=== PATIENT | female | born 1950 | race Caucasian/White ===

== ENCOUNTER 2017-06-03 05:12 | Emergency (ER) | payer OTHER, BC ==
[~2017-06-03] VITALS: Ht 149.9 cm; Wt 70.8 kg
[~2017-06-03 05:12] MED LIST: ASPI81TA28 PO; DICL1GEL28 TOP; DICY10CA55 PO; DVN80 PO; PROB1TAB16 PO; PROM25TA9 PO; ROSU20TA PO; TRIA37.5 PO; ZOLP5TAB PO
[2017-06-03 05:15] VITALS: TEMP 36.3; Ht 149.9 cm; Wt 70.8 kg
[2017-06-03] MEDS ORDERED: MoRPHine SULFATE 4 MG/ML 1 ML CARP\\VIAL IM STA (05:33)
[2017-06-03] MEDS ORDERED: ONDANSETRON 4MG OD TAB PO STA (05:33)
[2017-06-03] MEDS ORDERED: CYCLOBENZAPRINE HCL 5 MG TAB PO STA (05:33)
--- NOTE | 2017-06-03 05:41 | EMERGENCY ROOM VISIT NOTE ---
History Report prepared by Kaylee: Kassandra Napier Under the Supervision of: Dr. Ella Sanches M.D. First contact with patient: 05:20 Chief Complaint: NECK PAIN Stated Complaint: PINCH NERVE/MUSCLE TIGHTNESS IN NECK DOWN ARM History of Present Illness The patient is a 67 year old female who presents to the Emergency Room with complaints of neck pain beginning yesterday. The patient describes the pain as a sharp pain and rates it at a 9/10. She states that the pain radiates to her right arm and believes that it may be a pinched nerve. She denies having chest pain or shortness of breath with the pain. She also denies recent injury. The patient states that 2 months ago she went to see her doctor because she was having trouble with her kidneys and was told her muscles were tight. The patient reports that she takes Ambien to sleep, and medication for her cholesterol and blood pressure. She denies a history of diabetes and states that she is not on blood thinners. Source of History: patient Onset: yesterday Position: neck Symptom Intensity: rated at a 9/10 Quality: sharp Associated Symptoms: No chest pain, No SOB Note: pain also radiates to right arm Review of Systems See HPI for pertinent positives & negatives. A total of 10 systems reviewed and were otherwise negative. Past Medical & Surgical Medical Problems: (1) HLD (hyperlipidemia) (2) HTN (hypertension) (3) Kidney disease Family History Hypertension Social History Smoking Status: Former Smoker Drug Use: none Marital Status: in relationship Housing Status: lives with significant other Occupation Status: employed Current/Historical Medications Scheduled Aspirin (Aspirin Ec), 81 MG PO DAILY Diclofenac Sod (Voltaren 1% Top Gel), 1 APPLN TOP UD Prednisone (Prednisone), 40 MG PO DAILY Probiotic Product (Probiotic), 1 TAB PO DAILY Rosuvastatin Calcium (Crestor), 20 MG PO DAILY Triamterene/Hctz (Dyazide 37.5MG/25MG), 1 TAB PO DAILY Valsartan (Diovan), 80 MG PO DAILY Scheduled PRN Cyclobenzaprine Hcl (Flexeril), 5 MG PO TID PRN for Muscle Spasms Dicyclomine Hcl (Bentyl), 10 MG PO QID PRN for abd pain Promethazine Hcl (Phenergan), 25 MG PO Q6H PRN for Nausea Tramadol (Ultram), 1 TABS PO Q6 PRN for Pain Zolpidem Tartrate (Ambien), 5 MG PO HS PRN for Sleep Allergies Coded Allergies: Acetaminophen (Unverified Allergy, Mild, 05/10/15) Propoxyphene (Unverified Allergy, Mild, 05/10/15) Sulfa Drugs (Unverified Allergy, Mild, 05/10/15) Uncoded Allergies: CODEINE (Adverse Reaction, Unknown, 10/24/02) IODINE (Adverse Reaction, Unknown, 10/24/02) Physical Exam Vital Signs Date Time Temp Pulse Resp B/P (MAP) Pulse Ox O2 Delivery O2 Flow Rate FiO2 06/03/17 06:14 75 18 138/70 97 06/03/17 05:15 36.3 79 20 154/95 95 Room Air Physical Exam Vital signs reviewed. General: Well-appearing female, in no significant distress. HEENT: No scleral icterus, PERRLA, neck supple. Atraumatic. Cardiovascular: Regular rate and rhythm, no extra sounds. Pulmonary: Clear to auscultation bilaterally, normal work of breathing. Abdomen: Soft, nontender, nondistended, positive bowel sounds. Musculoskeletal: Atraumatic, no peripheral edema. Tenderness to palpation over the right trapezius muscle with tenderness over the proximal forearm. Pain is reproducible on exam with muscular tension. Full range of motion of right upper extremity without difficulty. No weakness. Neurologic: Patient awake alert and oriented x 3 Skin: Warm, dry, no rash Medical Decision & Procedures ER Provider Diagnostic Interpretation: Radiology results as stated below per my review and radiologist interpretation: Cervical Spine X-Ray: Degenerative changes of C spine diffusely particularly at C4, C5, C6. No acute fracture or malalignment appreciated. Medications Administered Medications (Trade) Dose Ordered Sig/Agustin Route Start Time Stop Time Status Last Admin Dose Admin Morphine Sulfate (MoRPHine SULFATE INJ) 4 mg NOW STAT IM 06/03/17 05:33 06/03/17 05:37 DC 06/03/17 05:43 4 MG Ondansetron HCl (Zofran Odt) 4 mg NOW STAT PO 06/03/17 05:33 06/03/17 05:37 DC 06/03/17 05:42 4 MG Cyclobenzaprine HCl (Flexeril Tab) 5 mg NOW STAT PO 06/03/17 05:33 06/03/17 05:37 DC 06/03/17 05:42 5 MG Prednisone (PredniSONE TAB) 40 mg NOW STAT PO 06/03/17 05:33 06/03/17 05:37 DC 06/03/17 05:42 40 MG ED Course 0531: Past medical records reviewed. The patient was evaluated in room B11B. A complete history and physical examination was performed. 0533: Ordered Prednisone 40 mg PO, Flexeril Tab 5 mg PO, Zofran Odt 4 mg PO, Morphine Sulfate 4 mg IM. 0605: Upon reevaluation, the patient appeared to have improvement of her symptoms. I discussed findings with her. She verbalized agreement of the treatment plan. She was discharged home. Medical Decision The patient is a 67 year old female who presents to the ED with complaints of neck pain. Differentials include cervical radiculopathy, disc herniation, arthritic change, trauma, and bony fracture. This pt was evaluated and appeared to be in some discomfort. PE is c/w cervical radiculopathy and muscular tension. She denies CP or SOB. Pt was carrying laundry baskets today and likely aggravated her neck. Cervical spine XR reveals significant degenerative changes to my interpretation, no acute fx or malalignment. She was given IM morphine, po prednisone, po zofran and po flexeril. Pt was feeling improved. Her s/o arrived and drove her home. She was given a Rx for flexeril, prednisone and tramadol for pain. Pt was given a work note per her request. She will f/u with PCP this week and return to the ED for worsening of symptoms or any medical concerns. Medication Reconcilliation Current Medication List: was personally reviewed by me Blood Pressure Screening Patient's blood pressure: Elevated blood pressure Blood pressure disposition: Elevated BP felt to be situational Impression Primary Impression: DDD (degenerative disc disease), cervical Additional Impression: Cervical radiculopathy Scribe Attestation The scribe's documentation has been prepared under my direction and personally reviewed by me in its entirety. I confirm that the note above accurately reflects all work, treatment, procedures, and medical decision making performed by me. Departure Information Dispostion Home / Self-Care Prescriptions Tramadol (Ultram) 50 Mg Tab 1 TABS PO Q6 Y for Pain, #20 TAB Prov: Ella Sanches M.D. 06/03/17 Cyclobenzaprine Hcl (FLEXERIL) 5 Mg Tab 5 MG PO TID Y for Muscle Spasms, #20 TAB Prov: Ella Sanches M.D. 06/03/17 Prednisone (Prednisone) 20 Mg Tab 40 MG PO DAILY, #8 TAB Prov: Ella Sanches M.D. 06/03/17 Referrals No Doctor, Assigned (PCP) Forms HOME CARE DOCUMENTATION FORM, IMPORTANT VISIT INFORMATION, WORK / SCHOOL INSTRUCTIONS Patient Instructions My [facility] Additional Instructions Diagnosis: Degenerative disc disease, cervical radiculopathy Prednisone 40 mg daily for 4 more days, start tomorrow Flexeril 5 mg 3 times daily as needed for muscular spasm. Ultram 50 mg every 6 hours as needed for pain. Do not drive after taking the above medications. Warm compresses and gentle stretching. Return to the ER for worsening of symptoms or any medical concerns. Problem Qualifiers
[2017-06-03] MEDS ORDERED: CYCL5TAB PO (06:07)
[2017-06-03] MEDS ORDERED: PRED20TA PO (06:07)
[2017-06-03] MEDS ORDERED: TRAM-10 PO (06:07)
[2017-06-03 06:14] VITALS: BP 138/70; PULSE 75; O2SAT 97
--- NOTE | 2017-06-03 06:32 | DIAGNOSTIC IMAGING REPORT ---
C-SPINE ROUTINE 4 OR 5 VIEWS CLINICAL HISTORY: right radiculopathy COMPARISON STUDY: Neck radiographs September 20, 2012. FINDINGS: There is slight reversal of the normal cervical lordosis and minimal retrolisthesis of C4 on C5 and C5 on C6. There is moderate disc space narrowing at C4-C5 and C5-C6. There is mild disc space narrowing at C5-C6. [id number] multilevel bony neural foraminal narrowing is noted. There is no fracture or suspicious lesion. IMPRESSION: 1. No cervical spine fracture. 2. Moderate disc space narrowing and osteophytosis at C4-C5 and C5-C6. [id number] multilevel bony neural foraminal narrowing. Electronically signed by: Trung Luis M.D. 06/03/2017 6:31 AM Dictated Date/Time: 06/03/2017 6:30 AM
== END 2017-06-03 06:02 | disposition home or self-care (01) ==
LOC: C.EDB 05:14
DX: M50.11 Cervical disc disorder with radiculopathy, high cervical region (principal); M50.121 Cervical disc disorder at C4-C5 level with radiculopathy; M50.122 Cervical disc disorder at C5-C6 level with radiculopathy; E11.9 Type 2 diabetes mellitus without complications; E78.5 Hyperlipidemia, unspecified; I10 Essential (primary) hypertension; N28.9 Disorder of kidney and ureter, unspecified; Z82.49 Family history of ischemic heart disease and other diseases of the circulatory system; Z87.891 Personal history of nicotine dependence; Z79.82 Long term (current) use of aspirin; Z79.899 Other long term (current) drug therapy; Z88.2 Allergy status to sulfonamides; Z88.5 Allergy status to narcotic agent; Z88.6 Allergy status to analgesic agent; Z88.8 Allergy status to other drugs, medicaments and biological substances

== ENCOUNTER 2019-08-10 15:22 | Inpatient (IN) ==
[2019-08-10] MEDS ORDERED: ONDANSETRON INJ 2 MG/ML 2 ML VIAL IV STA (15:42)
[2019-08-10] MEDS ORDERED: SODIUM CHLORIDE 0.9% 1000ML 2,000 ML IV ONE (15:42)
[2019-08-10] MEDS ORDERED: ACETAMINOPHEN 1,000 MG/100 ML VIAL IV STA (15:43)
--- NOTE | 2019-08-10 15:47 | Emergency Department Note ---
Impression & Plan Colitis, Enteritis, Acute hypokalemia, Acute dehydration ED Provider Note Provider: Steven Hunt MD DATE OF SERVICE: 08/10/2019 CHIEF COMPLAINT: Abdominal pain HISTORY OF PRESENT ILLNESS: Patient is a 69-year-old female with a history of hyperlipidemia, CKD, and hypertension presenting today with complaints of diarrhea with some fever and abdominal discomfort started with diarrhea 4 days ago and then some nausea and vomiting today. Referred from [facility] work today concern for diverticulitis. Patient relays a history of lymphocytic colitis about 5 years ago. Rating 3 out of 10 abdominal pain. Has not tried any medicines at home for pain today. Afebrile upon arrival. No trauma reported. Denies other sick contacts. Denies suspect food intake. States this is worse than prior pain that seems different. Denies any blood in the vomit or the stool. Multiple episodes of watery diarrhea for the last 4 days. States she feels quite thirsty. REVIEW OF SYSTEMS: A total of 10 review of systems was obtained and negative except as stated above in the HPI. PAST MEDICAL HISTORY: As noted above MEDICATIONS: Reviewed and includes aspirin, Crestor, triamterene hydrochlorothi azide SOCIAL HISTORY: Non-smoker, lives at home with friend PHYSICAL EXAM: GENERAL: alert and oriented in no acute distress on stretcher Head: normocephalic and atraumatic EYES: No injection, discharge or icterus. ENT: Mucous membranes pink and moist. LUNGS: Airway patent. No retractions. Breath sounds clear with good air entry bilaterally. HEART: Regular rate and rhythm. No chest wall tenderness ABDOMEN: Soft with some slight mid abdominal tenderness. No particular masses appreciated. No significant lower abdominal tenderness. SKIN: Acyanotic, warm, dry, without rashes EXTREMITIES: Without swelling, tenderness or deformity NEUROLOGICAL: No focal deficits. No aphasia. No facial droop or slurred speech. Ambulatory. EKG: Sinus tachycardia 119 bpm. No PVC. No acute ST segment elevation or depression. Nonspecific inferior lateral T wave flattening. Normal QTC and axis. CONTINUOUS CARDIAC MONITORING: was ordered and showed a heart rate of 118 bpm in sinus tachycardia Patient's hypertension was referred to the hospitalist PDMP was checked without noted issue. HOSPITAL COURSE: 1534 Patient was first seen and H&P performed. 1720 Patient reassessed and updated. Patient was just receiving her IV fluid hydration and Zofran. Updated on findings agree for observation plan. 1741 discussed with the [facility] hospitalist, Naomi ANTONY who will further evaluate. Patient's laboratory studies and imaging reviewed. Differential includes Appendicitis, infections, diverticulitis, UTI, obstruction, mesenteric ischemia, aortic pathology, inflammatory bowel disease, renal colic, PUD, pancreatitis, biliary pathology, hernia, volvulus, constipation, as well as other pathologies. IMPRESSION/MEDICAL DECISION MAKING: Patient reports 4 days of watery diarrhea with some mid abdominal discomfort now with nausea and vomiting today. Mildly tachycardic and likely mildly de hydrated. Given IV fluid hydration. Fevers reported at home but afebrile upon arrival here. No use of OTC pain meds/antipyretics prior to arrival here today. Abdomen mild to moderately tender. CT scan of the abdomen pelvis will be obtained. Patient states iodine has discolored her skin before but denies other significant reaction. EKG obtained as well as troponin of the lower suspicion is acute ACS. Stool culture ordered. Doubt the C. difficile colitis and no recent antibiotics. Labs to exclude hepatitis and pancreatitis were sent. Doubt this is pulmonary in nature. No sick contacts at home and no recent travel or suspect food intake. Laboratory studies do show leukocytosis of 19.6. No anemia noted. Patient does have hypo-kalemia of 2.7 with a worsened renal function with creatinine 1.61. Troponin is negative. No evidence of pancreatitis or hepatitis. Given the renal change CT scan without IV contrast ordered. CT scan shows colon filled diarrheal type illness of the cecum and ascending colon with mild stranding suggestive of mild colitis and enteritis. Reactive lymph nodes are noted. No evidence of pneumonia, pneumoperitoneum, pneumatosis. Given the patient's complaints, her leukocytosis, hypokalemia, her dehydrated state believe further observation here in the hospital is warranted. Given additional IV fluids and potassium repletion. [facility] Given the recent diarrheal state and these findings, dose of Cipro and Flagyl was ordered. DIAGNOSIS: Colitis, hypokalemia, dehydration, enteritis DISPOSITION: Observation, hospitalist evaluating Patient was agreeable with this plan. Past Med/Surg History Medical History Chronic back pain CKD (chronic kidney disease), stage III HLD (hyperlipidemia) HTN (hypertension) Lymphocytic colitis Migraines SALAS (nonalcoholic steatohepatitis) RADHA on CPAP Osteoarthritis Surgical History S/P left knee arthroscopy Family History Father Heart disease Social History Preferred Language: Luxembourgish Communication Ability: Effective Beliefs That Will Affect Care: None Current Living Situation: Other Current Living Situation Comment: lives with friend Other Information That Helps Us Care for You: Yes (incontinent of stool, would like brief) Feels Safe at Home: Yes Safety Concerns: Feels Safe At This Time Smoking Status: Former smoker Do You Dip or Chew Tobacco: No ; Smoking End Date: 2008 ; Hx Alcohol Use: No Hx Substance Use: No Allergies Allergies Allergy/AdvReac Type Severity Reaction Status Date / Time propoxyphene Allergy Mild Unknown Verified 08/10/19 16:44 Sulfa (Sulfonamide Allergy Mild Unknown Verified 08/10/19 16:44 Antibiotics) iodine Allergy Unknown Unknown Verified 08/10/19 16:44 codeine AdvReac Unknown Unknown Verified 08/10/19 16:44 Home Meds Home Medications Medication Instructions Recorded Confirmed omeprazole 40 mg PO DAILY 03/06/18 08/10/19 potassium chloride 20 meq PO BID 03/06/18 08/10/19 rosuvastatin 20 mg PO DAILY 03/06/18 08/10/19 triamterene-hydrochlorothiazid 2 tab PO DAILY 03/06/18 08/10/19 zolpidem 5 mg PO HS PRN 03/06/18 08/10/19 cyclobenzaprine 5 mg PO TID PRN 02/09/19 08/10/19 gabapentin 300 mg PO BID PRN 02/09/19 08/10/19 dicyclomine 10 mg PO QID PRN 08/10/19 08/10/19 meclizine 25 mg PO TID PRN 08/10/19 08/10/19 Results & Data (ED) Vital Signs Vital Signs - 24 hr 08/10/19 15:28 08/10/19 17:22 Temperature 37.1 C Temperature Source Oral Pulse Rate 125 H Pulse Rate [Apical] 111 H Respiratory Rate 20 18 Respiratory Effort / Characteristics Non-Labored Spontaneous Non-Labored Spontaneous Respiratory Depth Normal Normal Respiratory Pattern Regular Blood Pressure 139/79 Blood Pressure [Left Arm] 147/82 H Blood Pressure Mean 99 Blood Pressure Mean [Left Arm] 103 Blood Pressure Position Sitting Blood Pressure Position [Left Arm] Lying Pulse Oximetry 92 93 Oxygen Delivery Method Room Air Room Air Sepsis Recent Fever Within 48 Hours No Sepsis New/Unexplained Change in Mental Status No Sepsis Action Taken by Nursing No Action Required Laboratory Data Result diagrams: 08/10/19 16:13 08/10/19 16:13 Lab Results 08/10/19 08/10/19 08/10/19 Range/Units 16:13 16:13 16:13 WBC 19.61 H (4.8-10.8) K/uL RBC 5.39 (4.2-5.4) M/uL Hgb 16.4 H (12.0-16.0) g/dL Hct 46.7 (37-47) % MCV 86.6 (80-100) fL MCH 30.4 (25-34) pg MCHC 35.1 (32-36) g/dL RDW Std Deviation 45.1 (36.4-46.3) fL RDW Coeff of Rivas 14.3 (11.5-14.5) % Plt Count 269 (130-400) K/uL MPV 10.3 (7.4-10.4) fL Immature Gran % (Auto) 0.4 % Neut % (Auto) 85.9 % Lymph % (Auto) 6.8 % [place] % (Auto) 6.8 % Eos % (Auto) 0.0 % Baso % (Auto) 0.1 % Immature Gran # (Auto) 0.08 H (0.00-0.02) K/uL Neut # (Auto) 16.85 H (1.4-6.5) K/uL Lymph # (Auto) 1.33 (1.2-3.4) K/uL [place] # (Auto) 1.34 H (0.11-0.59) K/uL Eos # (Auto) 0.00 (0-0.5) K/uL Baso # (Auto) 0.01 (0-0.2) K/uL Sodium 137 (136-145) mmol/L Potassium 2.7 L (3.5-5.1) mmol/L Chloride 101 (98-107) mmol/L Carbon Dioxide 23 (21-32) mmol/L Anion Gap 14.0 H (3-11) BUN 22 H (7-18) mg/dl Creatinine 1.61 H (0.6-1.2) mg/dl Est Cr Clr Drug Dosing 30.3 ml/min Est GFR ( Amer) 37.7 Est GFR (Non-Af Amer) 32.5 BUN/Creatinine Ratio 13.5 (10-20) Glucose 129 H (70-99) mg/dl Calcium 9.0 (8.5-10.1) mg/dl Magnesium 2.0 (1.8-2.4) mg/dl Total Bilirubin 0.6 (0.2-1) mg/dl AST 24 (15-37) U/L ALT 30 (12-78) U/L Alkaline Phosphatase 92 (45-117) U/L Troponin I < 0.015 (0-0.045) ng/ml C-Reactive Protein 15.30 H (0-0.29) mg/dl Total Protein 8.5 H (6.4-8.2) gm/dl Albumin 3.8 (3.4-5.0) gm/dl Globulin 4.7 H (2.5-4.0) gm/dl Albumin/Globulin Ratio 0.8 L (0.9-2) Lipase 71 L (73-393) U/L Stl C. diff Tox B Gene (Neg) 08/10/19 Range/Units 17:30 WBC (4.8-10.8) K/uL RBC (4.2-5.4) M/uL Hgb (12.0-16.0) g/dL Hct (37-47) % MCV (80-100) fL MCH (25-34) pg MCHC (32-36) g/dL RDW Std Deviation (36.4-46.3) fL RDW Coeff of Rivas (11.5-14.5) % Plt Count (130-400) K/uL MPV (7.4-10.4) fL Immature Gran % (Auto) % Neut % (Auto) % Lymph % (Auto) % [place] % (Auto) % Eos % (Auto) % Baso % (Auto) % Immature Gran # (Auto) (0.00-0.02) K/uL Neut # (Auto) (1.4-6.5) K/uL Lymph # (Auto) (1.2-3.4) K/uL [place] # (Auto) (0.11-0.59) K/uL Eos # (Auto) (0-0.5) K/uL Baso # (Auto) (0-0.2) K/uL Sodium (136-145) mmol/L Potassium (3.5-5.1) mmol/L Chloride (98-107) mmol/L Carbon Dioxide (21-32) mmol/L Anion Gap (3-11) BUN (7-18) mg/dl Creatinine (0.6-1.2) mg/dl Est Cr Clr Drug Dosing ml/min Est GFR ( Amer) Est GFR (Non-Af Amer) BUN/Creatinine Ratio (10-20) Glucose (70-99) mg/dl Calcium (8.5-10.1) mg/dl Magnesium (1.8-2.4) mg/dl Total Bilirubin (0.2-1) mg/dl AST (15-37) U/L ALT (12-78) U/L Alkaline Phosphatase (45-117) U/L Troponin I (0-0.045) ng/ml C-Reactive Protein (0-0.29) mg/dl Total Protein (6.4-8.2) gm/dl Albumin (3.4-5.0) gm/dl Globulin (2.5-4.0) gm/dl Albumin/Globulin Ratio (0.9-2) Lipase (73-393) U/L Stl C. diff Tox B Gene Negative Cdiff Gene (Neg) Administered Medications Dicyclomine HCl (Bentyl) 10 mg PO QID PRN PRN Reason: Abdominal Pain Stop: 09/09/19 19:35 Last Admin: 08/10/19 20:21 Dose: 10 mg Documented by: [id number] Admin: 08/10/19 20:20 Dose: 10 mg Documented by: [id number] Heparin Sodium (Porcine) (Heparin Sodium (Porcine)) 5,000 units SQ Q8 ALEXY Stop: 09/09/19 21:59 Last Admin: 08/10/19 22:43 Dose: 5,000 units Documented by: [id number] Cosigned by: [id number] Sodium Chloride (Nss 1000ml) 1,000 mls @ 125 mls/hr IV .Q8H ALEXY Stop: 09/09/19 19:35 Last Admin: 08/10/19 20:22 Dose: 125 mls/hr Documented by: [id number] Zolpidem Tartrate (Ambien) 5 mg PO HS PRN PRN Reason: Sleep Stop: 09/09/19 21:14 Last Admin: 08/10/19 22:26 Dose: 5 mg Documented by: [id number] Discontinued Medications Ciprofloxacin (Cipro) 500 mg PO NOW STA Stop: 08/10/19 17:28 Last Admin: 08/10/19 17:58 Dose: 500 mg Documented by: [id number] Sodium Chloride (Nss 1000ml) 2,000 mls @ 999 mls/hr IV .Q2H1M ONE Stop: 08/10/19 17:42 Last Infusion: 08/10/19 19:47 Dose: 0 mls/hr Documented by: [id number] Admin: 08/10/19 17:22 Dose: 999 mls/hr Documented by: [id number] Acetaminophen (Ofirmev) 1,000 mg in 100 mls @ 400 mls/hr IV NOW STA Stop: 08/10/19 15:57 Last Infusion: 08/10/19 17:43 Dose: 0 mls/hr Documented by: [id number] Admin: 08/10/19 17:22 Dose: 400 mls/hr Documented by: [id number] Potassium Chloride (K Jignesh / Wtr) 10 meq in 100 mls @ 100 mls/hr IV ONE ONE Stop: 08/10/19 18:25 Last Infusion: 08/10/19 19:46 Dose: 0 mls/hr Documented by: [id number] Admin: 08/10/19 17:59 Dose: 100 mls/hr Documented by: [id number] Metronidazole (Flagyl) 500 mg PO NOW STA Stop: 08/10/19 17:28 Last Admin: 08/10/19 17:58 Dose: 500 mg Documented by: [id number] Ondansetron HCl (Zofran) 4 mg IV NOW STA Stop: 08/10/19 15:43 Last Admin: 08/10/19 17:22 Dose: 4 mg Documented by: [id number] Potassium Chloride (Klor-Con M20) 40 meq PO ONE ONE Stop: 08/10/19 19:01 Last Admin: 08/10/19 20:21 Dose: 40 meq Documented by: [id number] Potassium Chloride (Klor-Con M20) 40 meq PO ONE ONE Stop: 08/10/19 21:01 Last Admin: 08/10/19 22:43 Dose: 40 meq Documented by: [id number] Discharge Plan Visit Data *Final* Discharge Date/Time: 08/10/19 19:05 Chief Complaint: Abdominal Pain Stated Complaint: ABD PAIN, DIARRHEA FOR 3 DAYS ED Provider: Steven Hunt Discharge Problem: Colitis, Enteritis, Acute hypokalemia, Acute dehydration Patient Disposition: Admitted As Inpatient Condition: Good Discharge Instructions Interventions: ED Discharge Assessment Last Done: 08/10/19 19:05
[2019-08-10 16:20] LABS: Basophils # (auto) 0.01 K/uL (0-0.2); Basophils % (auto) 0.1 %; Hematocrit (blood only) 46.7 % (37-47); Hemoglobin 16.4 g/dL (12.0-16.0); Immature Granulocytes # (auto) 0.08 K/uL (0.00-0.02); Immature Granulocytes % (auto) 0.4 %; Lymphocytes # (auto) 1.33 K/uL (1.2-3.4); Lymphocytes % (auto) 6.8 %; Mean Corpuscular Hemoglobin 30.4 pg (25-34); Mean Corpuscular Hgb Conc 35.1 g/dL (32-36); Mean Corpuscular Volume 86.6 fL (80-100); Mean Platelet Volume 10.3 fL (7.4-10.4); Monocytes # (auto) 1.34 K/uL (0.11-0.59); Monocytes % (auto) 6.8 %; Neutrophils # (auto) 16.85 K/uL (1.4-6.5); Neutrophils % (auto) 85.9 %; Platelet Count 269 K/uL (130-400); RDW Coefficient of Variation 14.3 % (11.5-14.5); RDW Standard Deviation 45.1 fL (36.4-46.3); Red Blood Count 5.39 M/uL (4.2-5.4); White Blood Count 19.61 K/uL (4.8-10.8)
[2019-08-10 16:37] LABS: Alanine Aminotransferase 30 U/L (12-78); Albumin Level 3.8 gm/dl (3.4-5.0); Aspartate Aminotransferase 24 U/L (15-37); BUN Creatinine Ratio 13.5 (10-20); Blood Urea Nitrogen 22 mg/dl (7-18); Carbon Dioxide 23 mmol/L (21-32); Chloride 101 mmol/L (98-107); Creatinine Clr Calc Pharmacy 30.3 ml/min; Est GFR (African American) 37.7; Est GFR (Non-African American) 32.5; Glucose 129 mg/dl (70-99); Lipase 71 U/L (73-393); Potassium 2.7 mmol/L (3.5-5.1); Sodium 137 mmol/L (136-145)
[2019-08-10 16:42] LABS: Albumin Globulin Ratio 0.8 (0.9-2); Alkaline Phosphatase 92 U/L (45-117); Bilirubin,Total 0.6 mg/dl (0.2-1); Globulin 4.7 gm/dl (2.5-4.0); Total Protein 8.5 gm/dl (6.4-8.2); Troponin I < 0.015 ng/ml (0-0.045)
--- NOTE | 2019-08-10 17:13 | CT Scan Report ---
ABDOMEN AND PELVIS CT WITHOUT CONTRAST CT DOSE: 522.20 mGy.cm HISTORY: Acute epigastric abdominal pain with diarrhea abd pain, epigastric , n/diarrhea TECHNIQUE: Multiaxial CT images of the abdomen and pelvis were performed without contrast. A dose lo wering technique was utilized adhering to the principles of ALARA. COMPARISON STUDY: Lumbar spine radiographs 07/21/2015 FINDINGS: Minimal subsegmental bibasilar atelectasis. No pneumatosis or pneumoperitoneum. Coronary artery calci fications. Limited evaluation of the solid abdominal organs without the use of IV contrast. Thin the limitations of the study the spleen and adrenal glands are unremarkable. Mild generalized pancreatic atrophy. Unremarkable gallbladder. Hepatomegaly with hepatic steatosis. The kidneys appear unremarkab le. There is a 1.6 cm hypodense lesion of the anterior interpolar right kidney suggestive of a probab le cyst. No renal or ureteral calculi or obstructive uropathy. Unremarkable urinary bladder, uterus a nd adnexa. Extensive calcified plaque of the abdominal aorta without aneurysm. Scattered nonenlarged however mildly prominent mesenteric lymph nodes measure up to 9 mm. Mild nonspecific stranding of the lower and central mesentery. No bowel obstruction. Air and fluid-filled colon. Mild colonic diverticulosis without acute diverticu litis. There is wall thickening involving the cecum and ascending colon. Nonspecific mild layering hy perdense debris is noted within the cecum. Fluid-filled loops of nondilated distal ileum. Soft tissue s are unremarkable. Degenerative changes of the spine, pelvis and hips. Remote bilateral L5 pars defe cts with grade 1 anterolisthesis. IMPRESSION: 1. No bowel obstruction, pneumoperitoneum or pneumatosis. 2. Air and fluid-filled colon compatible with diarrheal illness. Additionally, there is wall thickeni ng of the cecum and ascending colon with mild pericolonic stranding suggestive of a nonspecific colit is. Nondilated air and fluid-filled loops of small bowel within the pelvis suggest associated enterit is. 3. Prominent lymph nodes of the mid and lower mesentery with mild mesenteric infiltration may be on a reactive basis. 4. Hepatomegaly with hepatic steatosis. 5. Additional findings as above. ACT 112: Negative or not required by law. The above report was generated using voice recognition software. It may contain grammatical, syntax o r spelling errors. Electronically signed by: Lorenzo Zabala M.D. 08/10/2019 5:12 PM
[2019-08-10] MEDS ORDERED: POTASSIUM CHLORIDE / WTR 10 MEQ/100 ML PLCT IV ONE (17:26)
[2019-08-10] MEDS ORDERED: metroNIDAZOLE 500 MG TAB PO STA (17:27)
[2019-08-10] MEDS ORDERED: CIPROFLOXACIN 500 MG TAB PO STA (17:27)
[2019-08-10] MEDS ORDERED: POTASSIUM CHLORIDE 20 MEQ TABCR PO ONE ×2 (19:00→21:00)
--- NOTE | 2019-08-10 19:16 | History & Physical Report ---
Date of Service August 10, 2019 Assessment & Plan (1) Sepsis: (2) Colitis: -Admit to [facility] with telemetry -Patient presenting from home with reports of diarrhea and epigastric abdominal pain x 3 days -hx of lymphocytic colitis in 2014; follow-up colonoscopy in 2017, biopsies negative -In the ED, tachycardic, WBC 19.6K; BP stable, afebrile, lactate pending -CT ABD/pelvis showing nonspecific colitis -S/p p.o. Cipro and Flagyl in the ED, will continue with IV Cipro and Flagyl -Continue supportive care with IVF, pain management, clear liquid diet -Blood cultures, stool studies -GI consult given history of lymphocytic colitis (3) Acute kidney injury superimposed on CKD: (4) CKD (chronic kidney disease), stage III: -Creatinine 1.6, baseline creatinine runs in the low ones -Likely prerenal in nature secondary to diarrhea in combination with continue triamterene/HCTZ use -IVF, hold HCTZ -Follow renal function (5) Acute hypokalemia: -K+ 2.7, MG +2.0 -Likely due to GI loss with diarrhea -Replace, follow electrolytes (6) HTN (hypertension): -BP controlled, holding triamterene/HCTZ as above (7) HLD (hyperlipidemia): -Continue statin (8) RADHA on CPAP: -CPAP as per home settings (9) DVT prophylaxis: -SQ heparin History of Present Illness Chief Complaint: Abdominal pain, diarrhea Primary Care Provider: Unruly Jennings MD 69-year-old female with PMH HLD, HTN, CKD stage III, RADHA, and other problems listed below who presents the ED for evaluation of abdominal pain and diarrhea. Patient reports her symptoms began 3 days ago. She reports multiple episodes of diarrhea per day. She denies any bright red bleeding per rectum or dark tarry stools. She reports persistent epigastric pain. No radiation of the pain. She has had associated nausea and one episode of vomiting today. Describes emesis is bilious in nature. No hematemesis or coffee-ground emesis. Reports running low-grade fevers of 99-100. No sick contacts or suspected food poisoning. Denies chest pain shortness of breath. No lightheadedness, dizziness, diaphoresis, syncopal events. She denies any urinary symptoms. In the ED, CT ABD/pelvis is showing nonspecific colitis. Labs show WBC 19 K, K+ 2.7, creatinine 1.6 (baseline runs in the low ones). Patient was given p.o. Cipro and Flagyl, IV Tylenol, IV Zofran, IV potassium replacement, IVF. Allergies Allergy/AdvReac Type Severity Reaction Status Date / Time propoxyphene Allergy Mild Unknown Verified 08/10/19 16:44 Sulfa (Sulfonamide Allergy Mild Unknown Verified 08/10/19 16:44 Antibiotics) iodine Allergy Unknown Unknown Verified 08/10/19 16:44 codeine AdvReac Unknown Unknown Verified 08/10/19 16:44 Home Medications Home Medications Medication Instructions Recorded Confirmed Type omeprazole 40 mg PO DAILY 03/06/18 08/10/19 History potassium chloride 20 meq PO BID 03/06/18 08/10/19 History rosuvastatin 20 mg PO DAILY 03/06/18 08/10/19 History triamterene-hydrochlorothiazid 2 tab PO DAILY 03/06/18 08/10/19 History zolpidem 5 mg PO HS PRN 03/06/18 08/10/19 History cyclobenzaprine 5 mg PO TID PRN 02/09/19 08/10/19 History gabapentin 300 mg PO BID PRN 02/09/19 08/10/19 History dicyclomine 10 mg PO QID PRN 08/10/19 08/10/19 History meclizine 25 mg PO TID PRN 08/10/19 08/10/19 History Past Med/Surg History Medical History Chronic back pain CKD (chronic kidney disease), stage III HLD (hyperlipidemia) HTN (hypertension) Lymphocytic colitis Migraines SALAS (nonalcoholic steatohepatitis) RADHA on CPAP Osteoarthritis Surgical History S/P left knee arthroscopy Family History Father Heart disease Social History Preferred Language: Tristanian Communication Ability: Effective Beliefs That Will Affect Care: None Current Living Situation: Other Current Living Situation Comment: lives with friend Other Information That Helps Us Care for You: Yes (incontinent of stool, would like brief) Feels Safe at Home: Yes Safety Concerns: Feels Safe At This Time Smoking Status: Former smoker Do You Dip or Chew Tobacco: No ; Smoking End Date: 2008 ; Hx Alcohol Use: No Hx Substance Use: No Review of Systems Review of Systems: ROS per HPI, all other systems reviewed and negative Physical Exam Constitutional: WD/WN, vitals as above Eyes: PERRL, conjunctivae normal, anicteric sclerae ENMT: external ear and nose normal, oropharynx normal Respiratory: normal respiratory effort, lungs clear to auscultation Cardiovascular: Rate/Rhythm: regular rhythm and + tachycardic (Mildly tachycardic, 90s to low 100s) Vessels: normal peripheral pulses Extremities: no edema Gastrointestinal (Abdomen): Inspection/Auscultation: normal bowel sounds Percussion/Palpation: + abdomen tender (Epigastric) and abdomen soft; no hepatosplenomegaly Musculoskeletal: no cyanosis or clubbing, extremities motor strength 5/5 Skin: no rashes, warm and dry Neurologic: PERRL, EOMI, accommodation nl, no face palsy, no dysarthria Psychiatric: A+Ox3, euthymic affect Results & Data Results & Data ([facility]) Vital Signs (Past 12 Hours) Vital Signs Temp Pulse Pulse Resp BP BP Pulse Ox 08/10/19 17:22 111 H 18 147/82 H 93 08/10/19 15:28 37.1 C 125 H 20 139/79 92 Laboratory Results Short CBC 08/10/19 Range/Units 16:13 WBC 19.61 H (4.8-10.8) K/uL Hgb 16.4 H (12.0-16.0) g/dL Hct 46.7 (37-47) % Plt Count 269 (130-400) K/uL BMP 08/10/19 16:13 Sodium 137 Potassium 2.7 L Chloride 101 Carbon Dioxide 23 BUN 22 H Creatinine 1.61 H Glucose 129 H Calcium 9.0 Cardiac Enzymes 08/10/19 Range/Units 16:13 Troponin I < 0.015 (0-0.045) ng/ml Liver Function 08/10/19 Range/Units 16:13 Total Bilirubin 0.6 (0.2-1) mg/dl AST 24 (15-37) U/L ALT 30 (12-78) U/L Alkaline Phosphatase 92 (45-117) U/L Albumin 3.8 (3.4-5.0) gm/dl Diagnostic Findings CT ABD/PELVIS IMPRESSION: 1. No bowel obstruction, pneumoperitoneum or pneumatosis. 2. Air and fluid-filled colon compatible with diarrheal illness. Additionally, there is wall thickening of the cecum and ascending colon with mild pericolonic stranding suggestive of a nonspecific colitis. Nondilated air and fluid-filled loops of small bowel within the pelvis suggest associated enteritis. 3. Prominent lymph nodes of the mid and lower mesentery with mild mesenteric infiltration may be on a reactive basis. 4. Hepatomegaly with hepatic steatosis. 5. Additional findings as above. Code Status & VTE Plan VTE Prophylaxis Plan VTE Prophylaxis will be ordered: Yes Supervising Physician Co-Signing Physician Notes Pt was seen and examined. Agreed with Damaris WALDRON exam, assessment and plan. 9-year-old female with PMH HLD, HTN, CKD stage III, RADHA, and other problems listed below who presents the ED for evaluation of abdominal pain and diarrhea. Pt said that she has been having abdominal pain associated with diarrhea. She said that whenever she eats or drink that she had to torres to the bathroom due to the diarrhea. CT abd/pelvis showed aiir and fluid-filled colon compatible with diarrheal illness. Additionally, there is wall thickening of the cecum and ascending colon with mild pericolonic stranding suggestive of a nonspecific colitis. Nondilated air and fluid-filled loops of small bowel within the pelvis suggest associated enteritis. Potassium on admission 2.7. Received Cipro and Flagyl PO on admission, will continue abx with IV cipro and flagyl. Potassium replaced. Conitnue IVF fluid. GI consult. Follow up blood cx and stool cx. Will monitor electrolytes. Will advance diet as tolerated. MD Nevin
[2019-08-10] MEDS ORDERED: SODIUM CHLORIDE 0.9% 1000ML 1,000 ML IV SCH (19:36)
[2019-08-10] MEDS: DICYCLOMINE HCL 10 MG CAP PO PRN ×2 (20:20→20:21)
[2019-08-10] MEDS: ZOLPIDEM TARTRATE 5 MG TAB PO PRN (22:26)
[2019-08-10] MEDS: HEPARIN SOD 5,000 UNIT/0.5 ML VIAL SQ SCH (22:43)
[2019-08-10] MEDS ORDERED: POTASSIUM CHLORIDE 20 MEQ TABCR PO STA (23:40)
[2019-08-10] MEDS ORDERED: POTASSIUM CHLORIDE 40 MEQ in SODIUM CHLORIDE 0.9% 1000ML 1,000 ML IV ONE (23:41)
[2019-08-11] MEDS ORDERED: TRAMADOL HCL 50 MG TABLET PO PRN (00:33)
[2019-08-11] MEDS: LOPERAMIDE HCL 2 MG CAP PO PRN ×3 (01:21→13:43)
[2019-08-11] MEDS: metroNIDAZOLE 500 MG/100 ML BAG IV SCH ×3 (02:38→18:03)
[2019-08-11 06:07] LABS: Hematocrit (blood only) 41.1 % (37-47); Hemoglobin 13.9 g/dL (12.0-16.0); Mean Corpuscular Hemoglobin 29.8 pg (25-34); Mean Corpuscular Hgb Conc 33.8 g/dL (32-36); Mean Platelet Volume 10.5 fL (7.4-10.4); Platelet Count 207 K/uL (130-400); RDW Coefficient of Variation 14.7 % (11.5-14.5); RDW Standard Deviation 47.3 fL (36.4-46.3); Red Blood Count 4.67 M/uL (4.2-5.4)
[2019-08-11] MEDS: CIPROFLOXACIN / D5W 400 MG/200 ML BAG IV SCH ×2 (06:10→18:03)
[2019-08-11] MEDS: HEPARIN SOD 5,000 UNIT/0.5 ML VIAL SQ SCH ×3 (06:10→22:15)
[2019-08-11 06:32] LABS: BUN Creatinine Ratio 13.1 (10-20); Calcium 8.1 mg/dl (8.5-10.1); Creatinine Clr Calc Pharmacy 33.3 ml/min; Est GFR (African American) 43.1; Est GFR (Non-African American) 37.2; Potassium 2.7 mmol/L (3.5-5.1)
[2019-08-11] MEDS: PANTOprazole 40 MG TAB PO SCH (08:04)
[2019-08-11] MEDS: ROSUVASTATIN CALCIUM 20 MG TAB PO SCH (08:04)
--- NOTE | 2019-08-11 08:30 | Hospitalist Progress Note ---
Date of Service August 11, 2019 Assessment & Plan (1) Sepsis: (2) Colitis: -Patient presenting from home with reports of diarrhea and epigastric abdominal pain x 3 days -hx of lymphocytic colitis in 2014; follow-up colonoscopy in 2017, biopsies negative -In the ED, tachycardic, WBC 19.6K; BP stable, afebrile, lactate pending -CT ABD/pelvis showing nonspecific colitis -S/p p.o. Cipro and Flagyl in the ED, will continue with IV Cipro and Flagyl -Continue supportive care with IVF, pain management, clear liquid diet -Blood cultures, stool studies - C. diff negative -GI consult given history of lymphocytic colitis -recommend to continue current Abx regimen and outpt colonoscopy -currently WBC down to 11K, lactate wnl, abdominal pain much improved/resolved (3) Acute kidney injury superimposed on CKD: (4) CKD (chronic kidney disease), stage III: -Creatinine 1.6, baseline creatinine runs in the low ones -Likely prerenal in nature secondary to diarrhea in combination with continue triamterene/HCTZ use -IVF, hold HCTZ -Follow renal function (5) Acute hypokalemia: -K+ 2.7, MG +2.0 -Likely due to GI loss with diarrhea -Replace, follow electrolytes - despite replacement K 2.7 again this AM (08/10), replace with PO and IV K, follow up BMP this PM (6) HTN (hypertension): -BP controlled, holding triamterene/HCTZ as above (7) HLD (hyperlipidemia): -Continue statin (8) RADHA on CPAP: -CPAP as per home settings (9) DVT prophylaxis: -SQ heparin Admission and Anticipated Discharge Date Admission Date: August 10, 2019 Subjective Pt is sitting up in bed in NAD. Continues to have frequent loose stools. Denies any chest pain, shortness of breath. Says that her abdominal pain much improved, almost resolved. On cipro and flagyl. Seen by GI, recommend to continue current regimen, and colonoscopy as outpt. Review of Systems Review of Systems: All systems reviewed & are unremarkable except as noted in HPI & below Constitutional: + fever; no chills Respiratory: no cough and no dyspnea Cardiovascular: no chest pain and no palpitations Gastrointestinal: + abdominal pain (only mild, mostly resolved) and + diarrhea/loose stools; no nausea and no vomiting Genitourinary: no dysuria Physical Exam Physical Exam: Constitutional: elderly female lying in bed, WD/WN, vitals as above, in NAD Eyes: PERRL, conjunctivae normal, anicteric sclerae ENMT: external ear and nose normal, oropharynx normal Respiratory: normal respiratory effort, lungs clear to auscultation b/l, no wheezing, rhonchi, crackles Cardiovascular: Rate/Rhythm: regular rhythm and + tachycardic (mildly tachycardic, 90s to low 100s) Vessels: normal peripheral pulses Extremities: no edema Gastrointestinal (Abdomen): Inspection/Auscultation: normal bowel sounds Percussion/Palpation: abdomen soft, nontender to palpation, mild distention Musculoskeletal: no cyanosis or clubbing, extremities motor strength 5/5, moves extremities spontaneously Skin: no rashes, warm and dry Neurologic: PERRL, EOMI, accommodation nl, no face palsy, no dysarthria Psychiatric: A+Ox3, euthymic affect Results & Data Results & Data ([facility]) Vital Signs (Past 12 Hours) Vital Signs Temp Pulse Pulse Resp BP Pulse Ox 08/11/19 07:00 36.9 C 103 H 18 98/59 L 92 08/11/19 04:00 36.5 C 101 H 20 131/76 92 08/11/19 02:55 98 H 18 94 08/11/19 01:15 95 H 08/10/19 23:00 36.3 C L 96 H 20 130/78 97 Laboratory Results 08/11/19 08/11/19 08/10/19 Range/Units 05:44 05:44 23:01 WBC 11.60 H (4.8-10.8) K/uL RBC 4.67 (4.2-5.4) M/uL Hgb 13.9 (12.0-16.0) g/dL Hct 41.1 (37-47) % MCV 88.0 (80-100) fL MCH 29.8 (25-34) pg MCHC 33.8 (32-36) g/dL RDW Std Deviation 47.3 H (36.4-46.3) fL RDW Coeff of Rivas 14.7 H (11.5-14.5) % Plt Count 207 (130-400) K/uL MPV 10.5 H (7.4-10.4) fL Immature Gran % (Auto) % Neut % (Auto) % Lymph % (Auto) % Stone % (Auto) % Eos % (Auto) % Baso % (Auto) % Immature Gran # (Auto) (0.00-0.02) K/uL Neut # (Auto) (1.4-6.5) K/uL Lymph # (Auto) (1.2-3.4) K/uL Stone # (Auto) (0.11-0.59) K/uL Eos # (Auto) (0-0.5) K/uL Baso # (Auto) (0-0.2) K/uL Sodium 139 (136-145) mmol/L Potassium 2.7 L 3.1 L (3.5-5.1) mmol/L Chloride 104 (98-107) mmol/L Carbon Dioxide 27 (21-32) mmol/L Anion Gap 8.0 (3-11) BUN 19 H (7-18) mg/dl Creatinine 1.44 H (0.6-1.2) mg/dl Est Cr Clr Drug Dosing 33.3 ml/min Est GFR ( Amer) 43.1 Est GFR (Non-Af Amer) 37.2 BUN/Creatinine Ratio 13.1 (10-20) Glucose 117 H (70-99) mg/dl Lactate (0.4-2.0) mmol/L Calcium 8.1 L (8.5-10.1) mg/dl Magnesium (1.8-2.4) mg/dl Total Bilirubin (0.2-1) mg/dl AST (15-37) U/L ALT (12-78) U/L Alkaline Phosphatase (45-117) U/L Troponin I (0-0.045) ng/ml C-Reactive Protein (0-0.29) mg/dl Total Protein (6.4-8.2) gm/dl Albumin (3.4-5.0) gm/dl Globulin (2.5-4.0) gm/dl Albumin/Globulin Ratio (0.9-2) Lipase (73-393) U/L Stl C. diff Tox B Gene (Neg) 08/10/19 08/10/19 08/10/19 Range/Units 19:57 17:30 16:13 WBC (4.8-10.8) K/uL RBC (4.2-5.4) M/uL Hgb (12.0-16.0) g/dL Hct (37-47) % MCV (80-100) fL MCH (25-34) pg MCHC (32-36) g/dL RDW Std Deviation (36.4-46.3) fL RDW Coeff of Rivas (11.5-14.5) % Plt Count (130-400) K/uL MPV (7.4-10.4) fL Immature Gran % (Auto) % Neut % (Auto) % Lymph % (Auto) % Stone % (Auto) % Eos % (Auto) % Baso % (Auto) % Immature Gran # (Auto) (0.00-0.02) K/uL Neut # (Auto) (1.4-6.5) K/uL Lymph # (Auto) (1.2-3.4) K/uL Stone # (Auto) (0.11-0.59) K/uL Eos # (Auto) (0-0.5) K/uL Baso # (Auto) (0-0.2) K/uL Sodium (136-145) mmol/L Potassium (3.5-5.1) mmol/L Chloride (98-107) mmol/L Carbon Dioxide (21-32) mmol/L Anion Gap (3-11) BUN (7-18) mg/dl Creatinine (0.6-1.2) mg/dl Est Cr Clr Drug Dosing ml/min Est GFR ( Amer) Est GFR (Non-Af Amer) BUN/Creatinine Ratio (10-20) Glucose (70-99) mg/dl Lactate 1.6 (0.4-2.0) mmol/L Calcium (8.5-10.1) mg/dl Magnesium (1.8-2.4) mg/dl Total Bilirubin (0.2-1) mg/dl AST (15-37) U/L ALT (12-78) U/L Alkaline Phosphatase (45-117) U/L Troponin I (0-0.045) ng/ml C-Reactive Protein 15.30 H (0-0.29) mg/dl Total Protein (6.4-8.2) gm/dl Albumin (3.4-5.0) gm/dl Globulin (2.5-4.0) gm/dl Albumin/Globulin Ratio (0.9-2) Lipase (73-393) U/L Stl C. diff Tox B Gene Negative Cdiff Gene (Neg) 08/10/19 08/10/19 Range/Units 16:13 16:13 WBC 19.61 H (4.8-10.8) K/uL RBC 5.39 (4.2-5.4) M/uL Hgb 16.4 H (12.0-16.0) g/dL Hct 46.7 (37-47) % MCV 86.6 (80-100) fL MCH 30.4 (25-34) pg MCHC 35.1 (32-36) g/dL RDW Std Deviation 45.1 (36.4-46.3) fL RDW Coeff of Rivas 14.3 (11.5-14.5) % Plt Count 269 (130-400) K/uL MPV 10.3 (7.4-10.4) fL Immature Gran % (Auto) 0.4 % Neut % (Auto) 85.9 % Lymph % (Auto) 6.8 % Stone % (Auto) 6.8 % Eos % (Auto) 0.0 % Baso % (Auto) 0.1 % Immature Gran # (Auto) 0.08 H (0.00-0.02) K/uL Neut # (Auto) 16.85 H (1.4-6.5) K/uL Lymph # (Auto) 1.33 (1.2-3.4) K/uL Stone # (Auto) 1.34 H (0.11-0.59) K/uL Eos # (Auto) 0.00 (0-0.5) K/uL Baso # (Auto) 0.01 (0-0.2) K/uL Sodium 137 (136-145) mmol/L Potassium 2.7 L (3.5-5.1) mmol/L Chloride 101 (98-107) mmol/L Carbon Dioxide 23 (21-32) mmol/L Anion Gap 14.0 H (3-11) BUN 22 H (7-18) mg/dl Creatinine 1.61 H (0.6-1.2) mg/dl Est Cr Clr Drug Dosing 30.3 ml/min Est GFR ( Amer) 37.7 Est GFR (Non-Af Amer) 32.5 BUN/Creatinine Ratio 13.5 (10-20) Glucose 129 H (70-99) mg/dl Lactate (0.4-2.0) mmol/L Calcium 9.0 (8.5-10.1) mg/dl Magnesium 2.0 (1.8-2.4) mg/dl Total Bilirubin 0.6 (0.2-1) mg/dl AST 24 (15-37) U/L ALT 30 (12-78) U/L Alkaline Phosphatase 92 (45-117) U/L Troponin I < 0.015 (0-0.045) ng/ml C-Reactive Protein (0-0.29) mg/dl Total Protein 8.5 H (6.4-8.2) gm/dl Albumin 3.8 (3.4-5.0) gm/dl Globulin 4.7 H (2.5-4.0) gm/dl Albumin/Globulin Ratio 0.8 L (0.9-2) Lipase 71 L (73-393) U/L Stl C. diff Tox B Gene (Neg) Medications Administered Current Inpatient Medications Acetaminophen (Tylenol) 650 mg PO Q4H PRN PRN Reason: pain/fever Stop: 09/09/19 19:35 Dicyclomine HCl (Bentyl) 10 mg PO QID PRN PRN Reason: Abdominal Pain Stop: 09/09/19 19:35 Last Admin: 08/10/19 20:21 Dose: 10 mg Documented by: Heparin Sodium (Porcine) (Heparin Sodium (Porcine)) 5,000 units SQ Q8 ALEXY Stop: 09/09/19 21:59 Last Admin: 08/11/19 06:10 Dose: 5,000 units Documented by: Ciprofloxacin (Cipro) 400 mg in 200 mls @ 100 mls/hr IV Q12H ALEXY; Protocol Stop: 08/21/19 05:59 Last Admin: 08/11/19 06:10 Dose: 100 mls/hr Documented by: Metronidazole (Flagyl) 500 mg in 100 mls @ 100 mls/hr IV Q8H ALEXY; Protocol Stop: 08/21/19 01:59 Last Infusion: 08/11/19 03:51 Dose: Infused Documented by: Potassium Chloride 40 meq/ (Sodium Chloride) 1,020 mls @ 60 mls/hr IV .Q17H ONE Stop: 08/11/19 16:40 Last Admin: 08/11/19 01:20 Dose: 60 mls/hr Documented by: Potassium Chloride (K Jignesh / Wtr) 10 meq in 100 mls @ 100 mls/hr IV Q1H STA Stop: 08/11/19 09:24 Loperamide HCl (Imodium) 2 mg PO Q3H PRN PRN Reason: Diarrhea Stop: 09/10/19 00:30 Last Admin: 08/11/19 01:21 Dose: 2 mg Documented by: Pantoprazole Sodium (Protonix) 40 mg PO DAILY ALEXY; Protocol Stop: 09/10/19 08:59 Last Admin: 08/11/19 08:04 Dose: 40 mg Documented by: Potassium Chloride (Klor-Con M20) 40 meq PO NOW STA Stop: 08/11/19 08:28 Rosuvastatin Calcium (Crestor) 20 mg PO DAILY ALEXY Stop: 09/10/19 08:59 Last Admin: 08/11/19 08:04 Dose: 20 mg Documented by: Tramadol HCl (Ultram) 25 - 50 mg PO Q4H PRN PRN Reason: Pain Stop: 09/10/19 00:32 Last Admin: 08/11/19 01:21 Dose: 50 mg Documented by: Zolpidem Tartrate (Ambien) 5 mg PO HS PRN PRN Reason: Sleep Stop: 09/09/19 21:14 Last Admin: 08/10/19 22:26 Dose: 5 mg Documented by:
[2019-08-11] MEDS ORDERED: POTASSIUM CHLORIDE 20 MEQ TABCR PO STA (08:31)
[2019-08-11] MEDS: POTASSIUM CHLORIDE / WTR 10 MEQ/100 ML PLCT IV SCH ×4 (09:07→12:20)
--- NOTE | 2019-08-11 09:08 | Gastrointestinal Consultation ---
Date of Consultation August 11, 2019 Assessment & Plan (1) Diarrhea: Patient admitted with an acute diarrheal illness resulting in renal insufficiency and volume depletion the patient did appear to improve significantly with empiric use of broad-spectrum antibiotics in addition to dehydration which supports an infectious etiology. I would recommend that stool cultures and C. difficile studies be performed in this patient. We would recommend a follow-up evaluation with a colonoscopy in about 8 to 12 weeks when she is recovered from this acute illness. Recommendations Advance diet as tolerated 7-day course of ciprofloxacin Await stool studies which include a culture and C. difficile PCR Outpatient colonoscopy in 8 to 12 weeks Call with any questions or concerns as the patient is improving we will sign off History of Present Illness Reason for Consultation: Diarrhea Attending Physician: Catarino Garcia MD History of Present Illness 69 year-old female with PMH HLD, HTN, CKD stage III, RADHA, who presents the ED on 09/10/19 for evaluation of abdominal pain and diarrhea. Patient reports her symptoms began 4-5 days ago. She reports having bowel movements almost every hours associated with cramping, gas, and urgency. She denies any bright red bleeding per rectum or dark tarry stools. She also reports persistent mid- epigastric pain which has improved since admition. She has had associated nausea and one episode of bilious emesis on Tuesday. She also reports running low-grade fevers of 99-100. No sick contacts or suspected food poisoning. Denies chest pain shortness of breath. No lightheadedness, dizziness, diaphoresis, syncopal events. She denies any urinary symptoms. Overall the patient notes that she seems to be improved today compared to admission. Her past GI history is notable for lymphocytic colitis diagnosed over 5 years ago. She did have a follow-up colonoscopy about 2 years ago which showed no evidence of lymphocytic colitis on pathology results. Allergies Allergy/AdvReac Type Severity Reaction Status Date / Time iodine Allergy Mild skin Verified 08/10/19 23:14 discoloration propoxyphene Allergy Mild Unknown Verified 08/10/19 16:44 Sulfa (Sulfonamide Allergy Mild Unknown Verified 08/10/19 16:44 Antibiotics) codeine AdvReac Unknown Unknown Verified 08/10/19 16:44 Home Medications Home Medications Medication Instructions Recorded Confirmed Type omeprazole 40 mg PO DAILY 03/06/18 08/10/19 History potassium chloride 20 meq PO BID 03/06/18 08/10/19 History rosuvastatin 20 mg PO DAILY 03/06/18 08/10/19 History triamterene-hydrochlorothiazid 2 tab PO DAILY 03/06/18 08/10/19 History zolpidem 5 mg PO HS PRN 03/06/18 08/10/19 History cyclobenzaprine 5 mg PO TID PRN 02/09/19 08/10/19 History gabapentin 300 mg PO BID PRN 02/09/19 08/10/19 History dicyclomine 10 mg PO QID PRN 08/10/19 08/10/19 History meclizine 25 mg PO TID PRN 08/10/19 08/10/19 History Patient History Medical History Chronic back pain CKD (chronic kidney disease), stage III HLD (hyperlipidemia) HTN (hypertension) Lymphocytic colitis Migraines SALAS (nonalcoholic steatohepatitis) RADHA on CPAP Osteoarthritis Surgical History S/P left knee arthroscopy Family History Father Heart disease Social History Preferred Language: Pashto Communication Ability: Effective Shipping Coordinator Required: No Beliefs That Will Affect Care: None Current Living Situation: Significant Other Current Living Situation Comment: lives with friend Other Information That Helps Us Care for You: No Feels Safe at Home: Yes Safety Concerns: Feels Safe At This Time Smoking Status: Never smoker Do You Dip or Chew Tobacco: No ; Smoking End Date: 2008 ; Hx Alcohol Use: No Hx Substance Use: No Review of Systems Constitutional: + fever; no chills, no sweats and no malaise Eyes: no diplopia Ear, Nose, Mouth, Throat: no ear trauma Respiratory: no cough, no change in sputum and no dyspnea Cardiovascular: no chest pain with activity Gastrointestinal: + bloating, + nausea and + cramping; no hematemesis Genitourinary: no urinary frequency Neurologic: no falls Psychiatric: no hopelessness Endocrine: no polydipsia Hematologic / Lymphatic: no coagulopathy Physical Exam Constitutional: well nourished; no acute distress and not ill appearing Eyes: PERRL, conjunctivae normal, anicteric sclerae Neck: trachea midline, no thyromegaly Respiratory: normal respiratory effort, lungs clear to auscultation Cardiovascular: RRR, no murmur, no edema Gastrointestinal (Abdomen): Inspection/Auscultation: abdomen normal to inspection; abdomen not distended Percussion/Palpation: abdomen soft; abdomen nontender Skin: no rashes, warm and dry Neurologic: no focal motor deficits Results & Data ([facility]) Vital Signs (Past 12 Hours) Vital Signs Temp Pulse Pulse Resp BP Pulse Ox 08/11/19 07:00 36.9 C 103 H 18 98/59 L 92 08/11/19 04:00 36.5 C 101 H 20 131/76 92 08/11/19 02:55 98 H 18 94 08/11/19 01:15 95 H 08/10/19 23:00 36.3 C L 96 H 20 130/78 97 Laboratory Results Laboratory Results - last 24 hr 08/10/19 08/10/19 08/10/19 16:13 16:13 16:13 WBC 19.61 H RBC 5.39 Hgb 16.4 H Hct 46.7 MCV 86.6 MCH 30.4 MCHC 35.1 RDW Std Deviation 45.1 RDW Coeff of Rivas 14.3 Plt Count 269 MPV 10.3 Immature Gran % (Auto) 0.4 Neut % (Auto) 85.9 Lymph % (Auto) 6.8 [place] % (Auto) 6.8 Eos % (Auto) 0.0 Baso % (Auto) 0.1 Immature Gran # (Auto) 0.08 H Neut # (Auto) 16.85 H Lymph # (Auto) 1.33 [place] # (Auto) 1.34 H Eos # (Auto) 0.00 Baso # (Auto) 0.01 Sodium 137 Potassium 2.7 L Chloride 101 Carbon Dioxide 23 Anion Gap 14.0 H BUN 22 H Creatinine 1.61 H Est Cr Clr Drug Dosing 30.3 Est GFR ( Amer) 37.7 Est GFR (Non-Af Amer) 32.5 BUN/Creatinine Ratio 13.5 Glucose 129 H Lactate Calcium 9.0 Phosphorus Magnesium 2.0 Total Bilirubin 0.6 AST 24 ALT 30 Alkaline Phosphatase 92 Troponin I < 0.015 C-Reactive Protein 15.30 H Total Protein 8.5 H Albumin 3.8 Globulin 4.7 H Albumin/Globulin Ratio 0.8 L Lipase 71 L Stl C. diff Tox B Gene 08/10/19 08/10/19 08/10/19 17:30 19:57 23:01 WBC RBC Hgb Hct MCV MCH MCHC RDW Std Deviation RDW Coeff of Rivas Plt Count MPV Immature Gran % (Auto) Neut % (Auto) Lymph % (Auto) [place] % (Auto) Eos % (Auto) Baso % (Auto) Immature Gran # (Auto) Neut # (Auto) Lymph # (Auto) [place] # (Auto) Eos # (Auto) Baso # (Auto) Sodium Potassium 3.1 L Chloride Carbon Dioxide Anion Gap BUN Creatinine Est Cr Clr Drug Dosing Est GFR ( Amer) Est GFR (Non-Af Amer) BUN/Creatinine Ratio Glucose Lactate 1.6 Calcium Phosphorus Magnesium Total Bilirubin AST ALT Alkaline Phosphatase Troponin I C-Reactive Protein Total Protein Albumin Globulin Albumin/Globulin Ratio Lipase Stl C. diff Tox B Gene Negative Cdiff Gene 08/11/19 08/11/19 08/11/19 05:44 05:44 05:44 WBC 11.60 H RBC 4.67 Hgb 13.9 Hct 41.1 MCV 88.0 MCH 29.8 MCHC 33.8 RDW Std Deviation 47.3 H RDW Coeff of Rivas 14.7 H Plt Count 207 MPV 10.5 H Immature Gran % (Auto) Neut % (Auto) Lymph % (Auto) [place] % (Auto) Eos % (Auto) Baso % (Auto) Immature Gran # (Auto) Neut # (Auto) Lymph # (Auto) [place] # (Auto) Eos # (Auto) Baso # (Auto) Sodium 139 Potassium 2.7 L Chloride 104 Carbon Dioxide 27 Anion Gap 8.0 BUN 19 H Creatinine 1.44 H Est Cr Clr Drug Dosing 33.3 Est GFR ( Amer) 43.1 Est GFR (Non-Af Amer) 37.2 BUN/Creatinine Ratio 13.1 Glucose 117 H Lactate Calcium 8.1 L Phosphorus 2.6 Magnesium 2.1 Total Bilirubin AST ALT Alkaline Phosphatase Troponin I C-Reactive Protein Total Protein Albumin Globulin Albumin/Globulin Ratio Lipase Stl C. diff Tox B Gene Diagnostic Findings ABDOMEN AND PELVIS CT WITHOUT CONTRAST CT DOSE: 522.20 mGy.cm HISTORY: Acute epigastric abdominal pain with diarrhea abd pain, epigastric , n/diarrhea TECHNIQUE: Multiaxial CT images of the abdomen and pelvis were performed without contrast. A dose lowering technique was utilized adhering to the principles of ALARA. COMPARISON STUDY: Lumbar spine radiographs 07/21/2015 FINDINGS: Minimal subsegmental bibasilar atelectasis. No pneumatosis or pneumoperitoneum. Coronary artery calcifications. Limited evaluation of the solid abdominal organs without the use of IV contrast. Thin the limitations of the study the spleen and adrenal glands are unremarkable. Mild generalized pancreatic atrophy. Unremarkable gallbladder. Hepatomegaly with hepatic steatosis. The kidneys appear unremarkable. There is a 1.6 cm hypodense lesion of the anterior interpolar right kidney suggestive of a probable cyst. No renal or ureteral calculi or obstructive uropathy. Unremarkable urinary bladder, uterus and adnexa. Extensive calcified plaque of the abdominal aorta without aneurysm. Scattered nonenlarged however mildly prominent mesenteric lymph nodes measure up to 9 mm. Mild nonspecific stranding of the lower and central mesentery. No bowel obstruction. Air and fluid-filled colon. Mild colonic diverticulosis without acute diverticulitis. There is wall thickening involving the cecum and ascending colon. Nonspecific mild layering hyperdense debris is noted within the cecum. Fluid-filled loops of nondilated distal ileum. Soft tissues are unremarkable. Degenerative changes of the spine, pelvis and hips. Remote bilateral L5 pars defects with grade 1 anterolisthesis. IMPRESSION: 1. No bowel obstruction, pneumoperitoneum or pneumatosis. 2. Air and fluid-filled colon compatible with diarrheal illness. Additionally, there is wall thickening of the cecum and ascending colon with mild pericolonic stranding suggestive of a nonspecific colitis. Nondilated air and fluid-filled loops of small bowel within the pelvis suggest associated enteritis. 3. Prominent lymph nodes of the mid and lower mesentery with mild mesenteric infiltration may be on a reactive basis. 4. Hepatomegaly with hepatic steatosis. 5. Additional findings as above.
[2019-08-11 09:29] LABS: Magnesium 2.1 mg/dl (1.8-2.4); Phosphorus 2.6 mg/dl (2.5-4.9)
[2019-08-11] MEDS ORDERED: POTASSIUM CHLORIDE 20 MEQ TABCR PO ONE (10:00)
[2019-08-11] MEDS: ACETAMINOPHEN 325 MG TAB PO PRN (11:49)
--- NOTE | 2019-08-11 12:00 | Electrocardiogram Report ---
Test Reason : Blood Pressure : / mmHG Vent. Rate : 119 BPM Atrial Rate : 119 BPM P-R Int : 122 ms QRS Dur : 082 ms QT Int : 286 ms P-R-T Axes : 040 042 -08 degrees QTc Int : 402 ms Sinus tachycardia Nonspecific ST and T wave abnormality Abnormal ECG When compared with ECG of 08-FEB-2019 22:31, Vent. rate has increased BY 40 BPM Nonspecific T wave abnormality, worse in Inferior leads Nonspecific T wave abnormality now evident in Anterolateral leads Confirmed by Pilo Ervin ([id number]) on 08/11/2019 12:00:15 PM Referred By: REFERRED SELF Confirmed By:Pilo Ervin
--- NOTE | 2019-08-11 12:08 | XRay Report ---
XR chest 1V portable HISTORY: fever, cough COMPARISON: Chest 02/08/2019. FINDINGS: No pneumothorax. No pleural effusions. The heart is normal in size. The left lung is clear. Faint patchy airspace opacity within the lateral right lung base. IMPRESSION: There is a faint patchy airspace opacity within the right lateral lung base suspicious for pneumonia. This could represent a viral process. ACT 112: Negative or not required by law. Electronically signed by: Jim Palencia M.D. 08/11/2019 12:06 PM
[2019-08-11 16:42] LABS: BUN Creatinine Ratio 12.9 (10-20); Calcium 7.6 mg/dl (8.5-10.1); Creatinine Clr Calc Pharmacy 38.4 ml/min; Est GFR (African American) 51.2; Est GFR (Non-African American) 44.2; Potassium 3.6 mmol/L (3.5-5.1)
[2019-08-11] MEDS: DICYCLOMINE HCL 10 MG CAP PO PRN (16:48)
[2019-08-11] MEDS: ZOLPIDEM TARTRATE 5 MG TAB PO PRN (22:16)
[2019-08-12] MEDS: metroNIDAZOLE 500 MG/100 ML BAG IV SCH ×3 (01:00→17:31)
[2019-08-12] MEDS: HEPARIN SOD 5,000 UNIT/0.5 ML VIAL SQ SCH ×3 (05:19→21:25)
[2019-08-12] MEDS: CIPROFLOXACIN / D5W 400 MG/200 ML BAG IV SCH ×2 (05:20→17:32)
[2019-08-12] MEDS: LOPERAMIDE HCL 2 MG CAP PO PRN (05:39)
[2019-08-12] MEDS: DICYCLOMINE HCL 10 MG CAP PO PRN ×2 (05:52→12:17)
[2019-08-12 06:32] LABS: Appearance Urine Cloudy (Clear); Bacteria Urine Automated Negative (Negative); Bilirubin Urine Negative (Negative); Blood Urine Trace (Negative); Color Urine Dark Yellow; Epithelial Cell Urine Auto 20-30 /lpf (0-5); Glucose Urine UA Negative (Negative); Ketones Urine Negative (Negative); Leukocyte Esterase Urine 1+ (Negative); Nitrite Urine Negative (Negative); Protein Urine Negative (Negative); Specific Gravity Urine 1.023 (1.000-1.030); Urobilinogen Urine Negative (Negative)
[2019-08-12 07:13] LABS: Hematocrit (blood only) 35.9 % (37-47); Hemoglobin 11.8 g/dL (12.0-16.0); Mean Corpuscular Hemoglobin 29.2 pg (25-34); Mean Corpuscular Hgb Conc 32.9 g/dL (32-36); Mean Corpuscular Volume 88.9 fL (80-100); Mean Platelet Volume 10.6 fL (7.4-10.4); Platelet Count 199 K/uL (130-400); RDW Coefficient of Variation 14.8 % (11.5-14.5); Red Blood Count 4.04 M/uL (4.2-5.4); White Blood Count 9.72 K/uL (4.8-10.8)
[2019-08-12 07:38] LABS: BUN Creatinine Ratio 10.6 (10-20); Calcium 7.9 mg/dl (8.5-10.1); Creatinine Clr Calc Pharmacy 40.9 ml/min; Est GFR (African American) 54.9; Est GFR (Non-African American) 47.4; Potassium 3.2 mmol/L (3.5-5.1)
[2019-08-12 07:52] LABS: Phosphorus 1.4 mg/dl (2.5-4.9)
[2019-08-12] MEDS ORDERED: POTASSIUM PHOS 3 MMOL/1 ML INFUSION IV STA (07:56)
--- NOTE | 2019-08-12 08:00 | Hospitalist Progress Note ---
Date of Service August 12, 2019 Assessment & Plan (1) Sepsis: (2) Colitis: Campylobacter jejuni colitis -Patient presenting from home with reports of diarrhea and epigastric abdominal pain x 3 days -hx of lymphocytic colitis in 2014; follow-up colonoscopy in 2017, biopsies negative -In the ED, tachycardic, WBC 19.6K; BP stable, afebrile, lactate pending -CT ABD/pelvis showing nonspecific colitis -S/p p.o. Cipro and Flagyl in the ED, will continue with IV Cipro and Flagyl -Continue supportive care with IVF, pain management, clear liquid diet -Blood cultures - negative -stool studies - positive for Campylobacter jejuni - C. diff negative - -GI consult given history of lymphocytic colitis -recommend to continue current Abx regimen and outpt colonoscopy -currently WBC down to 9.7 K, lactate wnl, abdominal pain much improved/resolved (3) Acute kidney injury superimposed on CKD: (4) CKD (chronic kidney disease), stage III: -Creatinine 1.6, baseline creatinine runs in the low ones -Likely prerenal in nature secondary to diarrhea in combination with continue triamterene/HCTZ use -IVF, hold HCTZ -Follow renal function - current Cr 1.18, resolved (5) Acute hypokalemia: -Potassium 2.7, Mag 2.0 on admission -Likely due to GI loss with diarrhea -Replace, follow electrolytes -Continues to be hypokalemic Hypophosphatemia -Phos 1.4 this a.m. -Secondary to poor p.o. intake, diarrhea and IV fluids -Replace and monitor (6) HTN (hypertension): -BP controlled, holding triamterene/HCTZ as above (7) HLD (hyperlipidemia): -Continue statin (8) RADHA on CPAP: -CPAP as per home settings (9) DVT prophylaxis: -SQ heparin Admission and Anticipated Discharge Date Admission Date: August 10, 2019 Subjective BRIDGET resolved Hemoglobin down, likely due to IV fluids Stool cltx -positive for Campylobacter jejuni. No acute is overnight. Patient is lying in bed, comfortable, says she is feeling much better, amount of bowel movements decreased. Hypophosphatemic, hypokalemic. Review of Systems Review of Systems: All systems reviewed & are unremarkable except as noted in HPI & below Constitutional: no fever and no chills Respiratory: no cough and no dyspnea Cardiovascular: no chest pain, no dyspnea on exertion and no palpitations Gastrointestinal: + diarrhea/loose stools (improved); no abdominal pain, no nausea and no vomiting Physical Exam Physical Exam: Constitutional: elderly female lying in bed, WD/WN, vitals as above, in NAD Eyes: PERRL, conjunctivae normal, anicteric sclerae ENMT: external ear and nose normal, oropharynx normal Respiratory: normal respiratory effort, lungs clear to auscultation b/l, no wheezing, rhonchi, crackles Cardiovascular: Rate/Rhythm: regular rhythm, Vessels: normal peripheral pulses Extremities: no edema Gastrointestinal (Abdomen): Inspection/Auscultation: normal bowel sounds Percussion/Palpation: abdomen soft, nontender to palpation, mild distention Musculoskeletal: no cyanosis or clubbing, extremities motor strength 5/5, moves extremities spontaneously Skin: no rashes, warm and dry Neurologic: PERRL, EOMI, accommodation nl, no face palsy, no dysarthria Psychiatric: A+Ox3, euthymic affect Results & Data Results & Data ([facility]) Vital Signs (Past 12 Hours) Vital Signs Temp Pulse Pulse Resp BP Pulse Ox 08/12/19 07:00 37.4 C 93 H 18 114/60 92 08/12/19 03:33 96 H 20 93 08/12/19 03:00 36.9 C 98 H 20 118/73 92 08/12/19 01:08 100 H 08/11/19 23:00 37.3 C 98 H 20 116/72 91 08/11/19 22:46 99 H 16 95 Laboratory Results 08/12/19 08/12/19 08/12/19 Range/Units 06:47 06:47 06:14 WBC 9.72 (4.8-10.8) K/uL RBC 4.04 L (4.2-5.4) M/uL Hgb 11.8 L (12.0-16.0) g/dL Hct 35.9 L (37-47) % MCV 88.9 (80-100) fL MCH 29.2 (25-34) pg MCHC 32.9 (32-36) g/dL RDW Std Deviation 48.0 H (36.4-46.3) fL RDW Coeff of Rivas 14.8 H (11.5-14.5) % Plt Count 199 (130-400) K/uL MPV 10.6 H (7.4-10.4) fL Sodium 140 (136-145) mmol/L Potassium 3.2 L (3.5-5.1) mmol/L Chloride 106 (98-107) mmol/L Carbon Dioxide 25 (21-32) mmol/L Anion Gap 9.0 (3-11) BUN 13 (7-18) mg/dl Creatinine 1.18 (0.6-1.2) mg/dl Est Cr Clr Drug Dosing 40.9 ml/min Est GFR ( Amer) 54.9 Est GFR (Non-Af Amer) 47.4 BUN/Creatinine Ratio 10.6 (10-20) Glucose 105 H (70-99) mg/dl Calcium 7.9 L (8.5-10.1) mg/dl Phosphorus 1.4 L* D (2.5-4.9) mg/dl Magnesium 2.0 (1.8-2.4) mg/dl Urine Color Dark Yellow Urine Appearance Cloudy A (Clear) Urine pH 5.0 (4.5-7.5) Ur Specific [place] 1.023 (1.000-1.030) Urine Protein Negative (Negative) Urine Glucose (UA) Negative (Negative) Urine Ketones Negative (Negative) Urine Blood Trace H (Negative) Urine Nitrite Negative (Negative) Urine Bilirubin Negative (Negative) Urine Urobilinogen Negative (Negative) Ur Leukocyte Esterase 1+ H (Negative) Urine WBC (Auto) 1-5 (0-5) /hpf Urine RBC (Auto) 5-10 H (0-4) /hpf U Hyaline Cast (Auto) 1-5 (0-5) /lpf U Epithel Cells (Auto) 20-30 H (0-5) /lpf Urine Bacteria (Auto) Negative (Negative) COVID-19 PCR (Negative) 08/11/19 08/11/19 08/11/19 Range/Units 16:14 12:00 05:44 WBC (4.8-10.8) K/uL RBC (4.2-5.4) M/uL Hgb (12.0-16.0) g/dL Hct (37-47) % MCV (80-100) fL MCH (25-34) pg MCHC (32-36) g/dL RDW Std Deviation (36.4-46.3) fL RDW Coeff of Rivas (11.5-14.5) % Plt Count (130-400) K/uL MPV (7.4-10.4) fL Sodium 142 (136-145) mmol/L Potassium 3.6 D (3.5-5.1) mmol/L Chloride 109 H (98-107) mmol/L Carbon Dioxide 24 (21-32) mmol/L Anion Gap 9.0 (3-11) BUN 16 (7-18) mg/dl Creatinine 1.25 H (0.6-1.2) mg/dl Est Cr Clr Drug Dosing 38.4 ml/min Est GFR ( Amer) 51.2 Est GFR (Non-Af Amer) 44.2 BUN/Creatinine Ratio 12.9 (10-20) Glucose 89 (70-99) mg/dl Calcium 7.6 L (8.5-10.1) mg/dl Phosphorus 2.6 (2.5-4.9) mg/dl Magnesium 2.1 (1.8-2.4) mg/dl Urine Color Urine Appearance (Clear) Urine pH (4.5-7.5) Ur Specific [place] (1.000-1.030) Urine Protein (Negative) Urine Glucose (UA) (Negative) Urine Ketones (Negative) Urine Blood (Negative) Urine Nitrite (Negative) Urine Bilirubin (Negative) Urine Urobilinogen (Negative) Ur Leukocyte Esterase (Negative) Urine WBC (Auto) (0-5) /hpf Urine RBC (Auto) (0-4) /hpf U Hyaline Cast (Auto) (0-5) /lpf U Epithel Cells (Auto) (0-5) /lpf Urine Bacteria (Auto) (Negative) COVID-19 PCR NEGATIVE (Negative) Medications Administered Current Inpatient Medications Acetaminophen (Tylenol) 650 mg PO Q4H PRN PRN Reason: pain/fever Stop: 09/09/19 19:35 Last Admin: 08/11/19 11:49 Dose: 650 mg Documented by: Dicyclomine HCl (Bentyl) 10 mg PO QID PRN PRN Reason: Abdominal Pain Stop: 09/09/19 19:35 Last Admin: 08/12/19 05:52 Dose: 10 mg Documented by: Heparin Sodium (Porcine) (Heparin Sodium (Porcine)) 5,000 units SQ Q8 ALEXY Stop: 09/09/19 21:59 Last Admin: 08/12/19 05:19 Dose: 5,000 units Documented by: Ciprofloxacin (Cipro) 400 mg in 200 mls @ 100 mls/hr IV Q12H ALEXY; Protocol Stop: 08/21/19 05:59 Last Admin: 08/12/19 05:20 Dose: 100 mls/hr Documented by: Metronidazole (Flagyl) 500 mg in 100 mls @ 100 mls/hr IV Q8H ALEXY; Protocol Stop: 08/21/19 01:59 Last Infusion: 08/12/19 02:04 Dose: Infused Documented by: Loperamide HCl (Imodium) 2 mg PO Q3H PRN PRN Reason: Diarrhea Stop: 09/10/19 00:30 Last Admin: 08/12/19 05:39 Dose: 2 mg Documented by: Pantoprazole Sodium (Protonix) 40 mg PO DAILY [facility]; Protocol Stop: 09/10/19 08:59 Last Admin: 08/11/19 08:04 Dose: 40 mg Documented by: Potassium Chloride (Klor-Con M20) 40 meq PO NOW STA Stop: 08/12/19 07:58 Potassium Phosphate (Potassium Phosphate Replace) 30 mmol IV NOW STA Stop: 08/12/19 07:57 Rosuvastatin Calcium (Crestor) 20 mg PO DAILY [facility] Stop: 09/10/19 08:59 Last Admin: 08/11/19 08:04 Dose: 20 mg Documented by: Tramadol HCl (Ultram) 25 - 50 mg PO Q4H PRN PRN Reason: Pain Stop: 09/10/19 00:32 Last Admin: 08/11/19 01:21 Dose: 50 mg Documented by: Zolpidem Tartrate (Ambien) 5 mg PO HS PRN PRN Reason: Sleep Stop: 09/09/19 21:14 Last Admin: 08/11/19 22:16 Dose: 5 mg Documented by:
[2019-08-12] MEDS ORDERED: POTASSIUM CHLORIDE 20 MEQ TABCR PO STA ×3 (08:05→18:26)
[2019-08-12] MEDS: ROSUVASTATIN CALCIUM 20 MG TAB PO SCH (08:17)
[2019-08-12] MEDS: PANTOprazole 40 MG TAB PO SCH (08:19)
[2019-08-12] MEDS ORDERED: POTASSIUM PHOSPHATE 30 MMOL in SODIUM CHLORIDE 0.9% 500 ML IV ONE (08:30)
[2019-08-12] MEDS ORDERED: POTASSIUM CHLORIDE 20 MEQ TABCR PO ONE (11:30)
[2019-08-12 15:31] LABS: BUN Creatinine Ratio 9.2 (10-20); Calcium 7.7 mg/dl (8.5-10.1); Creatinine Clr Calc Pharmacy 39.3 ml/min; Est GFR (African American) 52.2; Phosphorus 3.5 mg/dl (2.5-4.9); Potassium 3.8 mmol/L (3.5-5.1)
[2019-08-12] MEDS: ZOLPIDEM TARTRATE 5 MG TAB PO PRN (21:25)
[2019-08-13] MEDS: DICYCLOMINE HCL 10 MG CAP PO PRN ×4 (00:33→21:34)
[2019-08-13] MEDS: metroNIDAZOLE 500 MG/100 ML BAG IV SCH ×3 (02:16→18:11)
[2019-08-13] MEDS: CIPROFLOXACIN / D5W 400 MG/200 ML BAG IV SCH ×2 (05:45→18:11)
[2019-08-13] MEDS: HEPARIN SOD 5,000 UNIT/0.5 ML VIAL SQ SCH ×3 (05:46→21:34)
[2019-08-13 07:01] LABS: Hematocrit (blood only) 35.2 % (37-47); Hemoglobin 11.5 g/dL (12.0-16.0); Mean Corpuscular Hemoglobin 28.9 pg (25-34); Mean Corpuscular Hgb Conc 32.7 g/dL (32-36); Mean Corpuscular Volume 88.4 fL (80-100); Mean Platelet Volume 10.5 fL (7.4-10.4); Platelet Count 201 K/uL (130-400); RDW Coefficient of Variation 14.4 % (11.5-14.5); RDW Standard Deviation 46.9 fL (36.4-46.3); Red Blood Count 3.98 M/uL (4.2-5.4); White Blood Count 8.85 K/uL (4.8-10.8)
[2019-08-13 07:34] LABS: BUN Creatinine Ratio 9.3 (10-20); Calcium 7.9 mg/dl (8.5-10.1); Creatinine Clr Calc Pharmacy 43.5 ml/min; Est GFR (African American) 59.1; Potassium 3.4 mmol/L (3.5-5.1)
--- NOTE | 2019-08-13 07:46 | Hospitalist Progress Note ---
Date of Service August 13, 2019 Assessment & Plan (1) Sepsis: (2) Colitis: Campylobacter jejuni colitis -Patient presenting from home with reports of diarrhea and epigastric abdominal pain x 3 days -hx of lymphocytic colitis in 2014; follow-up colonoscopy in 2017, biopsies negative -In the ED, tachycardic, WBC 19.6K; BP stable, afebrile, lactate pending -CT ABD/pelvis showing nonspecific colitis -S/p p.o. Cipro and Flagyl in the ED, will continue with IV Cipro and Flagyl -Continue supportive care with IVF, pain management, clear liquid diet -Blood cultures - negative -stool studies - positive for Campylobacter jejuni - C. diff negative - -GI consulted on admission given history of lymphocytic colitis -recommend to continue current Abx regimen and outpt colonoscopy -currently WBC down to 8.9K, lactate wnl, abdominal pain resolved (3) Acute kidney injury superimposed on CKD: (4) CKD (chronic kidney disease), stage III: -Creatinine 1.6, baseline creatinine runs in the low ones -Likely prerenal in nature secondary to diarrhea in combination with continue triamterene/HCTZ use -IVF, hold HCTZ -Follow renal function - current Cr 1.1, resolved (5) Acute hypokalemia: -Potassium 2.7, Mag 2.0 on admission -Likely due to GI loss with diarrhea -Replace, follow electrolytes -Continues to be hypokalemic Hypophosphatemia -Phos 1.4 this a.m. -Secondary to poor p.o. intake, diarrhea and IV fluids -Replace and monitor (6) HTN (hypertension): -BP controlled, holding triamterene/HCTZ as above (7) HLD (hyperlipidemia): -Continue statin (8) RADHA on CPAP: -CPAP as per home settings (9) DVT prophylaxis: -SQ heparin Admission and Anticipated Discharge Date Admission Date: August 10, 2019 Subjective No acute events overnight. Patient is lying in bed, says that she feels much better, significantly decreased amount of stools. Says that she did not have any this morning. Persistently hypokalemic. Review of Systems Review of Systems: All systems reviewed & are unremarkable except as noted in HPI & below Constitutional: no fever and no chills Respiratory: no cough and no dyspnea Cardiovascular: no chest pain and no palpitations Gastrointestinal: no abdominal pain, no nausea and no vomiting Genitourinary: no dysuria Physical Exam Physical Exam: Constitutional: elderly female lying in bed, WD/WN, vitals as above, in NAD Eyes: PERRL, EOMI, conjunctivae normal, anicteric sclerae ENMT: external ear and nose normal, oropharynx normal Respiratory: normal respiratory effort, lungs clear to auscultation b/l, no wheezing, rhonchi, crackles Cardiovascular: Rate/Rhythm: regular rhythm, Vessels: normal peripheral pulses Extremities: no edema Gastrointestinal (Abdomen): Inspection/Auscultation: normal bowel sounds Percussion/Palpation: abdomen soft, nontender to palpation, mild distention Musculoskeletal: no cyanosis or clubbing, extremities motor strength 5/5, moves extremities spontaneously Skin: no rashes, warm and dry Neurologic: PERRL, EOMI, accommodation nl, no face palsy, no dysarthria Psychiatric: A+Ox3, euthymic affect Results & Data Results & Data ([facility]) Vital Signs (Past 12 Hours) Vital Signs Temp Pulse Pulse Resp BP BP Pulse Ox 08/13/19 07:21 82 08/13/19 07:10 36.6 C 77 18 108/69 90 08/13/19 04:04 84 18 95 08/13/19 03:05 36.9 C 93 H 20 120/78 95 08/13/19 03:01 92 H 08/12/19 23:47 36.6 C 96 H 20 126/73 93 08/12/19 23:35 20 93 08/12/19 19:50 37 C 93 H 20 130/79 93 Laboratory Results 08/13/19 08/13/19 08/12/19 Range/Units 06:37 06:37 14:50 WBC 8.85 (4.8-10.8) K/uL RBC 3.98 L (4.2-5.4) M/uL Hgb 11.5 L (12.0-16.0) g/dL Hct 35.2 L (37-47) % MCV 88.4 (80-100) fL MCH 28.9 (25-34) pg MCHC 32.7 (32-36) g/dL RDW Std Deviation 46.9 H (36.4-46.3) fL RDW Coeff of Rivas 14.4 (11.5-14.5) % Plt Count 201 (130-400) K/uL MPV 10.5 H (7.4-10.4) fL Sodium 141 142 (136-145) mmol/L Potassium 3.4 L 3.8 D (3.5-5.1) mmol/L Chloride 109 H 110 H (98-107) mmol/L Carbon Dioxide 26 26 (21-32) mmol/L Anion Gap 6.0 6.0 (3-11) BUN 10 11 (7-18) mg/dl Creatinine 1.11 1.23 H (0.6-1.2) mg/dl Est Cr Clr Drug Dosing 43.5 39.3 ml/min Est GFR ( Amer) 59.1 52.2 Est GFR (Non-Af Amer) 51.0 45.0 BUN/Creatinine Ratio 9.3 L 9.2 L (10-20) Glucose 111 H 119 H (70-99) mg/dl Calcium 7.9 L 7.7 L (8.5-10.1) mg/dl Phosphorus 3.5 D (2.5-4.9) mg/dl 08/12/19 Range/Units 06:47 WBC (4.8-10.8) K/uL RBC (4.2-5.4) M/uL Hgb (12.0-16.0) g/dL Hct (37-47) % MCV (80-100) fL MCH (25-34) pg MCHC (32-36) g/dL RDW Std Deviation (36.4-46.3) fL RDW Coeff of Rivas (11.5-14.5) % Plt Count (130-400) K/uL MPV (7.4-10.4) fL Sodium (136-145) mmol/L Potassium (3.5-5.1) mmol/L Chloride (98-107) mmol/L Carbon Dioxide (21-32) mmol/L Anion Gap (3-11) BUN (7-18) mg/dl Creatinine (0.6-1.2) mg/dl Est Cr Clr Drug Dosing ml/min Est GFR ( Amer) Est GFR (Non-Af Amer) BUN/Creatinine Ratio (10-20) Glucose (70-99) mg/dl Calcium (8.5-10.1) mg/dl Phosphorus 1.4 L* D (2.5-4.9) mg/dl Medications Administered Current Inpatient Medications Acetaminophen (Tylenol) 650 mg PO Q4H PRN PRN Reason: pain/fever Stop: 09/09/19 19:35 Last Admin: 08/11/19 11:49 Dose: 650 mg Documented by: Dicyclomine HCl (Bentyl) 10 mg PO QID PRN PRN Reason: Abdominal Pain Stop: 09/09/19 19:35 Last Admin: 08/13/19 00:33 Dose: 10 mg Documented by: Heparin Sodium (Porcine) (Heparin Sodium (Porcine)) 5,000 units SQ Q8 ALEXY Stop: 09/09/19 21:59 Last Admin: 08/13/19 05:46 Dose: 5,000 units Documented by: Ciprofloxacin (Cipro) 400 mg in 200 mls @ 100 mls/hr IV Q12H ALEXY; Protocol Stop: 08/21/19 05:59 Last Admin: 08/13/19 05:45 Dose: 100 mls/hr Documented by: Metronidazole (Flagyl) 500 mg in 100 mls @ 100 mls/hr IV Q8H ALEXY; Protocol Stop: 08/21/19 01:59 Last Infusion: 08/13/19 03:22 Dose: Infused Documented by: Loperamide HCl (Imodium) 2 mg PO Q3H PRN PRN Reason: Diarrhea Stop: 09/10/19 00:30 Last Admin: 08/12/19 05:39 Dose: 2 mg Documented by: Pantoprazole Sodium (Protonix) 40 mg PO DAILY ALEXY; Protocol Stop: 09/10/19 08:59 Last Admin: 08/12/19 08:19 Dose: 40 mg Documented by: Rosuvastatin Calcium (Crestor) 20 mg PO DAILY ALEXY Stop: 09/10/19 08:59 Last Admin: 08/12/19 08:17 Dose: 20 mg Documented by: Tramadol HCl (Ultram) 25 - 50 mg PO Q4H PRN PRN Reason: Pain Stop: 09/10/19 00:32 Last Admin: 08/11/19 01:21 Dose: 50 mg Documented by: Zolpidem Tartrate (Ambien) 5 mg PO HS PRN PRN Reason: Sleep Stop: 09/09/19 21:14 Last Admin: 08/12/19 21:25 Dose: 5 mg Documented by:
[2019-08-13] MEDS: ROSUVASTATIN CALCIUM 20 MG TAB PO SCH (08:30)
[2019-08-13] MEDS: PANTOprazole 40 MG TAB PO SCH (08:30)
[2019-08-13 08:55] LABS: Magnesium 2.1 mg/dl (1.8-2.4); Phosphorus 2.7 mg/dl (2.5-4.9)
[2019-08-13] MEDS ORDERED: POTASSIUM PHOS 3 MMOL/1 ML INFUSION IV STA (10:09)
[2019-08-13] MEDS ORDERED: POTASSIUM PHOSPHATE 6 MMOL in 0.9 % SODIUM CHLORIDE 100 ML IV ONE (11:00)
[2019-08-13] MEDS ORDERED: POTASSIUM CHLORIDE 20 MEQ TABCR PO ONE (14:00)
[2019-08-13] MEDS: LOPERAMIDE HCL 2 MG CAP PO PRN ×2 (17:37→21:34)
[2019-08-13] MEDS: ZOLPIDEM TARTRATE 5 MG TAB PO PRN (21:34)
[2019-08-14] MEDS: ACETAMINOPHEN 325 MG TAB PO PRN (00:46)
[2019-08-14] MEDS: metroNIDAZOLE 500 MG/100 ML BAG IV SCH ×2 (01:39→09:56)
[2019-08-14] MEDS: HEPARIN SOD 5,000 UNIT/0.5 ML VIAL SQ SCH (06:04)
[2019-08-14] MEDS: CIPROFLOXACIN / D5W 400 MG/200 ML BAG IV SCH (06:06)
[2019-08-14 06:43] LABS: BUN Creatinine Ratio 12.4 (10-20); Calcium 8.3 mg/dl (8.5-10.1); Est GFR (African American) 61.8; Est GFR (Non-African American) 53.3; Phosphorus 3.7 mg/dl (2.5-4.9); Potassium 3.4 mmol/L (3.5-5.1)
[2019-08-14] MEDS ORDERED: POTASSIUM CHLORIDE 20 MEQ TABCR PO ONE ×2 (08:30→11:00)
[2019-08-14] MEDS: PANTOprazole 40 MG TAB PO SCH (08:49)
[2019-08-14] MEDS: DICYCLOMINE HCL 10 MG CAP PO PRN (08:49)
[2019-08-14] MEDS: ROSUVASTATIN CALCIUM 20 MG TAB PO SCH (08:49)
--- NOTE | 2019-08-14 09:47 | Gastroenterology Progress Note ---
Date of Service August 14, 2019 Assessment & Plan (1) Diarrhea: Pt is a 69 y/o female admitted with diarrheal symptoms, stool Cdiff negative, stool Cx + for campylobacter jejuni. Pt symptomatically much improved w antibx. - No contraindication for DC from GI standpoint. Would recommend finishing Cipro course upon DC - recommend Ciprofloxacin 750mg BID x 3 days. - F/U outpt colonoscopy 8-12 weeks time; GI schedulers will call to schedule Admission and Anticipated Discharge Date Admission Date: August 10, 2019 Supervising Physician Co-Signing Physician Notes I saw and evaluated the patient. She had stool cultures which revealed Campylobacter. She continues to improve with use of antibiotics. Would recommend completion of a course of antibiotics and follow-up with our office as needed. Subjective Pt repots stools are soft now, denies tarry stools. Denies fever, chills, abd pain, n/v, tolerating solid foods. Review of Systems Review of Systems: All systems reviewed & are unremarkable except as noted in HPI & below Physical Exam Constitutional: WD/WN, vitals as above well groomed, cooperative and comfortable Eyes: PERRL, conjunctivae normal, anicteric sclerae ENMT: external ear and nose normal, oropharynx normal Respiratory: normal respiratory effort, lungs clear to auscultation Cardiovascular: RRR, no murmur, no edema Gastrointestinal (Abdomen): normal bowel sounds, soft, nontender, no hepatosplenomegaly Skin: no rashes, warm and dry no jaundice Psychiatric: A+Ox3, euthymic affect Lymphatic: no lymphedema Results & Data ([facility]) Vital Signs (Past 12 Hours) Vital Signs Temp Pulse Pulse Resp BP Pulse Ox 08/14/19 07:41 36.5 C 85 20 158/74 H 97 08/14/19 07:29 74 08/14/19 02:28 36.6 C 91 H 18 152/71 H 94 08/14/19 00:43 161/81 H 08/13/19 23:34 77 08/13/19 23:08 86 16 93 08/13/19 23:00 36.7 C 87 20 152/82 H 94
--- NOTE | 2019-08-14 10:39 | Hospitalist Progress Note ---
Date of Service August 14, 2019 Assessment & Plan (1) Sepsis: (2) Colitis: Campylobacter jejuni colitis -Patient presenting from home with reports of diarrhea and epigastric abdominal pain x 3 days -hx of lymphocytic colitis in 2014; follow-up colonoscopy in 2017, biopsies negative -In the ED, tachycardic with heart rates 118, WBC 19.6K; BP mostly stable, afebrile -CT ABD/pelvis showing nonspecific colitis -S/p p.o. Cipro and Flagyl in the ED, will continue with IV Cipro and Flagyl -Continue supportive care with IVF, pain management, clear liquid diet -Blood cultures - negative -stool studies - positive for Campylobacter jejuni - C. diff negative -GI consulted on admission given history of lymphocytic colitis -recommend to continue current Abx regimen and outpt colonoscopy -currently WBC down to 8.9K, lactate wnl, abdominal pain resolved (3) Acute kidney injury superimposed on CKD: (4) CKD (chronic kidney disease), stage III: -Creatinine 1.6, baseline creatinine runs in the low ones -Likely prerenal in nature secondary to diarrhea in combination with continue triamterene/HCTZ use -IVF, hold HCTZ -Follow renal function - current Cr 1.1, resolved (5) Acute hypokalemia: -Potassium 2.7, Mag 2.0 on admission -Likely due to GI loss with diarrhea -Replace, follow electrolytes -Continues to be hypokalemic Hypophosphatemia -Phos 1.4 this a.m. -Secondary to poor p.o. intake, diarrhea and IV fluids -Replace and monitor (6) HTN (hypertension): -BP controlled, holding triamterene/HCTZ as above (7) HLD (hyperlipidemia): -Continue statin (8) RADHA on CPAP: -CPAP as per home settings (9) DVT prophylaxis: -SQ heparin Admission and Anticipated Discharge Date Admission Date: August 10, 2019 Subjective No acute is overnight. Patient's diarrhea is significantly slowing down. Had several small BMs in the afternoon, no BM this morning. She feels well and is inquiring about going home. Denies any fevers, chills, chest pain, shortness of breath, abdominal pain has resolved. Seen by GI this morning, recommend to have colonoscopy in 8 to 12 weeks as outpatient. Review of Systems Review of Systems: All systems reviewed & are unremarkable except as noted in HPI & below Constitutional: no fever and no chills Respiratory: no cough and no dyspnea Cardiovascular: no chest pain and no palpitations Gastrointestinal: + diarrhea/loose stools (Much improved); no abdominal pain, no nausea and no vomiting Genitourinary: no dysuria Physical Exam Physical Exam: Constitutional: elderly female lying in bed, WD/WN, vitals as above, in NAD Eyes: PERRL, EOMI, conjunctivae normal, anicteric sclerae ENMT: external ear and nose normal, oropharynx normal Respiratory: normal respiratory effort, lungs clear to auscultation b/l, no wheezing, rhonchi, crackles Cardiovascular: Rate/Rhythm: regular rhythm, Vessels: normal peripheral pulses Extremities: no edema Gastrointestinal (Abdomen): Inspection/Auscultation: normal bowel sounds Percussion/Palpation: abdomen soft, nontender to palpation, mild distention Musculoskeletal: no cyanosis or clubbing, extremities motor strength 5/5, moves extremities spontaneously Skin: no rashes, warm and dry Neurologic: PERRL, EOMI, accommodation nl, no face palsy, no dysarthria Psychiatric: A+Ox3, euthymic affect Results & Data Results & Data ([facility]) Vital Signs (Past 12 Hours) Vital Signs Temp Pulse Pulse Resp BP Pulse Ox 08/14/19 07:41 36.5 C 85 20 158/74 H 97 08/14/19 07:29 74 08/14/19 02:28 36.6 C 91 H 18 152/71 H 94 08/14/19 00:43 161/81 H 08/13/19 23:34 77 08/13/19 23:08 86 16 93 08/13/19 23:00 36.7 C 87 20 152/82 H 94 Laboratory Results 08/14/19 Range/Units 05:50 Sodium 142 (136-145) mmol/L Potassium 3.4 L (3.5-5.1) mmol/L Chloride 110 H (98-107) mmol/L Carbon Dioxide 26 (21-32) mmol/L Anion Gap 6.0 (3-11) BUN 13 (7-18) mg/dl Creatinine 1.07 (0.6-1.2) mg/dl Est Cr Clr Drug Dosing 44.0 ml/min Est GFR ( Amer) 61.8 Est GFR (Non-Af Amer) 53.3 BUN/Creatinine Ratio 12.4 (10-20) Glucose 89 (70-99) mg/dl Calcium 8.3 L (8.5-10.1) mg/dl Phosphorus 3.7 D (2.5-4.9) mg/dl Medications Administered Current Inpatient Medications Acetaminophen (Tylenol) 650 mg PO Q4H PRN PRN Reason: pain/fever Stop: 09/09/19 19:35 Last Admin: 08/14/19 00:46 Dose: 650 mg Documented by: Dicyclomine HCl (Bentyl) 10 mg PO QID PRN PRN Reason: Abdominal Pain Stop: 09/09/19 19:35 Last Admin: 08/14/19 08:49 Dose: 10 mg Documented by: Heparin Sodium (Porcine) (Heparin Sodium (Porcine)) 5,000 units SQ Q8 ALEXY Stop: 09/09/19 21:59 Last Admin: 08/14/19 06:04 Dose: 5,000 units Documented by: Ciprofloxacin (Cipro) 400 mg in 200 mls @ 100 mls/hr IV Q12H ALEXY; Protocol Stop: 08/21/19 05:59 Last Infusion: 08/14/19 08:30 Dose: Infused Documented by: Metronidazole (Flagyl) 500 mg in 100 mls @ 100 mls/hr IV Q8H ALEXY; Protocol Stop: 08/21/19 01:59 Last Admin: 08/14/19 09:56 Dose: Not Given Documented by: Loperamide HCl (Imodium) 2 mg PO Q3H PRN PRN Reason: Diarrhea Stop: 09/10/19 00:30 Last Admin: 08/13/19 21:34 Dose: 2 mg Documented by: Pantoprazole Sodium (Protonix) 40 mg PO DAILY [facility]; Protocol Stop: 09/10/19 08:59 Last Admin: 08/14/19 08:49 Dose: 40 mg Documented by: Potassium Chloride (Klor-Con M20) 40 meq PO TODAY@1100 ONE Stop: 08/14/19 11:01 Rosuvastatin Calcium (Crestor) 20 mg PO DAILY [facility] Stop: 09/10/19 08:59 Last Admin: 08/14/19 08:49 Dose: 20 mg Documented by: Tramadol HCl (Ultram) 25 - 50 mg PO Q4H PRN PRN Reason: Pain Stop: 09/10/19 00:32 Last Admin: 08/11/19 01:21 Dose: 50 mg Documented by: Zolpidem Tartrate (Ambien) 5 mg PO HS PRN PRN Reason: Sleep Stop: 09/09/19 21:14 Last Admin: 08/13/19 21:34 Dose: 5 mg Documented by:
--- NOTE | 2019-08-14 11:01 | Discharge Summary ---
Date of Service August 14, 2019 Admission HPI Per Admitting Provider 69-year-old female with PMH HLD, HTN, CKD stage III, RADHA, and other problems listed below who presents the ED for evaluation of abdominal pain and diarrhea. Patient reports her symptoms began 3 days ago. She reports multiple episodes of diarrhea per day. She denies any bright red bleeding per rectum or dark tarry stools. She reports persistent epigastric pain. No radiation of the pain. She has had associated nausea and one episode of vomiting today. Describes emesis is bilious in nature. No hematemesis or coffee-ground emesis. Reports running low-grade fevers of 99-100. No sick contacts or suspected food poisoning. Denies chest pain shortness of breath. No lightheadedness, dizziness, diaphoresis, syncopal events. She denies any urinary symptoms. In the ED, CT ABD/pelvis is showing nonspecific colitis. Labs show WBC 19 K, K+ 2.7, creatinine 1.6 (baseline runs in the low ones). Patient was given p.o. Cipro and Flagyl, IV Tylenol, IV Zofran, IV potassium replacement, IVF. Admission Exam Per Admitting Provider Constitutional: WD/WN, vitals as above Eyes: PERRL, conjunctivae normal, anicteric sclerae ENMT: external ear and nose normal, oropharynx normal Respiratory: normal respiratory effort, lungs clear to auscultation Cardiovascular: Rate/Rhythm: regular rhythm and + tachycardic HR 118 in ED, Vessels: normal peripheral pulses Extremities: no edema Gastrointestinal (Abdomen): Inspection/Auscultation: normal bowel sounds Percussion/Palpation: + abdomen tender (Epigastric) and abdomen soft; no he patosplenomegaly Musculoskeletal: no cyanosis or clubbing, extremities motor strength 5/5 Skin: no rashes, warm and dry Neurologic: PERRL, EOMI, accommodation nl, no face palsy, no dysarthria Psychiatric: A+Ox3, euthymic affect Principal Diagnosis Sepsis Diarrhea secondary to Campylobacter jejuni enteritis/colitis BRIDGET Hypokalemia Discharge Exam Constitutional: elderly female lying in bed, WD/WN, vitals as above, in NAD Eyes: PERRL, EOMI, conjunctivae normal, anicteric sclerae ENMT: external ear and nose normal, oropharynx normal Respiratory: normal respiratory effort, lungs clear to auscultation b/l, no wheezing, rhonchi, crackles Cardiovascular: Rate/Rhythm: regular rhythm, Vessels: normal peripheral pulses Extremities: no edema Gastrointestinal (Abdomen): Inspection/Auscultation: normal bowel sounds Percussion/Palpation: abdomen soft, nontender to palpation, mild distention Musculoskeletal: no cyanosis or clubbing, extremities motor strength 5/5, moves extremities spontaneously Skin: no rashes, warm and dry Neurologic: PERRL, EOMI, accommodation nl, no face palsy, no dysarthria Psychiatric: A+Ox3, euthymic affect Discharge Data Allergies Allergy/AdvReac Type Severity Reaction Status Date / Time iodine Allergy Mild skin Verified 08/10/19 23:14 discoloration propoxyphene Allergy Mild Unknown Verified 08/10/19 16:44 Sulfa (Sulfonamide Allergy Mild Unknown Verified 08/10/19 16:44 Antibiotics) codeine AdvReac Unknown Unknown Verified 08/10/19 16:44 Consultations 08/10/19 17:42 ED Decision to Admit Stat 08/10/19 19:36 Consult Gastroenterology Routine Ordered Studies 08/10/19 16:54 CT abd pelvis wo con Stat IMPRESSION: 1. No bowel obstruction, pneumoperitoneum or pneumatosis. 2. Air and fluid-filled colon compatible with diarrheal illness. Additionally, there is wall thickening of the cecum and ascending colon with mild pericolonic stranding suggestive of a nonspecific colitis. Nondilated air and fluid-filled loops of small bowel within the pelvis suggest associated enteritis. 3. Prominent lymph nodes of the mid and lower mesentery with mild mesenteric infiltration may be on a reactive basis. 4. Hepatomegaly with hepatic steatosis. Hospital Course (1) Sepsis: (2) Colitis: Campylobacter jejuni enteritis/colitis -Patient presenting from home with reports of diarrhea and epigastric abdominal pain x 3 days -hx of lymphocytic colitis in 2015; follow-up colonoscopy in 2017, biopsies negative -In the ED, tachycardic with heart rates 118, WBC 19.6K; BP mostly stable, afebrile -CT ABD/pelvis showing nonspecific colitis -S/p p.o. Cipro and Flagyl in the ED, continued with IV Cipro and Flagyl during admission -Continue supportive care with IVF, pain management, clear liquid diet -Blood cultures - negative -stool studies - positive for Campylobacter jejuni - C. diff negative -GI consulted on admission given history of lymphocytic colitis -recommend to continue current Abx regimen and outpt colonoscopy -currently WBC down to 8.9K, lactate wnl, abdominal pain resolved Per GI - recommend colonoscopy in 8 to 12 weeks. Pt will be contacted from their office (3) Acute kidney injury superimposed on CKD: (4) CKD (chronic kidney disease), stage III: -Creatinine 1.6, baseline creatinine runs in the low ones -Likely prerenal in nature secondary to diarrhea in combination with continue triamterene/HCTZ use -IVF, hold HCTZ -Follow renal function - current Cr 1.1, resolved (5) Acute hypokalemia: -Potassium 2.7, Mag 2.0 on admission -Likely due to GI loss with diarrhea -Replace, follow electrolytes -Continues to be hypokalemic Hypophosphatemia -Phos 1.4 this a.m. -Secondary to poor p.o. intake, diarrhea and IV fluids -Replace and monitor (6) HTN (hypertension): -BP controlled, holding triamterene/HCTZ as above (7) HLD (hyperlipidemia): -Continue statin (8) RADHA on CPAP: -CPAP as per home settings (9) DVT prophylaxis: -SQ heparin Total Time Total Time Spent Total Time Spent (In Minutes): 40 Total Time Includes: Examination of the Patient, Discharge Planning, Medication Reconciliation and Communication With Other Providers Discharge Plan Discharge Items Patient Disposition: Home - Self-Care Reason For Visit: COLITIS,HYPOKALEMIA Discharge Diagnosis: Sepsis Diarrhea secondary to Campylobacter jejuni enteritis/colitis BRIDGET Hypokalemia Condition on Discharge: Good Activity: Per Instructions section Non-emergency contact: Primary Care Provider and Hearing Aid Dispenser Call non-emergency contact if: you have any medication questions and your symptoms worsen Follow-up/Referrals: Unruly Jennings MD [Primary Care Provider] - Diet: Regular Addtl Attending Provider Instructions: Recommend to follow-up with your primary care doctor within 1 week. Do not take your triamterene/HCTZ until you are seen by your primary care doctor. Your potassium level should be checked at your next appointment. Take ciprofloxacin 750 mg twice a day for 3 days. You will need colonoscopy in 8-12 weeks. You will be contacted by gastroenterology office about this and scheduled for the procedure. Addtl Economic Historian Provider Instructions: Prevention Interruption of transmission from poultry is a major factor in preventing human Campylobacter infection. Chicken should be cooked thoroughly. Utensils, cutting boards, and other items used in preparation of raw poultry should be washed thoroughly. Avoidance of unpasteurized dairy products is also an important preventive measure. Previous infection with Campylobacter is not necessarily protective of future symptomatic infections. Thus, patients who have previously experienced symptomatic infections should also be advised to take such precautions. Adults with Campylobacter enteritis do not require special isolation; standard precautions are sufficient. Pending Studies at Discharge: No Stand-Alone Forms: My [facility], Smoking Cessation Medications and DC Order Prescriptions: New ciprofloxacin HCl 750 mg tablet 750 mg PO BID Qty: 7 RF: 0 Continued omeprazole 40 mg capsule,delayed release(DR/EC) 40 mg PO DAILY RF: 0 potassium chloride 20 mEq tablet,ER particles/crystals 20 meq PO BID RF: 0 zolpidem 5 mg Tablet 5 mg PO HS PRN (Reason: Sleep) RF: 0 rosuvastatin 20 mg tablet 20 mg PO DAILY RF: 0 gabapentin 300 mg capsule 300 mg PO BID PRN (Reason: Pain) RF: 0 cyclobenzaprine 5 mg tablet 5 mg PO TID PRN (Reason: Muscle Spasm) RF: 0 meclizine 25 mg tablet 25 mg PO TID PRN (Reason: Dizziness) RF: 0 dicyclomine 10 mg Capsule 10 mg PO QID PRN (Reason: Abdominal Pain) RF: 0 Discontinued triamterene-hydrochlorothiazid 37.5-25 mg tablet 2 tab PO DAILY RF: 0 Discharge Orders: Discharge Order (Routine); Ordered 08/14/19 Ordered By: Catarino Garcia Admission Data Admit Date/Time: 08/10/19 17:58 Attending Provider: Catarino Garcia Admit Provider: Amanda Rooney Primary Care Provider: Unruly Jennings Other Providers: Amanda Rooney ; Kojo Ghosh Other Interventions: Discharge Summary Assessment (RN) Last Done: 08/14/19 11:18
== END 2019-08-14 12:12 | disposition home or self-care (01) | DRG 872 ==
LOC: ED 15:22 → SUATTDRO 17:58 → 2N 17:58

== ENCOUNTER 2021-12-30 09:29 | Inpatient (IN) ==
--- NOTE | 2021-12-30 09:51 | Emergency Department Note ---
Impression & Plan Hypoxia, Acute hypokalemia, Bronchitis ED Provider Note NAME: HOLLIE GALVEZ AGE: 71 SEX: F : 1950 ARRIVES VIA: Walk-In INFORMANT: Patient, ED PROVIDER(S): Mario Kirby MD Chief Complaint: Congestion, cough, outpatient referral HPI: Patient presents due to concern for shortness of breath and was seen at [facility] this morning due to concern for lower oxygen saturations. The patient states that she has had some associated nasal congestion with cough that is nonproductive. The patient is a former smoker quitting in 2008. No known history of heart or lung disease. Patient thought that maybe she had some abnormal breath sounds including some wheezing. Patient denies any chest pains. The patient does have some shortness of breath which she states is not too bad but had made an appointment for today as she was not feeling much improved. The patient has been tried a nasal spray in addition to Sudafed for decongestion and has had the cough but it is not been productive but she feels as though she might be able to cough something up. The patient has a known history of RADHA but does not use her CPAP since July when she had a neck procedure. Patient denies any known history of DVT or PE and no leg swelling or calf pain. No recent surgeries or procedures. No recent hospitalizations ROS: See HPI for pertinent positives and negatives. A total of 10 systems were reviewed and otherwise negative. Past medical history: See below Surgical history: See below Social history: See below Physical Exam: GENERAL: NAD, wearing a mask, non-toxic. Wearing glasses. Wearing a Nichole collar. EYE EXAM: Normal conjunctiva. PERRL, no anisocoria and EOM's grossly intact w/o pain. NECK: Supple, no nuchal rigidity, no adenopathy, non-tender. No signs of meningismus. FROM of the neck with good chin to chest and neck extension. No stridor. LUNGS: Sonorous breath sounds bilateral bases. Normal chest wall mechanics. HEART: Tachycardic and regular, no MRG. ABDOMEN: Abdomen soft, non-tender, normo-active bowel sounds, no masses, no rebound or guarding. BACK: No CVA TTP. SKIN: No rashes and no bruising. UPPER EXTREMITIES: Upper extremities are grossly normal. LOWER EXTREMITIES: Grossly normal, no edema. Negative Homans' sign bilaterally. NEURO EXAM: A&O x3, cranial nerves II-XII grossly intact, normal speech, moves all 4 extremities. Differential diagnoses: Reactive airway disease, pneumonia, pneumothorax, COPD, CHF, infections, cardiac ischemia, pulmonary embolism, musculoskeletal, gastrointestinal, as well as other pathologies. Course: Patient was seen and evaluated the bedside. Full history physical exam was performed. EKG interpreted by me Sinus tachycardia, rate of 106, normal intervals, normal axis, no ST elevations. Imaging Studies: See Below Cardiac monitoring: An order was placed for continuous cardiac monitoring. The monitor shows a rate of 105 with tachycardic and regular rhythm. MDM: Patient presents due to concern for shortness of breath in the setting of likely infectious etiology. The patient did have blood work completed was given IV fluids and a DuoNeb treatment. The patient is not hypoxic at the bedside. Patient is a normal white count H&H and platelet count. The patient's kidney function is unremarkable. Hypokalemia noted at 2.6. Procalcitonin was added COVID-negative. Chest x-ray clear. Patient was noted to be hypoxemic and was placed on 2 L nasal cannula. I did speak the on-call hospitalist Dyana Guzman PA-C and the patient was admitted to the medicine service by Dr. Garcia. Critical Care: I have personally spent 37 minutes of critical care time in direct management of this patient. This includes bedside care, interpretation of diagnostic studies, and testing, discussion with consultants, patient, and family members, and other require inpatient management activities. This 37 minutes is in excess of all separately billable procedures. Past Med/Surg History Medical History (Updated 12/30/21 @ 17:01 by Mario Kirby MD) Chronic back pain CKD (chronic kidney disease), stage III HLD (hyperlipidemia) HTN (hypertension) Lymphocytic colitis Migraines SALAS (nonalcoholic steatohepatitis) RADHA on CPAP Osteoarthritis Surgical History S/P left knee arthroscopy Family History Father Heart disease Social History Smoking Status: Former smoker Tobacco Type: Cigarettes Hx Alcohol Use: Yes Hx Substance Use: No Preferred Language: Arabic Communication Ability: Effective Lining Stamper Required: No Beliefs That Will Affect Care: None Current Living Situation: Family Current Living Situation Comment: lives with friend Feels Safe at Home: Yes Safety Concerns: Feels Safe At This Time Assistive Devices: CPAP Allergies Allergies Allergy/AdvReac Type Severity Reaction Status Date / Time kiwi Allergy Intermediate hives-kiwi Verified 12/30/21 12:06 extract peanut Allergy Intermediate per pt "if Verified 12/30/21 12:06 eat too many, throat feels funny". iodine Allergy Mild skin Verified 12/30/21 12:06 discoloration propoxyphene Allergy Unknown Unknown Verified 12/30/21 12:06 atorvastatin AdvReac Intermediate myalgia Verified 12/30/21 12:06 codeine AdvReac Intermediate nausea--if Verified 12/30/21 12:06 giving an antiemitic will be okay per pt. ibuprofen AdvReac Intermediate lymphocytic Verified 12/30/21 12:06 colitis morphine AdvReac Intermediate Vomiting Verified 12/30/21 12:06 simvastatin AdvReac Intermediate myalgia Verified 12/30/21 12:06 Sulfa (Sulfonamide AdvReac Intermediate hyper Verified 12/30/21 12:06 Antibiotics) sulfamethoxazole AdvReac Intermediate hyper Verified 12/30/21 12:06 [From Bactrim] trimethoprim [From Bactrim] AdvReac Intermediate hyper Verified 12/30/21 12:06 Home Meds Home Medications Medication Instructions Recorded Confirmed potassium chloride 20 mEq 40 meq PO BID 03/06/18 12/30/21 tablet,extended release(part/cryst) rosuvastatin 20 mg tablet 20 mg PO HS 03/06/18 12/30/21 zolpidem 5 mg tablet 5 mg PO HS PRN Sleep 03/06/18 12/30/21 cyclobenzaprine 5 mg tablet 5 mg PO TID PRN Muscle Spasm 02/09/19 12/30/21 gabapentin 300 mg capsule 300 mg PO BID PRN Pain 02/09/19 12/30/21 dicyclomine 10 mg capsule 10 mg PO QID PRN Abdominal Pain 08/10/19 12/30/21 meclizine 25 mg tablet 25 mg PO TID PRN Dizziness 08/10/19 12/30/21 acetaminophen 500 mg tablet 1,000 mg PO Q8H PRN Pain 12/30/21 12/30/21 (Tylenol Extra Strength) amlodipine 10 mg tablet 10 mg PO DAILY 12/30/21 12/30/21 fluticasone propionate 50 2 spray intranasal DAILY PRN 12/30/21 12/30/21 mcg/actuation nasal ALLERGIES spray,suspension sod chloride-sod 1 ea intranasal DIRECTED PRN 12/30/21 12/30/21 bicarb-hyaluronate sod-aloe 0.9 % NASAL DRYNESS/CONGESTION nasal gel (Nasogel) Results & Data (ED) Vital Signs Vital Signs - 24 hr 12/30/21 09:32 12/30/21 11:00 12/30/21 11:30 Temperature 36.9 C Temperature Source Temporal Artery Scan Pulse Rate 118 H 108 H 103 H Pulse Rate from SpO2 Sensor 109 H 104 H Pulse Rhythm Regular Pulse Strength Normal Respiratory Rate 20 18 18 Respiratory Effort / Characteristics Non-Labored Spontaneous Respiratory Depth Normal Respiratory Pattern Regular Blood Pressure 137/92 Blood Pressure Mean 107 Blood Pressure Position Sitting Pulse Oximetry 92 90 90 Oxygen Delivery Method Room Air Sepsis Recent Fever Within 48 Hours No Sepsis New/Unexplained Change in Mental Status No Sepsis Action Taken by Nursing No Action Required 12/30/21 12:00 12/30/21 12:30 12/30/21 13:00 Temperature Temperature Source Pulse Rate 103 H 102 H 104 H Pulse Rate from SpO2 Sensor 95 H 102 H 104 H Pulse Rhythm Pulse Strength Respiratory Rate 18 17 15 Respiratory Effort / Characteristics Respiratory Depth Respiratory Pattern Blood Pressure Blood Pressure Mean Blood Pressure Position Pulse Oximetry 89 L 93 93 Oxygen Delivery Method Sepsis Recent Fever Within 48 Hours Sepsis New/Unexplained Change in Mental Status Sepsis Action Taken by Nursing 12/30/21 13:10 12/30/21 13:20 Temperature Temperature Source Pulse Rate 106 H 103 H Pulse Rate from SpO2 Sensor 101 H 104 H Pulse Rhythm Pulse Strength Respiratory Rate 16 28 H Respiratory Effort / Characteristics Respiratory Depth Respiratory Pattern Blood Pressure Blood Pressure Mean Blood Pressure Position Pulse Oximetry 94 95 Oxygen Delivery Method Sepsis Recent Fever Within 48 Hours Sepsis New/Unexplained Change in Mental Status Sepsis Action Taken by Halfway Medications Current Medication List: was personally reviewed by me Laboratory Data Attestation: I reviewed the patient's lab results. Result diagrams: 12/30/21 10:20 12/30/21 10:20 Lab Results 12/30/21 12/30/21 12/30/21 Range/Units 10:08 10:20 10:20 WBC 10.08 (4.8-10.8) K/ul RBC 5.05 (3.93-5.22) M/uL Hgb 14.5 (12.0-16.0) g/dl Hct 40.9 (34.1-44.9) % MCV 81.0 (80.0-100.0) fL MCH 28.7 (25.0-34.0) pg MCHC 35.5 (32.0-36.0) g/dL RDW Std Deviation 46.3 (36.4-46.3) fL RDW Coeff of Rivas 15.9 H (11.5-14.5) % Plt Count 279 (130-400) K/uL MPV 10.4 (9.4-12.3) fL Immature Gran % (Auto) 0.3 % Neut % (Auto) 64.0 % Lymph % (Auto) 21.3 % [place] % (Auto) 10.7 % Eos % (Auto) 3.3 % Baso % (Auto) 0.4 % Neut # (Auto) 6.45 (1.4-6.5) K/uL Lymph # (Auto) 2.15 (1.2-3.4) K/uL [place] # (Auto) 1.08 H (0.24-0.82) K/uL Eos # (Auto) 0.33 (0-0.50) K/uL Baso # (Auto) 0.04 (0-0.2) K/uL Immature Gran # (Auto) 0.03 H (0.00-0.02) K/uL PT (9.0-12.0) Seconds INR (0.9-1.1) APTT (21.0-31.0) Seconds PTT Ratio Sodium 141 (136-145) mmol/L Potassium 2.6 L (3.5-5.1) mmol/L Chloride 100 (98-107) mmol/L Carbon Dioxide 28 (21-32) mmol/L Anion Gap 13 H (3-11) BUN 15 (6-23) mg/dl Creatinine 1.00 (0.6-1.2) mg/dl Est Cr Clr Drug Dosing 45.8 ml/min Est GFR ( Amer) 66.1 ml/min Est GFR (Non-Af Amer) 57.0 ml/min BUN/Creatinine Ratio 15.0 (10-20) Glucose 103 H (70-99(Fasting)) mg/dl Calcium 9.8 (8.5-10.1) mg/dl Magnesium 1.9 (1.7-2.4) mg/dl Total Bilirubin 0.7 (0.2-1.0) mg/dl AST 28 (13-39) U/L ALT 31 (7-52) U/L Alkaline Phosphatase 85 (34-104) U/L Total Protein 7.4 (6.0-8.3) gm/dl Albumin 4.2 (3.4-5.0) gm/dl Globulin 3.2 (2.5-4.0) gm/dl Albumin/Globulin Ratio 1.3 (0.9-2) Procalcitonin (0-0.5) ng/ml SARS-CoV-2, RNA, NAAT NEGATIVE (NEGATIVE) 12/30/21 12/30/21 Range/Units 10:20 10:20 WBC (4.8-10.8) K/ul RBC (3.93-5.22) M/uL Hgb (12.0-16.0) g/dl Hct (34.1-44.9) % MCV (80.0-100.0) fL MCH (25.0-34.0) pg MCHC (32.0-36.0) g/dL RDW Std Deviation (36.4-46.3) fL RDW Coeff of Rivas (11.5-14.5) % Plt Count (130-400) K/uL MPV (9.4-12.3) fL Immature Gran % (Auto) % Neut % (Auto) % Lymph % (Auto) % [place] % (Auto) % Eos % (Auto) % Baso % (Auto) % Neut # (Auto) (1.4-6.5) K/uL Lymph # (Auto) (1.2-3.4) K/uL [place] # (Auto) (0.24-0.82) K/uL Eos # (Auto) (0-0.50) K/uL Baso # (Auto) (0-0.2) K/uL Immature Gran # (Auto) (0.00-0.02) K/uL PT 10.7 (9.0-12.0) Seconds INR 1.0 (0.9-1.1) APTT 28.4 (21.0-31.0) Seconds PTT Ratio 1.0 Sodium (136-145) mmol/L Potassium (3.5-5.1) mmol/L Chloride (98-107) mmol/L Carbon Dioxide (21-32) mmol/L Anion Gap (3-11) BUN (6-23) mg/dl Creatinine (0.6-1.2) mg/dl Est Cr Clr Drug Dosing ml/min Est GFR ( Amer) ml/min Est GFR (Non-Af Amer) ml/min BUN/Creatinine Ratio (10-20) Glucose (70-99(Fasting)) mg/dl Calcium (8.5-10.1) mg/dl Magnesium (1.7-2.4) mg/dl Total Bilirubin (0.2-1.0) mg/dl AST (13-39) U/L ALT (7-52) U/L Alkaline Phosphatase (34-104) U/L Total Protein (6.0-8.3) gm/dl Albumin (3.4-5.0) gm/dl Globulin (2.5-4.0) gm/dl Albumin/Globulin Ratio (0.9-2) Procalcitonin 0.16 (0-0.5) ng/ml SARS-CoV-2, RNA, NAAT (NEGATIVE) Administered Medications Doxycycline Hyclate (Doxycycline Hyclate 100 Mg Cap) 100 mg PO BID ALEXY Stop: 01/01/22 15:29 Last Admin: 12/30/21 16:17 Dose: 100 mg Documented By: MTM Prednisone (Prednisone 20 Mg Tab) 40 mg PO QAM ALEXY Stop: 01/29/22 15:29 Last Admin: 12/30/21 16:17 Dose: 40 mg Documented By: MTM Discontinued Medications Albuterol (Albut/Ipratrop 3mg/0.5mg Neb 3 Ml Vial) 3 ml NEB NOW STA; Protocol Stop: 12/30/21 10:05 Last Admin: 12/30/21 10:30 Dose: 3 ml Documented By: BJORN Sodium Chloride (Nss) 500 mls @ 999 mls/hr IV .Q31M STA Stop: 12/30/21 10:34 Last Infusion: 12/30/21 12:25 Dose: 0 mls/hr Documented By: Admin: 12/30/21 10:23 Dose: 999 mls/hr Documented By: BJORN Potassium Chloride (K Jignesh / Wtr) 10 meq in 100 mls @ 100 mls/hr IV Q1H ALEXY; Protocol Stop: 12/30/21 14:59 Last Admin: 12/30/21 15:42 Dose: 100 mls/hr Documented By: Infusion: 12/30/21 15:18 Dose: 0 mls/hr Documented By: Admin: 12/30/21 13:44 Dose: 100 mls/hr Documented By: JADON Magnesium Sulfate/Dextrose (Magnesium Sulfate / D5w) 1 gm in 100 mls @ 50 mls/hr IV ONE ONE Stop: 12/30/21 14:56 Last Infusion: 12/30/21 15:18 Dose: 0 mls/hr Documented By: Admin: 12/30/21 13:43 Dose: 50 mls/hr Documented By: JADON Potassium Chloride (Potassium Chloride Crtab 20 Meq Tabcr) 40 meq PO NOW STA Stop: 12/30/21 12:55 Last Admin: 12/30/21 13:43 Dose: 40 meq Documented By: JADON Imaging Data Radiologist's Impression: Chest X-Ray 12/30/21 10:04 XR chest 2V PA/lateral HISTORY: Cough. Dyspnea COMPARISON: Chest 08/11/2019. FINDINGS: The lungs are clear. The heart is normal in size. There are calcifications within the aortic knob, unchanged. Partially visualized cervical spinal fusion hardware. No pleural effusions. No pneumothorax. IMPRESSION: No acute process. ACT 112: Negative or not required by law. Electronically signed by: Jim Palencia M.D. 12/30/2021 12:18 PM Discharge Plan Visit Data Chief Complaint: Referred by Doctor Stated Complaint: REFFERRED BY DOCTOR, LOW OXYGEN LEVEL ED Provider: Mario Kirby Discharge Problem: Hypoxia, Acute hypokalemia, Bronchitis Patient Disposition: Admitted As Inpatient Discharge Instructions Interventions: ED Discharge Assessment Last Done: 12/30/21 14:27
[2021-12-30] MEDS ORDERED: SODIUM CHLORIDE 0.9% 500 ML IV STA (10:04)
[2021-12-30] MEDS ORDERED: ALBUT/IPRATROP 3MG/0.5MG NEB 3 ML VIAL NEB STA (10:04)
[2021-12-30 10:36] LABS: Basophils # (auto) 0.04 K/uL (0-0.2); Basophils % (auto) 0.4 %; Eosinophils # (auto) 0.33 K/uL (0-0.50); Eosinophils % (auto) 3.3 %; Hematocrit (blood only) 40.9 % (34.1-44.9); Hemoglobin 14.5 g/dl (12.0-16.0); Immature Granulocytes # (auto) 0.03 K/uL (0.00-0.02); Immature Granulocytes % (auto) 0.3 %; Lymphocytes # (auto) 2.15 K/uL (1.2-3.4); Lymphocytes % (auto) 21.3 %; Mean Corpuscular Hemoglobin 28.7 pg (25.0-34.0); Mean Corpuscular Hgb Conc 35.5 g/dL (32.0-36.0); Mean Platelet Volume 10.4 fL (9.4-12.3); Monocytes # (auto) 1.08 K/uL (0.24-0.82); Monocytes % (auto) 10.7 %; Neutrophils # (auto) 6.45 K/uL (1.4-6.5); Platelet Count 279 K/uL (130-400); RDW Coefficient of Variation 15.9 % (11.5-14.5); RDW Standard Deviation 46.3 fL (36.4-46.3); Red Blood Count 5.05 M/uL (3.93-5.22); White Blood Count 10.08 K/ul (4.8-10.8)
[2021-12-30 10:47] LABS: Partial Thromboplastin Time 28.4 Seconds (21.0-31.0); Prothrombin Time 10.7 Seconds (9.0-12.0)
[2021-12-30 11:02] LABS: Albumin Globulin Ratio 1.3 (0.9-2); Albumin Level 4.2 gm/dl (3.4-5.0); Bilirubin,Total 0.7 mg/dl (0.2-1.0); Calcium 9.8 mg/dl (8.5-10.1); Creatinine Clr Calc Pharmacy 45.8 ml/min; Est GFR (African American) 66.1 ml/min; Globulin 3.2 gm/dl (2.5-4.0); Magnesium 1.9 mg/dl (1.7-2.4); Potassium 2.6 mmol/L (3.5-5.1); Total Protein 7.4 gm/dl (6.0-8.3)
--- NOTE | 2021-12-30 12:20 | XRay Report ---
XR chest 2V PA/lateral HISTORY: Cough. Dyspnea COMPARISON: Chest 08/11/2019. FINDINGS: The lungs are clear. The heart is normal in size. There are calcifications within the aorti c knob, unchanged. Partially visualized cervical spinal fusion hardware. No pleural effusions. No pne umothorax. IMPRESSION: No acute process. ACT 112: Negative or not required by law. Electronically signed by: Jim Palencia M.D. 12/30/2021 12:18 PM
[2021-12-30] MEDS ORDERED: POTASSIUM CHLORIDE CRTAB 20 MEQ TABCR PO STA (12:54)
[2021-12-30] MEDS ORDERED: MAGNESIUM SULFATE / D5W 1 GM/100 ML BAG IV ONE (12:57)
--- NOTE | 2021-12-30 13:00 | History & Physical Report ---
Date of Service December 30, 2021 Assessment & Plan (1) Hypoxia: Plan: - Admit to med surg with tele - Sputum culture, mucinex, duonebs QID and Q2H prn, walt claudio - Wean O2 as tolerated, hypoxic with O2 sat =87% as outpatient this morning, here is 92% on 2 L, check 2 step prior to dc, consider outpatient pulm follow up for formal PFTs - Checking Biofire, negative COVID, pt vaccinated x 3 - WBC at time of admission = 10.08 - Procalcitonin 0.16, negative - CXR reviewed as above and negative - Continue antibiotic therapy with doxycycline prophylactically, will dc if improvement in symptoms tomorrow, no signs of sepsis. (2) Hypokalemia: Plan: - K 2.6 on admission, at home takes Potassium 40 meq BID, did not take morning medications today - Replace IV and PO now, recheck BMP at 2000 tonight (3) RADHA on CPAP: Plan: - Hx of such, has not worn CPAP since neck surgery and healing - Follow up with PCP upon discharge (4) HTN (hypertension): Plan: - May continue amlodipine (5) HLD (hyperlipidemia): Plan: - Cont rosuvastatin DVT ppx: teds, scds, ambulatory CODE: Full Dispo: From home, likely to remain in the hospital for 1-2 days, CM to assist with any O2 needs upon discharge History of Present Illness Chief Complaint: Respiratory symptoms Primary Care Provider: Unruly Jennings MD This is a 71 yo F withPMHx HLD, HTN, CKD stage III, RADHA not on cpap since last Spring, with hx of smoking a 1 ppd for 42 years and quit in 2007 without any reported knowledge of COPD, and other problems listed below who presents the ED for evaluation of shortness of breath and intermittent hypoxia. She presented to her outpatient PCP today due to symptoms since Tuesday which include, runny nose, discharge, sore throat, nonproductive cough, body aches, headache. She took a home covid swab and notes this was negative. Here again today her COVID swab is negative. While in the office she was found to be hypoxic with O2 sats at 87% on room air. Will check a biofire panel, replace potassium with hypokalemia of 2.6. Allergies Allergy/AdvReac Type Severity Reaction Status Date / Time kiwi Allergy Intermediate hives-kiwi Verified 12/30/21 12:06 extract peanut Allergy Intermediate per pt "if Verified 12/30/21 12:06 eat too many, throat feels funny". iodine Allergy Mild skin Verified 12/30/21 12:06 discoloration propoxyphene Allergy Unknown Unknown Verified 12/30/21 12:06 atorvastatin AdvReac Intermediate myalgia Verified 12/30/21 12:06 codeine AdvReac Intermediate nausea--if Verified 12/30/21 12:06 giving an antiemitic will be okay per pt. ibuprofen AdvReac Intermediate lymphocytic Verified 12/30/21 12:06 colitis morphine AdvReac Intermediate Vomiting Verified 12/30/21 12:06 simvastatin AdvReac Intermediate myalgia Verified 12/30/21 12:06 Sulfa (Sulfonamide AdvReac Intermediate hyper Verified 12/30/21 12:06 Antibiotics) sulfamethoxazole AdvReac Intermediate hyper Verified 12/30/21 12:06 [From Bactrim] trimethoprim [From Bactrim] AdvReac Intermediate hyper Verified 12/30/21 12:06 Home Medications Medication Instructions Recorded Confirmed Type potassium chloride 20 mEq 40 meq PO BID 03/06/18 12/30/21 History tablet,extended release(part/cryst) rosuvastatin 20 mg tablet 20 mg PO HS 03/06/18 12/30/21 History zolpidem 5 mg tablet 5 mg PO HS PRN Sleep 03/06/18 12/30/21 History cyclobenzaprine 5 mg tablet 5 mg PO TID PRN Muscle Spasm 02/09/19 12/30/21 History gabapentin 300 mg capsule 300 mg PO BID PRN Pain 02/09/19 12/30/21 History dicyclomine 10 mg capsule 10 mg PO QID PRN Abdominal Pain 08/10/19 12/30/21 History meclizine 25 mg tablet 25 mg PO TID PRN Dizziness 08/10/19 12/30/21 History acetaminophen 500 mg tablet 1,000 mg PO Q8H PRN Pain 12/30/21 12/30/21 History (Tylenol Extra Strength) amlodipine 10 mg tablet 10 mg PO DAILY 12/30/21 12/30/21 History fluticasone propionate 50 2 spray intranasal DAILY PRN 12/30/21 12/30/21 History mcg/actuation nasal ALLERGIES spray,suspension sod chloride-sod 1 ea intranasal DIRECTED PRN 12/30/21 12/30/21 History bicarb-hyaluronate sod-aloe 0.9 % NASAL DRYNESS/CONGESTION nasal gel (Nasogel) Past Med/Surg History Medical History (Updated 12/30/21 @ 12:58 by Abby Guzman PA-C) Chronic back pain CKD (chronic kidney disease), stage III HLD (hyperlipidemia) HTN (hypertension) Lymphocytic colitis Migraines SALAS (nonalcoholic steatohepatitis) RADHA on CPAP Osteoarthritis Surgical History S/P left knee arthroscopy Family History Father Heart disease Social History Smoking Status: Current every day smoker Tobacco Type: Cigarettes Hx Alcohol Use: No Hx Substance Use: No Preferred Language: Citizen Of [place] Communication Ability: Effective Civil Draftsman Required: No Beliefs That Will Affect Care: None Current Living Situation: Significant Other Current Living Situation Comment: lives with friend Feels Safe at Home: Yes Assistive Devices: CPAP Review of Systems Review of Systems: Constitutional: No fever, sweats or chills, + headache at times Eyes: No diplopia, no worsening or blurred vision ENT: normal hearing, no trouble swallowing, + runny nose, + sore throat Respiratory: + Dry cough, no sputum, no dyspnea at rest, + dyspnea on exertion Cardiovascular: No chest pain, tightness or palpitations Abdomen: No pain, nausea, vomiting, diarrhea or constipation Musculoskeletal: No joint pain, calf pain, swelling Neurologic: No weakness, numbness/tingling, or balance problems Psychiatric: No anxiety or depression Skin: + dry skin over shins which is itchy/red, otherwise no rash or itch Physical Exam Physical Exam: General: awake, alert, no apparent distress Head: Normocephalic, atraumatic ENT: PERRL, EOMI, no pharyngeal exudate, mucous membranes moist Chest: On 2 L via NC, + coarse breath sounds at the bases, no wheeze or rales, + coarse nonproductive cough Cardiac: Sinus tachycardia, no murmur, no JVD, normal peripheral pulses, good capillary refill Abdominal: NABS x 4 quadrants, soft, nondistended, nontender to palpation, no rebound or guarding Extremities: Normal inspection, no peripheral edema or erythema, calfs nontender to palpation Skin: + Dry skin over shins, slightly erythematous, non cellulitic in appearance Psych: Normal mood and affect Neuro: AAO x 3, strength intact bilaterally and rated 5/5, no motor deficits, speech is clear, no peripheral sensory deficits Results & Data Results & Data ([facility]) Vital Signs (Past 12 Hours) Vital Signs Temp Pulse Resp BP Pulse Ox O2 Del Method 12/30/21 09:32 36.9 C 118 H 20 137/92 92 Room Air Laboratory Results 12/30/21 12/30/21 12/30/21 10:20 10:20 10:20 WBC RBC Hgb Hct MCV MCH MCHC RDW Std Deviation RDW Coeff of Rivas Plt Count MPV Immature Gran % (Auto) Neut % (Auto) Lymph % (Auto) [place] % (Auto) Eos % (Auto) Baso % (Auto) Neut # (Auto) Lymph # (Auto) [place] # (Auto) Eos # (Auto) Baso # (Auto) Immature Gran # (Auto) PT 10.7 INR 1.0 APTT 28.4 PTT Ratio 1.0 Sodium 141 Potassium 2.6 L Chloride 100 Carbon Dioxide 28 Anion Gap 13 H BUN 15 Creatinine 1.00 Est Cr Clr Drug Dosing 45.8 Est GFR ( Amer) 66.1 Est GFR (Non-Af Amer) 57.0 BUN/Creatinine Ratio 15.0 Glucose 103 H Calcium 9.8 Magnesium 1.9 Total Bilirubin 0.7 AST 28 ALT 31 Alkaline Phosphatase 85 Total Protein 7.4 Albumin 4.2 Globulin 3.2 Albumin/Globulin Ratio 1.3 Procalcitonin 0.16 SARS-CoV-2, RNA, NAAT 12/30/21 12/30/21 10:20 10:08 WBC 10.08 RBC 5.05 Hgb 14.5 Hct 40.9 MCV 81.0 MCH 28.7 MCHC 35.5 RDW Std Deviation 46.3 RDW Coeff of Rivas 15.9 H Plt Count 279 MPV 10.4 Immature Gran % (Auto) 0.3 Neut % (Auto) 64.0 Lymph % (Auto) 21.3 [place] % (Auto) 10.7 Eos % (Auto) 3.3 Baso % (Auto) 0.4 Neut # (Auto) 6.45 Lymph # (Auto) 2.15 [place] # (Auto) 1.08 H Eos # (Auto) 0.33 Baso # (Auto) 0.04 Immature Gran # (Auto) 0.03 H PT INR APTT PTT Ratio Sodium Potassium Chloride Carbon Dioxide Anion Gap BUN Creatinine Est Cr Clr Drug Dosing Est GFR ( Amer) Est GFR (Non-Af Amer) BUN/Creatinine Ratio Glucose Calcium Magnesium Total Bilirubin AST ALT Alkaline Phosphatase Total Protein Albumin Globulin Albumin/Globulin Ratio Procalcitonin SARS-CoV-2, RNA, NAAT NEGATIVE Diagnostic Findings Chest X-Ray 12/30/21 10:04 XR chest 2V PA/lateral HISTORY: Cough. Dyspnea COMPARISON: Chest 08/11/2019. FINDINGS: The lungs are clear. The heart is normal in size. There are calcifications within the aortic knob, unchanged. Partially visualized cervical spinal fusion hardware. No pleural effusions. No pneumothorax. IMPRESSION: No acute process. ACT 112: Negative or not required by law. Electronically signed by: Jim Palencia M.D. 12/30/2021 12:18 PM ECG Additional Comments: Sinus Tachycardia No ST wave changes or signs of ischemia No QTc prolongation Code Status & VTE Plan Code Status Full code - discussed with the patient at bedside Supervising Physician Co-Signing Physician Notes Pt seen and examined by me, care coordinated w/ Brenda Guzman PA-C, pls refer to her note above for further detail. Pt is a 71 yo F w/ HLD, HTN, CKD stage III, RADHA not on cpap since last Spring, with hx of smoking a 1 ppd for 42 years and quit in 2007 who presents w/ upper respiratory symptoms and hypoxia noted at PCP office. Reports having symptoms since Tuesday, which include coarse cough, body ache, rhinorrhea, feeling of nasal congestion. COVID test in the ED negative. She is currently sitting up in bed, in no acute distress, answers appropriately.She continues to cough.Heart sounds regular.Lung sounds somewhat coarse at bases.No wheezing noted.Abdomen soft, nontender nondistended.No lower extremity edema, moves extremities. Denies any fevers or chills. Chest x-ray unremarkable. Procalcitonin negative. Patient likely has upper respiratory virus, will check bio fire. Possibly may have COPD exacerbation given her significant smoking history. We will start doxycycline, and prednisone. mucinex. duonebs. Cont. to closely monitor. MD Jose
[2021-12-30] MEDS: POTASSIUM CHLORIDE / WTR 10 MEQ/100 ML PLCT IV SCH ×2 (13:44→15:42)
--- NOTE | 2021-12-30 14:37 | Electrocardiogram Report ---
Test Reason : Blood Pressure : / mmHG Vent. Rate : 106 BPM Atrial Rate : 106 BPM P-R Int : 142 ms QRS Dur : 080 ms QT Int : 302 ms P-R-T Axes : 042 036 009 degrees QTc Int : 401 ms Sinus tachycardia Low voltage QRS Nonspecific T wave abnormality Abnormal ECG When compared with ECG of 10-AUG-2019 17:22, No significant change was found Confirmed by Luke Taylor ([id number]) on 12/30/2021 2:37:43 PM Referred By: Confirmed By:Luke Taylor
[2021-12-30] MEDS ORDERED: ONDANSETRON INJ 2 MG/ML 2 ML VIAL IV PRN (15:18)
[2021-12-30] MEDS ORDERED: ACETAMINOPHEN 325 MG TAB PO PRN (15:18)
[2021-12-30] MEDS ORDERED: ZOLPIDEM TARTRATE 5 MG TAB PO PRN (15:18)
[2021-12-30] MEDS ORDERED: INFLUENZA VACCINE HIGH DOSE PF 65+ 0.7 ML SYR IM ONE (16:13)
[2021-12-30] MEDS: DOXYCYCLINE HYCLATE 100 MG CAP PO SCH ×2 (16:17→20:45)
[2021-12-30] MEDS: predniSONE 20 MG TAB PO SCH (16:17)
[2021-12-30] MEDS: FLUTICASONE PROPIONATE NA SPR 16 GM BTL PRN (16:17)
[2021-12-30] MEDS: GABAPENTIN 300 MG CAP PO PRN (17:21)
[2021-12-30] MEDS: ALBUT/IPRATROP 3MG/0.5MG NEB 3 ML VIAL NEB SCH ×3 (17:25→22:34)
[2021-12-30] MEDS ORDERED: BENZONATATE 100 MG CAPSULE PO PRN (17:29)
[2021-12-30 20:42] LABS: BUN Creatinine Ratio 15.7 (10-20); Calcium 9.8 mg/dl (8.5-10.1); Est GFR (African American) 60.2 ml/min; Potassium 3.1 mmol/L (3.5-5.1)
[2021-12-30] MEDS: ROSUVASTATIN CALCIUM 20 MG TAB PO SCH (20:45)
[2021-12-30] MEDS: POTASSIUM CHLORIDE CRTAB 20 MEQ TABCR PO SCH (20:45)
[2021-12-31] MEDS: ALBUT/IPRATROP 3MG/0.5MG NEB 3 ML VIAL NEB SCH ×6 (02:53→22:17)
[2021-12-31 06:25] LABS: Hematocrit (blood only) 38.1 % (34.1-44.9); Hemoglobin 13.1 g/dl (12.0-16.0); Mean Corpuscular Hemoglobin 28.7 pg (25.0-34.0); Mean Corpuscular Hgb Conc 34.4 g/dL (32.0-36.0); Mean Corpuscular Volume 83.6 fL (80.0-100.0); Mean Platelet Volume 10.3 fL (9.4-12.3); Platelet Count 286 K/uL (130-400); RDW Coefficient of Variation 15.8 % (11.5-14.5); RDW Standard Deviation 47.7 fL (36.4-46.3); Red Blood Count 4.56 M/uL (3.93-5.22); White Blood Count 9.19 K/ul (4.8-10.8)
[2021-12-31 07:05] LABS: Creatinine Clr Calc Pharmacy 55.3 ml/min; Est GFR (Non-African American) 72.5 ml/min; Potassium 3.6 mmol/L (3.5-5.1)
[2021-12-31] MEDS: amLODIPine BESYLATE 5 MG TAB PO SCH (08:44)
[2021-12-31] MEDS: GABAPENTIN 300 MG CAP PO PRN ×2 (08:44→23:23)
[2021-12-31] MEDS: predniSONE 20 MG TAB PO SCH (08:45)
[2021-12-31] MEDS: DOXYCYCLINE HYCLATE 100 MG CAP PO SCH ×2 (08:45→21:48)
[2021-12-31] MEDS: POTASSIUM CHLORIDE CRTAB 20 MEQ TABCR PO SCH ×2 (08:45→21:49)
[2021-12-31 10:14] LABS: D Dimer 320 ug/L FEU (0-500)
--- NOTE | 2021-12-31 12:46 | Hospitalist Progress Note ---
Date of Service December 31, 2021 Assessment & Plan (1) Hypoxia: Plan: Acute Bronchitis Hypoxia Former Smoker. H/O seasonal allergies Vaccinated for COVID X3 --CXR:The lungs are clear. The heart is normal in size. There are calcifications within the aortic knob, unchanged. Partially visualized cervical spinal fusion hardware. No pleural effusions. No pneumothorax. --D Dimer:320; Procalcitonin 0.16 --CVOID Screen Negative --Biofire pending -- Continue doxycycline, prednisone, nebs, Flonase, Mucinex, antitussives as needed --Supplemental oxygen as needed --Pulmonary hygiene with flutter, incentive spirometer -- Consider PFTs as outpatient --May need 2 step prior to discharge (2) Hypokalemia: Plan: Chronic hypokalemia On Potassium 40 meq BID at home Normal magnesium Continue potassium supplement Monitor (3) RADHA on CPAP: Plan: H/O RADHA Currently not using CPAP (4) HTN (hypertension): Plan: - continue amlodipine (5) HLD (hyperlipidemia): Plan: - Continue statin DVT Px: Lovenox SQ CODE STATUS: Full Code Admission and Anticipated Discharge Date Admission Date: December 30, 2021 Subjective Patient is seen and examined at bedside Less cough today when compared to yesterday States having rhinitis, sinus congestion Also reports minimal dyspnea on exertion Denies any chest pain, nausea, vomiting, diarrhea, abdominal pain Sore throat resolved No other complaints Review of Systems Review of Systems: All systems reviewed & are unremarkable except as noted in Subjective Physical Exam Physical Exam: Physical Exam: Vitals signs as noted above General Appearance:Moderately built and nourished, no apparent distress Head: normocephalic, Atraumatic Eyes: normal inspection, EOMI Neck: supple, Trachea midline Respiratory/Chest: Normal breath sounds, CTA, No accessory muscle use Cardiovascular: S1, S2, No murmur Abdomen/GI:Soft, Non tender, Bowel sounds present Extremities/Musculoskeletal:normal inspection, no edema Neurologic/Psych:AAOX3, grossly no focal neurological deficits Skin: normal color, warm Results & Data Results & Data ([facility]) Vital Signs (Past 12 Hours) Vital Signs Temp Pulse Pulse Resp BP BP Pulse Ox 12/31/21 11:26 36.4 C L 106 H 20 146/80 H 96 12/31/21 11:25 108 H 18 92 12/31/21 08:06 36.5 C 106 H 20 121/71 99 12/31/21 07:22 94 H 12/31/21 07:12 103 H 18 97 12/31/21 03:23 36.5 C 99 H 20 95/66 L 90 12/31/21 02:56 98 H 14 96 12/31/21 01:38 103 H O2 Del Method O2 Flow Rate 12/31/21 11:26 Nasal Cannula 2 12/31/21 11:25 Room Air 12/31/21 08:06 Nasal Cannula 3 12/31/21 07:22 12/31/21 07:12 Nasal Cannula 3 12/31/21 03:23 3 12/31/21 02:56 Nasal Cannula 3 12/31/21 01:38 Laboratory Results Short CBC 12/31/21 Range/Units 05:40 WBC 9.19 (4.8-10.8) K/ul Hgb 13.1 (12.0-16.0) g/dl Hct 38.1 (34.1-44.9) % Plt Count 286 (130-400) K/uL BMP 12/30/21 12/31/21 19:59 05:40 Sodium 139 140 Potassium 3.1 L 3.6 Chloride 101 105 Carbon Dioxide 27 26 BUN 17 18 Creatinine 1.08 0.82 Glucose 156 H 114 H Calcium 9.8 9.0
[2021-12-31] MEDS: ROSUVASTATIN CALCIUM 20 MG TAB PO SCH (21:49)
[2022-01-01] MEDS: ALBUT/IPRATROP 3MG/0.5MG NEB 3 ML VIAL NEB SCH ×4 (03:27→14:11)
[2022-01-01 06:19] LABS: Hematocrit (blood only) 34.4 % (34.1-44.9); Hemoglobin 11.8 g/dl (12.0-16.0); Mean Corpuscular Hemoglobin 29.1 pg (25.0-34.0); Mean Corpuscular Hgb Conc 34.3 g/dL (32.0-36.0); Mean Corpuscular Volume 84.7 fL (80.0-100.0); Mean Platelet Volume 10.2 fL (9.4-12.3); Platelet Count 283 K/uL (130-400); RDW Coefficient of Variation 16.3 % (11.5-14.5); RDW Standard Deviation 50.8 fL (36.4-46.3); Red Blood Count 4.06 M/uL (3.93-5.22); White Blood Count 12.96 K/ul (4.8-10.8)
[2022-01-01] MEDS: FLUTICASONE PROPIONATE NA SPR 16 GM BTL PRN (06:38)
[2022-01-01 06:52] LABS: BUN Creatinine Ratio 24.4 (10-20); Calcium 8.6 mg/dl (8.5-10.1); Creatinine Clr Calc Pharmacy 53.3 ml/min; Est GFR (African American) 79.3 ml/min; Est GFR (Non-African American) 68.4 ml/min; Magnesium 1.8 mg/dl (1.7-2.4); Potassium 3.4 mmol/L (3.5-5.1)
[2022-01-01] MEDS ORDERED: ENOXAPARIN INJ 40 MG/0.4 ML SYR SQ SCH (09:00)
[2022-01-01] MEDS: DOXYCYCLINE HYCLATE 100 MG CAP PO SCH (09:16)
[2022-01-01] MEDS: amLODIPine BESYLATE 5 MG TAB PO SCH (09:16)
[2022-01-01] MEDS: POTASSIUM CHLORIDE CRTAB 20 MEQ TABCR PO SCH (09:16)
[2022-01-01] MEDS: predniSONE 20 MG TAB PO SCH (09:17)
--- NOTE | 2022-01-01 09:57 | Hospitalist Progress Note ---
Date of Service January 01, 2022 Assessment & Plan (1) Hypoxia: (2) Hypokalemia: (3) RADHA on CPAP: (4) HTN (hypertension): (5) HLD (hyperlipidemia): Admission and Anticipated Discharge Date Admission Date: December 30, 2021 Results & Data Results & Data ([facility]) Vital Signs (Past 12 Hours) Vital Signs Temp Pulse Pulse Resp BP BP Pulse Ox 01/01/22 07:34 36.5 C 104 H 20 145/81 H 93 01/01/22 07:19 98 H 01/01/22 07:19 96 H 19 94 01/01/22 03:31 36 C L 102 H 20 148/81 H 94 01/01/22 03:30 98 H 18 94 12/31/21 22:11 112 H 12/31/21 22:44 36.6 C 115 H 20 146/77 H 92 12/31/21 22:18 112 H 18 95 12/31/21 22:11 O2 Del Method 01/01/22 07:34 Room Air 01/01/22 07:19 01/01/22 07:19 Room Air 01/01/22 03:31 Room Air 01/01/22 03:30 Room Air 12/31/21 22:11 12/31/21 22:44 Room Air 12/31/21 22:18 Room Air 12/31/21 22:11 Room Air Laboratory Results Short CBC 01/01/22 Range/Units 06:05 WBC 12.96 H (4.8-10.8) K/ul Hgb 11.8 L (12.0-16.0) g/dl Hct 34.4 (34.1-44.9) % Plt Count 283 (130-400) K/uL BMP 01/01/22 06:05 Sodium 141 Potassium 3.4 L Chloride 107 Carbon Dioxide 28 BUN 21 Creatinine 0.86 Glucose 98 Calcium 8.6 Medications Administered Current Inpatient Medications Acetaminophen (Acetaminophen 325 Mg Tab) 650 mg PO Q4H PRN PRN Reason: Moderate Pain Stop: 01/29/22 15:17 Albuterol (Albut/Ipratrop 3mg/0.5mg Neb 3 Ml Vial) 3 ml NEB Q4R ALEXY; Protocol Stop: 01/29/22 15:29 Last Admin: 01/01/22 07:19 Dose: 3 ml Amlodipine Besylate (Amlodipine Besylate 5 Mg Tab) 10 mg PO DAILY ALEXY Stop: 01/30/22 08:59 Last Admin: 01/01/22 09:16 Dose: 10 mg Benzonatate (Benzonatate 100 Mg Capsule) 100 mg PO TID PRN PRN Reason: cough Stop: 01/29/22 20:59 Last Admin: 12/30/21 18:17 Dose: 100 mg Doxycycline Hyclate (Doxycycline Hyclate 100 Mg Cap) 100 mg PO BID ALEXY Stop: 01/01/22 15:29 Last Admin: 01/01/22 09:16 Dose: 100 mg Enoxaparin Sodium (Enoxaparin Inj 40 Mg/0.4 Ml Syr) 40 mg SQ QAM ALEXY Stop: 01/31/22 08:59 Last Admin: 01/01/22 09:16 Dose: 40 mg Fluticasone Propionate (Fluticasone Propionate Na Spr 16 Gm Btl) 2 sprays NA DAILY PRN PRN Reason: ALLERGIES Stop: 01/29/22 15:17 Last Admin: 01/01/22 06:38 Dose: 2 sprays Gabapentin (Gabapentin 300 Mg Cap) 300 mg PO BID PRN PRN Reason: Pain Stop: 01/29/22 15:17 Last Admin: 12/31/21 23:23 Dose: 300 mg Ondansetron HCl (Ondansetron Inj 2 Mg/Ml 2 Ml Vial) 4 mg IV Q4H PRN PRN Reason: Nausea And Vomiting Stop: 01/29/22 15:17 Potassium Chloride (Potassium Chloride Crtab 20 Meq Tabcr) 40 meq PO BID ALEXY Stop: 01/29/22 20:59 Last Admin: 01/01/22 09:16 Dose: 40 meq Prednisone (Prednisone 20 Mg Tab) 40 mg PO QAM ALEXY Stop: 01/29/22 15:29 Last Admin: 01/01/22 09:17 Dose: 40 mg Rosuvastatin Calcium (Rosuvastatin Calcium 20 Mg Tab) 20 mg PO HS ALEXY Stop: 01/29/22 20:59 Last Admin: 12/31/21 21:49 Dose: 20 mg Zolpidem Tartrate (Zolpidem Tartrate 5 Mg Tab) 5 mg PO HS PRN PRN Reason: Sleep Stop: 01/29/22 15:17 Last Admin: 12/31/21 21:55 Dose: 5 mg
[2022-01-01] MEDS: GABAPENTIN 300 MG CAP PO PRN (16:35)
--- NOTE | 2022-01-01 17:04 | Discharge Summary ---
Discharge Summary Date of Service January 01, 2022 Notes For Next Care Provider Allergy referral outpatient PFTs when symptoms have resolved Medication Changes From Visit Benzonatate 100mg PO TID PRN cough Cetirizine 10mg PO daily Doxycycline 100mg PO BID Floticasone propionate 50mcg 2 sprays daily Prednisone 40mg PO daily x 3 days Admission HPI Per Admitting Provider This is a 71 yo F withPMHx HLD, HTN, CKD stage III, RADHA not on cpap since last Spring, with hx of smoking a 1 ppd for 42 years and quit in 2007 without any reported knowledge of COPD, and other problems listed below who presents the ED for evaluation of shortness of breath and intermittent hypoxia. She presented to her outpatient PCP today due to symptoms since Tuesday which include, runny nose, discharge, sore throat, nonproductive cough, body aches, headache. She took a home covid swab and notes this was negative. Here again today her COVID swab is negative. While in the office she was found to be hypoxic with O2 sats at 87% on room air. Will check a biofire panel, replace potassium with hypokalemia of 2.6. Admission Exam Per Admitting Provider Physical Exam: General: awake, alert, no apparent distress Head: Normocephalic, atraumatic ENT: PERRL, EOMI, no pharyngeal exudate, mucous membranes moist Chest: On 2 L via NC, + coarse breath sounds at the bases, no wheeze or rales, + coarse nonproductive cough Cardiac: Sinus tachycardia, no murmur, no JVD, normal peripheral pulses, good capillary refill Abdominal: NABS x 4 quadrants, soft, nondistended, nontender to palpation, no rebound or guarding Extremities: Normal inspection, no peripheral edema or erythema, calfs nontender to palpation Skin: + Dry skin over shins, slightly erythematous, non cellulitic in appearance Psych: Normal mood and affect Neuro: AAO x 3, strength intact bilaterally and rated 5/5, no motor deficits, speech is clear, no peripheral sensory deficits Principal Dx & Hospital Course #1 = Principal Diagnosis (1) Hypoxia: (2) Hypokalemia: (3) RADHA on CPAP: (4) HTN (hypertension): (5) HLD (hyperlipidemia): Plan 71 yo F presented with dyspnea and hypoxia. Symptoms of rhinorrhea, sore throat, cough and body aches were also present. Her covid swab x 2 was negative. Her clinical picture was consistent with acute bronchitis. CXR was clear. Her low potassium was replaced with supplementation. Mag was normal. She is also noncompliant with CPAP despite a h/o RADHA. She doesnt carry a formal diagnosis of COPD, however, has a h/o smoking. Outpatient pulmonary function tests were recommended once she had recovered. She was treated with a short course of doxycycline, prednisone, and other supportive medications such as Flonase, Mucinex, and nebulizer therapies. During her stay, flutter valve and incentive spirometer were encouraged. At the time of discharge, she reported seasonal allergies and was started on Zyrtec daily, also. She was oxygenating well on room air and was sent home in stable condition. Updated Medication List Medication Instructions Recorded Confirmed Type potassium chloride 20 mEq 40 meq PO BID 03/06/18 12/30/21 History tablet,extended release(part/cryst) rosuvastatin 20 mg tablet 20 mg PO HS 03/06/18 12/30/21 History zolpidem 5 mg tablet 5 mg PO HS PRN Sleep 03/06/18 12/30/21 History cyclobenzaprine 5 mg tablet 5 mg PO TID PRN Muscle Spasm 02/09/19 12/30/21 History gabapentin 300 mg capsule 300 mg PO BID PRN Pain 02/09/19 12/30/21 History dicyclomine 10 mg capsule 10 mg PO QID PRN Abdominal Pain 08/10/19 12/30/21 History meclizine 25 mg tablet 25 mg PO TID PRN Dizziness 08/10/19 12/30/21 History acetaminophen 500 mg tablet 1,000 mg PO Q8H PRN Pain 12/30/21 12/30/21 History (Tylenol Extra Strength) amlodipine 10 mg tablet 10 mg PO DAILY 12/30/21 12/30/21 History sod chloride-sod 1 ea intranasal DIRECTED PRN 12/30/21 12/30/21 History bicarb-hyaluronate sod-aloe 0.9 % NASAL DRYNESS/CONGESTION nasal gel (Nasogel) benzonatate 100 mg capsule 100 mg PO TID PRN cough #20 caps 01/01/22 Rx cetirizine 10 mg tablet (Zyrtec) 10 mg PO DAILY #30 tabs 01/01/22 Rx doxycycline monohydrate 100 mg 100 mg PO BID #6 caps 01/01/22 Rx capsule fluticasone propionate 50 2 spray intranasal DAILY #16 grams 01/01/22 12/30/21 Rx mcg/actuation nasal spray,suspension prednisone 20 mg tablet 40 mg PO QAM #6 tabs 01/01/22 Rx Hospital Stay Data Consultations 12/30/21 12:52 ED Decision to Admit Stat Pending Results Patient Have Any Pending Studies at Discharge: No Discharge Instructions Given to Patient (Per Discharging Provider) Please take all medications as instructed on discharge list below. Please continue to take the short course of prednisone (steroid), doxycycline (antibiotic), antihistamines (zyrtec), and nasal steroids (flonase). Please take the Zyrtex and Flonase consistently until you feel your symptoms have resolved for at least a few days (there is some stability where you don't have symptoms any longer). Please discuss with Dr. Jennings about getting a referral to an route inspector and also for sending you for pulmonary function tests once your symptoms are completely resolved. It was a pleasure taking care of you! Please call if you have any questions or problems. You can reach a [facility] hospitalist on duty at [facility] 24 hours a day by calling [phone]. Take care of yourself. Yolande Horn DO [facility] Total Time Total Time Spent Total Time Spent (In Minutes): 60
--- NOTE | 2022-01-08 16:00 | Coding Query ---
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 Please assist us with the question(s) below: Coding Question(s): Pt , short stay admitted with hypoxia. H/P = possible COPD exacerbation. No prior history of diagnosed COPD. History of tobacco. Please document, if known or suspected, the etiology of the hypoxia. Thanks for your help! Jad Catalan [employer] [facility] Physician's Response(s): Hypoxia likely the result of acute bronchitis (likely viral) in setting of possible COPD, with noted noncompliance of CPAP despite h/o RADHA. Principal Diagnosis: "that condition established after study, to be chiefly responsible for occasioning the admission of the patient to the hospital for care." Co-Existing Principal Diagnosis: "when two or more diagnoses equally meet the criteria for principal diagnosis as determined by the circumstances of admission, diagnostic work up, and/or therapy provided, and the Alphabetic Index, Tabular List, or another coding guideline does not provide sequencing direction, any one of the diagnoses may be sequenced first." "When the physician has documented what appears to be a current diagnosis in the body of the record, but has not included the diagnosis in the final diagnostic statement, the physician should be asked whether the diagnosis should be added." (Source Coding [facility] 2 QTR90. p3-4) HIRA
== END 2022-01-01 17:39 | disposition home or self-care (01) | DRG 202 ==
LOC: ED 09:29 → SUATTDRO 13:21 → 2W 13:21
DX: E87.6 Hypokalemia; G43.909 Migraine, unspecified, not intractable, without status migrainosus; Z88.5 Allergy status to narcotic agent; G47.33 Obstructive sleep apnea (adult) (pediatric); R09.02 Hypoxemia; Z87.891 Personal history of nicotine dependence; E78.5 Hyperlipidemia, unspecified; N18.30 Chronic kidney disease, stage 3 unspecified; J20.9 Acute bronchitis, unspecified; I12.9 Hypertensive chronic kidney disease with stage 1 through stage 4 chronic kidney disease, or unspecified chronic kidney disease; Z88.2 Allergy status to sulfonamides; Z91.199 Patient's noncompliance with other medical treatment and regimen due to unspecified reason; J44.0 Chronic obstructive pulmonary disease with (acute) lower respiratory infection

== ENCOUNTER 2023-11-01 11:53 | Inpatient (IN) ==
--- NOTE | 2023-11-01 12:17 | Emergency Department Note ---
Impression & Plan Hypertensive urgency, Headache ED Provider Note NAME: HOLLIE GALVEZ AGE: 73 SEX: F : 1950 ARRIVES VIA: Walk-In INFORMANT: Patient, ED PROVIDER(S): Mario Kirby MD CHIEF COMPLAINT: Hypertension MEDICAL DECISION MAKING: Patient presents due to concern for high blood pressure. IV was established and blood work was obtained. I had spoken with Dr. Guerra prior to arrival given the patient's elevated pressure. The patient was ordered IV dose of labetalol. Patient currently not on anything as an outpatient. Blood work shows white count of 10.86 with hemoglobin slightly elevated 16.8. Platelet count is unremarkable. Kidney function is unremarkable. TSH and free T4 is normal. Urinalysis negative for blood or infection. Patient's chest x- ray without obvious pneumonia. After receiving the labetalol the patient did have improvement in her blood pressures down to the 140s. The patient was also treated symptomatically for her headache and did have improvement after she received Zofran IV fluids and IV magnesium. After further discussion with the patient the patient will prefer to go home. Patient has a nonfocal neurologic exam and is not meningitic and or encephalopathic. I did speak with Dr. Pal who recommended Norvasc 5 mg and hydrochlorothiazide 12.5 to be given daily and the patient may begin taking this this evening. Prior to discharge the patient did have recurrence of her elevated blood pressure back up to 220s. Given this persistent elevation in blood pressure and the fact the patient is not on anything at home do not think it unreasonable for inpatient treatment. Patient was ordered additional IV labetalol. I did discuss the case new with Dr. Pal and the patient was admitted to the medicine service. Critical Care: I have personally spent 35 minutes of critical care time in direct management of this patient. This includes bedside care, interpretation of diagnostic studies, and testing, discussion with consultants, patient, and family members, and other require inpatient management activities. This 35 minutes is in excess of all separately billable procedures. Discussion w/ other healthcare providers: Dr. Pal inpatient medicine service Dr. Guerra cardiology service Prior /Outside records reviewed: None Differential diagnosis: Benign hypertension, hypertensive emergency, hypertensive emergency/urgency, salt intake, pheochromocytoma, electrolyte abnormality, renal disease as well as other etiologies were entertained. Diagnostics, as interpreted by me: ECG: Sinus rhythm with PACs, rate 94, normal VT and QRS sinus, rate of 87, normal QRS, normal axis, PVCs noted. Cardiac monitoring: An order was placed for continuous cardiac monitoring. The monitor shows a rate of 92 with sinus rhythm. Patient was placed on pulse oximetry Medical decision rules: None Imaging studies: I informally interpreted the patient's chest x-ray without evidence of pneumonia or pneumothorax with formal report to follow. HPI: Patient presents as a referral from cardiology clinic due to concern for elevated blood provide pressure. I did speak with Dr. Guerra prior to arrival he stated the patient was seen in clinic due to concern for PVCs and had a resting echo that was unremarkable. No valvulopathy and EF was normal. He reports that the patient did have 3 separate measured elevated blood pressures greater than 200. They did try 0.1 mg dose of clonidine but without significant improvement. The patient was referred here for further evaluation and treatment as the patient has had some associated headache. Patient's headache is front and on the top. No numbness ting or focal weakness. No falls or trauma the patient does not take any blood thinner medications. Patient currently not on any antihypertensive therapy. Portably the patient had recent blood pressures within the last month or so that were in the 130s systolic. Patient denies any increase in salt or processed foods in the diet. Patient denies any increase in stress or anxiety. Patient denies any chest pains or shortness of breath. PAST MEDICAL HISTORY: See Below PAST SURGICAL HISTORY: See Below SOCIAL HISTORY: See Below HOME MEDICATIONS: See Below ALLERGIES: See Below VITALS: See Below PHYSICAL EXAMINATION: GENERAL: NAD, non-toxic. Wearing glasses. EYE EXAM: Normal conjunctiva. PERRL, no anisocoria and EOM's grossly intact w/o pain. OROPHARYNX: Moist mucus membranes, grossly normal dentition. NECK: Trachea midline, no stridor. LUNGS: Clear to auscultation. Normal chest wall mechanics. HEART: NSR, no MRG. ABDOMEN: Abdomen soft, non-tender, no masses, no rebound or guarding. BACK: No CVA TTP. SKIN: No rashes and no bruising. UPPER EXTREMITIES: Upper extremities are grossly normal. LOWER EXTREMITIES: Grossly normal, no edema. NEURO EXAM: A&O x3, cranial nerves II-XII grossly intact, normal speech, moves all 4 extremities. Past Med/Surg History Problem List (Updated 11/02/23 @ 16:12 by Mario Kirby MD) Headache (Acute) Hypertensive urgency (Acute) Prolonged QT interval Hypertensive urgency Bronchitis (Acute) Hypoxia (Acute) Hypokalemia Hypoxia Diarrhea Sepsis DVT prophylaxis Acute kidney injury superimposed on CKD CKD (chronic kidney disease), stage III Lymphocytic colitis RADHA on CPAP Colitis (Acute) Enteritis (Acute) Acute hypokalemia (Acute) Acute dehydration (Acute) HTN (hypertension) HLD (hyperlipidemia) Medical History (Updated 11/02/23 @ 16:12 by Mario Kirby MD) Chronic back pain Migraines Osteoarthritis SALAS (nonalcoholic steatohepatitis) Surgical History S/P left knee arthroscopy Family History Father Heart disease Social History Smoking Status: Former smoker Tobacco Type: Cigarettes Do You Dip or Chew Tobacco: No; Hx Alcohol Use: No Hx Substance Use: No Preferred Language: Arabic Communication Ability: Effective 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 iodine Allergy Mild skin Verified 11/01/23 15:57 discoloration propoxyphene Allergy Unknown Unknown Verified 11/01/23 15:57 atorvastatin AdvReac Intermediate myalgia Verified 11/01/23 15:57 codeine AdvReac Intermediate nausea--if Verified 11/01/23 15:57 giving an antiemitic will be okay per pt. ibuprofen AdvReac Intermediate lymphocytic Verified 11/01/23 15:57 colitis morphine AdvReac Intermediate Vomiting Verified 11/01/23 15:57 simvastatin AdvReac Intermediate myalgia Verified 11/01/23 15:57 Sulfa (Sulfonamide AdvReac Intermediate hyper Verified 11/01/23 15:57 Antibiotics) sulfamethoxazole AdvReac Intermediate hyper Verified 12/30/21 12:06 [From Bactrim] trimethoprim [From Bactrim] AdvReac Intermediate hyper Verified 11/01/23 15:57 Home Meds Home Medications Medication Instructions Recorded Confirmed rosuvastatin 20 mg tablet 20 mg PO HS 03/06/18 11/01/23 zolpidem 5 mg tablet 5 mg PO HS Sleep 03/06/18 11/01/23 dicyclomine 10 mg capsule 10 mg PO QID PRN Abdominal Pain 08/10/19 11/01/23 meclizine 25 mg tablet 25 mg PO TID PRN Dizziness 08/10/19 11/01/23 acetaminophen 500 mg tablet 1,000 mg PO Q8H PRN Pain 12/30/21 11/01/23 (Tylenol Extra Strength) albuterol sulfate 90 mcg/actuation 2 puff inhalation Q4 PRN 11/01/23 11/01/23 aerosol inhaler COUGH,SOB,WHEEZING azelastine 137 mcg (0.1 %) nasal 2 spray intranasal AMHS 11/01/23 11/01/23 spray clonidine HCl 0.1 mg tablet 0.1 mg PO DAILY PRN SBP>180 MM HG 11/01/23 11/01/23 metoprolol tartrate 25 mg tablet 25 mg PO BID 11/01/23 11/01/23 montelukast 10 mg tablet 10 mg PO QAM 11/01/23 11/01/23 omeprazole 40 mg capsule,delayed 40 mg PO DAILYBB 11/01/23 11/01/23 release sodium chloride-aloe vera nasal 1 applic topical . NEEDED PRN 11/01/23 11/01/23 gel (Saline Nasal (aloe vera) gel) NASAL CONGESTION AND DRYNESS tizanidine 4 mg capsule 4 mg PO TID 11/01/23 11/01/23 Previous Rx's Medication Instructions Recorded fluticasone propionate 50 2 spray intranasal DAILY #16 grams 01/01/22 mcg/actuation nasal spray,suspension amlodipine 5 mg tablet 5 mg PO DAILY #30 tabs 11/01/23 hydrochlorothiazide 12.5 mg tablet 12.5 mg PO DAILY #30 tabs 11/01/23 Results & Data (ED) Vital Signs Vital Signs - 24 hr 11/01/23 11:57 11/01/23 12:16 Temperature 36.5 C Temperature Source Temporal Artery Scan Pulse Rate 45 L 77 Respiratory Rate 18 Respiratory Effort / Characteristics Non-Labored Spontaneous Respiratory Depth Normal Respiratory Pattern Regular Blood Pressure 210/70 H Blood Pressure Mean 116 Blood Pressure Position Sitting Pulse Oximetry 93 Oxygen Delivery Method Room Air Sepsis Recent Fever Within 48 Hours No Sepsis New/Unexplained Change in Mental Status No Sepsis Action Taken by Nursing No Action Required Home Medications Current Medication List: was personally reviewed by me Laboratory Data Attestation: I reviewed the patient's lab results. 11/02/23 04:24 11/02/23 04:24 Lab Results 11/01/23 11/01/23 Range/Units 12:20 15:13 WBC 10.86 H (4.8-10.8) K/ul RBC 5.75 H (4.20-5.40) M/uL Hgb 16.8 H (12.0-16.0) g/dl Hct 49.2 H (37.0-47.0) % MCV 85.6 (80.0-100.0) fL MCH 29.2 (25.0-34.0) pg MCHC 34.1 (32.0-36.0) g/dL RDW Std Deviation 41.3 (36.4-46.3) fL RDW Coeff of Rivas 13.2 (11.5-14.5) % Plt Count 229 (130-400) K/uL MPV 11.0 (9.4-12.4) fL Immature Gran % (Auto) 0.4 % Neut % (Auto) 69.3 % Lymph % (Auto) 22.8 % [place] % (Auto) 5.7 % Eos % (Auto) 1.3 % Baso % (Auto) 0.5 % Neut # (Auto) 7.53 H (1.40-6.50) K/uL Lymph # (Auto) 2.48 (1.20-3.40) K/uL [place] # (Auto) 0.62 H (0.11-0.59) K/uL Eos # (Auto) 0.14 (0.00-0.50) K/uL Baso # (Auto) 0.05 (0.00-0.20) K/uL Immature Gran # (Auto) 0.04 (0.01-0.20) K/uL Sodium 141 (136-145) mmol/L Potassium 3.8 (3.5-5.1) mmol/L Chloride 106 (98-107) mmol/L Carbon Dioxide 26 (21-32) mmol/L Anion Gap 9 (3-11) BUN 13 (6-23) mg/dl Creatinine 1.06 (0.6-1.2) mg/dl Est Cr Clr Drug Dosing Not Reportable Est GFR ( Amer) 60.8 ml/min Est GFR (Non-Af Amer) 52.4 ml/min BUN/Creatinine Ratio 12.3 (10-20) Glucose 100 H (70-99(Fasting)) mg/dl Calcium 10.3 (8.6-10.3) mg/dl Total Bilirubin 1.1 H (0.2-1.0) mg/dl AST 32 (13-39) U/L ALT 26 (7-52) U/L Alkaline Phosphatase 79 (34-104) U/L Total Protein 8.0 (6.0-8.3) gm/dl Albumin 4.9 (3.4-5.0) gm/dl Globulin 3.1 (2.5-4.0) gm/dl Albumin/Globulin Ratio 1.6 (0.9-2) TSH 4.672 H (0.300-4.500) uIu/ml Free T4 0.86 (0.61-1.60) ng/dl Urine Color Yellow Urine Appearance Clear (Clear) Urine pH 5.5 (4.5-7.5) Ur Specific [place] 1.009 (1.000-1.030) Urine Protein Trace H (Negative) Urine Glucose (UA) Negative (Negative) Urine Ketones Negative (Negative) Urine Blood Negative (Negative) Urine Nitrite Negative (Negative) Urine Bilirubin Negative (Negative) Urine Urobilinogen Negative (Negative) Ur Leukocyte Esterase Trace H (Negative) Urine WBC (Auto) 0-5 (0-5) /hpf Urine RBC (Auto) 0-2 (0-2) /hpf U Hyaline Cast (Auto) 0-2 (0-2) /lpf U Epithel Cells (Auto) 0-2 (0-2) /hpf Urine Bacteria (Auto) None Seen (None Seen) Administered Medications Acetaminophen (Acetaminophen 500 Mg Tab) 1,000 mg PO Q8H PRN PRN Reason: Pain Stop: 12/01/23 17:57 Last Admin: 11/02/23 15:15 Dose: 1,000 mg Documented By: Admin: 11/02/23 06:18 Dose: 1,000 mg Documented By: [id number] Admin: 11/01/23 18:33 Dose: 1,000 mg Documented By: OPHELIA Amlodipine Besylate (Amlodipine Besylate 5 Mg Tab) 10 mg PO QAM [facility] Stop: 12/02/23 08:59 Last Admin: 11/02/23 07:44 Dose: 10 mg Documented By: MARILIA Nicardipine HCl 25 mg/ Sodium (Chloride) 250 mls @ 0 mls/hr IV .Q0M [facility]; Protocol Stop: 12/01/23 17:57 Last Admin: 11/02/23 01:18 Dose: Not Given Documented By: [id number] Titration: 11/02/23 00:45 Dose: 0 mg/hr, 0 mls/hr Documented By: [id number] Titration: 11/01/23 21:17 Dose: 1.25 mg/hr, 12.5 mls/hr Documented By: [id number] Titration: 11/01/23 18:43 Dose: 2.5 mg/hr, 25 mls/hr Documented By: OPHELIA Co-signed By: [id number] Admin: 11/01/23 18:18 Dose: 5 mg/hr, 50 mls/hr Documented By: OPHELIA Co-signed By: DAVID Pantoprazole Sodium (Pantoprazole 40 Mg Tab) 40 mg PO DAILYBB [facility] Stop: 12/02/23 06:29 Last Admin: 11/02/23 05:44 Dose: 40 mg Documented By: [id number] Rosuvastatin Calcium (Rosuvastatin Calcium 20 Mg Tab) 20 mg PO HS [facility] Stop: 12/01/23 20:59 Last Admin: 11/01/23 21:06 Dose: 20 mg Documented By: [id number] Valsartan (Valsartan 80 Mg Tab) 80 mg PO DAILY [facility] Stop: 12/02/23 10:59 Last Admin: 11/02/23 12:13 Dose: 80 mg Documented By: MARILIA Zolpidem Tartrate (Zolpidem Tartrate 5 Mg Tab) 5 mg PO HS PRN PRN Reason: Sleep Stop: 12/01/23 21:57 Last Admin: 11/01/23 22:40 Dose: 5 mg Documented By: [id number] Discontinued Medications Amlodipine Besylate (Amlodipine Besylate 5 Mg Tab) 10 mg PO NOW ONE Stop: 11/01/23 17:59 Last Admin: 11/01/23 18:29 Dose: 10 mg Documented By: OPHELIA Carvedilol (Carvedilol 6.25 Mg Tab) 6.25 mg PO BIDM [facility] Stop: 12/02/23 07:59 Last Admin: 11/02/23 07:44 Dose: 6.25 mg Documented By: MARILIA Carvedilol (Carvedilol 3.125 Mg Tab) 3.125 mg PO NOW ONE Stop: 11/02/23 11:15 Last Admin: 11/02/23 12:13 Dose: 3.125 mg Documented By: MARILIA Hydrochlorothiazide (Hydrochlorothiazide 25 Mg Tab) 12.5 mg PO NOW STA Stop: 11/01/23 15:32 Last Admin: 11/01/23 17:10 Dose: 12.5 mg Documented By: MALAIKA Hydrochlorothiazide (Hydrochlorothiazide 25 Mg Tab) 12.5 mg PO QAM [facility] Stop: 12/02/23 08:59 Last Admin: 11/02/23 07:44 Dose: 12.5 mg Documented By: MARILIA Sodium Chloride (Nss) 500 mls @ 999 mls/hr IV .Q31M [facility] Stop: 11/01/23 13:30 Last Infusion: 11/01/23 13:56 Dose: Infused Documented By: Admin: 11/01/23 12:56 Dose: 999 mls/hr Documented By: MALAIKA Magnesium Sulfate/Dextrose (Magnesium Sulfate / D5w) 1 gm in 100 mls @ 300 mls/hr IV NOW ONE Stop: 11/01/23 13:07 Last Infusion: 11/01/23 13:55 Dose: Infused Documented By: Admin: 11/01/23 12:56 Dose: 300 mls/hr Documented By: MALAIKA Labetalol HCl (Labetalol Hcl Iv 5 Mg/Ml 20ml) 10 mg IV NOW STA Stop: 11/01/23 12:49 Last Admin: 11/01/23 12:55 Dose: 10 mg Documented By: MALAIKA Labetalol HCl (Labetalol Hcl Iv 5 Mg/Ml 20ml) 10 mg IV NOW STA Stop: 11/01/23 14:54 Last Admin: 11/01/23 15:15 Dose: 10 mg Documented By: MALAIKA Miscellaneous (Icu Protocol For Hyperglycemia) 1 each N/A ACHS ALEXY Stop: 11/03/23 17:57 Last Admin: 11/02/23 12:40 Dose: Not Given Documented By: Admin: 11/02/23 07:13 Dose: Not Given Documented By: Admin: 11/01/23 21:17 Dose: 1 each Documented By: [id number] Admin: 11/01/23 18:44 Dose: Not Given Documented By: OPHELIA Ondansetron HCl (Ondansetron Inj 2 Mg/Ml 2 Ml Vial) 4 mg IV NOW STA Stop: 11/01/23 12:49 Last Admin: 11/01/23 12:55 Dose: 4 mg Documented By: MALAIKA Potassium Chloride (Potassium Chloride Crtab 20 Meq Tabcr) 40 meq PO NOW STA Stop: 11/02/23 06:07 Last Admin: 11/02/23 06:19 Dose: 40 meq Documented By: [id number] Imaging Data Radiologist's Impression: Chest X-Ray 11/01/23 11:55 XR chest 1V portable HISTORY: 73 years-old Female Hypertension COMPARISON: 12/30/2021 TECHNIQUE: AP view of the chest FINDINGS: Cardiomediastinal and hilar silhouettes are within normal limits. Lungs appear clear. No pneumothorax or pleural effusion. Cervicothoracic spinal fusion hardware. Bones appear grossly intact. IMPRESSION: No acute process. ACT 112: Negative or not required by law. The above report was generated using voice recognition software. It may contain grammatical, syntax or spelling errors. Electronically signed by: Floyd Zabala M.D. 11/01/2023 12:50 PM Discharge Plan Visit Data Chief Complaint: Hypertension Stated Complaint: HYPERTENSIVE, REF BY DOC ED Provider: Mario Kirby Discharge Problem: Hypertensive urgency, Headache Patient Disposition: Admitted As Inpatient Discharge Instructions Interventions: ED Discharge Assessment Last Done: 11/01/23 17:49 Discharge Problem: Headache Qualifiers: Headache type: unspecified Headache chronicity pattern: acute headache I ntractability: not intractable Qualified Code(s): R51.9 - Headache, unspecified
[2023-11-01 12:39] LABS: Basophils # (auto) 0.05 K/uL (0.00-0.20); Basophils % (auto) 0.5 %; Eosinophils # (auto) 0.14 K/uL (0.00-0.50); Eosinophils % (auto) 1.3 %; Hematocrit (blood only) 49.2 % (37.0-47.0); Hemoglobin 16.8 g/dl (12.0-16.0); Immature Granulocytes # (auto) 0.04 K/uL (0.01-0.20); Immature Granulocytes % (auto) 0.4 %; Lymphocytes # (auto) 2.48 K/uL (1.20-3.40); Lymphocytes % (auto) 22.8 %; Mean Corpuscular Hemoglobin 29.2 pg (25.0-34.0); Mean Corpuscular Hgb Conc 34.1 g/dL (32.0-36.0); Mean Corpuscular Volume 85.6 fL (80.0-100.0); Monocytes # (auto) 0.62 K/uL (0.11-0.59); Monocytes % (auto) 5.7 %; Neutrophils # (auto) 7.53 K/uL (1.40-6.50); Neutrophils % (auto) 69.3 %; Platelet Count 229 K/uL (130-400); RDW Coefficient of Variation 13.2 % (11.5-14.5); RDW Standard Deviation 41.3 fL (36.4-46.3); Red Blood Count 5.75 M/uL (4.20-5.40); White Blood Count 10.86 K/ul (4.8-10.8)
--- NOTE | 2023-11-01 12:51 | XRay Report ---
XR chest 1V portable HISTORY: 73 years-old Female Hypertension COMPARISON: 12/30/2021 TECHNIQUE: AP view of the chest FINDINGS: Cardiomediastinal and hilar silhouettes are within normal limits. Lungs appear clear. No pneumothorax or pleural effusion. Cervicothoracic spinal fusion hardware. Bones appear grossly intact. IMPRESSION: No acute process. ACT 112: Negative or not required by law. The above report was generated using voice recognition software. It may contain grammatical, syntax o r spelling errors. Electronically signed by: Floyd Zabala M.D. 11/01/2023 12:50 PM
[2023-11-01] MEDS: ONDANSETRON INJ 2 MG/ML 2 ML VIAL IV STA (12:55)
[2023-11-01] MEDS: LABETALOL HCL IV 5 MG/ML 20ML IV STA ×2 (12:55→15:15)
[2023-11-01] MEDS: SODIUM CHLORIDE 0.9% 500 ML IV SCH (12:56)
[2023-11-01] MEDS: MAGNESIUM SULFATE / D5W 1 GM/100 ML BAG IV ONE (12:56)
[2023-11-01 13:12] LABS: Alanine Aminotransferase 26 U/L (7-52); Albumin Globulin Ratio 1.6 (0.9-2); Albumin Level 4.9 gm/dl (3.4-5.0); Alkaline Phosphatase 79 U/L (34-104); Anion Gap 9 (3-11); Aspartate Aminotransferase 32 U/L (13-39); BUN Creatinine Ratio 12.3 (10-20); Bilirubin,Total 1.1 mg/dl (0.2-1.0); Blood Urea Nitrogen 13 mg/dl (6-23); Calcium 10.3 mg/dl (8.6-10.3); Carbon Dioxide 26 mmol/L (21-32); Chloride 106 mmol/L (98-107); Est GFR (African American) 60.8 ml/min; Est GFR (Non-African American) 52.4 ml/min; Globulin 3.1 gm/dl (2.5-4.0); Glucose 100 mg/dl (70-99(Fasting)); Potassium 3.8 mmol/L (3.5-5.1); Sodium 141 mmol/L (136-145)
--- NOTE | 2023-11-01 15:27 | Electrocardiogram Report ---
Test Reason : Blood Pressure : */* mmHG Vent. Rate : 81 BPM Atrial Rate : 81 BPM P-R Int : 104 ms QRS Dur : 76 ms QT Int : 394 ms P-R-T Axes : 40 46 -23 degrees QTcB Int : 457 ms Sinus rhythm with short AL with Premature supraventricular complexes and with frequent Premature vent ricular complexes Anterior infarct , age undetermined T wave abnormality, consider inferior ischemia Abnormal ECG When compared with ECG of 30-Dec-2021 09:53, Significant changes have occurred Confirmed by Luke Taylor ([id number]) on 11/01/2023 3:27:42 PM Referred By: Travon Cameron Confirmed By: Luke Taylor
[2023-11-01 15:36] LABS: Appearance Urine Clear (Clear); Bacteria Urine Automated None Seen (None Seen); Bilirubin Urine Negative (Negative); Blood Urine Negative (Negative); Cast Urine Automated 0-2 /lpf (0-2); Color Urine Yellow; Epithelial Cell Urine Auto 0-2 /hpf (0-2); Glucose Urine UA Negative (Negative); Ketones Urine Negative (Negative); Leukocyte Esterase Urine Trace (Negative); Nitrite Urine Negative (Negative); Protein Urine Trace (Negative); RBC Urine Automated 0-2 /hpf (0-2); Specific Gravity Urine 1.009 (1.000-1.030); Urobilinogen Urine Negative (Negative); WBC Urine Automated 0-5 /hpf (0-5); pH Urine 5.5 (4.5-7.5)
--- NOTE | 2023-11-01 16:13 | History & Physical Report ---
Date of Service November 01, 2023 Assessment & Plan (1) Hypertensive urgency: Plan: 73 year old female with history of RADHA on CPAP, Obesity, Pre DM, HLD, Cerebrovascular Small Vessel Disease, SALAS, other problems noted below presenting with elevated BP from the Cardiology Clinic. Hypertensive urgency not on any antihypertensive medication Blood pressure was systolic to 120s after 2 doses of labetalol IV, nicardipine drip ordered Before drip started, blood pressure seems to be improved to systolic 170s Continue to monitor in the ICU in case patient would need nicardipine drip Start carvedilol 6.25 mg p.o. twice daily and HCTZ 12.[address] today [address] head without contrast rule out bleed given headache Will obtain renal Doppler ultrasound to rule out renal artery stenosis Continue CPAP while admitted for obstructive sleep apnea Cardiology service consulted PVCs Carvedilol 6.25 mg p.o. twice daily started Prolonged QT QT corrected 515 Monitor and replace electrolytes EKG tomorrow morning Obstructive sleep apnea Obesity Likely contributing to hypertension Continue CPAP Chronic medical conditions Cerebrovascular small vessel disease CKD stage III SALAS Migraine IBD Dyslipidemia Prediabetes DVT prophylaxis SCDs for now in light of elevated BP Full code Disposition Lives at home with family History of Present Illness Chief Complaint: sent from Cardiology Clinic for hypertensive urgency Primary Care Provider: Unruly Jennings MD 73 year old female with history of RADHA on CPAP, Obesity, Pre DM, HLD, Cerebrovascular Small Vessel Disease, SALAS, other problems noted below presenting with elevated BP from the Cardiology Clinic. She was referred by her PCP to the Cardiology Clinic for evaluation of PVCs and prolonged QT. Her BP was found to be 230/92 and was reporting a headache. She was given a dose of Clonidine 50mcg, but repeat BP was still noted to be at systolic 180s. Hence she was directed to the ER for further evaluation. BP upon arrival to the ER was 210/70, and she was given Labetalol 10mg IV. Repeat BP was initially improved but went up again to systolic 200s. She was again given another dose of labetalol 10 mg IV On exam, seen sitting up in bed, comfortable, not in distress, in good spirits Reports intermittent frontal headache, but no blurring of vision, focal neurologic deficits, chest pain, shortness of breath, palpitations, dizziness, nausea. No other new symptoms. Allergies Allergy/AdvReac Type Severity Reaction Status Date / Time kiwi Allergy Intermediate hives-kiwi Verified 11/01/23 15:57 extract peanut Allergy Intermediate per pt "if Verified 11/01/23 15:57 eat too many, throat feels funny". iodine Allergy Mild skin Verified 11/01/23 15:57 discoloration propoxyphene Allergy Unknown Unknown Verified 11/01/23 15:57 atorvastatin AdvReac Intermediate myalgia Verified 11/01/23 15:57 codeine AdvReac Intermediate nausea--if Verified 11/01/23 15:57 giving an antiemitic will be okay per pt. ibuprofen AdvReac Intermediate lymphocytic Verified 11/01/23 15:57 colitis morphine AdvReac Intermediate Vomiting Verified 11/01/23 15:57 simvastatin AdvReac Intermediate myalgia Verified 11/01/23 15:57 Sulfa (Sulfonamide AdvReac Intermediate hyper Verified 11/01/23 15:57 Antibiotics) sulfamethoxazole AdvReac Intermediate hyper Verified 12/30/21 12:06 [From Bactrim] trimethoprim [From Bactrim] AdvReac Intermediate hyper Verified 11/01/23 15:57 Home Medications Medication Instructions Recorded Confirmed Type rosuvastatin 20 mg tablet 20 mg PO HS 03/06/18 11/01/23 History zolpidem 5 mg tablet 5 mg PO HS Sleep 03/06/18 11/01/23 History dicyclomine 10 mg capsule 10 mg PO QID PRN Abdominal Pain 08/10/19 11/01/23 History meclizine 25 mg tablet 25 mg PO TID PRN Dizziness 08/10/19 11/01/23 History acetaminophen 500 mg tablet 1,000 mg PO Q8H PRN Pain 12/30/21 11/01/23 History (Tylenol Extra Strength) fluticasone propionate 50 2 spray intranasal DAILY #16 grams 01/01/22 11/01/23 Rx mcg/actuation nasal spray,suspension albuterol sulfate 90 mcg/actuation 2 puff inhalation Q4 PRN 11/01/23 11/01/23 History aerosol inhaler COUGH,SOB,WHEEZING amlodipine 5 mg tablet 5 mg PO DAILY #30 tabs 11/01/23 Rx azelastine 137 mcg (0.1 %) nasal 2 spray intranasal AMHS 11/01/23 11/01/23 History spray clonidine HCl 0.1 mg tablet 0.1 mg PO DAILY PRN SBP>180 MM HG 11/01/23 11/01/23 History hydrochlorothiazide 12.5 mg tablet 12.5 mg PO DAILY #30 tabs 11/01/23 Rx metoprolol tartrate 25 mg tablet 25 mg PO BID 11/01/23 11/01/23 History montelukast 10 mg tablet 10 mg PO QAM 11/01/23 11/01/23 History omeprazole 40 mg capsule,delayed 40 mg PO DAILYBB 11/01/23 11/01/23 History release sodium chloride-aloe vera nasal 1 applic topical . NEEDED PRN 11/01/23 11/01/23 History gel (Saline Nasal (aloe vera) gel) NASAL CONGESTION AND DRYNESS tizanidine 4 mg capsule 4 mg PO TID 11/01/23 11/01/23 History Past Med/Surg History Problem List (Updated 11/01/23 @ 17:41 by Rhys Pal MD) Hypertensive urgency HTN (hypertension) (Acute) Bronchitis (Acute) Hypoxia (Acute) Hypokalemia Hypoxia Diarrhea Sepsis DVT prophylaxis Acute kidney injury superimposed on CKD CKD (chronic kidney disease), stage III Lymphocytic colitis RADHA on CPAP Colitis (Acute) Enteritis (Acute) Acute hypokalemia (Acute) Acute dehydration (Acute) HTN (hypertension) HLD (hyperlipidemia) Medical History (Updated 11/01/23 @ 17:41 by Rhys Pal MD) Chronic back pain Migraines Osteoarthritis SALAS (nonalcoholic steatohepatitis) Surgical History S/P left knee arthroscopy Family History Father Heart disease Social History Smoking Status: Never smoker Tobacco Type: Cigarettes Do You Dip or Chew Tobacco: No; Hx Alcohol Use: Yes Hx Substance Use: No Preferred Language: Tanzanian Communication Ability: Effective Pharmacy Technologist Required: No Beliefs That Will Affect Care: None Current Living Situation: Family Current Living Situation Comment: lives with friend Feels Safe at Home: Yes Assistive Devices: CPAP Review of Systems Review of Systems: all noted and negative except for above Physical Exam Physical Exam: General- oriented x 3, not in distress, speaks in sentences with no effort or accessory muscle use Head- atraumatic Eyes- PERRL, EOMI, anicteric ENT- oropharynx clear Neck- supple, no JVD, no adenopathy, no thyromegaly; carotids +2/2, no bruits appreciated Lungs- clear to auscultation bilaterally, no rales/wheezes Heart- normal rate, regular rhythm; no murmur, no gallop, no rub appreciated Abdomen- normal bowel sounds, nondistended, soft, nontender, no masses or hepatosplenomegaly Extremities- no pretibial edema, no calf tenderness; peripheral pulses intact Neuro- alert, oriented x 3; CN 2-12 grossly intact; motor 5/5 bilaterally;sensation 100% on all extremities; no other gross focal neurologic deficits Skin- warm & dry Results & Data Results & Data Vital Signs (Past 12 Hours) Vital Signs Temp Pulse Pulse Resp BP BP Pulse Ox 11/01/23 14:53 70 18 228/87 H 97 11/01/23 14:52 69 20 97 11/01/23 13:20 67 182/93 H 11/01/23 12:55 69 214/120 H 11/01/23 12:16 77 11/01/23 11:57 36.5 C 45 L 18 210/70 H 93 O2 Del Method 11/01/23 14:53 Room Air 11/01/23 14:52 Room Air 11/01/23 13:20 11/01/23 12:55 11/01/23 12:16 11/01/23 11:57 Room Air all noted and reviewed including below
--- NOTE | 2023-11-01 16:17 | CT Scan Report ---
CT head/brain wo con CLINICAL HISTORY: headache, HTN urgency Technique: Contiguous axial CT images of the head were acquired from the base of the skull to the jessika rodriguez without intravenous contrast administration. Images were viewed in brain, [facility]ural and [facility] . Automated dose lowering techniques and/or adjustment according to patient size were utilized for this exam. Comparison: Comparison is made to CT head 02/08/2019 Findings: Areas of decreased attenuation are present in the periventricular and subcortical white matter bilate rally consistent with small vessel ischemic disease. Generalized cerebral atrophy with commensurate e nlargement of the ventricles, sulci, and cisterns is also present. There is no acute intracranial hem orrhage or evidence of acute territorial infarction. No shift of the midline structures, mass effect, or extra-axial abnormalities are shown. Atherosclerotic calcifications are present in the intracran ial segments of the internal carotid arteries. Imaged portions of the paranasal sinuses and mastoid air cells are clear. The orbits appear normal. There are no acute fractures of the calvaria or scalp swelling. Impression: No acute intracranial hemorrhage, no evidence of acute territorial infarction or other acute intracra nial disease process. ACT 112: Negative or not required by law. Electronically signed by: Ashu Jose M.D. 11/01/2023 4:15 PM
[2023-11-01] MEDS: hydroCHLOROthiazide 25 MG TAB PO STA (17:10)
[2023-11-01] MEDS ORDERED: STAT IV Infusion **Titration per Protocol STA (17:58)
[2023-11-01] MEDS ORDERED: hydrALAZINE HCL 20 MG/ML VIAL IV PRN (17:58)
[2023-11-01] MEDS ORDERED: ALBUTEROL HFA 8 GM INHALER INH PRN (17:58)
[2023-11-01] MEDS ORDERED: ACETAMINOPHEN 325 MG TAB PO PRN (17:58)
[2023-11-01 18:14] LABS: Thyroid Stimulating Hormone 4.672 uIu/ml (0.300-4.500)
[2023-11-01] MEDS: niCARdipine 25 MG in SODIUM CHLORIDE 0.9% 240 ML IV SCH (18:18)
[2023-11-01] MEDS: amLODIPine BESYLATE 5 MG TAB PO ONE (18:29)
[2023-11-01] MEDS: ACETAMINOPHEN 500 MG TAB PO PRN (18:33)
[2023-11-01] MEDS: ICU Protocol for HYPERglycemia SCH (18:44)
[2023-11-01 18:52] LABS: T4 Free Thyroxine 0.86 ng/dl (0.61-1.60)
--- OUTSIDE RECORDS SUMMARY | 2023-11-01 19:12 | External Medical Summary | Summary of Care ---
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 Name Role Phone Unruly Jennings MD Primary Care Provider + Reason for Visit * Reason Comments Neck Pain * Precert (Within 30 days (routine)) - Authorized Specialty Diagnoses / Procedures Referred By Contac t Referred To Contact Pain Medicine Diagnoses Myalgia, other site Procedures MO INJECTION SINGLE/PACS SPECIALIST TRIGGER POINT 1/2 MUSCLES Luna Bonilla PA-C [address] [place] [id number] Interventional [facility] [address] [place] [id number] Referral ID Status Reason Start Date Expiration Date V isits Requested Visits Authorized [id number] Authorized Precert 10/11/2023 12/12/[phone] Encounter Details Date Type Department Care Team (Late st Contact Info) Description 10/25/2023 2:00 PM EDT Office Visit [facility], [facility] [address] [place] [phone] Luna Bonilla PA-C [address] [place] [phone] Cervical myofascial pain syndrome*; S/P cervical spinal fusion Allergies Active Allergy Reactions Criticality Noted Date Comments Atorvastatin 01/25/2014 myalgia Sulfa Antibiotics 07/19/2006 hyper Codeine Nausea/vomiting 12/21/2014 Ibuprofen 09/07/2017 Lymphocytic colitis Iodine Low 12/30/2021 Other reaction(s): skin discoloration Kiwi Extract Hives 07/17/2021 Morphine And Codeine 02/16/2005 vomiting Peanut-Containing Drug Products 07/17/2021 Pt states if she eats too many her throat starts to feel funny. Propoxyphene 12/30/2021 Other reaction(s): Unknown Simvastatin 01/25/2014 Myalgia Trimethoprim High 12/30/2021 Other reaction(s): hyper documented as of this encounter (statuses as of 10/25/2023) Medications Medication Sig Dispensed Refills Start Date End Date Status acetaminophen (TYLENOL) 500 MG Tablet Take 2 Tabs by mouth every 8 hours as needed for Pain. 100 Tab 0 07/22/2015 Active meclizine (ANTIVERT) 25 MG TabletIndications:V ertigo Take 1 Tab by mouth 3 times a day as needed for Dizziness. 30 Tab 8 03/24/2019 Active Dicyclomine HCl 10 MG Oral Capsule (Bentyl) TAKE 1 CAPSULE BY MOUTH 4 TIMES A DAY NEEDED (ABD PAIN/CRAMPING). 360 Cap 1 12/04/2020 Active CPAP every night at bedtime . Active Fluticasone Propionate 50 MCG/ACT Nasal Suspension Use 2 squirts in each nostril daily each morning to prevent chronic nasal symptoms 1 mL 01/14/2022 Active Albuterol Sulfate HFA 108 (90 Base) MCG/ACT Inhalation Aerosol Solution Inhale 2 Puffs by mouth every 4 hours as needed for Cough, Shortness of Breath or Wheezing. 3 to 5 minutes apart. 18 g 2 02/14/2023 Active Zolpidem Tartrate 5 MG Oral Tablet (Ambien)Indications :Persistent insomnia TAKE 1 TABLET BY MOUTH EVERYDAY AT BEDTIME 90 Tablet 1 05/11/2023 Active Rosuvastatin Calcium 20 MG Oral Tablet (Crestor)Indication s:Dyslipidemia, goal to be determined TAKE 1 TABLET BY MOUTH EVERY DAY 90 Tablet 1 05/30/2023 Active Montelukast Sodium 10 MG Oral Tablet (Singulair) Take 1 Tablet by mouth in the morning. 90 Tablet 3 07/21/2023 Active methylPREDNISolone 4 MG Oral Tablet Therapy Pack (Medrol Dosepack) follow package directions 21 Tablet 07/26/2023 Active Additional Information Patient not taking.Reported on 08/18/2023 Azelastine HCl 0.1 % Nasal Solution (Astelin) Administer 2 Sprays into nostril in the morning and 2 Sprays before bedtime. 90 mL 3 07/28/2023 Active Saline Nasal Gel (Nasogel)Indication s:Acute recurrent sinusitis, unspecified location Administer into each nostril as needed (nasal congestion and dryness). 1 g 1 07/28/2023 Active Omeprazole 40 MG Oral Capsule Delayed Release (PriLOSEC)Indicatio ns:Abdominal pain, epigastric TAKE 1 CAPSULE BY MOUTH EVERY DAY 1 HOUR BEFORE THE FIRST MEAL OF THE DAY 90 Capsule 2 09/02/2023 Active tiZANidine HCl 4 MG Oral CapsuleIndications: Neck muscle spasm TAKE 1 CAPSULE BY MOUTH EVERY DAY IN THE MORNING , AT NOON, AND BEFORE BEDTIME 90 Capsule 3 10/24/2023 Active documented as of this encounter (statuses as of 10/25/2023) Active Problems Problem Noted Date Diagnosed Date Severe obesity with body mas s index (BMI) of 35.0 to 39.9 with serious comorbidity 08/18/2023 Chest pressure 08/18/2023 Prolonged Q-T interval on ECG 08/18/2023 Rhinitis, nonallergic 01/14/2022 History of tobacco use 12/30/2021 Prediabetes 11/30/2021 Overview: Per Prediabetes protocol 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 S/P cervical spinal fusion 08/31/2021 HCAP (healthcare-associated pneumonia) 2 History of recent intraspinal surgery 08/20/2021 Cervical spinal stenosis 08/14/2021 Hypokalemia 08/13/2021 Leukocytosis 08/13/2021 Chronic kidney disease, stage 3a 07/29/2020 Overview: Per CKD protocol Hypertensive kidney disease with chronic kidney disease stage III 04/02/2020 Hypertensive kidney disease with stage 3a chronic kidney disease 01/28/2020 Overview: Per CKD protocol RADHA (obstructive sleep apnea) 11/22/2018 Nocturnal hypoxemia 11/22/2018 Hypersomnolence disorder 10/03/2018 Snoring 10/03/2018 Polycythemia 10/03/2018 History of basal cell carcinoma 05/18/2018 Vitamin D deficiency 06/04/2016 Spondylolysis of lumbar region 08/09/2015 Overview: Chronic b/l pars defects Chronic bilateral low back pain without sciatica 07/21/2015 Small vessel disease, cerebrovascular 04/22/2015 Migraine without aura and wi thout status migrainosus, not intractable 02/21/2015 IBD (inflammatory bowel disease) 07/26/2014 Lymphocytic colitis 07/16/2014 SALAS (nonalcoholic steatohepatitis) 06/18/2014 Overview: 06/02 US new Dx. Borderline high LFT HTN, goal below 140/90 01/21/2014 Medical home patient encounter 01/21/2014 Overview: 01/09 spirometry at Allergy & allergy testing WNL 11/07 colon WNL 01/04 colon red throughout, but normal biopsies. 10/04 TTE WNL 09/03 EGD-gastritis/esophagitis. Rare eosinophils.. 08/03 a1c 1.8 after start valsartan, improved to1.4 (1.1 baseline). NEED roger summer 07/03 abnormal coonoscpoy-Lymphocytic colitis-Rx started by GI 04/04 FOB neg. 08/01 mammo WNL [facility] Pap 09/30 [facility] WNL 2006 stress echo [facility] WN ADVANCE DIRECTIVE INFORMATION 07/29/2004 Overview: No, Advance Directive brochure given to patient. GENERAL OSTEOARTHROSIS 07/29/2004 Allergic rhinitis 07/29/2004 Dyslipidemia, goal to be determined 07/29/2004 Persistent insomnia 07/29/2004 Overview: ICD-10 update of inactive term Former smoker 11/07/2003 documented as of this encounter (statuses as of 10/25/2023) Resolved Problems Problem Noted Date Diagnosed Date Resolved Date Viral URI with cough 12/30/2021 022 Acute respiratory failure with hypoxia 12/30/2021 08/27/2022 Elevated hemoglobin 05/30/2018 04/02/19 21 Hypertensive kidney disease with chronic kidney disease stage III 05/18/2018 01/31/2020 Overview: Per CKD protocol Preop examination 01/03/2018 05/30/2018 Spasm of muscle 09/02/2017 02/07/2019 Elevated parathyroid hormone 06/04/2016 11/03/2017 Kidney disease, chronic, sta ge III (GFR 30-59 ml/min) 12/02/2014 05/30/2018 Overview: Per CKD protocol #1 BCC (basal cell carcinoma), lip 01/21/2014 05/18/2018 BENIGN LALITA SKIN LEG 02/16/2005 05/18/19 19 Need for prophylactic hormon e replacement therapy (postmenopausal) 11/07/2003 01/21/2014 Shoulder pain, right 019 Overview: injured painting documented as of this encounter (statuses as of 10/25/2023) Immunizations Name Administration Dates Next Due COVID-19 mRNA, LNP-s, No Pre serve, 2-Dose Series (Ad Summos) 03/26/2021,07/04/2020,06/13/2020 Covid-19, Mrna, Lnp-s, Pf, B ivalent, 30 Mcg, IM, 12 yrs and above (Ad Summos) 01/09/2022 Pneumococcal Conjugate Vacc, 13 Valent (Prevnar) 06/06/2016 Pneumococcal Polysaccharide PPV23 (Pneumovax) 06/05/2017 Season Influenza, Quad, PF, Adjuvanted, 65+ Yrs, IM (FLUAD) 12/03/2019 Seasonal Influenza, Quadriva lent Hd (Fluzone Hd) 02/02/2023,01/07/2022 Seasonal Influenza, Quadriva lent, No Preserve, IM 11/27/2017,12/26/2015,12/13/2014 Seasonal Influenza, Split, I IV3, With Preserve, Inj 11/13/2016,12/14/2013 Seasonal Influenza, Trivalen t, Adjuvanted, 65+ yrs 12/19/2020,12/01/2018,11/27/2017 TD - Tetanus/Diptheria (ADULT) 10/24/2002 TDAP (age 10 and older)(Boostrix) 03/25/2014 Tetanus Toxid Adsorbed 03/21/2007 Varicella Zoster Vaccine (Adult) 03/29/2014 Zoster Vaccine Recombinant (Shingrix) 03/26/2021 ,12/26/2020 documented as of this encounter Social History Tobacco Use Types Packs/Day Years Used Date Smoking Tobacco: Former Cigarettes 1 40.6 0 03/21/1968 - 10/19/2008 Passive Smoke Exposure: Past Smokeless Tobacco: Never Comments:No passive smoke ex posures Alcohol Use Standard Drinks/Week Comments Yes 0 (1 standard drink = 0.6 oz pur e alcohol) rare PHQ-2 Answer Date Recorded PHQ Adult Total Score 1 07/21/2023 Hunger Vital Sign Answer Date Recorded Within the past 12 months, y ou worried that your food would run out before you got the money to buy more. Patient declined Within the past 12 months, t he food you bought just didn't last and you didn't have money to get more. Patient declined 04/2023 Childcare Answer Date Recorded Do you feel overwhelmed with taking care of a child, family member or friend? No 07/21/2023 Does your family need help f inding childcare? (Household - for ages 0-17 years) Not on file 07/21/2023 Clothing Answer Date Recorded Have you been unable to get clothing when it was really needed? No 07/21/2023 Is your family able to get c lothes or diapers when needed? (Household - for ages 0-17 years) Not on file 07/21/2023 Personal Safety Answer Date Recorded Do you feel unsafe or have concerns for your saf ety? No 07/21/2023 Do you have concerns for you r family's safety? (Household - for ages 0-17 years) Not on file 07/21/2023 Utilities Answer Date Recorded Do you have trouble paying y our heating, water, or electric bill? No 07/21/2023 Is your family able to pay t he heat, water, or electric bill? (Household - for ages 0-17 years) Not on file 07/21/2023 Does your family have access to good internet? (Household - for ages 0-17 years) Not on file 07/21/2023 Employment Status Answer Date Recorded Are you unemployed or without regular income? No 07/21/2023 Does the household have a re gular source of income? (Household - for ages 0-17 years) Not on file 07/21/2023 Social Connections Answer Date Recorded How often do you feel lonely or isolated from th ose around you? Never 07/21/2023 Financial Resource Strain Answer Date R ecorded Do you have any trouble payi ng for your medications, or do you think you might in the future? No 07/21/2023 Does your family have troubl e paying for medicine? (Household - for ages 0-17 years) Not on file 07/21/2023 Transportation Needs Answer Date Record ed READ ONLY Do you have troubl e getting a ride to medical visits or work? Never True 07/21/2023 Does your family have a hard time getting a ride to doctors visits? (Household - for ages 0-17 years) Not on file 07/21/2023 Has lack of transportation k ept you from medical appointments, meetings, work, or from getting things needed for daily living? Check all that apply. (Adult - for ages 18 years and over) Not on file 07/21/2023 Do you (or your family) have trouble finding or paying for a ride (transportation)? (Household - for ages 0-17 years) Not on file 07/21/2023 Housing Stability Answer Date Recorded Do you currently live in a s helter or have no steady place to sleep at night? No 07/21/2023 READ ONLY Do you think you a re at risk of becoming homeless? No 07/21/2023 Does your family worry about paying for your home or becoming homeless? (Household - for ages 0-17 years) Not on file 0 07/21/2023 Are you homeless or worried that you might be in the future? (Adult - for ages 18 years and over) Not on file Are you (or your family) yudith eless or worried that you might be in the future? (Household - for ages 0-17 years) Not on file Food Insecurity Answer Date Recorded Do you need food for this week? No 07/21/2023 Are you able to get enough f ood for your family? (Household - for ages 0-17 years) Not on file 07/21/2023 Does your family need food t his week? (Household - for ages 0-17 years) Not on file 07/21/2023 Do you always have enough fo od for your family? (Household - for ages 0-17 years) Not on file 07/21/2023 Sex and Gender Information Value Date Recorded Sex Assigned at Female 07/21/2023 8:42 AM EDT Gender Identity Female 07/21/2023 8:42 AM EDT Sexual Orientation Straight 07/21/2023 8: 42 AM EDT Job Start Date Occupation Industry Not on file Not on file Not on file documented as of this encounter Functional Status Functional Status Response Date of Assess ment Are you deaf or do you have serious difficulty h earing? No 08/20/2021 Are you blind or do you have serious difficulty seeing, even when wearing glasses? No 08/20/2021 Do you have serious difficul ty walking or climbing stairs? (5 years old or older) No 08/20/2021 Do you have difficulty dress ing or bathing? (5 years old or older) No 08/20/2021 Because of a physical, menta l, or emotional condition, do you have difficulty doing errands alone such as visiting a doctor s office or shopping? (15 years old or older) No 08/21/19 Cognitive Status Response Date of Assessm ent Because of a physical, menta l, or emotional condition, do you have serious difficulty concentrating, remembering, or making decisions? (5 years old or older) No 08/20/2021 documented as of this encounter Progress Notes * Luna Bonilla PA-C - 10/25/2023 2:30 PM EDT Name: Katelin Ashraf Date: 10/25/2023 Procedure:Trigger Point Injection(s)-Local Anesthetic CPT #36603 Indication(s): Myofascial Pain of bilateral cervical spine region Co-morbid conditions: Reviewed. No prior adverse reaction to anesthetic. Airway is normal. Neck has mildly decreased passive ROM. Discussed benefits and potential risks which include, but not limited to bleeding, infections, nerve damage, pneumothorax, or failure of the procedure. She agreed to proceed with this procedure. Informed consent was obtained. Time out was done (Carey ANGLIN present,) which included identity of patient, type of procedure, site(s.) Seven total trigger points over B cervical spine region, four LEFT dn three RIGHT involving paraspinal and trapezius muscle groups with total of 7 mL 1% lidocaine using 27 gauge needle after alcohol prep. Following injection, each site was needled in the usual fashion. The needles were removed, site(s) cleaned and dried. Patient observed for ten minutes. Tolerated procedure well. Will avoid heat for 24 hours, can applyice. Complication(s): none Follow Up: four weeks via telephone with nurse - aware this will be during my maternity leave. Consider repeat if beneficial - will likely be limited injection randolph due to surgical hx. Luna Bonilla PA-C 10/25/23 * Luna Bonilla PA-C - 10/25/2023 1:55 PM EDT Name: Katlein Ashraf Date: 10/25/2023 HPI: Katelin Ashraf is a 73 year old female known to the Pain Management clinic presents for follow up to review C spine MRI and C spine TPI. See separate procedure note for TPI. Reviewed C spine MRI 10/12/23 - minimal listhesis C3/4, s/p C3 thru T1 posterior decompression and fusion, no area of high grade central stenosis, mild to moderate foraminal narrowing and facet arthropathy, no cord signal changes. Locates pain bilateral neck and posterior shoulder. Baseline UE weakness. Denies progressive balance changes. Denies bowel/bladder dysfunction. Using tizanidine, tylenol for pain relief. Significant hx posterior cervical decompression and fusion 08/12/21. 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 BENIGN LALITA SKIN LEG 02/16/2005 Cervical radiculopathy Cervical stenosis of spine Chronic bilateral low back pain without sciatica 07/21/2015 CKD (chronic kidney disease), stage III (HCC) DDD (degenerative disc disease), lumbar Former smoker 11/07/2003 GERD (gastroesophageal reflux disease) HTN, goal below 140/90 01/21/2014 HYPERLIPIDEMIA NEC/NOS 07/29/2004 IBD (inflammatory bowel disease) 07/26/2014 INSOMNIA NEC 07/29/2004 Lymphocytic colitis 07/16/2014 Migraine with aura, intractable Migraine without aura and without status migrainosus, not intractable 02/21/2015 SALAS (nonalcoholic steatohepatitis) 06/18/2014 Nocturnal hypoxemia 11/22/2018 OA (osteoarthritis) RADHA on CPAP 11/22/2018 Other and unspecified malignant neoplasm of skin of other and unspecified parts of face Polycythemia Prolonged Q-T interval on ECG 08/18/2023 S/P cervical spinal fusion 08/31/2021 Shoulder pain, right injured painting Sleep apnea, obstructive Spasm of muscle 09/02/2017 Spondylolysis of lumbar region 08/09/2015 Chronic b/l pars defects Vitamin D deficiency 06/04/2016 Past Surgical History: Procedure Laterality Date ALLOGRAFT, MORSELIZED, FOR SPINE SURGERY N/A 08/12/2021 ALLOGRAFT FOR SPINE SURGERY MORSELIZED performed by Jayme Stanton MD at OR [facility] BREAST BIOPSY Left 1974 Benign COLONOSCOPY 10/2004 Normal, [facility] Dr Renee hyperplastic rectal polyp COLONOSCOPY, DIAGNOSTIC (RECTUM) 07/11/2014 lymphocytic colitis/COLONOSCOPY FLEXIBLE PROXIMAL DIAGNOSTIC performed by Kojo Ghosh DO at ENDOSCOPY [facility] COLONOSCOPY, DIAGNOSTIC (RECTUM) 01/14/2017 normal bx/COLONOSCOPY FLEXIBLE PROXIMAL DIAGNOSTIC performed by Heidy Munoz DO at ENDOSCOPY [facility] COLONOSCOPY, DIAGNOSTIC (RECTUM) 10/30/2019 normal / COLONOSCOPY FLEXIBLE PROXIMAL DIAGNOSTIC performed by Heidy Munoz DO at ENDOSCOPY [facility] DENTAL SURGERY PROCEDURE NEC UPPER PLATE EGD, FLEXIBLE, DIAGNOSTIC 09/05/2015 gastroesophageal reflux/ESOPHAGOGASTRODUODENOSCOPY (EGD), FLEXIBLE, TRANSORAL, DIAGNOSTIC performedby Kojo Ghosh DO at ENDOSCOPY [facility] INJECT DX/THER SUBSTANCE INTERLAMINAR CERVICAL/THORACIC W IMAGE GUIDE 10/13/2017 INJECTION SPINE LUMBAR CERVICAL OR THORACIC performed by Alli Hill DO at OR [facility] INJECT DX/THER SUBSTANCE INTERLAMINAR CERVICAL/THORACIC W IMAGE GUIDE 02/23/2018 INJECTION SPINE LUMBAR CERVICAL OR THORACIC performed by Alli Hill DO at OR [facility] INJECT DX/THER SUBSTANCE INTERLAMINAR CERVICAL/THORACIC W IMAGE GUIDE 10/25/2019 INJECTION SPINE LUMBAR CERVICAL OR THORACIC performed by Alli Hill DO at OR [facility] INJECT DX/THER SUBSTANCE INTERLAMINAR CERVICAL/THORACIC W IMAGE GUIDE 07/14/2020 INJECTION SPINE LUMBAR CERVICAL OR THORACIC performed by Alli Hill DO at OR [facility] INJECT DX/THER SUBSTANCE INTERLAMINAR CERVICAL/THORACIC W IMAGE GUIDE 05/25/2021 INJECTION SPINE LUMBAR CERVICAL OR THORACIC performed by Alli Hill DO at OR [facility] KNEE ARTHROSCOPY/MENISCECTOMY Left 01/16/2018 ARTHROSCOPY KNEE MEDIAL OR LATERAL MENISCECTOMY performed by Irene Pike DO at OR [facility] MISCELLANEOUS ORDER ([facility] ONLY) 10/2017 Dr Hill cervical. MOHS SURGERY REFERRAL OP right nose REMOVE ADDED SPINE LAMINA, 1 SEG N/A 08/12/2021 LAMINECTOMY FACETECTOMY AND FORAMINOTOMY ADDITIONAL LEVELS performed by Jayme Stanton MD at OR [facility] REMOVE CATARACT, INSERT LENS PROSTH Right 03/01/2023 RIGHT EXTRACAPSULAR CATARACT REMOVAL WITH INTRAOCULAR LENS performed by Uche Sheffield MDat OR [facility] REMOVE CATARACT, INSERT LENS PROSTH Left 03/22/2023 LEFT EXTRACAPSULAR CATARACT REMOVAL WITH INTRAOCULAR LENS performed by Uche Sheffield MD at OR [facility] REMOVE NECK SPINE LAMINA, 1 SEG N/A 08/12/2021 LAMINECTOMY FACETECTOMY AND FORAMINOTOMY POSTERIOR CERVICAL performed by Jayme Stanton MD at OR [facility] SPINE FUSION, EACH ADD'L VERTEBRA N/A 08/12/2021 ARTHRODESIS SPINE POSTERIOR EACH ADDITIONAL VERTEBRAE performed by Jayme Stanton MD at OR [facility] SPINE SEG FIX, POST, 3-6 SEG, INSERT N/A 08/12/2021 POSTERIOR SPINE SEGMENTAL INSTRUMENTATION 3 TO 6 PSF performed by Jayme Stanton MD at OR [facility] THIGH/KNEE SUBQ TUMOR REMOVAL, UNDER 3 CM VASC ANKLE BRACHIAL INDEX 06/10/2006 normal Current Outpatient Medications Medication Sig Dispense Refill acetaminophen (TYLENOL) 500 MG Tablet Take 2 Tabs by mouth every 8 hours as needed for Pain. 100 Tab 0 meclizine (ANTIVERT) 25 MG Tablet Take 1 Tab by mouth 3 times a day as needed for Dizziness. 30 Tab8 Dicyclomine HCl 10 MG Oral Capsule (Bentyl) TAKE 1 CAPSULE BY MOUTH 4 TIMES A DAY NEEDED (ABD PAIN/CRAMPING). 360 Cap 1 CPAP every night at bedtime . Fluticasone Propionate 50 MCG/ACT Nasal Suspension Use 2 squirts in each nostril daily each morningto prevent chronic nasal symptoms 1 mL 0 Albuterol Sulfate HFA 108 (90 Base) MCG/ACT Inhalation Aerosol Solution Inhale 2 Puffs by mouth every 4 hours as needed for Cough, Shortness of Breath or Wheezing. 3 to 5 minutes apart. 18 g 2 Zolpidem Tartrate 5 MG Oral Tablet (Ambien) TAKE 1 TABLET BY MOUTH EVERYDAY AT BEDTIME 90 Tablet 1 Rosuvastatin Calcium 20 MG Oral Tablet (Crestor) TAKE 1 TABLET BY MOUTH EVERY DAY 90 Tablet 1 Montelukast Sodium 10 MG Oral Tablet (Singulair) Take 1 Tablet by mouth in the morning. 90 Tablet 3 methylPREDNISolone 4 MG Oral Tablet Therapy Pack (Medrol Dosepack) follow package directions (Patient not taking: Reported on 08/18/2023) 21 Tablet 0 Azelastine HCl 0.1 % Nasal Solution (Astelin) Administer 2 Sprays into nostril in the morning and 2Sprays before bedtime. 90 mL 3 Saline Nasal Gel (Nasogel) Administer into each nostril as needed (nasal congestion and dryness). 1g 1 Omeprazole 40 MG Oral Capsule Delayed Release (PriLOSEC) TAKE 1 CAPSULE BY MOUTH EVERY DAY 1 HOUR BEFORE THE FIRST MEAL OF THE DAY 90 Capsule 2 tiZANidine HCl 4 MG Oral Capsule TAKE 1 CAPSULE BY MOUTH EVERY DAY IN THE MORNING , AT NOON, AND BEFORE BEDTIME 90 Capsule 3 No current facility-administered medications for this visit. Review of patient's allergies indicates: Allergen Reactions Trimethoprim Other reaction(s): hyper Atorvastatin myalgia Bactrim [Sulfa Antibiotics] hyper Codeine Nausea/vomiting Ibuprofen Lymphocytic colitis Kiwi Extract Hives Morphine And Codeine vomiting Peanut-Containing Drug Products Pt states if she eats too many her throat starts to feel funny. Propoxyphene Other reaction(s): Unknown Simvastatin Myalgia Iodine Other reaction(s): skin discoloration ROS: CONSTITUTIONAL: Denies anorexia, weight loss, fever, night sweats. RESPIRATORY: Denies shortness of breath, wheezing, productive cough. CARDIOVASCULAR: Denies chest pains, irregular heartbeat. HEME: Denies easy bruising and anticoagulation use. ROS EXAM: Remainder of ROS negative as discussed above in the HPI. PHYSICAL EXAM: There were no vitals taken for this visit. GENERAL: WD/WN female who is awake and alert. Does not appear to be in acute distress. MENTAL STATUS: Oriented x 3. Pleasant and cooperative with normal affect. STRENGTH: 5/5 in all major motor groups upper and lowe extremities bilaterally. SENSATION: Not formally tested. No gross sensory deficits upper and lower extremities bilaterally. GAIT/COORDINATION: Gait is intact. Ambulates without assistance. IMAGING: MRI C SPINE WO CONTRAST 10/12/2023 2:28 pm There is reversal of cervical lordosis. There is mild anterolisthesis of C3 on C4. Postsurgical changes of instrumented C3 through T1 posterior spinal fusion and C3 through C6 laminectomies are noted. Multilevel endplate degenerative changes are noted at C4-C5, C5-C6, C6-C7 and T1-T2 levels. Vertebral bodies otherwise demonstrate normal signal intensity on all sequences. No acute fracture is identified; however, if trauma is suspected, a CT scan would be a more sensitive examination for fractures. The craniocervical junction is normal. The visualized portions of the skull base and the posterior fossa are normal. The spinal cord demonstrates normal signal intensity on all sequences. Multileve l disc desiccation is seen in the cervical spine.. No soft tissue abnormality is identified. Normalsignal voids are present in the vertebral arteries. C2-C3: Minimal disc bulge. There is mild right and qppi-wi-qaapflrm left facet arthropathy. There is no uncovertebral joint disease. There is no neuroforaminal stenosis. There is no spinal canal stenosis. C3-C4: A small disc osteophyte complex with superimposed small central disc protrusion. There is mild bilateral facet arthropathy. There is no uncovertebral joint disease. There is mild bilateral neuroforaminal stenosis. There is no spinal canal stenosis. C4-C5: A small disc osteophyte complex. There is mild bilateral facet arthropathy. There is mild bilateral uncovertebral joint disease. There is bilateral neuroforaminal stenosis. There is no spinal canal stenosis. C5-C6: A small disc osteophyte complex. There is bilateral facet arthropathy. There is moderate right and tvwa-ow-ohqfzqbg left uncovertebral joint disease. There is moderate right and fwxg-iq-tamkwabo left neuroforaminal stenosis. There is no spinal canal stenosis. C6-C7: A small discussed complex. There is mild bilateral facet arthropathy. There is moderate right uncovertebral joint disease. There is moderate right neuroforaminal stenosis. There is no spinal canal stenosis. C7-T1: The disk is normal in configuration. There is mild bilateral facet arthropathy. There is no uncovertebral joint disease. There is no neuroforaminal stenosis. There is no spinal canal stenosis. IMPRESSION 1. Postsurgical changes of instrumented C3 through T1 posterior spinal fusion and C3 through C6 laminectomies. 2. Multilevel degenerative changes in the cervical spine as described above, more pronounced at C5-C6 level with resultant moderate right and rupl-om-wmjltwni left neural foraminal stenosis at this level. No evidence of significant spinal canal stenosis. ASSESSMENT: Cervical myofascial pain S/P cervical decompression and fusion RECOMMENDATION: Personally reviewed C spine MRI 10/12/23 - minimal listhesis C3/4, s/p C3 thru T1 posterior decompression and fusion, no area of high grade central stenosis, mild to moderate foraminal narrowing and facet arthropathy, no cord signal changes. MRI is reassuring. Will continue with conservative care including daily home stretching program based on recent PT. See separate procedure note for TPI. Luna Bonilla PA-C 10/25/2023 documented in this encounter Nursing Notes * Zoë Patino LPN - 10/25/2023 1:56 PM EDT Patient here for MRI f/u on cspine and tpi's documented in this encounter Plan of Treatment Upcoming Encounters Date Type Department Care Team (Late st Contact Info) Description 11/01/2023 8:15 AM EDT Cardiac Studies Cardiac Studies, [address] [place] [address] 11/01/2023 9:30 AM EDT Office Visit Otolaryngology [facility] [address] [place] [address] Wesley Vital DO [address] [place] [address] 11/18/2023 10:30 AM EDT Office Visit Orthopaedics Spine Surgery, [facility] [address] [place] [address] Jayme Stanton MD [address] [place] [id number] 11/22/2023 2:00 PM EDT Scheduled Telephone Interventional Pain Center, [facility] [address] [place] [address] [facility], Nurse Phone Call Interventional Pain [facility] [address] [place] [address] 12/01/2023 11:00 AM EDT Office Visit Cardiology, [facility] [address] [place] [address] Travon Cameron, [address] [place] [address] 01/31/2024 10:00 AM EST Office Visit All[facility] [address] [place] [address] Donna Asencio PA-C [address] [place] [address] 02/22/2024 9:40 AM EST Office Visit Family Practice [facility] [address] [place] [address] Unruly Jennings MD [address] [place] [address] Health Maintenance Due Date Last Done Comments Cologuard 01/30/1996 Sigmoidoscopy 01/30/1996 Fecal Occult Blood Test 03/29/2015 03/29/2014 Adult Wellness Visit 2017 COVID-19 Vaccine ( season) 2022 01/09/2022, 03/26/2021, 07/04/2020, Additional history exists DXA Scan 05/11/2023 05/11/2016, 09/2004, 08/25/2004 CKD PHOS USE SMARTSET 57090 08/25/202308/2022, 11/10/2021, 08/28/2021, Additional history exists Mammogram 09/03/2023 09/02/2022, 08/19, 07/08/2021, Additional history exists Influenza Vaccine (FLU shot) (#1) 2023 02/02/2023, 01/07/2022, 12/19/2020, Additional history exists GFR 02/18/2024 08/18/2023, 01/21, 08/24/2022, Additional history exists DTaP,Tdap,and Td Vaccines (2 - Td or Tdap) 03/25/2024 03/25/2014, 10/24/2002 Depression Screening 07/20/2024 07/21/2023 Albumin/Creatinine Ratio 08/17/2024 024, 08/24/2022, 11/10/2021, Additional history exists CKD HGB USE SMARTSET 78065 08/17/202408/17, 08/18/2023, 08/24/2022, Additional history exists HbA1c 08/17/2024 08/18/2023, 0608/2022, 11/10/2021, Additional history exists Colonoscopy 10/29/2024 10/30/2019, 10/19, 01/14/2017, Additional history exists Colorectal Cancer Screening 10/29/2024 Lipid Panel 02/18/2028 02/17/2023, 10/20, 11/14/2020, Additional history exists Pneumococcal Vaccine: 65+ Years Completed 06/05/2017, 06/06/2016 RETIRED - COLONOSCOPY-EVERY 5 YRS AGES 18-100 Discontinued 10/30/2019, 10/30/2019, 01/14/2017, Additional history exists Zoster Vaccines Completed 03/26/2021, 10/2020, 03/29/2014 HPV (Gardasil) Vaccine Aged Out No lo nger eligible based on patient's age to complete this topic Hepatitis B Vaccine Aged Out No longe r eligible based on patient's age to complete this topic MENINGOCOCCAL (MENACTRA/MENVEO) Aged Out No longer eligible based on patient's age to complete this topic documented as of this encounter Medical Devices Implanted Type Area Health Promoter Device Identifier Shelf Expiration Date Model / Serial / Lot Bone Fiber Pliafx 2.5cc Dmnrlz - [id number] - [id number] Implanted:Qt y: 1 on 08/12/2021 by Jayme Stanton MD at OR [facility] Graft N/A: Neck LIFENET 06/03/2024 BL-1800-02 / [id number] / [id number] 4.5x20 Screw Implanted:Qt y: 2 on 08/12/2021 by Jayme Stanton MD at OR [facility] Screw N/A: Spine Lumbar [employer] 1020-45-420 / / 3.5x12 Reduction Screw Implanted:Qt y: 4 on 08/12/2021 by Jayme Stanton MD at OR [facility] Screw N/A: Spine Lumbar [employer] 1020-35-312 / / 3.5x12 Screw Implanted:Qt y: 4 on 08/12/2021 by Jayme Stanton MD at OR [facility] Screw N/A: Spine Lumbar [employer] 1020-35-112 / / Set Screw - [id number] Implanted:Qt y: 10 on 08/12/2021 by Jayme Stanton MD at OR [facility] Screw N/A: Spine Lumbar JNJ : [employer] [id number] / / Dbx 5cc [id number] - [id number] - [id number] Implanted:Qt y: 1 on 08/12/2021 by Jayme Stanton MD at OR [facility] Tissue - Human N/A: Neck MUSCULOSKELETAL TRANSPLANT FND [id number] 03/09/2023 [id number] / [id number] / LOT NA 4.0x65 Maverick Implanted:Qt y: 2 on 08/12/2021 by Jayme Stanton MD at OR [facility] N/A: Spine Lumbar [employer] 1020-64-065 / / Lens Li61ao 13.00mm 18.50 - [id number] - [id number] Implanted:Qt y: 1 on 03/01/2023 by Uche Sheffield MD at OR [facility] Right: Eye [employer]OM[employer] 09/18/2027 [id number] / [id number] / [id number] Lens Li61ao 13.00mm 20.00 - [id number] - [id number] Implanted:Qt y: 1 on 03/22/2023 by Uche Sheffield MD at OR [facility] Left: Eye BAUSCH & LOMB 09/18/2027 [id number] / [id number] / [id number] documented as of this encounter Visit Diagnoses Diagnosis Cervical myofascial pain syndrome- Primary Mylagia and myositis, unspecified S/P cervical spinal fusion Arthrodesis status documented in this encounter Advance Directives * Full Code (Latest Code Status on File) Date Activated Date Inactivated Comments 03/22/2023 8:54 AM 03/22/2023 3:17 PM This order ref lects the patients wishes and were consensually agreed upon. Question Answer Comments Discussion of Advance Directives occurred with: Patient Does the patient have a Living Will? No Does the patient have Health Care Power of Attor venita? No * Full Code Date Activated Date Inactivated Comments 03/01/2023 9:28 AM 03/01/2023 3:27 PM This order reflects the patients wishes and were consensually agreed upon. Question Answer Comments Discussion of Advance Directives occurred with: Patient Does the patient have a Living Will? No Does the patient have Health Care Power of Attor venita? No * Full Code Date Activated Date Inactivated Comments 08/20/2021 12:59 AM 08/21/2021 8:31 PM This order re flects the patients wishes and were consensually agreed upon. Question Answer Comments Discussion of Advance Directives occurred with: Patient * Full Code Date Activated Date Inactivated Comments 08/12/2021 1:40 PM 08/15/2021 4:31 PM This order r eflects the patients wishes and were consensually agreed upon. * Full Code Date Activated Date Inactivated Comments 08/12/2021 6:46 AM 08/12/2021 1:40 PM This order r eflects the patients wishes and were consensually agreed upon. Care Teams Clothing Designer Relationship Specialty Start Date End Date Unruly Jennings MD [address] [place] [address] PCP - General Family Medicine 10/24/23 documented as of this encounter
--- OUTSIDE RECORDS SUMMARY | 2023-11-01 19:13 | External Medical Summary | Summary of Care ---
Author Name Unknown Organization [facility] Address [address] [facility] [place] [address] Phone [phone] Care Team Providers Care Control Panel Assembler Name Role Phone Unruly Jennings MD Primary Care Provider + Reason for Visit * Reason Comments eRx-Medication Refill Encounter Details Date Type Department Care Team (Late st Contact Info) Description 10/20/2023 Refill Family Practice [facility] [address] [place] [address] Alyssa Patel CRNP [address] [facility] [place] [address] Neck muscle spasm Allergies Active Allergy Reactions Criticality Noted Date [...] as of this encounter (statuses as of 10/24/2023) Medications Medication Sig Dispensed Refills Start Date End Date Status acetaminophen (TYLENOL) 500 MG Tablet Take 2 Tabs by mouth every 8 hours as needed for Pain. 100 Tab 0 07/22/2015 Active meclizine (ANTIVERT) 25 MG TabletIndication s:Vertigo Take 1 Tab by mouth 3 times [...] Active Zolpidem Tartrate 5 MG Oral Tablet (Ambien)Indicati ons:Persistent insomnia TAKE 1 TABLET BY MOUTH EVERYDAY AT BEDTIME 90 Tablet 1 05/11/2023 Active Rosuvastatin Calcium 20 MG Oral Tablet (Crestor)Indicat ions:Dyslipidemi a, goal to be determined TAKE 1 TABLET BY MOUTH EVERY DAY 90 Tablet 1 05/30/2023 Active Montelukast Sodium 10 MG Oral Tablet (Singulair) Take 1 Tablet by mouth in the morning. 90 Tablet 3 07/21/2023 Active methylPREDNISolo ne 4 MG Oral Tablet Therapy Pack (Medrol Dosepack) follow package directions 21 Tablet 07/26/2023 Active Additional Information Patient not taking.Reported on 08/18/2023 Azelastine HCl 0.1 % Nasal Solution (Astelin) Administer 2 Sprays into nostril in the morning and 2 Sprays before bedtime. 90 mL 3 07/28/2023 Active Saline Nasal Gel (Nasogel)Indicat ions:Acute recurrent sinusitis, unspecified location Administer into each nostril as needed (nasal congestion and dryness). 1 g 1 07/28/2023 Active Omeprazole 40 MG Oral Capsule Delayed Release (PriLOSEC)Indica tions:Abdominal pain, epigastric TAKE 1 CAPSULE BY MOUTH EVERY DAY 1 HOUR BEFORE THE FIRST MEAL OF THE DAY 90 Capsule 2 09/02/2023 Active tiZANidine HCl 4 MG Oral CapsuleIndicatio ns:Neck muscle spasm TAKE 1 CAPSULE BY MOUTH EVERY DAY IN THE MORNING , AT NOON, AND BEFORE BEDTIME 90 Capsule 3 10/24/2023 Active tiZANidine HCl 4 MG Oral CapsuleIndicatio ns:Neck muscle spasm Take 1 Capsule by mouth in the morning and 1 Capsule at noon and 1 Capsule before bedtime. 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 NEED roger summer abnormal coonoscpoy-Lymphocytic colitis-Rx started by GI 04/04 FOB neg. 08/01 mammo WNL [facility] Pap 09/30 [facility] WN 2006 stress echo [facility] ADVANCE DIRECTIVE INFORMATION 07/29/2004 Overview: No, Advance Directive brochure given to patient. GENERAL OSTEOARTHROSIS 07/29/2004 Allergic rhinitis 07/29/2004 Dyslipidemia, goal to be determined 07/29/2004 Persistent insomnia 07/29/2004 Overview: ICD-10 update of inactive term Former smoker 11/07/2003 documented as of this encounter (statuses as of 10/24/2023) Resolved Problems Problem Noted Date Diagnosed Date [...] as of this encounter (statuses as of 10/24/2023) Immunizations Name Administration Dates Next Due COVID-19 mRNA, LNP-s, No Pre serve, 2-Dose Series (Business [employer] via [place]) 03/26/2021,07/04/2020,06/13/2020 Covid-19, Mrna, Lnp-s, Pf, B ivalent, 30 Mcg, IM, 12 yrs and above (Business e via [place]) 01/09/2022 Pneumococcal Conjugate Vacc, 13 Valent (Prevnar) [...] No 08/20/2021 documented as of this encounter Miscellaneous Notes * Telephone Encounter - Alyssa Patel CRNP - 10/24/2023 8:08 AM EDTSigned Prescriptions: Disp Refills tiZANidine HCl 4 MG Oral Capsule 90 Cap*3 Sig: TAKE 1 CAPSULE BY MOUTH EVERY DAY IN THE MORNING , AT NOON, AND BEFORE BEDTIMEAuthorizing Provider: ALYSSA PATEL * Telephone Encounter - Jeannine Franklin [facility] - 10/20/2023 3:48 PM EDTPending Prescriptions: Disp Refills tiZANidine HCl 4 MG Oral Capsule [Pharmacy*90 Cap*3 Sig: TAKE 1 CAPSULE BY MOUTH EVERY DAY IN THE MORNING , AT NOON, AND BEFORE BEDTIME * Telephone Encounter - Jeannine Franklin RPh - 10/20/2023 3:48 PM EDT Refill pharmacists currently not authorized to approve refills for this class of medication per refill protocol. Please approve if appropriate. Pending Prescriptions: Disp Refills tiZANidine HCl 4 MG Oral Capsule [Pharmacy*90 Cap*3 Sig: TAKE 1 CAPSULE BY MOUTH EVERY DAY IN THE MORNING , AT NOON, AND BEFORE BEDTIME 08/18/2023 (in office), Visit date not found (telemedicine) 02/22/2024 If no future appointments scheduled, and last appointment is greater than a year ago, please schedule patient for a follow-up appointment Last date the medication was ordered: 05/11/23 Pharmacy: [id number] Is this request for a controlled substance? no Urine Drug Screen:No results found for this or any previous visit. Patient Phone Numbers Labs: Lab Results Component Value Date/Time CREAT 1.1 (H) 08/18/2023 03:20 PM CREAT 1.3 (H) 10/11/2019 01:00 PM POTASSIUM 3.9 08/18/2023 03:20 PM POTASSIUM 3.5 10/11/2019 01:00 PM TSH 2.95 09/20/2019 11:48 AM LDLCALC 43 06/10/2017 04:38 PM LDLDIRECT 69 02/17/2023 03:32 PM LDLDIRECT 47 08/17/2019 01:00 PM ALT 31 08/18/2023 03:20 PM ALT 53 (H) 08/17/2019 01:00 PM HGBA1C 6.3 (H) 08/18/2023 03:20 PM documented in this encounter Plan of Treatment Upcoming Encounters Date Type Department Care Team (Late st Contact Info) Description 10/25/2023 2:00 PM EDT Office Visit Interventional Pain Center, [facility] [address] [place] [address] Luna Bonilla PA-C [address] [place] [address] 11/01/2023 8:15 AM EDT Cardiac Studies [facility], [facility] [place] [address] 11/01/2023 9:30 AM EDT Office Visit Otolaryngology [facility] [address] [facility] [place] [address] Wesley Vital DO [address] [facility] [place] [address] 11/18/2023 10:30 AM EDT Office Visit Orthopaedics Spine Surgery, [facility] [address] [facility] [place] [address] Jayme Stanton MD [address] [place] [address] 12/01/2023 11:00 AM EDT Office Visit Cardiology, [facility] [address] [facility] [place] [address] Travon Cameron, DO [address] [place] [address] 01/31/2024 10:00 AM EST Office Visit Allergy/Immunology [facility] [address] [place] [address] Donna Asencio PA-C [address] [place] [address] 02/22/2024 9:40 AM EST Office Visit Family Practice [facility] [address] [address] Unruly Jennings MD [address] [place] [address] Health Maintenance Due Date Last Done Comments Cologuard 01/30/1996 Sigmoidoscopy 01/30/1996 Fecal Occult Blood Test 03/29/2015 03/29/2014 COVID-19 Vaccine ( season) 2022 01/09/2022, 03/26/2021, 07/04/2020, Additional history exists DXA Scan 05/11/2023 05/11/2016, 09/2004, 08/25/2004 CKD PHOS USE SMARTSET 07102 08/25/202308/2022, 11/10/2021, 08/28/2021, Additional history exists Mammogram 09/03/2023 09/02/2022, 08/19, 07/08/2021, Additional history exists Influenza Vaccine (FLU shot) (#1) 2023 02/02/2023, 01/07/2022, 12/19/2020, Additional history exists GFR 02/18/2024 08/18/2023, 01/21, 08/24/2022, Additional history exists DTaP,Tdap,and Td Vaccines (2 - Td or Tdap) 03/25/2024 03/25/2014, 10/24/2002 Depression Screening 07/20/2024 07/21/2023 Albumin/Creatinine Ratio 08/17/2024 024, 08/24/2022, 11/10/2021, Additional history exists CKD HGB USE SMARTSET 42290 08/17/202408/17, 08/18/2023, 08/24/2022, Additional history exists HbA1c 08/17/2024 08/18/2023, 08/2022, 11/10/2021, Additional history exists Colonoscopy 10/29/2024 10/30/2019, [...] this encounter Medical Devices Implanted Type Area Precision Thread Grinder Operator Device Identifier Shelf Expiration Date Model / Serial / Lot Bone Fiber Pliafx 2.5cc Dmnrlz - [id number] - [id number] Implanted:Qt y: 1 on 08/12/2021 by Jayme Stanton MD at OR [facility] Graft N/A: Neck LIFENET 06/03/2024 BL-1800-02 / [id number] / [id number] 4.5x20 Screw Implanted:Qt y: 2 on 08/12/2021 by Jayme Stanton MD at OR [facility] Screw N/A: Spine Lumbar [employer] 1020-45-420 / / 3.5x12 Reduction Screw Implanted:Qt y: 4 on 08/12/2021 by Jayme Stanton MD at OR [facility] Screw N/A: Spine Lumbar [employer] 1020-35-312 / / 3.5x12 Screw Implanted:Qt y: 4 on 08/12/2021 by Jayme Stanton MD at OR [facility] Screw N/A: Spine Lumbar [employer] 1020-35-112 / / Set Screw - [id number] Implanted:Qt y: 10 on 08/12/2021 by Jayme Stanton MD at OR [facility] Screw N/A: Spine Lumbar JNJ : [employer] [id number] / / Dbx 5c [id number] - [id number] - [id number] Implanted:Qt y: 1 on 08/12/2021 by Jayme Stanton MD at OR [facility] Tissue - Human N/A: Neck MUSCULOSKELETAL TRANSPLANT FND [id number] 03/09/2023 [id number] / [id number] / LOT NA 4.0x65 Maverick Implanted:Qt y: 2 on 08/12/2021 by Jayme Stanton MD at OR [facility] N/A: Spine Lumbar [employer] 1020-64-065 / / Lens Li61ao 13.00mm 18.50 - [id number] - [id number] Implanted:Qt y: 1 on 03/01/2023 by Uche Sheffield MD at OR [facility] Right: Eye [employer]CH [employer]OMB 09/18/2027 [id number] / [id number] / [id number] Lens Li61ao 13.00mm 20.00 - [id number] - [id number] Implanted:Qt y: 1 on 03/22/2023 by Uche Sheffield MD at OR [facility] Left: Eye BAUSCH & LOMB 09/18/2027 [id number] / [id number] / [id number] documented as of this encounter Visit Diagnoses Diagnosis Neck muscle spasm Spasm of muscle documented in this encounter Advance Directives * [...] and were consensually agreed upon. Care Teams Control Panel Assembler Relationship Specialty Start Date End Date Unruly Jennings MD [address] [place] [address] PCP - General Family Medicine 10/24/23 documented as of this encounter
--- OUTSIDE RECORDS SUMMARY | 2023-11-01 19:13 | External Medical Summary | Summary of Care ---
Author Name Unknown Organization [facility] Address [address] [place] [address] Phone [phone] Care Team Providers Care Deputy Sheriff Generalist Name Role Phone Alyssa Patel Primary Care Provider [phone]- [phone] Reason for Referral * Evaluate & Treat - Unlimited Visits (Within 10 days (routine)) - Authorized Specialty Diagnoses / Procedures Referred By Contac t Referred To Contact Pulmonary Diseases / Pulmonary Diagnoses Solitary pulmonary nodule Josh Good MD [address] [place] [address] Referral ID Status Reason Start Date Expiration Date Visits Requested Visits Authorized [id number] Authorized Specialty Services Required 10/05/2023 999 999 Question Answer Referral Priority Within 10 Days (Routine) Primary Reason for Referral? Lung Nodule/Mass Comments The patient will no longer qualify for LCSP because Not current or former Smoker (quit within 15 years) Reason for Visit * Reason Onset Date Comments STAIR Lung Nodule 10/05/2023 Encounter Details Date Type Department Care Team (Late st Contact Info) Description 10/05/2023 Telephone STAIR LUNG NODULE [address] [place] [address] Program, Stair [address] [place] [address] STAIR Lung Nodule Allergies Active Allergy Reactions Criticality Noted Date [...] as of this encounter (statuses as of 10/05/2023) Medications Medication Sig Dispensed Refills Start Date [...] AT BEDTIME 90 Tablet 1 05/11/2023 Active tiZANidine HCl 4 MG Oral CapsuleIndications: Neck muscle spasm Take 1 Capsule by mouth in the morning and 1 Capsule at noon and 1 Capsule before bedtime. 90 Capsule 3 05/11/2023 Active Rosuvastatin Calcium 20 MG Oral [...] THE DAY 90 Capsule 2 09/02/2023 Active documented as of this encounter (statuses as of 10/05/2023) Active Problems Problem Noted Date Diagnosed Date [...] GI 04/04 FOB neg. 08/01 mammo WNL [facility] Pap 09/30 [facility] WN 2006 stress echo [facility] WN ADVANCE DIRECTIVE INFORMATION 07/29/2004 Overview: No, Advance Directive brochure given to patient. GENERAL OSTEOARTHROSIS 07/29/2004 Allergic rhinitis 07/29/2004 Dyslipidemia, goal to be determined 07/29/2004 Persistent insomnia 07/29/2004 Overview: ICD-10 update of inactive term Former smoker 11/07/2003 documented as of this encounter (statuses as of 10/05/2023) Resolved Problems Problem Noted Date Diagnosed Date [...] as of this encounter (statuses as of 10/05/2023) Immunizations Name Administration Dates Next Due COVID-19 mRNA, LNP-s, No Pre serve, 2-Dose Series ([facility]) 03/26/2021,07/04/2020,06/13/2020 Covid-19, Mrna, Lnp-s, Pf, B ivalent, 30 Mcg, IM, 12 yrs and above ([facility]) 01/09/2022 Pneumococcal Conjugate Vacc, 13 Valent (Prevnar) [...] Years Used Date Smoking Tobacco: Former Cigarettes 0.5 42 0 03/21/1968 - 10/19/2008 Passive Smoke Exposure: [...] encounter Miscellaneous Notes * Telephone Encounter - Shannon Tomas RN - 10/05/2023 9:33 AM EDT Lung Cancer Screening Program (LCSP) Results Call Summary 10/05/2023 The patient will no longer qualify for LCSP because Not current or former Smoker (quit within 15 years) Referral placed to STAIR Low Dose CT Lung-RADS Scoring: Lung-RADs Score 2,3,4 - The patient will no longer qualify for LCSP because Not current or former Smoker (quit within 15 years) - transfer to STAIR Program for clinical review, setting care plan and tracking. (STAIR Team: Patient identified by Lung Cancer Screening Program). Shannon Tomas RN Lung Cancer Screening Class A Truck Driver [phone] ([phone]) documented in this encounter Plan of Treatment Upcoming Encounters Date Type Department Care Team (Late st Contact Info) Description 10/12/2023 1:45 PM EDT Imaging Radiology [address] [place] [address] 10/25/2023 2:00 PM EDT Office Visit Interventional Pain Center, [facility] [address] [place] [address] Luna Bonilla PA-C [address] [place] [address] 11/01/2023 8:15 AM EDT Cardiac Studies Cardiac Studies, [facility] [address] [place] [address] 11/01/2023 9:30 AM EDT Office Visit Otolaryngology [facility] [address] [place] [address] Wesley Vital, DO [address] [place] [address] 11/18/2023 10:30 AM EDT Office Visit Orthopaedics Spine Surgery, [facility] [address] [facility] [place] [address] Jayme Stanton MD [address] [place] [address] 12/01/2023 11:00 AM EDT Office Visit Cardiology, [facility] [address] [place] [address] Travon Cameron, DO [address] [place] [address] 01/31/2024 10:00 AM EST Office Visit Allergy/Immunology [facility] [address] [facility] [place] [address] Donna Asencio PA-C [address] [facility] [place] [address] 02/22/2024 9:40 AM EST Office Visit Family Practice [facility] [address] [place] [address] Unruly Jennings MD [address] [facility] [place] [address] Scheduled Referrals Name Type Priority Associated Diagnoses Order Schedule STAIR LUNG NODULE REFERRAL OP (SYSTEM FOR TRACKING ABNORMALITIES OF IMPORTANCE RELIABLY) Referral Within 10 days (routine) Solitary pulmonary nodule Ordered: 10/05/2023 Health Maintenance Due Date Last Done Comments Cologuard 01/30/1996 Sigmoidoscopy 01/30/1996 Fecal Occult Blood Test 03/29/2015 03/29/2014 COVID-19 Vaccine ( season) 2022 01/09/2022, 03/26/2021, 07/04/2020, Additional history exists DXA Scan 05/11/2023 05/11/2016, 09/2004, 08/25/2004 CKD PHOS USE SMARTSET 97523 08/25/2023 060 08/2022, 11/10/2021, 08/28/2021, Additional history exists Mammogram 09/03/2023 09/02/2022, 08/19, 07/08/2021, Additional history exists Influenza Vaccine (FLU shot) (#1) 2023 02/02/2023, 01/07/2022, 12/19/2020, Additional history exists GFR 02/18/2024 08/18/2023, 01/21, 08/24/2022, Additional history exists DTaP,Tdap,and Td Vaccines (2 - Td or Tdap) 03/25/2024 03/25/2014, 10/24/2002 Depression Screening 07/20/2024 07/21/2023 Albumin/Creatinine Ratio 08/17/2024 024, 08/24/2022, 11/10/2021, Additional history exists CKD HGB USE SMARTSET 93712 08/17/202408/17, 08/18/2023, 08/24/2022, Additional history exists HbA1c 08/17/2024 08/18/2023, 08/2022, 11/10/2021, Additional history exists Colonoscopy 10/29/2024 10/30/2019, 10/19, 01/14/2017, Additional history exists Colorectal Cancer Screening 10/29/2024 Lipid Panel 02/18/2028 02/17/2023, 10/20, 11/14/2020, Additional history exists Pneumococcal Vaccine: 65+ Years Completed 06/05/2017, 06/06/2016 RETIRED - COLONOSCOPY-EVERY 5 YRS AGES 18-100 Discontinued 10/30/2019, 10/30/2019, 01/14/2017, Additional history exists Zoster Vaccines Completed 03/26/2021, 10/2020, 03/29/2014 Lung Cancer Screening Completed 09/28/2023, 023 HPV (Gardasil) Vaccine Aged Out No lo nger eligible based on patient's age to complete this topic Hepatitis B Vaccine Aged Out No longe r eligible based on patient's age to complete this topic MENINGOCOCCAL (MENACTRA/MENVEO) Aged Out No longer eligible based on patient's age to complete this topic documented as of this encounter Medical Devices Implanted Type Area Food Expeditor Device Identifier Shelf Expiration Date Model / Serial / Lot Bone Fiber Pliafx 2.5cc Dmnrlz - [id number] - [id number] Implanted:Qt y: 1 on 08/12/2021 by Jayme Stanton MD at OR [facility] Graft N/A: Neck LIFENET 06/03/2024 BL-1800-02 / [id number] 4.5x20 Screw Implanted:Qt y: 2 on 08/12/2021 by Jayme Stanton MD at OR [facility] Screw N/A: Spine Lumbar [employer] 1020-45-420 / / 3.5x12 Reduction Screw Implanted:Qt y: 4 on 08/12/2021 by Jayme Stanton MD at OR [facility] Screw N/A: Spine Lumbar [employer] 1020-35-312 / / 3.5x12 Screw Implanted:Qt y: 4 on 08/12/2021 by Jayme Stanton MD at OR [facility] Screw N/A: Spine Lumbar [employer] 1020-35-112 / / Set Screw - [id number] Implanted:Qt y: 10 on 08/12/2021 by Jayme Stanton MD at OR [facility] Screw N/A: Spine Lumbar JNJ : [employer] [id number] / / Dbx 5cc [id number] - [id number] - [id number] Implanted:Qt y: 1 on 08/12/2021 by Jayme Stanton MD at OR [facility] Tissue - Human N/A: Neck MUSCULOSKELETAL TRANSPLANT FND [id number] 03/09/2023 [id number] / [id number] / LOT NA 4.0x65 Maverick Implanted:Qt y: 2 on 08/12/2021 by Jayme Stanton MD at OR [facility] N/A: Spine Lumbar [employer] 1020-64-065 / / Lens Li61ao 13.00mm 18.50 - [id number] - [id number] Implanted:Qt y: 1 on 03/01/2023 by Uche Sheffield MD at OR [facility] Right: Eye [employer]CH [employer] LOMB 09/18/2027 [id number] / [id number] / [id number] Lens Li61ao 13.00mm 20.00 - [id number] - [id number] Implanted:Qt y: 1 on 03/22/2023 by Uche Sheffield MD at OR [facility] Left: Eye BAUSCH & LOMB 09/18/2027 [id number] / [id number] / [id number] documented as of this encounter Visit Diagnoses Diagnosis Solitary pulmonary nodule- Primary documented in this encounter Advance Directives * [...] and were consensually agreed upon. Care Teams Deputy Sheriff Generalist Relationship Specialty Start Date End Date Alyssa Patel CRNP [address] [place] [address] PCP - General Nurse Practitioner 10/01/23 documented as of this encounter
--- OUTSIDE RECORDS SUMMARY | 2023-11-01 19:13 | External Medical Summary | Summary of Care ---
Author Name Unknown Organization [facility] Address [address] [facility] [place] [address] Phone [phone] Care Team Providers Care Locomotive Engineer Name Role Phone Alyssa Patel Primary Care Provider +1- [phone] Reason for Visit * Reason Onset Date Comments Appointment 10/10/2023 MRI Encounter Details Date Type Department Care Team (Late st Contact Info) Description 10/10/2023 Telephone Radiology [address] [place] [address] Delia Wade, RT (R) Appointment (/MRI) Allergies Active Allergy Reactions Criticality Noted Date [...] as of this encounter (statuses as of 10/10/2023) Medications Medication Sig Dispensed Refills Start Date [...] as of this encounter (statuses as of 10/10/2023) Active Problems Problem Noted Date Diagnosed Date [...] 01/09 spirometry at Allergy & allergy testing WN 11/07 colon WN 01/04 colon red throughout, but normal biopsies. 10/04 TTE WN 09/03 EGD-gastritis/esophagitis. Rare eosinophils.. 08/03 a1c 1.8 after start valsartan, improved to1.4 (1.1 baseline). NEED roger summer 07/03 abnormal coonoscpoy-Lymphocytic colitis-Rx started by GI 04/04 FOB neg. 08/01 mammo [facility] Pap 09/30 [facility] 2006 stress echo [facility] ADVANCE DIRECTIVE INFORMATION 07/29/2004 Overview: No, Advance Directive brochure given to patient. GENERAL OSTEOARTHROSIS 07/29/2004 Allergic rhinitis 07/29/2004 Dyslipidemia, goal to be determined 07/29/2004 Persistent insomnia 07/29/2004 Overview: ICD-10 update of inactive term Former smoker 11/07/2003 documented as of this encounter (statuses as of 10/10/2023) Resolved Problems Problem Noted Date Diagnosed Date [...] as of this encounter (statuses as of 10/10/2023) Immunizations Name Administration Dates Next Due COVID-19 mRNA, LNP-s, No Pre serve, 2-Dose Series ([facility]) 03/26/2021,07/04/2020,06/13/2020 Covid-19, Mrna, Lnp-s, Pf, B ivalent, 30 Mcg, IM, 12 yrs and above ([facility]) 01/09/2022 Pneumococcal Conjugate Vacc, 13 Valent (Prevnar) [...] 07/21/2023 Does the household have a re lar source of income? (Household - for ages [...] encounter Miscellaneous Notes * Telephone Encounter - Delia Wade RT (R) - 10/10/2023 12:37 PM EDT Name: Katelin Ashraf Told to call MRI if: Do you have any of the following: Pacemaker, stents, heart valves, aneurysm clips Have you ever worked with metal or have you ever gotten metal in your eyes Have you had a colonoscopy in the last 30 days On dialysis Do you have any dermals or body piercing's Do you wear an insulin pump or diabetic monitor Tattoos Told to be here at [address] (R) documented in this encounter Plan of Treatment Upcoming Encounters Date Type Department Care Team (Late st Contact Info) Description 10/12/2023 1:45 PM EDT [facility] [address] [place] [address] 10/25/2023 2:00 PM EDT Office Visit Interventional Pain Center, [facility] [address] [place] [address] Luna Bonilla PA-C [address] [place] [address] 11/01/2023 8:15 AM EDT Cardiac Studies Cardiac Studies, [facility] [address] [place] [address] 11/01/2023 9:30 AM EDT Office Visit Otolaryngology [facility] [address] [place] [address] Wesley Vital DO [address] [place] [address] 11/18/2023 10:30 AM EDT Office Visit Orthopaedics Spine Surgery, [facility] [address] [place] [address] Jayme Stanton MD [address] [place] [id number] 12/01/2023 11:00 AM EDT Office Visit Cardiology, [facility] [address] [address] Travon Cameron, [address] [place] [address] 01/31/2024 10:00 AM EST Office Visit [facility] [address] [facility] [place] [address] Donna Asencio PA-C [address] [facility] [place] [address] 02/22/2024 9:40 AM EST Office Visit Family Practice [facility] [address] [place] [address] Unruly Jennings MD [address] [place] [address] Health Maintenance Due Date Last Done Comments Cologuard 01/30/1996 Sigmoidoscopy 01/30/1996 Fecal Occult Blood Test 03/29/2015 03/29/2014 COVID-19 Vaccine ( season) 2022 01/09/2022, 03/26/2021, 07/04/2020, Additional history exists DXA Scan 05/11/2023 05/11/2016, 09/2004, 08/25/2004 CKD PHOS USE SMARTSET 31953 08/25/2023 060 08/2022, 11/10/2021, 08/28/2021, Additional history [...] Additional history exists CKD HGB USE SMARTSET 91759 08/17/202408/17, 08/18/2023, 08/24/2022, Additional history exists HbA1c [...] this encounter Medical Devices Implanted Type Area School Clerk Device Identifier Shelf Expiration Date Model / Serial / Lot Bone Fiber Pliafx 2.5cc Dmnrlz - [id number] - [id number] Implanted:Qt y: 1 on 08/12/2021 by Jayme Stanton MD at OR [facility] Graft N/A: Neck LIFENET 06/03/2024 BL-1800-02 / [id number] 4.5x20 Screw Implanted:Qt y: 2 on 08/12/2021 by Jayme Stanton MD at OR [facility] Screw N/A: Spine Lumbar [employer] 1020-45-420 / / 3.5x12 Reduction Screw Implanted:Qt y: 4 on 08/12/2021 by Jyame Stanton MD at OR [facility] Screw N/A: Spine Lumbar [employer] 1020-35-312 / / 3.5x12 Screw Implanted:Qt y: 4 on 08/12/2021 by Jayme Stanton MD at OR [facility] Screw N/A: Spine Lumbar [employer] 1020-35-112 / / Set Screw - [id number] Implanted:Qt y: 10 on 08/12/2021 by Jayme Stanton MD at OR [facility] Screw N/A: Spine Lumbar JNJ : [employer] [id number] / / Dbx 5cc [id number] - [id number] - [id number] Implanted:Qt y: 1 on 08/12/2021 by Jayme Stanton MD at OR [facility] Tissue - Human N/A: Neck MUSCULOSKELETAL TRANSPLANT FND [id number] 03/09/2023 [id number] / [id number] / LOT NA 4.0x65 Maverick Implanted:Qt y: 2 on 08/12/2021 by Jayme Stanton MD at OR [facility] N/A: Spine Lumbar [employer] 1020-64-065 / / Lens Li61ao 13.00mm 18.50 - [id number] - [id number] Implanted:Qt y: 1 on 03/01/2023 by Uche Sheffield MD at OR [facility] Right: Eye [employer]USCH [employer] LOMB 09/18/2027 [id number] / [id number] / [id number] Lens Li61ao 13.00mm 20.00 - [id number] - [id number] Implanted:Qt y: 1 on 03/22/2023 by Uche Sheffield MD at OR [facility] Left: Eye BAUSCH & LOMB 09/18/2027 [id number] / [id number] / [id number] documented as of this encounter Advance Directives * Full Code [...] and were consensually agreed upon. Care Teams Locomotive Engineer Relationship Specialty Start Date End Date Alyssa Patel CRNP [address] [place] [address] PCP - General Nurse Practitioner 10/01/23 documented as of this encounter
--- OUTSIDE RECORDS SUMMARY | 2023-11-01 19:13 | External Medical Summary | Summary of Care ---
Author Name Unknown Organization [facility] Address [address] [facility] [place] [address] Phone [phone] Care Team Providers Care Printing Gray Cloth Tender Name Role Phone Unruly Jennings MD Primary Care Provider + Reason for Referral * Precert (Within 10 days (routine)) - Authorized Specialty Diagnoses / Procedures Referred By Contac t Referred To Contact Radiology Diagnoses Cervical radicular pain S/P cervical spinal fusion Procedures MRI C SPINE WO CONTRAST Luna Bonilla PA-C [address] [facility] [place] [address] Referral ID Status Reason Start Date Expiration Date V isits Requested Visits Authorized [id number] Authorized 10/06/2023 999 999 Reason for Visit * Reason Comments Neck Pain * Evaluate & Treat - Unlimited Visits (Within 10 days (routine)) - Authorized Specialty Diagnoses / Procedures Referred By Contac t Referred To Contact Pain Management / Pain Medicine Diagnoses S/P cervical spinal fusion Encounter for follow-up examination after completed treatment for conditions other than malignant neoplasm Lumbar radiculopathy Spondylolisthesis of lumbosacral region Lumbar back pain Jayme Stanton MD [address] [place] [address] [place] [address] Referral ID Status Reason Start Date Expiration Date Visits Requested Visits Authorized [id number] Authorized Specialty Services Required 08/12/2023 999 999 Encounter Details Date Type Department Care Team (Late st Contact Info) Description 09/29/2023 9:30 AM EDT Office Visit Interventional Pain Center, [facility] [address] [place] [address] Luna Bonilla PA-C [address] [place] [address] Cervical myofascial pain syndrome*; Cervical radicular pain; S/P cervical spinal fusion Allergies Active Allergy [...] as of this encounter (statuses as of 09/29/2023) Medications Medication Sig Dispensed Refills Start Date [...] as of this encounter (statuses as of 09/29/2023) Active Problems Problem Noted Date Diagnosed Date [...] GI 04/04 FOB neg. 08/01 mammo WNL [facility] Pap 09/30 [facility] WNL 2006 stress echo [facility] WN ADVANCE DIRECTIVE INFORMATION 07/29/2004 Overview: No, Advance Directive brochure given to patient. GENERAL OSTEOARTHROSIS 07/29/2004 Allergic rhinitis 07/29/2004 Dyslipidemia, goal to be determined 07/29/2004 Persistent insomnia 07/29/2004 Overview: ICD-10 update of inactive term Former smoker 11/07/2003 documented as of this encounter (statuses as of 09/29/2023) Resolved Problems Problem Noted Date Diagnosed Date [...] as of this encounter (statuses as of 09/29/2023) Immunizations Name Administration Dates Next Due COVID-19 mRNA, LNP-s, No Pre serve, 2-Dose Series (GoGoVan) 03/26/2021,07/04/2020,06/13/2020 Covid-19, Mrna, Lnp-s, Pf, B ivalent, 30 Mcg, IM, 12 yrs and above (GoGoVan) 01/09/2022 Pneumococcal Conjugate Vacc, 13 Valent (Prevnar) [...] Progress Notes * Luna Bonilla PA-C - 09/29/2023 9:37 AM EDT Name: Katelin Ashraf Date: 09/29/2023 HPI: Katelin Ashraf is a 73 year old female known to the Pain Management clinic presents for follow up due to chronic cervical radiculopathy. Hx cervical epidural steroid injections with minimal benefit - most recently 2021. Ultimately went on to have posterior cervical decompression and fusion 08/12/21. Notes surgery did provide benefit. Concerned pain has increased in the past year without injury - notes new onset UE "shakiness" and worsening paresthesia in the past few months. With further questioning, balance changes as well. Currently enrolled in physical therapy ([facility]) with some benefit. Recent follow up with Dr. Stanton who paced referral to our clinic for cervical and lumbar spine pain- she prefers to focus on C spine complaint. Locates pain bilateral neck, posterior shoulder and into triceps region - generally does not extendbelow elbow. Rates pain 5/10 and is constant in nature. Paresthesia B posterior shoulder and triceps, R+ L. Weakness B UE, ongoing for quite sometime. Denies bowel/bladder dysfunction. Aggravated by cervical spine rotation. Alleviated temporarily by stretching. Using tizanidine, tylenol for pain relief. Hx of injections: ARYA C7/T1: 05/25/21, 07/14/20, 10/25/19, 02/23/18, 10/13/17 Trapezius trigger point: 03/08/18 Reviewed C spine xray 08/12/23 - posterior decompression and fusion C3-T1, significant DDD, loss of cervical lordosis Reviewed C spine MRI July 2021 - disc osteophyte complexes C4/5 thru C6/7 with moderate to severe B foraminal narrowing, no significant central stenosis, s/p C3 thru T1 posterior laminectomies and fusion, no cord signal changes. History: Past Medical History: Diagnosis Date 5th [...] performed by Jayme Stanton MD at OR [facility] BREAST BIOPSY Left 1974 Benign COLONOSCOPY 10/2004 Normal, [facility] Dr Renee hyperplastic rectal polyp COLONOSCOPY, DIAGNOSTIC (RECTUM) 07/11/2014 lymphocytic colitis/COLONOSCOPY FLEXIBLE PROXIMAL DIAGNOSTIC performed by Kojo Ghosh DO at ENDOSCOPY [facility] COLONOSCOPY, DIAGNOSTIC (RECTUM) 01/14/2017 normal bx/COLONOSCOPY FLEXIBLE PROXIMAL DIAGNOSTIC performed by Heidy Munoz DO at ENDOSCOPY [facility] COLONOSCOPY, DIAGNOSTIC (RECTUM) 10/30/2019 normal / COLONOSCOPY FLEXIBLE PROXIMAL DIAGNOSTIC performed by Heidy Munoz DO at ENDOSCOPY [facility] DENTAL SURGERY PROCEDURE NEC UPPER PLATE EGD, FLEXIBLE, DIAGNOSTIC 09/05/2015 gastroesophageal reflux/ESOPHAGOGASTRODUODENOSCOPY (EGD), FLEXIBLE, TRANSORAL, DIAGNOSTIC performedby Kojo Ghosh DO at ENDOSCOPY [facility] INJECT DX/THER SUBSTANCE INTERLAMINAR CERVICAL/THORACIC W IMAGE GUIDE 10/13/2017 INJECTION SPINE LUMBAR CERVICAL OR THORACIC performed by Alli Hill DO at OR [facility] INJECT DX/THER SUBSTANCE INTERLAMINAR CERVICAL/THORACIC W IMAGE GUIDE 02/23/2018 INJECTION SPINE LUMBAR CERVICAL OR THORACIC performed by Alli Hill DO at OR [facility] INJECT DX/THER SUBSTANCE INTERLAMINAR CERVICAL/THORACIC W IMAGE [...] performed by Irene Pike DO at OR [facility] MISCELLANEOUS ORDER ([facility] ONLY) 10/2017 Dr Hill cervical. MOHS SURGERY REFERRAL OP right nose REMOVE ADDED SPINE LAMINA, 1 SEG N/A 08/12/2021 LAMINECTOMY FACETECTOMY AND FORAMINOTOMY ADDITIONAL LEVELS performed by Jayme Stanton MD at OR [facility] REMOVE CATARACT, INSERT LENS PROSTH Right 03/01/2023 RIGHT EXTRACAPSULAR CATARACT REMOVAL WITH INTRAOCULAR LENS performed by Uche Sheffield MDat OR [facility] REMOVE CATARACT, INSERT LENS PROSTH Left 03/22/2023 LEFT EXTRACAPSULAR CATARACT REMOVAL WITH INTRAOCULAR LENS performed by Uche Sheffield MD at OR [facility] REMOVE NECK SPINE LAMINA, 1 SEG N/A 08/12/2021 LAMINECTOMY FACETECTOMY AND FORAMINOTOMY POSTERIOR CERVICAL performed by Jayme Stanton MD at OR [facility] SPINE FUSION, EACH ADD'L VERTEBRA N/A 08/12/2021 ARTHRODESIS SPINE POSTERIOR EACH ADDITIONAL VERTEBRAE performed by Jayme Stanton MD at OR [facility] SPINE SEG FIX, POST, 3-6 SEG, INSERT N/A 08/12/2021 POSTERIOR SPINE SEGMENTAL INSTRUMENTATION 3 TO 6 PSF performed by Jayme Stanton MD at OR [facility] THIGH/KNEE SUBQ TUMOR REMOVAL, UNDER 3 CM VASC ANKLE BRACHIAL INDEX 06/10/2006 normal Current Outpatient Medications Medication Sig Dispense Refill acetaminophen (TYLENOL) 500 MG Tablet Take 2 Tabs by mouth every 8 hours as needed for Pain. 100 Tab 0 Dicyclomine HCl 10 MG Oral Capsule (Bentyl) TAKE 1 CAPSULE BY MOUTH 4 TIMES A DAY NEEDED (ABD PAIN/CRAMPING). 360 Cap 1 Fluticasone Propionate 50 MCG/ACT Nasal Suspension Use [...] MOUTH EVERYDAY AT BEDTIME 90 Tablet 1 tiZANidine HCl 4 MG Oral Capsule Take 1 Capsule by mouth in the morning and 1 Capsule at noon and 1Capsule before bedtime. 90 Capsule 3 Rosuvastatin Calcium 20 MG Oral Tablet (Crestor) TAKE 1 TABLET BY MOUTH EVERY DAY 90 Tablet 1 Montelukast Sodium 10 MG Oral Tablet (Singulair) Take 1 Tablet by mouth in the morning. 90 Tablet 3 Azelastine HCl 0.1 % Nasal Solution (Astelin) Administer 2 Sprays into nostril in the morning and 2Sprays before bedtime. 90 mL 3 Omeprazole 40 MG Oral Capsule Delayed Release (PriLOSEC) TAKE 1 CAPSULE BY MOUTH EVERY DAY 1 HOUR BEFORE THE FIRST MEAL OF THE DAY 90 Capsule 2 meclizine (ANTIVERT) 25 MG Tablet Take 1 Tab by mouth 3 times a day as needed for Dizziness. 30 Tab8 CPAP every night at bedtime . methylPREDNISolone 4 MG Oral Tablet Therapy Pack (Medrol Dosepack) follow package directions (Patient not taking: Reported on 08/18/2023) 21 Tablet 0 Saline Nasal Gel (Nasogel) Administer into each nostril as needed (nasal congestion and dryness). 1g 1 No current facility-administered medications for this visit. [...] 3. Pleasant and cooperative with normal affect. CERVICAL SPINE: Supple without gross abnormality. Skin is intact with well healed midline posteriorsurgical scar. + midline and B paraspinal tenderness with numerous B myofascial trigger points. Limited active range of motion with flexion, extension, lateral bending and rotation bilaterally. Greater Occipital Nerve Palpation: negative bilaterally. Cervical Facet Loading: positive bilaterally. Spurling's Test: positive bilaterally. DEEP TENDON REFLEXES: 2/4 bicep, brachioradialis, triceps, patellar and achilles bilaterally. STRENGTH: 5/5 in all major motor groups upper and lower extremities bilaterally. SENSATION: Not formally tested. No gross sensory deficits upper and lower extremities bilaterally. GAIT/COORDINATION: Gait is intact. Ambulates without assistance. ASSESSMENT: Cervical myofascial pain Cervical radicular pain S/P posterior cervical spine decompression and fusion RECOMMENDATION: Persistent neck pain two years s/p posterior cervical spine fusion. Can reproduce pain with palpation. Discussed updated C spine MRI due to UE paresthesia and tremors. During follow up will review MRI also anticipate completing trigger point injections, CPT 47641. May be somewhat limited injection randolph due to extensive posterior fusion. I spent a total of 20-29 minutes (exact time 23 mins) on the date of service in preparation, delivery, and documentation of the care provided to Katelin Ashraf excluding any time spent in the performance of separately billed services. Luna Bonilla PA-C 09/29/2023 documented in this encounter Nursing Notes * Zoë Patino LPN - 09/29/2023 9:30 AM EDT Patient here for neck and b/l upper ext pain Seen prev in 2021-surgery since then-no relief Last MRI in chart from 2021 New xrays in chart No relief with current PT documented in this encounter Miscellaneous Notes * Pt Handout (on AVS) - Luna Bonilla PA-C - 09/29/2023 9:58 AM EDT Images from the original note were not included. Trigger Point Injections - Video This outpatient procedure is designed to reduce or relieve the pain of trigger points. These small,tender knots can form in muscles or in the fascia (the soft, stretchy connective tissue that surrounds muscles and organs). The trigger point injection procedure takes only a few minutes to complete. To view the video go to this web address: [email or web address] Or, scan this QR code with your smart phone [employer] * Pt Handout (on AVS) - Luna Bonilla PA-C - 09/29/2023 9:58 AM EDT Images from the original note were not included. [id number] Trigger Point Injection What is a trigger point? A trigger point is a tight, painful knot of muscle fiber. It can form where a muscle is strained orinjured. The knot can sometimes be felt under the skin. A trigger point is very tender to the touch. Pain may also spread to other parts of the affected muscle. Muscles around a knee, shoulder blade,or other bones are prone to trigger points. This is because these muscles are more likely to be injured. The cause of your muscle pain or spasms may be one or more trigger points. Your healthcare providermay decide to inject the painful spots to relax the muscle. This can help relieve your pain. Relaxing the muscle can also make movement easier. You may then be able to exercise to strengthen the muscle and help it heal. Injecting a trigger point can help relax the affected muscle and relieve pain. About the injections Any muscle in the body can have one or more trigger points. Several injections may be needed in each trigger point to best ease pain. These injections may be given in sessions about 2 weeks apart. This depends on what your provider prefers. In some cases, you may not feel much change in your symptoms until after the third injection. Risks and possible complications Risks and complications are very rare, but may include: Infection Bleeding Lung puncture (pneumothorax or collapsed lung) Nerve damage Allergic reaction Last Reviewed Date: 12/19/202019995980-1424 [employer]. All rights reserved. This information is not intended as a substitute for professional medical care. Always follow your healthcare professional's instructions. documented in this encounter Plan of Treatment Upcoming Encounters Date Type Department Care Team (Late st Contact Info) Description 10/12/2023 1:45 PM EDT [facility] [address] [facility] [place] [address] 10/25/2023 2:00 PM EDT Office Visit Interventional Pain Center, [facility] [address] [facility] [place] [address] Luna Bonilla PA-C [address] [facility] [place] [address] 11/01/2023 8:15 AM EDT Cardiac Studies Cardiac Studies, [facility] [address] [facility] [place] [address] 11/01/2023 9:30 AM EDT Office Visit Otolaryngology [facility] [address] [facility] [place] [address] Wesley Vital DO [address] [facility] [place] [address] 11/18/2023 10:30 AM EDT Office Visit Orthopaedics Spine Surgery, [facility] [address] [place] [address] Jayme Stanton MD [address] [place] [address] 12/01/2023 11:00 AM EDT Office Visit Cardiology, [facility] [address] [facility] [place] [address] Travon Cameron DO [address] [facility] [place] [address] 01/31/2024 10:00 AM EST Office Visit Allergy/Immunology [facility] [address] [facility] [place] [address] Donna Asencio PA-C [address] [facility] [place] [address] 02/22/2024 9:40 AM EST Office Visit Family Practice [facility] [place] [address] Unruly Jennings MD [address] [facility] [place] [address] Scheduled Orders Name Type Priority Associated Diagnoses Orde r Schedule MRI C SPINE WO CONTRAST Medical Imaging Routine Cervical radicular pain S/P cervical spinal fusion Expected: 10/06/2023, Expires: 10/29/2024 Health Maintenance Due Date Last Done Comments Cologuard 01/30/1996 Sigmoidoscopy 01/30/1996 Fecal Occult Blood Test 03/29/2015 03/29/2014 COVID-19 Vaccine ( season) 2022 01/09/2022, 03/26/2021, 07/04/2020, Additional history exists DXA Scan 05/11/2023 05/11/2016, 09/2004, 08/25/2004 CKD PHOS USE SMARTSET 02617 08/25/202308/2022, 11/10/2021, 08/28/2021, Additional history exists Mammogram 09/03/2023 09/02/2022, 08/19, 07/08/2021, Additional history exists Influenza Vaccine (FLU shot) (#1) 2023 02/02/2023, 01/07/2022, 12/19/2020, Additional history exists GFR 02/18/2024 08/18/2023, 01/21, 08/24/2022, Additional history exists DTaP,Tdap,and Td Vaccines (2 - Td or Tdap) 03/25/2024 03/25/2014, 10/24/2002 Depression Screening 07/20/2024 07/21/2023 Albumin/Creatinine Ratio 08/17/2024 024, 08/24/2022, 11/10/2021, Additional history exists CKD HGB USE SMARTSET 57352 08/17/202408/17, 08/18/2023, 08/24/2022, Additional history exists HbA1c [...] 03/26/2021, 10/2020, 03/29/2014 Lung Cancer Screening Completed 09/17/2022 HPV (Gardasil) Vaccine Aged Out No lo nger eligible based on patient's age to complete this topic Hepatitis B Vaccine Aged Out No longe r eligible based on patient's age to complete this topic MENINGOCOCCAL (MENACTRA/MENVEO) Aged Out No longer eligible based on patient's age to complete this topic documented as of this encounter Medical Devices Implanted Type Area Disulfurizer Tender Device Identifier Shelf Expiration Date Model / Serial / Lot Bone Fiber Pliafx 2.5cc Dmnrlz - [id number] - [id number] Implanted:Qt y: 1 on 08/12/2021 by Jayme Stanton MD at OR [facility] Graft N/A: Neck L[employer] 06/03/2024 [id number] / [id number] / [id number] 4.5x20 Screw Implanted:Qt y: 2 on 08/12/2021 by Jayme Stanton MD at OR [facility] Screw N/A: Spine Lumbar [employer] [id number] / / 3.5x12 Reduction Screw Implanted:Qt y: 4 on 08/12/2021 by Jayme Stanton MD at OR [facility] Screw N/A: Spine Lumbar [employer] [id number] / / 3.5x12 Screw Implanted:Qt y: 4 on 08/12/2021 by Jayme Stanton MD at OR [facility] Screw N/A: Spine Lumbar [employer] 1020-35-112 / / Set Screw - [id number] Implanted:Qt y: 10 on 08/12/2021 by Jayme Stanton MD at OR [facility] Screw N/A: Spine Lumbar JNJ : [employer] [id number] / / [id number] [id number] - [id number] - [id number] Implanted:Qt y: 1 on 08/12/2021 by Jayme Stanton MD at OR [facility] Tissue - Human N/A: Neck MUSCULOSKELETAL TRANSPLANT FND [id number] 03/09/2023 [id number] / [id number] / LOT NA 4.0x65 Maverick Implanted:Qt y: 2 on 08/12/2021 by Jayme Stanton MD at OR [facility] N/A: Spine Lumbar [employer] 1020-64-065 / / Lens Li61ao 13.00mm 18.50 - [id number] - [id number] Implanted:Qt y: 1 on 03/01/2023 by Uche Sheffield MD at OR [facility] Right: Eye [employer]OM[employer] 09/18/2027 [id number] / [id number] / [id number] Lens Li61ao 13.00mm 20.00 - [id number] - [id number] Implanted:Qt y: 1 on 03/22/2023 by Uche Sheffield MD at OR [facility] Left: Eye [employer]USCH [employer] LOMB 09/18/2027 [id number] / [id number] / [id number] documented as of this encounter Visit Diagnoses Diagnosis Cervical myofascial pain syndrome- Primary Mylagia and myositis, unspecified Cervical radicular pain Brachial neuritis or radiculitis nos S/P cervical spinal fusion Arthrodesis status documented [...] and were consensually agreed upon. Care Teams Printing Gray Cloth Tender Relationship Specialty Start Date End Date Unruly Jennings MD [address] [place] [address] PCP - General Family Medicine 03/25/14 documented as of this encounter
--- OUTSIDE RECORDS SUMMARY | 2023-11-01 19:13 | External Medical Summary | Summary of Care ---
Author Name Unknown Organization [facility] Address [address] [place] [address] Phone [phone] Care Team Providers Care Fish Hatchery Worker Name Role Phone Alyssa Patel Primary Care Provider [phone] Reason for Referral * Evaluate & Treat - Unlimited Visits (Within 10 days (routine)) - Authorized Specialty Diagnoses / Procedures Referred By Contac t Referred To Contact Pulmonary Diseases / Pulmonary Diagnoses Solitary pulmonary nodule Josh Good MD [address] [place] [address] Referral ID Status Reason Start Date Expiration Date Visits Requested Visits Authorized [id number] Authorized Specialty Services Required 10/05/2023 999 999 [...] 10/05/2023 Telephone STAIR LUNG NODULE [address] [place] [address] Program, Stair [address] [place] [address] STAIR Lung Nodule Allergies Active Allergy Reactions [...] GI 04/04 FOB neg. 08/01 mammo WNL [facility] Pap 09/30 [facility] WN 2006 stress echo [facility] WN ADVANCE DIRECTIVE INFORMATION 07/29/2004 [...] mRNA, LNP-s, No Pre serve, 2-Dose Series ([employer]) 03/26/2021,07/04/2020,06/13/2020 Covid-19, Mrna, Lnp-s, Pf, B ivalent, 30 Mcg, IM, 12 yrs and above ([employer]) 01/09/2022 Pneumococcal Conjugate Vacc, 13 Valent (Prevnar) [...] Passive Smoke Exposure: Past Smokeless Tobacco: Never Tobacco Cessation:Counseling Given: Not Answered Comments:No passive smoke exposures Alcohol Use Standard Drinks/Week Comments Yes 0 [...] encounter Miscellaneous Notes * Telephone Encounter - Quita Hutson LPN - 10/05/2023 10:38 AM EDT Patient managed in STAIR Program for Pulmonary Nodule - banner added * Telephone Encounter - Shannon Tomas RN [...] Program). Shannon Tomas RN Lung Cancer Screening Mine Inspector [employer] [phone] ([id number]) documented in this encounter Plan of Treatment Upcoming Encounters Date Type Department Care Team (Late st Contact Info) Description 10/12/2023 1:45 PM EDT Imaging Radiology [facility] [address] [place] [address] 10/25/2023 2:00 PM EDT Office Visit Interventional Pain Center, [facility] [address] [place] [address] Luna Bonilla PA-C [address] [place] [address] 11/01/2023 8:15 AM EDT Cardiac Studies Cardiac Studies, [facility] 132 [facility] [place] [address] 11/01/2023 9:30 AM EDT Office Visit Otolaryngology [facility] 132 [facility] [place] [address] Wesley Vital DO 132 [facility] [place] [address] 11/18/2023 10:30 AM EDT Office Visit Orthopaedics Spine Surgery, [facility] 132 [facility] [place] [address] Jayme Stanton MD [address] [place] [address] 12/01/2023 11:00 AM EDT Office Visit Cardiology, [facility] 132 [facility] [place] [address] Travon Cameron, 132 [facility] [place] [address] 01/31/2024 10:00 AM EST Office Visit [facility] [place] [address] Donna Asencio PA-C 200 [facility] [place] [address] 02/22/2024 9:40 AM EST Office Visit Family Practice [facility] 132 [facility] [place] [address] Unruly Jennings MD 132 [facility] [place] [address] Scheduled Referrals Name Type Priority Associated Diagnoses [...] 05/11/2016, 09/2004, 08/25/2004 CKD PHOS USE SMARTSET 85343 08/25/2023 060 08/2022, 11/10/2021, 08/28/2021, Additional history [...] Additional history exists CKD HGB USE SMARTSET 73415 08/17/202408/17, 08/18/2023, 08/24/2022, Additional history exists HbA1c [...] this encounter Medical Devices Implanted Type Area Lead Printer Device Identifier Shelf Expiration Date Model / Serial / Lot Bone Fiber Pliafx 2.5cc Dmnrlz - [id number] - [id number] Implanted:Qt y: 1 on 08/12/2021 by Jayme Stanton MD at OR [facility] Graft N/A: Neck L[employer]ET 06/03/2024 BL-1800-02 / [id number] / [id number] 4.5x20 Screw Implanted:Qt y: 2 on 08/12/2021 by Jayme Stanton MD at OR [facility] Screw N/A: Spine Lumbar [employer] 1020-45-420 / / 3.5x12 Reduction Screw Implanted:Qt y: 4 on 08/12/2021 by Jayme Stanton MD at OR [facility] Screw N/A: Spine Lumbar [employer] 1020-35-312 / / 3.5x12 Screw Implanted:Qt y: 4 on 08/12/2021 by Jayme Stanton MD at OR [facility] Screw N/A: Spine Lumbar [employer] 1020-35-112 / / Set Screw - [id number] Implanted:Qt y: 10 on 08/12/2021 by Jayme Stanton MD at OR [facility] Screw N/A: Spine Lumbar JNJ : [employer] [id number] / / Dbx 5cc [id number] - [id number] - [id number] Implanted:Qt y: 1 on 08/12/2021 by Jayme Stanton MD at OR [facility] Tissue - Human N/A: Neck MUSCULOSKELETAL TRANSPLANT FND [id number] 03/09/2023 [id number] / [id number] / LOT NA 4.0x65 Maverick Implanted:Qt y: 2 on 08/12/2021 by Jayme Stanton MD at OR [facility] N/A: Spine Lumbar [employer] 1020-64-065 / / Lens Li61ao 13.00mm 18.50 - [id number] - [id number] Implanted:Qt y: 1 on 03/01/2023 by Uche Sheffield MD at OR [facility] Right: Eye [employer]USCH [employer] LOMB 09/18/2027 [id number] / [id number] / [id number] Lens Li61ao 13.00mm 20.00 - [id number] - [id number] Implanted:Qt y: 1 on 03/22/2023 by Uche Sheffield MD at OR [facility] Left: Eye BAUSCH & LOMB 09/18/2027 [id number] / [id number] / [id number] documented as of this encounter Visit Diagnoses [...] and were consensually agreed upon. Care Teams Fish Hatchery Worker Relationship Specialty Start Date End Date Alyssa Patel CRNP [address] [place] [address] PCP - General Nurse Practitioner 10/01/23 documented as of this encounter
--- OUTSIDE RECORDS SUMMARY | 2023-11-01 19:13 | External Medical Summary | Summary of Care ---
Author Name Unknown Organization [facility] Address [address] [place] [address] Phone [phone] Care Team Providers Care Research Asst Name Role Phone Unruly Balderas MD Primary Care Provider + Reason for Visit * Reason Comments eRx-Medication Refill Encounter Details Date Type Department Care Team (Late st Contact Info) Description 09/02/2023 Refill Family Practice [facility] [address] [facility] [place] [address] Unruly Balderas MD [address] [facility] [address] Abdominal pain, epigastric Allergies Active Allergy Reactions Criticality Noted Date [...] as of this encounter (statuses as of 09/02/2023) Medications Medication Sig Dispensed Refills Start Date [...] 05/11/2023 Active tiZANidine HCl 4 MG Oral CapsuleIndicatio [...] THE DAY 90 Capsule 2 09/02/2023 Active Omeprazole 40 MG Oral Capsule Delayed Release (PriLOSEC)Indica tions:Abdominal pain, epigastric TAKE 1 CAPSULE BY MOUTH DAILY 1 HOUR BEFORE THE FIRST MEAL OF THE DAY 90 Capsule 2 06/08/2022 4 Discontinued documented as of this encounter (statuses as of 09/02/2023) Active Problems Problem Noted Date Diagnosed Date [...] kidney disease 01/28/2020 Overview: Per CKD protocol ARDHA (obstructive sleep apnea) 11/22/2018 Nocturnal hypoxemia 11/22/2018 [...] GI 04/04 FOB neg. 08/01 mammo WNL [facility] Pap 09/30 [facility] WN 2006 stress echo [facility] ADVANCE DIRECTIVE INFORMATION 07/29/2004 Overview: No, Advance Directive brochure given to patient. GENERAL OSTEOARTHROSIS 07/29/2004 Allergic rhinitis 07/29/2004 Dyslipidemia, goal to be determined 07/29/2004 Persistent insomnia 07/29/2004 Overview: ICD-10 update of inactive term Former smoker 11/07/2003 documented as of this encounter (statuses as of 09/02/2023) Resolved Problems Problem Noted Date Diagnosed Date [...] as of this encounter (statuses as of 09/02/2023) Immunizations Name Administration Dates Next Due COVID-19 mRNA, LNP-s, No Pre serve, 2-Dose Series ([employer]) 03/26/2021,07/04/2020,06/13/2020 Covid-19, Mrna, Lnp-s, Pf, B ivalent, 30 Mcg, IM, 12 yrs and above ([employer]) 01/09/2022 Pneumococcal Conjugate Vacc, 13 Valent (Prevnar) [...] money to get more. Patient declined 04/2023 Sex and Gender Information Value Date Recorded [...] encounter Miscellaneous Notes * Telephone Encounter - Carlyn Russo, [facility] - 09/02/2023 6:24 PM EDT Signed Prescriptions: Disp Refills Omeprazole 40 MG Oral Capsule Delayed Rele*90 Cap*2 Sig: TAKE 1 CAPSULE BY MOUTH EVERY DAY 1 HOUR BEFORE THE FIRST MEAL OF THE DAYAuthorizing Provider: UNRULY BALDERAS User: CARLYN RUSSO documented in this encounter Plan of Treatment Upcoming Encounters Date Type Department Care Team (Late st Contact Info) Description 09/21/2023 10:30 AM EDT Imaging Radiology [facility] 1st Floor, [place] [address] [facility] [place] [address] 09/29/2023 9:30 AM EDT Office Visit Interventional Pain Center, [facility] [address] [facility] [place] [address] Luna Bonilla PA-C [address] [place] [address] 11/01/2023 8:15 AM EDT Cardiac Studies Cardiac Studies, [facility] [address] [facility] [place] [address] 11/01/2023 9:30 AM EDT Office Visit Otolaryngology [facility] [address] [facility] [place] [address] Wesley Vital DO [address] [place] [address] 11/18/2023 10:30 AM EDT Office Visit Orthopaedics Spine Surgery, [facility] [address] [place] [address] Jayme Stanton MD [address] [place] [address] [place] [address] 12/01/2023 11:00 AM EDT Office Visit Cardiology, [facility] 132 [facility] [place] [address] Travon Cameron, DO [address] [place] [address] 01/31/2024 10:00 AM EST Office Visit Allergy/Immunology [facility] [place] [address] [facility] [place] [address] Donna Asencio PA-C 200 [facility] [place] [address] 02/22/2024 9:40 AM EST Office Visit Family Practice [facility] [address] [place] [address] Unruly Balderas MD [address] [place] [address] Health Maintenance Due Date Last Done Comments Cologuard 01/30/1996 Sigmoidoscopy 01/30/1996 Fecal Occult Blood Test 03/29/2015 03/29/2014 COVID-19 Vaccine ( season) 2022 01/09/2022, 03/26/2021, 07/04/2020, Additional history exists DXA Scan 05/11/2023 05/11/2016, 09/2004, 08/25/2004 CKD PHOS USE SMARTSET 60495 08/25/2023 0608/2022, 11/10/2021, 08/28/2021, Additional history exists Mammogram 09/03/2023 09/02/2022, 08/19, 07/08/2021, Additional history exists GFR 02/18/2024 08/18/2023, 01/21, 08/24/2022, Additional history exists DTaP,Tdap,and Td Vaccines (2 - Td or Tdap) 03/25/2024 03/25/2014, 10/24/2002 Depression Screening 07/20/2024 07/21/2023 Albumin/Creatinine Ratio 08/17/2024 024, 08/24/2022, 11/10/2021, Additional history exists CKD HGB USE SMARTSET 78645 08/17/202408/17, 08/18/2023, 08/24/2022, Additional history exists HbA1c [...] 10/2020, 03/29/2014 Lung Cancer Screening Completed 09/17/2022 Influenza Vaccine (FLU shot) Completed 02/02/2023, 01/07/2022, 12/19/2020, Additional history exists GARDASIL-HPV IMMUNIZATION SERIES Aged Out No longer eligible based on patient's age to complete this topic Hepatitis B Aged Out No longer eligi ble based on patient's age to complete this topic MENINGOCOCCAL (MENACTRA/MENVEO) Aged Out No longer eligible based on patient's age to complete this topic documented as of this encounter Medical Devices Implanted Type Area Hair Cutter Device Identifier Shelf Expiration Date Model / Serial / Lot Bone Fiber Pliafx 2.5cc Dmnrlz - [id number] - [id number] Implanted:Qt y: 1 on 08/12/2021 by Jayme Stanton MD at OR [facility] Graft N/A: Neck LIFENET 06/03/2024 BL-1800-02 [id number] 4.5x20 Screw Implanted:Qt y: 2 on 08/12/2021 by Jayme Stanton MD at OR [facility] Screw N/A: Spine Lumbar [employer] 1020-45-420 / / 3.5x12 Reduction Screw Implanted:Qt y: 4 on 08/12/2021 by Jayme Stanton MD at OR [facility] Screw N/A: Spine Lumbar [employer] 1020-35-312 / / 3.5x12 Screw Implanted:Qt y: 4 on 08/12/2021 by Jayme Stanton MD at OR [facility] Screw N/A: Spine Lumbar [employer] 1020-35-112 / / Set Screw - [id number] Implanted:Qt y: 10 on 08/12/2021 by Jayme Stanton MD at OR [facility] Screw N/A: Spine Lumbar JNJ : [employer] [id number] / / Dbx 5c [id number] - [id number] - [id number] Implanted:Qt y: 1 on 08/12/2021 by Jayme Stanton MD at OR [facility] Tissue - Human N/A: Neck MUSCULOSKELETAL TRANSPLANT FND [id number] 03/09/2023 [id number] / [id number] / LOT NA 4.0x65 Maverick Implanted:Qt y: 2 on 08/12/2021 by Jayme Stanton MD at OR [facility] N/A: Spine Lumbar [employer] 1020-64-065 / / Lens Li61ao 13.00mm 18.50 - [id number] - [id number] Implanted:Qt y: 1 on 03/01/2023 by Uche Sheffield MD at OR [facility] Right: Eye [employer]USCH [employer] LOMB 09/18/2027 [id number] / [id number] / [id number] Lens Li61ao 13.00mm 20.00 - [id number] - [id number] Implanted:Qt y: 1 on 03/22/2023 by Uche Sheffield MD at OR [facility] Left: Eye BAUSCH & LOMB 09/18/2027 [id number] / [id number] / [id number] documented as of this encounter Visit Diagnoses Diagnosis Abdominal pain, epigastric documented in this encounter Advance Directives * [...] and were consensually agreed upon. Care Teams Research Asst Relationship Specialty Start Date End Date Unruly Balderas MD [address] [place] [address] PCP - General Family Medicine 03/25/14 documented as of this encounter
--- OUTSIDE RECORDS SUMMARY | 2023-11-01 19:14 | External Medical Summary | Summary of Care ---
Author Name Unknown Organization [facility] Address [address] [place] [address] Phone [phone] Care Team Providers Care Legal Operations Manager Name Role Phone Unruly Jennings MD Primary Care Provider + Reason for Visit * Reason Comments Allergy Return Encounter Details Date Type Department Care Team (Late st Contact Info) Description 07/28/2023 10:30 AM EDT Office Visit Allergy/Immunology [facility] Chanel Dobbs [address] [facility] [place] [id number] Donna Asencio PA-C [address] [facility] [place] [id number] Rhinitis, nonallergic*; Acute recurrent sinusitis, unspecified location; Postnasal drip; SOB (shortness of breath); History of tobacco use Allergies Active Allergy Reactions Criticality Noted Date Comments Atorvastatin 01/25/2014 myalgia Sulfa Antibiotics 07/19/2006 hyper Codeine Nausea/vomiting 12/21/2014 Ibuprofen 09/07/2017 Lymphocytic colitis Iodine Low 12/30/2021 Other reaction(s): skin discoloration Kiwi Extract Hives 07/17/2021 Morphine And Related 02/16/2005 vomiting Peanut-Containing Drug Products 07/17/2021 Pt states if she eats too many her throat starts to feel funny. Propoxyphene 12/30/2021 Other reaction(s): Unknown Simvastatin 01/25/2014 Myalgia Trimethoprim High 12/30/2021 Other reaction(s): hyper documented as of this encounter (statuses as of 07/28/2023) Medications Medication Sig Dispensed Refills Start Date End Date Status acetaminophen (TYLENOL) 500 MG Tablet Take 2 Tabs by mouth every 8 hours as needed for Pain. 100 Tab 0 07/22/2015 Active meclizine (ANTIVERT) 25 MG TabletIndications :Vertigo Take 1 Tab by mouth 3 times a day as needed for Dizziness. 30 Tab 8 03/24/2019 Active Dicyclomine HCl 10 MG Oral Capsule (Bentyl) TAKE 1 CAPSULE BY MOUTH 4 TIMES A DAY NEEDED (ABD PAIN/CRAMPING). 360 Cap 1 12/04/2020 Active CPAP every night at bedtime . 0 Active Fluticasone Propionate 50 MCG/ACT Nasal Suspension Use 2 squirts in each nostril daily each morning to prevent chronic nasal symptoms 1 mL 0 01/14/2022 Active Omeprazole 40 MG Oral Capsule Delayed Release (PriLOSEC)Indicat ions:Abdominal pain, epigastric TAKE 1 CAPSULE BY MOUTH DAILY 1 HOUR BEFORE THE FIRST MEAL OF THE DAY 90 Capsule 2 06/08/2022 Active Albuterol Sulfate HFA 108 (90 Base) MCG/ACT Inhalation Aerosol Solution Inhale 2 Puffs by mouth every 4 hours as needed for Cough, Shortness of Breath or Wheezing. 3 to 5 minutes apart. 18 g 2 02/14/2023 Active Zolpidem Tartrate 5 MG Oral Tablet (Ambien)Indicatio ns:Persistent insomnia TAKE 1 TABLET BY MOUTH EVERYDAY AT BEDTIME 90 Tablet 1 05/11/2023 Active tiZANidine HCl 4 MG Oral CapsuleIndication s:Neck muscle spasm Take 1 Capsule by mouth in the morning and 1 Capsule at noon and 1 Capsule before bedtime. 90 Capsule 3 05/11/2023 Active Rosuvastatin Calcium 20 MG Oral Tablet (Crestor)Indicati ons:Dyslipidemia, goal to be determined TAKE 1 TABLET BY MOUTH EVERY DAY 90 Tablet 1 05/30/2023 Active Montelukast Sodium 10 MG Oral Tablet (Singulair) Take 1 Tablet by mouth in the morning. 90 Tablet 3 07/21/2023 Active Amoxicillin-Pot Clavulanate 875-125 MG Oral Tablet (Augmentin) Take 1 Tablet by mouth in the morning and 1 Tablet before bedtime. Do all this for 10 days. 20 Tablet 0 07/21/2023 Active methylPREDNISolon e 4 MG Oral Tablet Therapy Pack (Medrol Dosepack) follow package directions 21 Tablet 0 07/26/2023 Active Azelastine HCl 0.1 % Nasal Solution (Astelin) Administer 2 Sprays into nostril in the morning and 2 Sprays before bedtime. 90 mL 3 07/28/2023 Active Saline Nasal Gel (Nasogel)Indicati ons:Acute recurrent sinusitis, unspecified location Administer into each nostril as needed (nasal congestion and dryness). 1 g 1 07/28/2023 Active Saline Nasal Gel (Nasogel)Indicati ons:Acute recurrent sinusitis, unspecified location,Suspecte d COVID-19 virus infection Administer into each nostril as needed (nasal congestion and dryness). 1 g 1 06/04/2020 4 Discontinue d(Refill) Azelastine HCl 0.1 % Nasal Solution (Astelin) Administer 2 Sprays into nostril in the morning and 2 Sprays before bedtime. 90 mL 3 02/25/2022 4 Discontinue d(Refill) documented as of this encounter (statuses as of 07/28/2023) Active Problems Problem Noted Date Diagnosed Date Rhinitis, nonallergic 01/14/2022 History of tobacco use [...] [facility] Pap 09/30 [facility] WNL 2006 stress echo [facility] WN ADVANCE DIRECTIVE INFORMATION 07/29/2004 Overview: No, Advance Directive brochure given to patient. GENERAL OSTEOARTHROSIS 07/29/2004 Allergic rhinitis 07/29/2004 Dyslipidemia, goal to be determined 07/29/2004 Persistent insomnia 07/29/2004 Overview: ICD-10 update of inactive term Former smoker 11/07/2003 documented as of this encounter (statuses as of 07/28/2023) Resolved Problems Problem Noted Date Diagnosed Date [...] as of this encounter (statuses as of 07/28/2023) Immunizations Name Administration Dates Next Due COVID-19 mRNA, LNP-s, No Pre serve, 2-Dose Series ([employer]) 03/26/2021,07/04/2020,06/13/2020 Covid-19, Mrna, Lnp-s, Pf, B ivalent, 30 Mcg, IM, 12 yrs and above (Pfizer) 01/09/2022 Pneumococcal Conjugate Vacc, 13 Valent (Prevnar) [...] on file documented as of this encounter Last Filed Vital Signs Vital Sign Reading Time Taken Comments Blood Pressure 134/86 07/28/2023 10:32 AM EDT Pulse 68 07/28/2023 10:32 AM EDT Temperature - - Respiratory Rate 16 07/28/2023 10:3 2 AM EDT Oxygen Saturation 95% 07/28/2023 10: 32 AM EDT Inhaled Oxygen Concentration - - Weight 78.8 kg (173 lb 12.8 oz) 024 10:32 AM EDT Height - - Body Mass Index 35.1 03/22/2023 9:10 AM EST documented in this encounter Functional Status Functional Status Response [...] (15 years old or older) No 08/21/19 22 Cognitive Status Response Date of Assessm ent Because of a physical, menta l, or emotional condition, do you have serious difficulty concentrating, remembering, or making decisions? (5 years old or older) No 08/20/2021 documented as of this encounter Progress Notes * Walter Benavidez MD - 07/28/2023 2:49 PM EDT I have reviewed the advanced practitioner's documentation on the date of service referenced in note, and I agree with, and take responsibility for the plan of care. Walter Benavidez MD * Donna Asencio PA-C - 07/28/2023 1:41 PM EDT SUBJECTIVE: Katelin is a pleasant 73 year old female presenting today for follow-up of her nonallergic rhinitisand shortness of breath. She is currently on a course of Augmentin for a sinus infection/bronchitis. She notes improvement in symptoms since starting the Augmentin five days ago. She notes sinus pressure, congestion, postnasal drainage, and a cough. She was also started on Singulair 10 mg once daily and is using a saline nasal gel. She stopped Flonase and Astelin due to of nasal irritation from the sinus infection. She reports no deep cough, significant shortness of breath, chest tightness, nor wheezing. Her phlegm in her throat sometimes prompts her to use her albuterol inhaler. There have been no ER visits nor urgent care visits secondary to pulmonary symptoms. 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 Vitamin D deficiency E55.9 History of basal cell carcinoma Z85.828 Hypersomnolence disorder G47.10 Snoring R06.83 Polycythemia D75.1 RADHA (obstructive sleep apnea) G47.33 Nocturnal hypoxemia G47.34 Hypertensive kidney disease with stage 3a chronic kidney disease (HCC) I12.9, N18.31 Hypertensive kidney disease with chronic kidney disease stage III (HCC) I12.9, N18.30 Chronic kidney disease, stage 3a (HCC) N18.31 Hypokalemia E87.6 Leukocytosis D72.829 Cervical spinal stenosis M48.02 HCAP (healthcare-associated pneumonia) J18.9 History of recent intraspinal surgery Z98.890 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 S/P cervical spinal fusion Z98.1 Prediabetes R73.03 History of tobacco use Z87.891 Rhinitis, nonallergic J31.0 Past Surgical History: Procedure Laterality Date ALLOGRAFT, MORSELIZED, FOR SPINE SURGERY N/A 08/12/2021 ALLOGRAFT FOR SPINE SURGERY MORSELIZED performed by Jayme Stanton MD at [facility] BREAST BIOPSY Left 1974 Benign COLONOSCOPY 10/2004 Normal, [facility] Dr Renee hyperplastic rectal polyp COLONOSCOPY, DIAGNOSTIC (RECTUM) 07/11/2014 lymphocytic colitis/COLONOSCOPY FLEXIBLE PROXIMAL DIAGNOSTIC performed by Kojo hGosh DO at ENDOSCOPY [facility] COLONOSCOPY, DIAGNOSTIC (RECTUM) 01/14/2017 normal bx/COLONOSCOPY FLEXIBLE PROXIMAL DIAGNOSTIC performed by Heidy Munoz DO at ENDOSCOPY [facility] COLONOSCOPY, DIAGNOSTIC (RECTUM) 10/30/2019 normal / COLONOSCOPY FLEXIBLE PROXIMAL DIAGNOSTIC performed by Heidy Munoz DO at ENDOSCOPY [facility] DENTAL SURGERY PROCEDURE NEC UPPER PLATE EGD, FLEXIBLE, DIAGNOSTIC 09/05/2015 gastroesophageal reflux/ESOPHAGOGASTRODUODENOSCOPY (EGD), FLEXIBLE, TRANSORAL, DIAGNOSTIC performedby Kojo Ghosh DO at ENDOSCOPY [facility] INJECT DX/THER SUBSTANCE INTERLAMINAR CERVICAL/THORACIC W IMAGE [...] performed by Alli Hill DO at OR [facility] KNEE ARTHROSCOPY/MENISCECTOMY Left 01/16/2018 ARTHROSCOPY KNEE MEDIAL OR LATERAL MENISCECTOMY performed by Irene Pike DO at OR [facility] MISCELLANEOUS ORDER ([facility] ONLY) 10/2017 Dr Hill cervical. MOHS SURGERY REFERRAL OP right nose REMOVE ADDED SPINE LAMINA, 1 SEG N/A 08/12/2021 LAMINECTOMY FACETECTOMY AND FORAMINOTOMY ADDITIONAL LEVELS performed by Jayme Stanton MD at OR [facility] REMOVE CATARACT, INSERT LENS PROSTH Right 03/01/2023 RIGHT EXTRACAPSULAR CATARACT REMOVAL WITH INTRAOCULAR LENS performed by Uche Sheffield MDat OR [facility] REMOVE CATARACT, INSERT LENS PROSTH Left 03/22/2023 LEFT EXTRACAPSULAR CATARACT REMOVAL WITH INTRAOCULAR LENS performed by Uche Sheffield MD at OR [facility] REMOVE NECK SPINE LAMINA, 1 SEG N/A 08/12/2021 LAMINECTOMY FACETECTOMY AND FORAMINOTOMY POSTERIOR CERVICAL performed by Jayme Stanton MD at OR [facility] SPINE FUSION, EACH ADD'L VERTEBRA N/A 08/12/2021 ARTHRODESIS SPINE POSTERIOR EACH ADDITIONAL VERTEBRAE performed by Jayme Stanton MD at OR [facility] SPINE SEG FIX, POST, 3-6 SEG, INSERT N/A 08/12/2021 POSTERIOR SPINE SEGMENTAL INSTRUMENTATION 3 TO 6 PSF performed by Jayme Stanton MD at OR [facility] THIGH/KNEE SUBQ TUMOR REMOVAL, UNDER 3 CM VASC ANKLE BRACHIAL INDEX 06/10/2006 normal No history of prior ENT surgery. Current Outpatient Medications Medication Sig Dispense Refill acetaminophen (TYLENOL) 500 MG Tablet Take 2 Tabs by mouth every 8 hours as needed for Pain. 100 Tab 0 meclizine (ANTIVERT) 25 MG Tablet Take 1 Tab by mouth 3 times a day as needed for Dizziness. 30 Tab8 Fluticasone Propionate 50 MCG/ACT Nasal Suspension Use 2 squirts in each nostril daily each morningto prevent chronic nasal symptoms 1 mL 0 Omeprazole 40 MG Oral Capsule Delayed Release (PriLOSEC) TAKE 1 CAPSULE BY MOUTH DAILY 1 HOUR BEFORE THE FIRST MEAL OF THE DAY 90 Capsule 2 Albuterol Sulfate HFA 108 (90 Base) MCG/ACT [...] mouth in the morning. 90 Tablet 3 Amoxicillin-Pot Clavulanate 875-125 MG Oral Tablet (Augmentin) Take 1 Tablet by mouth in the morning and 1 Tablet before bedtime. Do all this for 10 days. 20 Tablet 0 methylPREDNISolone 4 MG Oral Tablet Therapy Pack (Medrol Dosepack) follow package directions 21 Tablet 0 Azelastine HCl 0.1 % Nasal Solution (Astelin) Administer 2 Sprays into nostril in the morning and 2Sprays before bedtime. 90 mL 3 Saline Nasal Gel (Nasogel) Administer into each nostril as needed (nasal congestion and dryness). 1g 1 Dicyclomine HCl 10 MG Oral Capsule (Bentyl) TAKE 1 CAPSULE BY MOUTH 4 TIMES A DAY NEEDED (ABD PAIN/CRAMPING). 360 Cap 1 CPAP every night at bedtime . No current facility-administered medications for this visit. Review of patient's allergies indicates: Allergen Reactions Trimethoprim Other reaction(s): hyper Atorvastatin myalgia Bactrim [Sulfa Antibiotics] hyper Codeine Nausea/vomiting Ibuprofen Lymphocytic colitis Kiwi Extract Hives Morphine And Related vomiting Peanut-Containing Drug Products Pt states if she eats too many her throat starts to feel funny. Propoxyphene Other reaction(s): Unknown Simvastatin Myalgia Iodine Other reaction(s): skin discoloration Family History Problem Relation Age of Onset Heart Disorder Mother rheumatic fever,valve replaced 2008. Heart Disorder Father of [place] age 58 Thyroid Disorder Daughter Cancer Brother 64 liver,lung. Other (covid complications) Brother summer 2021 Asthma Grandfather (Paternal) Breast Cancer No significant family history Social History Tobacco Use Smoking status: Former Current packs/day: 0.00 Average packs/day: 0.5 packs/day for 42.0 years (21.0 ttl pk-yrs) Types: Cigarettes Start date: 03/21/1968 Quit date: 10/19/2008 Years since quittin.7 Passive exposure: Past Smokeless tobacco: Never Tobacco comments: No passive smoke exposures Vaping Use Vaping Use: Never used Substance Use Topics Alcohol use: Yes Comment: rare Drug use: No Environment/Occupation/Activities of Daily Living: She lives in a 1 story house. Electric heat with room air conditioners in the bedrooms for the summer. Basement is finished and dry with dehumidifier. She does use scented materials in the home. Indoor pets include 1 dog and 2 cats. Bedroom is 1st level and carpeted. Sleeps on a mattress bed. She is currently retired, not working outside of the home. BP 134/86 (BP Site: Right Arm, BP Position: Sitting) | Pulse 68 | Resp 16 | Wt 78.8 kg (173 lb 12.8oz) | SpO2 95% | BMI 35.10 kg/m | BSA 1.81 m PHYSICAL EXAM: No Acute Distress: Voice a little hoarse Conjunctiva: Normal TM's: Clear Nose: Pale mucosa, Mild inferior turbinate edema, no polyps, no mucopus Oropharynx: Mild erythema and cobblestoning, no lesions or exudates. Neck: No significant adenopathy Lungs: Clear to A&P, no wheezes Cor: RRR, no murmur Skin: No lesions atopic dermatitis; no urticaria, angioedema OBJECTIVE DATA: Allergy skin testing 01/14/22 revealed all negative results to environmental allergens tested as well as the foods egg and peanut in the face of adequate positive histamine controls. Spirometry 01/14/22 reveals a normal FEV1/FVC ratio of 82%. FEV1 1.77 L, 91% of predicted. Findingsconsistent with normal spirometry. Review of chest x-ray 12/30/21 [facility] reveals clear lungs, normal heart size. Calcifications within the aortic knob unchanged. Cervical spine fusion hardware visualized. No pleural effusions no pneumothorax. Impression was no acute process. ASSESSMENT: ICD-10-CM 1. Rhinitis, nonallergic J31.0 2. Acute recurrent sinusitis, unspecified location J01.91 3. Postnasal drip R09.82 4. SOB (shortness of breath) R06.02 5. History of tobacco use Z87.891 PLAN: Avoidance measures regarding nonallergic triggers should be continued. We did review the various triggers of nonallergic rhinitis and this includes drastic changes in the barometric pressure, drasticchanges in temperature, and respiratory irritants such as strong odors, perfumes, scented products,candles, potpourri, smoke, exhaust fumes, and harsh chemicals. For her chronic nonallergic rhinitis, I do recommend that she continue Flonase 2 sprays each nostril daily in addition to Astelin 2 sprays to each nostril twice daily as this combination therapy has been shown to be of benefit in patients with nonallergic rhinitis. Prior to the nasal sprays, she would likely benefit from use of a normal saline sinus rinse. At the present moment, she is not a candidate for allergen immunotherapy given that her chronic rhinitis is nonallergic in nature. She will complete the course of Augmentin and also complete the Medrol dose pack prescribed by her PCP. She will continue Singulair 10 mg once daily. We do feel that her perceived shortness of breath is likely secondary to postnasal drip. However she does have slight shortness of breath when she takes her dog for a walk up a hill. We do recommend that she continue with albuterol 15-30 minutes prior to going on a walk or other periods of exertion, and every 4-6 hours as needed for coughing, wheezing or shortness of breath. Thank you very much for allowing myself to participate in the care of your patient. Please do not hesitate to contact our office should you have any questions or concerns. Donna C Luis M, PA-C Allergy and Immunology [facility] Supervising Physician: Walter Benavidez MD Type of Supervision: Direct I spent a total of 20-29 minutes (exact time 26 mins) on the date of service in preparation, delivery, and documentation of the care provided to Katelin Ashraf excluding any time spent in the performance of separately billed services. (This note was completed using the dictation program Fluency Direct. As such, there may be misspellings, word substitutions, or other variations that should not change the essence of the clinical content of this encounter note.If there is need for further clarification, please direct questions to the provider listed above.) documented in this encounter Nursing Notes * Maura Warner LPN - 07/28/2023 10:20 AM EDT The pt has been properly identified by confirmation of name and date of . Pt here for return visit. documented in this encounter Plan of Treatment Upcoming Encounters Date Type Department Care Team (Late st Contact Info) Description 08/12/2023 1:00 PM EDT Office Visit Orthopaedics Spine Surgery, [facility] [address] [place] [address] Jayme Stanton MD [address] [place] [address] [place] [address] 08/18/2023 2:00 PM EDT Office Visit Family Practice [facility] [address] [place] [address] Alyssa Patel CRNP [address] [place] [address] 09/05/2023 10:15 AM EDT Appointment RadiologyJennifer [address] [place] [address] 09/21/2023 10:30 AM EDT Imaging Radiology [address] [place] [address] 01/31/2024 10:00 AM EST Office Visit Allergy/Immunology [facility] [address] [place] [address] Donna Asencio PA-C [address] [place] [address] 02/22/2024 9:40 AM EST Office Visit Family Practice [facility] [address] [place] [address] Unruly Jennings MD [address] [place] [address] Health Maintenance Due Date Last Done Comments Cologuard 01/30/1996 Sigmoidoscopy 01/30/1996 Fecal Occult Blood Test 03/29/2015 03/29/2014 COVID-19 Vaccine ( season) 2022 01/09/2022, 03/26/2021, 07/04/2020, Additional history exists DXA Scan 05/11/2023 05/11/2016, 0 09/2004, 08/25/2004 GFR 08/18/2023 02/17/2023, 08/2022, 02/05/2022, Additional history exists Albumin/Creatinine Ratio 08/25/2023 023, 11/10/2021, 10/10/2020, Additional history exists CKD HGB USE SMARTSET 56498 08/25/202308/24, 11/10/2021, 11/10/2021, Additional history exists CKD PHOS USE SMARTSET 85384 08/25/2023 06/0 08/2022, 11/10/2021, 08/28/2021, Additional history exists HbA1c 08/25/2023 08/24/2022, 10/20, 07/16/2021, Additional history exists Mammogram 09/03/2023 09/02/2022, 08/19, 07/08/2021, Additional history exists DTaP,Tdap,and Td Vaccines (2 - Td or Tdap) 03/25/2024 03/25/2014, 10/24/2002 Depression Screening 07/20/2024 07/21/2023 Colonoscopy 10/29/2024 10/30/2019, 10/19, 01/14/2017, Additional history [...] this encounter Medical Devices Implanted Type Area Director Food And Beverage Device Identifier Shelf Expiration Date Model / Serial / Lot Bone Fiber Pliafx 2.5cc Dmnrlz - [id number] - [id number] Implanted:Qt y: 1 on 08/12/2021 by Jayme Stanton MD at OR [facility] Graft N/A: Neck [employer] 06/03/2024 [id number] 4.5x20 Screw Implanted:Qt y: 2 on 08/12/2021 by Jayme Stanton MD at OR [facility] Screw N/A: Spine Lumbar [employer] [id number] / / 3.5x12 Reduction Screw Implanted:Qt y: 4 on 08/12/2021 by Jayme Stanton MD at OR [facility] Screw N/A: Spine Lumbar [employer] [id number] / / 3.5x12 Screw Implanted:Qt y: 4 on 08/12/2021 by Jayme Stanton MD at OR [facility] Screw N/A: Spine Lumbar [employer] [id number] / / Set Screw - [id number] Implanted:Qt y: 10 on 08/12/2021 by Jayme Stanton MD at OR [facility] Screw N/A: Spine Lumbar JNJ : [employer] [id number] / / [id number] 5cc [id number] - [id number] - [id number] Implanted:Qt y: 1 on 08/12/2021 by Jayme Stanton MD at OR [facility] Tissue - Human N/A: Neck [employer]OSKELETAL [employer]ANSPLANT FND [id number] 03/09/2023 [id number] / [id number] / LOT NA 4.0x65 [place] Implanted:Qt y: 2 on 08/12/2021 by Jayme Stanton MD at OR [facility] N/A: Spine Lumbar [employer] 1020-64-065 / / Lens Li61ao 13.00mm 18.50 - [id number] - [id number] Implanted:Qt y: 1 on 03/01/2023 by Uche Sheffield MD at OR [facility] Right: Eye [employer] 09/18/2027 [id number] / [id number] / [id number] Lens Li61ao 13.00mm 20.00 - [id number] - [id number] Implanted:Qt y: 1 on 03/22/2023 by Uche Sheffield MD at OR [facility] Left: Eye [employer]OM[employer] 09/18/2027 [id number] / [id number] / [id number] documented as of this encounter Visit Diagnoses Diagnosis Rhinitis, nonallergic- Primary Chronic rhinitis Acute recurrent sinusitis, unspecified location Postnasal drip SOB (shortness of breath) Shortness of breath History of tobacco use Personal history of tobacco use, presenting hazards to health documented in this encounter Advance Directives Latest Code Status on File Code Status Date Activated Date Inactivated Comments Full Code 03/22/2023 8:54 AM 03/22/2023 3:17 PM This or mala reflects the patients wishes and were consensually agreed upon. Question Answer Comments Discussion of Advance Directives occurred with: Patient Does the patient have a Living Will? No Does the patient have Health Care Power of Top Knitter? No Code Status History Code Status Date Activated Date Inactivated Comments Full Code 03/01/2023 9:28 AM 03/01/2023 3:27 PM Thi s order reflects the patients wishes and were consensually agreed upon. Question Answer Comments Discussion of Advance Directives occurred with: Patient Does the patient have a Living Will? No Does the patient have Health Care Power of Top Knitter? No Full Code 08/20/2021 12:59 AM 08/21/2021 8:31 PM This o rder reflects the patients wishes and were consensually agreed upon. Question Answer Comments Discussion of Advance Directives occurred with: Patient Full Code 08/12/2021 1:40 PM 08/15/2021 4:31 PM This order reflects the patients wishes and were consensually agreed upon. Full Code 08/12/2021 6:46 AM 08/12/2021 1:40 PM This order reflects the patients wishes and were consensually agreed upon. Care Teams Legal Operations Manager Relationship Specialty Start Date End Date Unruly Jennings MD [address] [place] [id number] PCP - General Family Medicine 03/25/14 documented as of this encounter"
--- OUTSIDE RECORDS SUMMARY | 2023-11-01 19:14 | External Medical Summary | Summary of Care ---
Author Name Unknown Organization [facility] Address [address] [place] [address] Phone [phone] Care Team Providers Care Orientation And Mobility Instructor Name Role Phone Unruly Jennings MD Primary Care Provider + Reason for Visit * Reason Onset Date Comments Update 07/25/2023 Encounter Details Date Type Department Care Team (Late st Contact Info) Description 07/25/2023 Telephone Family Practice [facility] [address] [place] [address] Unruly Jennings MD [address] [facility] [address] Update Allergies Active Allergy Reactions Criticality Noted Date [...] as of this encounter (statuses as of 07/27/2023) Medications Medication Sig Dispensed Refills Start Date End Date Status acetaminophen (TYLENOL) 500 MG Tablet Take 2 Tabs by mouth every 8 hours as needed for Pain. 100 Tab 0 07/22/2015 Active meclizine (ANTIVERT) 25 MG TabletIndications: Vertigo Take 1 Tab by mouth 3 times a day as needed for Dizziness. 30 Tab 8 03/24/2019 Active Saline Nasal Gel (Nasogel)Indicatio ns:Acute recurrent sinusitis, unspecified location,Suspected COVID-19 virus infection Administer into each nostril as needed (nasal congestion and dryness). 1 g 1 06/04/2020 Active Dicyclomine HCl 10 MG Oral Capsule (Bentyl) TAKE 1 CAPSULE BY MOUTH 4 TIMES A DAY NEEDED (ABD PAIN/CRAMPING). 360 Cap 1 12/04/2020 Active CPAP every night at bedtime . 0 Active Fluticasone Propionate 50 MCG/ACT Nasal Suspension Use 2 squirts in each nostril daily each morning to prevent chronic nasal symptoms 1 mL 0 01/14/2022 Active Azelastine HCl 0.1 % Nasal Solution (Astelin) Administer 2 Sprays into nostril in the morning and 2 Sprays before bedtime. 90 mL 3 02/25/2022 Active Omeprazole 40 MG Oral Capsule Delayed Release (PriLOSEC)Indicati ons:Abdominal pain, epigastric TAKE 1 CAPSULE BY MOUTH [...] Active Zolpidem Tartrate 5 MG Oral Tablet (Ambien)Indication s:Persistent insomnia TAKE 1 TABLET BY MOUTH EVERYDAY AT BEDTIME 90 Tablet 1 05/11/2023 Active tiZANidine HCl 4 MG Oral CapsuleIndications :Neck muscle spasm Take 1 Capsule by mouth in the morning and 1 Capsule at noon and 1 Capsule before bedtime. 90 Capsule 3 05/11/2023 Active Rosuvastatin Calcium 20 MG Oral Tablet (Crestor)Indicatio ns:Dyslipidemia, goal to be determined TAKE 1 TABLET [...] for 10 days. 20 Tablet 0 07/21/2023 07/31/2023 Active methylPREDNISolone 4 MG Oral Tablet Therapy Pack (Medrol Dosepack) follow package directions 21 Tablet 0 07/26/2023 Active documented as of this encounter (statuses as of 07/27/2023) Active Problems Problem Noted Date Diagnosed Date [...] colitis 07/16/2014 SALAS (nonalcoholic steatohepatitis) 06/18/2014 Overview: 3/15 US new Dx. Borderline high LFT HTN, goal below 140/90 01/21/2014 Medical home patient encounter 01/21/2014 Overview: 01/09 spirometry at [facility]ergy [facility] allergy testing WN 11/07 colon WNL 01/04 colon red throughout, but normal biopsies. 10/04 TTE WNL 09/03 EGD-gastritis/esophagitis. Rare eosinophils.. 08/03 a1c 1.8 after start valsartan, improved to1.4 (1.1 baseline). NEED roger summer 07/03 abnormal coonoscpoy-Lymphocytic colitis-Rx started by GI 04/04 FOB neg. 08/01 mammo WNL [facility] Pap 09/30 [facility] WN 2006 stress echo [facility] ADVANCE DIRECTIVE INFORMATION 07/29/2004 Overview: No, Advance Directive brochure given to patient. GENERAL OSTEOARTHROSIS 07/29/2004 Allergic rhinitis 07/29/2004 Dyslipidemia, goal to be determined 07/29/2004 Persistent insomnia 07/29/2004 Overview: ICD-10 update of inactive term Former smoker 11/07/2003 documented as of this encounter (statuses as of 07/27/2023) Resolved Problems Problem Noted Date Diagnosed Date [...] as of this encounter (statuses as of 07/27/2023) Immunizations Name Administration Dates Next Due COVID-19 mRNA, LNP-s, No Pre serve, 2-Dose Series ([employer]) 03/26/2021,07/04/2020,06/13/2020 Covid-19, Mrna, Lnp-s, Pf, B ivalent, [...] encounter Miscellaneous Notes * Telephone Encounter - Lisa Zurita LPN - 07/27/2023 8:50 AM EDT Called and spoke with patient and she is aware prescription was sent in. * Addendum Note - Isabella Madden MD - 07/26/2023 8:15 AM EDTAddended by: ISABELLA MADDEN on: 07/26/2023 08:15 AM Modules accepted: Orders * Telephone Encounter - Isabella Madden MD - 07/26/2023 8:14 AM EDT Sent out * Telephone Encounter - Lisa Zurita LPN - 07/25/2023 6:00 PM EDT Called and spoke with patient and she would like to add a steroid. Patient would like prescription sent to [facility] on [facility] * Telephone Encounter - Isabella Madden MD - 07/25/2023 11:40 AM EDT Since she started taking augmentin, I believe she should get better slowly But wonder if she would like to add steroid ? It can help her current symptoms * Telephone Encounter - Kirsten Carvalho LPN - 07/25/2023 11:32 AM EDT Patient is calling. Seen 07/21/[address] Maryanne Madden told her to call in with an update. Reported she has the chills, has a headache, productive cough yellow sputum. Checked her temp. Last night and it was 98. Patient says her temperature is usually 94. Starting to feel a little better, but not much. Overall feels about the same. FYI * Telephone Encounter - Claudia Mackenzie OSA - 07/25/2023 11:30 AM EDT Reason for patient's call: Pt requesting a nurse Caller was transferred to Kirsten at the nurse line. documented in this encounter Plan of Treatment Upcoming Encounters Date Type Department Care Team (Late st Contact Info) Description 07/28/2023 10:30 AM EDT Office Visit Allergy/Immunology [address] [place] [address] Donna Asencio PA-C [address] [place] [address] 08/12/2023 1:00 PM EDT Office Visit Orthopaedics Spine Surgery, [facility] 132 [facility] [place] [address] Jayme Stanton MD [address] [place] [address] [place] [address] 08/18/2023 2:00 PM EDT Office Visit [facility] 132 [facility] [place] [address] Alyssa Patel CRNP 132 [facility] [place] [address] 09/05/2023 10:15 AM EDT Appointment Radiology, [place] [address] [place] [address] 09/21/2023 10:30 AM EDT Imaging Radiology [facility] 132 [facility] [place] [address] 02/22/2024 9:40 AM EST Office Visit [facility] 132 [facility] [place] [address] Unruly Jennings MD 132 [facility] [place] [address] Health Maintenance Due Date Last Done Comments Cologuard 01/30/1996 Sigmoidoscopy 01/30/1996 Fecal Occult Blood Test 03/29/2015 03/29/2014 COVID-19 Vaccine ( season) 2022 01/09/2022, 03/26/2021, 07/04/2020, Additional history exists DXA Scan 05/11/2023 05/11/2016, 09/2004, 08/25/2004 GFR 08/18/2023 02/17/2023, 08/2022, 02/05/2022, Additional history exists Albumin/Creatinine Ratio 08/25/2023 023, 11/10/2021, 10/10/2020, Additional history exists CKD HGB USE SMARTSET 17469 08/25/202308/24, 11/10/2021, 11/10/2021, Additional history exists CKD PHOS USE SMARTSET 02212 08/25/2023 06/0 08/2022, 11/10/2021, 08/28/2021, Additional history [...] this encounter Medical Devices Implanted Type Area Summer [employer] Associate Device Identifier Shelf Expiration Date Model / Serial / Lot Bone Fiber Plbettyfx 2.5cc Dmnrlz - [id number] - [id number] Implanted:Qt y: 1 on 08/12/2021 by Jayme Stanton MD at OR [facility] Graft N/A: Neck L[employer]ET 06/03/2024 BL-1800-02 / [id number] / [id number] 4.5x20 Screw Implanted:Qt y: 2 on 08/12/2021 by Jayme Stanton MD at OR [facility] Screw N/A: Spine Lumbar [employer] 1020-45-420 / / 3.5x12 Reduction Screw Implanted:Qt y: 4 on 08/12/2021 by Jayme Stanton MD at OR [facility] Screw N/A: Spine Lumbar [employer] 1020-35-312 / / 3.5x12 Screw Implanted:Qt y: 4 on 08/12/2021 by Jayme Stanton MD at OR [facility] Screw N/A: Spine Lumbar [employer] 1020-35-112 / / Set Screw - [id number] Implanted:Qt y: 10 on 08/12/2021 by Jayme Stanton MD at OR [facility] Screw N/A: Spine Lumbar JNJ : [employer] [id number] / / Dbx 5cc [id number] - [id number] - [id number] Implanted:Qt y: 1 on 08/12/2021 by Jayme Stanton MD at OR [facility] Tissue - Human N/A: Neck MUSCULOSKELETAL TRANSPLANT FND [id number] 03/09/2023 [id number] / [id number] / LOT NA 4.0x65 Maverick Implanted:Qt y: 2 on 08/12/2021 by Jayme Stanton MD at OR [facility] N/A: Spine Lumbar [employer] 1020-64-065 / / Lens Li61ao 13.00mm 18.50 - [id number] - [id number] Implanted:Qt y: 1 on 03/01/2023 by Uche Sheffield MD at OR [facility] Right: Eye [employer]CH [employer] LOMB 09/18/2027 [id number] / [id number] / [id number] Lens Li61ao 13.00mm 20.00 - [id number] - [id number] Implanted:Qt y: 1 on 03/22/2023 by Uche Sheffield MD at OR [facility] Left: Eye BAUSCH & LOMB 09/18/2027 [id number] / [id number] / [id number] documented as of this encounter Advance Directives Latest Code Status on File Code Status Date Activated Date Inactivated Comments Full Code 03/22/2023 8:54 AM 03/22/2023 3:17 PM This or mala reflects the patients wishes and were consensually agreed upon. Question Answer Comments Discussion of Advance Directives occurred with: Patient Does the patient have a Living Will? No Does the patient have Health Care Power of Bridge Gang Worker? No Code Status History Code Status Date Activated Date Inactivated Comments Full Code 03/01/2023 9:28 AM 03/01/2023 3:27 PM Thi s order reflects the patients wishes and were consensually agreed upon. Question Answer Comments Discussion of Advance Directives occurred with: Patient Does the patient have a Living Will? No Does the patient have Health Care Power of Bridge Gang Worker? No Full Code 08/20/2021 12:59 AM 08/21/2021 [...] and were consensually agreed upon. Care Teams Orientation And Mobility Instructor Relationship Specialty Start Date End Date Unruly Jennings MD 132 [facility] [place] [address] PCP - General Family Medicine 03/25/14 documented as of this encounter
--- OUTSIDE RECORDS SUMMARY | 2023-11-01 19:14 | External Medical Summary | Summary of Care ---
Author Name Unknown Organization [facility] Address [address] [place] [address] Phone [phone] Care Team Providers Care Laundry Room Attendant Name Role Phone Unruly Jennings MD Primary Care Provider + Reason for Visit * Reason Onset Date Comments Update 07/25/2023 Encounter Details Date Type Department Care Team (Late st Contact Info) Description 07/25/2023 Telephone Family Practice [facility] [address] [place] [address] Unruly Jennings MD [address] [facility] [address] Update Allergies Active Allergy Reactions Criticality Noted [...] as of this encounter (statuses as of 07/25/2023) Medications Medication Sig Dispensed Refills Start Date [...] days. 20 Tablet 0 07/21/2023 07/31/2023 Active documented as of this encounter (statuses as of 07/25/2023) Active Problems Problem Noted Date Diagnosed Date [...] by GI 04/04 FOB neg. 08/01 mammo [facility] Pap 09/30 [facility] 2006 stress echo [facility] ADVANCE DIRECTIVE INFORMATION 07/29/2004 Overview: No, Advance Directive brochure given to patient. GENERAL OSTEOARTHROSIS 07/29/2004 Allergic rhinitis 07/29/2004 Dyslipidemia, goal to be determined 07/29/2004 Persistent insomnia 07/29/2004 Overview: ICD-10 update of inactive term Former smoker 11/07/2003 documented as of this encounter (statuses as of 07/25/2023) Resolved Problems Problem Noted Date Diagnosed Date [...] as of this encounter (statuses as of 07/25/2023) Immunizations Name Administration Dates Next Due COVID-19 mRNA, LNP-s, No Pre serve, 2-Dose Series ([employer]) 03/26/2021,07/04/2020,06/13/2020 Covid-19, Mrna, Lnp-s, Pf, B ivalent, 30 Mcg, IM, 12 yrs and above ([employer]) 01/09/2022 Pneumococcal Conjugate Vacc, 13 Valent (Prevnar) [...] steroid. Patient would like prescription sent to [facility] on [facility] * Telephone Encounter - Isabella Madden MD [...] 07/28/2023 10:30 AM EDT Office Visit Allergy/Immunology [facility] [place] [address] Donna Asencio PA-C [address] [facility] [place] [address] 08/12/2023 1:00 PM EDT [facility] [place] [address] Jayme Stanton MD [address] [place] [address] [place] [address] 08/18/2023 2:00 PM EDT Office Visit Family Practice [facility] 132 [facility] [place] [address] Alyssa Patel CRNP 132 [facility] [place] [address] 09/05/2023 10:15 AM EDT Appointment Radiology, [place] [address] [place] [address] 09/21/2023 10:30 AM EDT Imaging Radiology [address] [address] 02/22/2024 9:40 AM EST Office Visit Family Practice [facility] [address] [place] [address] Unruly Jennings MD [address] [place] [address] Health Maintenance Due Date Last Done Comments Cologuard 01/30/1996 Sigmoidoscopy 01/30/1996 Fecal Occult Blood Test 03/29/2015 03/29/2014 COVID-19 Vaccine ( season) 2022 01/09/2022, 03/26/2021, 07/04/2020, Additional history exists DXA Scan 05/11/2023 05/11/2016, 06/0 09/2004, 08/25/2004 GFR 08/18/2023 02/17/2023, 06/0 08/2022, 02/05/2022, Additional history exists Albumin/Creatinine Ratio 08/25/2023 023, 11/10/2021, 10/10/2020, Additional history exists CKD HGB USE SMARTSET 68401 08/25/202308/24, 11/10/2021, 11/10/2021, Additional history exists CKD PHOS USE SMARTSET 47865 08/25/2023 06/0 08/2022, 11/10/2021, 08/28/2021, Additional history [...] this encounter Medical Devices Implanted Type Area Lure Maker Device Identifier Shelf Expiration Date Model / Serial / Lot Bone Fiber Pliafx 2.5cc Dmnrlz - [id number] - [id number] Implanted:Qt y: 1 on 08/12/2021 by Jayme Stanton MD at OR [facility] Graft N/A: Neck LIFENET 06/03/2024 BL-1800-02 / [id number] 4.5x20 Screw Implanted:Qt y: 2 on 08/12/2021 by Jayme Stanton MD at OR [facility] Screw N/A: Spine Lumbar [employer] 1020-45-420 / / 3.5x12 Reduction Screw Implanted:Qt y: 4 on 08/12/2021 by Jayme Stanton MD at OR [facility] Screw N/A: Spine Lumbar [employer] [id number] / / 3.5x12 Screw Implanted:Qt y: 4 on 08/12/2021 by Jayme Stanton MD at OR [facility] Screw N/A: Spine Lumbar [employer] 1020-35-112 / / Set Screw - [id number] Implanted:Qt y: 10 on 08/12/2021 by Jayme Stanton MD at OR [facility] Screw N/A: Spine Lumbar JNJ : [employer] [id number] / / Dbx 5cc [id number] - [id number] - [id number] Implanted:Qt y: 1 on 08/12/2021 by Jayme Stanton MD at OR [facility] Tissue - Human N/A: Neck MUSCULOSKELETAL TRANSPLANT FND [id number] 03/09/2023 [id number] / [id number] / LOT NA 4.0x65 Maverick Implanted:Qt y: 2 on 08/12/2021 by Jayme Stanton MD at OR [facility] N/A: Spine Lumbar [employer] 1020-64-065 / / Lens Li61ao 13.00mm 18.50 - [id number] - [id number] Implanted:Qt y: 1 on 03/01/2023 by Uche Sheffield MD at OR [facility] Right: Eye BAUSCH & LOMB 09/18/2027 [id number] / [id number] / [id number] Lens Li61ao 13.00mm 20.00 - [id number] - [id number] Implanted:Qt y: 1 on 03/22/2023 by Uche Sheffield MD at OR [facility] Left: Eye BAUSCH & LOMB 09/18/2027 [id number] / [id number] / [id number] documented as of this encounter Advance Directives [...] the patient have Health Care Power of Wireless Team Member? No Code Status History Code Status Date Activated Date Inactivated Comments Full Code 03/01/2023 9:28 AM 03/01/2023 3:27 PM Thi s order reflects the patients wishes and were consensually agreed upon. Question Answer Comments Discussion of Advance Directives occurred with: Patient Does the patient have a Living Will? No Does the patient have Health Care Power of Wireless Team Member? No Full Code 08/20/2021 12:59 AM 08/21/2021 [...] and were consensually agreed upon. Care Teams Laundry Room Attendant Relationship Specialty Start Date End Date Unruly Jennings MD [address] [place] [address] PCP - General Family Medicine 03/25/14 documented as of this encounter
--- OUTSIDE RECORDS SUMMARY | 2023-11-01 19:14 | External Medical Summary | Summary of Care ---
Author Name Unknown Organization [facility] Address [address] [place] [address] Phone [phone] Care Team Providers Care Railroad Switchman Name Role Phone Unruly Jennings MD Primary Care Provider + Reason for Referral * Evaluate & Treat - Unlimited Visits (Within 10 days (routine)) - Authorized Specialty Diagnoses / Procedures Referred By Contac t Referred To Contact Pain Management / Pain Medicine Diagnoses S/P cervical spinal fusion Encounter for follow-up examination after completed treatment for conditions other than malignant neoplasm Lumbar radiculopathy Spondylolisthesis of lumbosacral region Lumbar back pain Jayme Stanton MD [address] [place] [address] Referral ID Status Reason Start Date Expiration Date Visits Requested Visits Authorized [id number] Authorized Specialty Services Required 08/12/2023 999 999 Question Answer Referral Priority Within 10 days (routine) Where should this appointment be scheduled? [facility] Reason for referral? Interventional Pain Management - (Injection) What condition is the patient being referred for? Lumbar Radiculopathy What is the preferred location to have this test performed? [facility] [place] [facility] Comments Patient Name: Katelin Ashraf Date of : 1950 Department Phone Number: : [phone] (if unable to have a MRI) is recommended if any of the following apply: 1. Patient has neck or back pain with radiation to extremities. A previous MRI will be accepted if symptoms unchanged since prior MRI. 2. Spinal surgery since last MRI. If yes, order a MRI with and without contrast. 3. Hx or ongoing cancer treatment. Patient will need spine x-ray (Ap/Lat) for axial neck or back pain if not done previously. Fax No. [facility] [phone] or contact supervisor front [phone] Fax No. [facility] [phone] or contact supervisor front [phone] Fax No. [facility] [phone] or contact supervisor front [phone] * Evaluate & Treat - Unlimited Visits (Within 10 days (routine)) - Authorized Specialty Diagnoses / Procedures Referred By Contac t Referred To Contact Physical Therapy / Physical Medicine And Rehab Diagnoses S/P cervical spinal fusion Encounter for follow-up examination after completed treatment for conditions other than malignant neoplasm Lumbar radiculopathy Spondylolisthesis of lumbosacral region Lumbar back pain Jayme Stanton MD [address] [place] [address] Referral ID Status Reason Start Date Expiration Date Visits Requested Visits Authorized [id number] Authorized Specialty Services Required 08/12/2023 999 999 Question Answer Referral Priority Within 10 days (routine) Where should this appointment be scheduled? [facility] Comments Plan: cervical ROM, stretching, strengthening, periscapular strengthening, protraction/retraction exercises, gentle traction only if manual traction is beneficial 2 x week for 6 weeks Modalities for pain relief Plan: Back core strengthening, stretching, ROM, conditioning, lower extremity strengthening as needed, topicals as needed 2 x a week for 6 weeks Modalities for pain relief Reason for Visit * Reason Comments Follow Up Status post cervical laminectomy with fusion. Relief of the cervical myeloradiculopathy symptoms. Patient notes has regained strength is able to use arms to do ADL'S Patient notes is still having some tightness in the neck area. Patient denies any recent PT. Encounter Details Date Type Department Care Team (Late st Contact Info) Description 08/12/2023 1:00 PM EDT Office Visit Orthopaedics Spine Surgery, [facility] [address] [place] [address] Jayme Stanton MD [address] [place] [address] Spondylolisthesis of lumbosacral region*; S/P cervical spinal fusion; Encounter for follow-up examination after completed treatment for conditions other than malignant neoplasm; Lumbar radiculopathy; Lumbar back pain Allergies Active Allergy Reactions Criticality Noted Date [...] as of this encounter (statuses as of 08/12/2023) Medications Medication Sig Dispensed Refills Start Date [...] chronic nasal symptoms 1 mL 01/14/2022 Active Omeprazole 40 MG Oral Capsule [...] follow package directions 21 Tablet 07/26/2023 Active Azelastine HCl 0.1 % Nasal Solution (Astelin) Administer 2 Sprays into nostril in the morning and 2 Sprays before bedtime. 90 mL 3 07/28/2023 Active Saline Nasal Gel (Nasogel)Indication s:Acute recurrent sinusitis, unspecified location Administer into each nostril as needed (nasal congestion and dryness). 1 g 1 07/28/2023 Active documented as of this encounter (statuses as of 08/12/2023) Active Problems Problem Noted Date Diagnosed Date [...] GI 04/04 FOB neg. 08/01 mammo WNL [facility] Pap 09/30 [facility] WN 2006 stress echo [facility] DIRECTIVE INFORMATION 07/29/2004 Overview: No, Advance Directive brochure given to patient. GENERAL OSTEOARTHROSIS 07/29/2004 Allergic rhinitis 07/29/2004 Dyslipidemia, goal to be determined 07/29/2004 Persistent insomnia 07/29/2004 Overview: ICD-10 update of inactive term Former smoker 11/07/2003 documented as of this encounter (statuses as of 08/12/2023) Resolved Problems Problem Noted Date Diagnosed Date [...] as of this encounter (statuses as of 08/12/2023) Immunizations Name Administration Dates Next Due COVID-19 mRNA, LNP-s, No Pre serve, 2-Dose Series ([employer]) 03/26/2021,07/04/2020,06/13/2020 Covid-19, Mrna, Lnp-s, Pf, B ivalent, 30 Mcg, IM, 12 yrs and above ([employer]) 01/09/2022 Pneumococcal Conjugate Vacc, 13 Valent (Prevnar) [...] as of this encounter Progress Notes * Jayme Stanton MD - 08/12/2023 1:04 PM EDT Date of service: 08/12/2023 Katelin Ashraf is a 73 year old female presents for a follow up visit. She is 2 years post the posterior cervical fusion decompression surgery. She reports good relief of the myeloradiculopathy symptoms. 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 She has occasional neck stiffness. Patient also has persistent low back pain with lower extremity radiculopathy and symptoms suggestive neurogenic claudication. Patient denies any acute neurological worsening. Prior history: Status post cervical laminectomy with fusion. 08/12/2021 Allergies: Trimethoprim, Atorvastatin, Bactrim [sulfa antibiotics], Codeine, Ibuprofen, Kiwi extract, Morphine and related, Peanut-containing drug products, Propoxyphene, Simvastatin, and Iodine The past medical, surgical, medication, family, social history was reviewed and has been documentedelsewhere in the chart ROS: Negative except as outlined in HPI Vitals: There were no vitals taken for this visit. There is no height or weight on file to calculate BMI. Physical Exam: General: alert, healthy and no distress. The general appearance appears normal. Cardiovascular system: Vascular status grossly preserved in the extremities Spine evaluation cervical, thoracic and lumbar: Overlying skin unremarkable. No paraspinal swellingin the paraspinal and periscapular region. No obvious deformity. Neurological examination: Gross motor power Upper extremities - Bilateral shoulder abductors, elbow flexors, triceps, wrist flexors and extensors and intrinsic muscles of the hand 5/5. Lower extremities - Bilateral hip flexors, knee extensors, ankle dorsiflexors, ankle plantar flexors, EHL/EDL, FHL/FDL 5/5. The deep tendon reflexes - Bilateral Biceps, triceps, brachioradialis, Patellar tendon, Achilles tendon are 2+. Sensation are grossly preserved bilaterally in the upper extremities. Sensation are grossly preserved bilaterally in the lower extremities. Radiological imaging: I independently reviewed the relevant radiological imaging including the x-rays ordered at this visit and discussed with the patient X-rays of the cervical spine show presence of a stable posterior cervical fusion construct with appropriately placed implants. Spinal alignment is maintained. X-rays of the lumbar spine show presence degenerative changes in the lower back. There is presence of a grade 1-2 spondylolisthesis at L5-S1. 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 Patient is neurologically stable. She has good relief of the cervical myeloradiculopathy symptoms. Occasional neck discomfort. Physical therapy was ordered with regards to the same. She is more symptomatic with her lower back and has isthmic spondylolisthesis at L5-S1. We are going to try adequate conservative measures-physical therapy pain management as a 1st step. Role of back brace discussed Modalities of pain relief discussed. Patient may require MRI lumbar if symptoms persist Additional recommendations: Activity modification as tolerated Pain medications as per the primary care. If the patient has persistence or worsening of symptoms additional investigations will be recommended. Warning signs have been discussed. Follow up: 3 months Patient to reach out earlier if any worsening of symptoms. The patient expressed understanding and agreement to the plan. Complexity of decision making: High I spent 30 minutes on 08/12/2023 in preparation, delivery and documentation of the care provided to the patient, excluding any time spent on the performance of the procedure are separately billable service. Jayme Stanton MD This chart was completed in part utilizing [employer] Voice Recognition Software. Grammatical errors, random word insertions, prounoun errors and incomplete sentences are an occasional consequence of this system due to software limitations, ambient noise, and hardware issues. Any formal questions or concerns about the content, text, or information contained within the body of this dictation should be directly addressed to the provider for clarification. documented in this encounter Nursing Notes * Pavithra Saxena LPN - 08/12/2023 1:01 PM EDT Status post cervical laminectomy with fusion. 08/12/21 Relief of the cervical myeloradiculopathy symptoms. Patient notes has regained strength is able to use arms to do ADL'S Patient notes is still having some tightness in the neck area. Patient denies any recent PT. Patient has been taking tizanidine documented in this encounter Plan of Treatment Upcoming Encounters Date Type Department Care Team (Late st Contact Info) Description 08/18/2023 2:00 PM EDT Office Visit Family Practice [facility] [address] [place] [address] Alyssa Patel CRNP [address] [place] [address] 09/05/2023 10:15 AM EDT Appointment Radiology, [place] [address] [facility] [place] [address] 09/21/2023 10:30 AM EDT [facility] [address] [place] [address] 09/29/2023 9:30 AM EDT Office Visit Interventional Pain Center, [facility] [address] [place] [address] Luna Bonilla PA-C [address] [place] [address] 11/18/2023 10:30 AM EDT Office Visit Orthopaedics Spine Surgery, [facility] [address] [place] [address] [address] Jayme Stanton MD [address] [place] [address] 01/31/2024 10:00 AM EST Office Visit Allergy/Immunology [facility] [address] [facility] [address], [place] [address] Donna Asencio PA-C [address] [address] 02/22/2024 9:40 AM EST Office Visit Family [facility] [address] [place] [address] Unruly Jennings MD [address] [place] [address] Pending Results Name Type Priority Associated Diagnoses Date /Time XR L SPINE COMPLETE Medical Imaging Routine S/P cervical spinal fusion Encounter for follow-up examination after completed treatment for conditions other than malignant neoplasm 08/12/2023 1:19 PM EDT XR C SPINE 4-5 VIEWS Medical Imaging Routine S/P cervical spinal fusion Encounter for follow-up examination after completed treatment for conditions other than malignant neoplasm 08/12/2023 1:35 PM EDT Scheduled Referrals Name Type Priority Associated Diagnoses Orde r Schedule PHYSICAL THERAPY REFERRAL OP Referral Within 10 days (routine) S/P cervical spinal fusion Encounter for follow-up examination after completed treatment for conditions other than malignant neoplasm Lumbar radiculopathy Spondylolisthesis of lumbosacral region Lumbar back pain Ordered: 08/12/2023 PAIN MEDICINE REFERRAL OP Referral Within 10 days (routine) S/P cervical spinal fusion Encounter for follow-up examination after completed treatment for conditions other than malignant neoplasm Lumbar radiculopathy Spondylolisthesis of lumbosacral region Lumbar back pain Ordered: 08/12/2023 Health Maintenance Due Date Last Done Comments Cologuard 01/30/1996 Sigmoidoscopy 01/30/1996 Fecal Occult Blood Test 03/29/2015 03/29/2014 COVID-19 Vaccine ( season) 2022 01/09/2022, 03/26/2021, 07/04/2020, Additional history exists DXA Scan 05/11/2023 05/11/2016, 0 09/2004, 08/25/2004 GFR 08/18/2023 02/17/2023, 08/2022, 02/05/2022, Additional history exists Albumin/Creatinine Ratio 08/25/2023 023, 11/10/2021, 10/10/2020, Additional history exists CKD HGB USE SMARTSET 82153 08/25/202308/24, 11/10/2021, 11/10/2021, Additional history exists CKD PHOS USE SMARTSET 14124 08/25/202308/2022, 11/10/2021, 08/28/2021, Additional history exists HbA1c 08/25/2023 [...] this encounter Medical Devices Implanted Type Area Occupational Therapist Assistants Device Identifier Shelf Expiration Date Model / Serial / Lot Bone Fiber Pliafx 2.5cc Dmnrlz - [id number] - [id number] Implanted:Qt y: 1 on 08/12/2021 by Jayme Stanton MD at OR [facility] Graft N/A: Neck [employer] 06/03/2024 [id number] / [id number] / [id number] 4.5x20 Screw Implanted:Qt y: 2 on 08/12/2021 by Jayme Stanton MD at OR [facility] Screw N/A: Spine Lumbar [employer] [id number] / / 3.5x12 Reduction Screw Implanted:Qt y: 4 on 08/12/2021 by Jayme Stanton MD at OR [facility] Screw N/A: Spine Lumbar [employer] [id number] / / 3.5x12 Screw Implanted:Qt y: 4 on 08/12/2021 by Jayme Stanton MD at OR [facility] Screw N/A: Spine Lumbar [employer] 1020-35-112 / / Set Screw - [id number] Implanted:Qt y: 10 on 08/12/2021 by Jayme Stanton MD at OR [facility] Screw N/A: Spine Lumbar JNJ : [employer] [id number] / / Dbx 5cc [id number] - [id number] - [id number] Implanted:Qt y: 1 on 08/12/2021 by Jayme Stanton MD at OR [facility] Tissue - Human N/A: Neck [employer] FND [id number] 03/09/2023 [id number] / [id number] / LOT NA 4.0x65 [place] Implanted:Qt y: 2 on 08/12/2021 by Jayme Stanton MD at OR [facility] N/A: Spine Lumbar [employer] 1020-64-065 / / Lens Li61ao 13.00mm 18.50 - [id number] - [id number] Implanted:Qt y: 1 on 03/01/2023 by YohannesUche miller MD at OR [facility] Right: Eye [employer] 09/18/2027 [id number] / [id number] / [id number] Lens Li61ao 13.00mm 20.00 - [id number] - [id number] Implanted:Qt y: 1 on 03/22/2023 by Uche Sheffield MD at OR [facility] Left: Eye [employer] 09/18/2027 [id number] / [id number] / [id number] documented as of this encounter Visit Diagnoses Diagnosis Spondylolisthesis of lumbosacral region- Primary Acquired spondylolisthesis S/P cervical spinal fusion Arthrodesis status Encounter for follow-up examination after completed treatment for conditions other than malignant neoplasm Lumbar radiculopathy Thoracic or lumbosacral neuritis or radiculitis, unspecified Lumbar back pain Lumbago documented in this encounter Advance Directives * [...] and were consensually agreed upon. Care Teams Railroad Switchman Relationship Specialty Start Date End Date Unruly Jennings MD [address] [place] [address] PCP - General Family Medicine 03/25/14 documented as of this encounter
--- OUTSIDE RECORDS SUMMARY | 2023-11-01 19:14 | External Medical Summary | Summary of Care ---
Author Name Unknown Organization [facility] Address [address] [place] [address] Phone [phone] Care Team Providers Care Elder Counselor Name Role Phone Unruly Jennings MD Primary Care Provider + Reason for Visit * Reason Comments Allergy Return Encounter Details Date Type Department Care Team (Late st Contact Info) Description 07/28/2023 10:30 AM EDT Office Visit Allergy/Immunology [facility] State Chanel Dobbs [address] [facility] [place] [address] Donna Asencio PA-C 200 [facility] [place] [address] Rhinitis, nonallergic*; Acute recurrent sinusitis, unspecified location; [...] GI 04/04 FOB neg. 08/01 mammo WNL [facility] Pap 09/30 [facility] WNL 2006 stress echo [facility] WN ADVANCE DIRECTIVE INFORMATION 07/29/2004 Overview: [...] mRNA, LNP-s, No Pre serve, 2-Dose Series ([employer]) 03/26/2021,07/04/2020,06/13/2020 Covid-19, Mrna, Lnp-s, Pf, B ivalent, [...] as of this encounter Progress Notes * Donna Asencio PA-C - 07/28/2023 1:41 [...] performed by Jayme Stanton MD at OR [facility] BREAST BIOPSY Left 1974 Benign COLONOSCOPY 10/2004 Normal, [facility] Dr Renee hyperplastic rectal polyp COLONOSCOPY, DIAGNOSTIC (RECTUM) 07/11/2014 lymphocytic colitis/COLONOSCOPY FLEXIBLE PROXIMAL DIAGNOSTIC performed by Kojo Ghosh DO at ENDOSCOPY [facility] COLONOSCOPY, DIAGNOSTIC (RECTUM) 01/14/2017 normal bx/COLONOSCOPY FLEXIBLE PROXIMAL DIAGNOSTIC performed by Heidy Munoz DO at ENDOSCOPY [facility] COLONOSCOPY, DIAGNOSTIC (RECTUM) 10/30/2019 normal / COLONOSCOPY FLEXIBLE PROXIMAL DIAGNOSTIC performed by Heidy Munoz DO at [facility] DENTAL SURGERY PROCEDURE NEC UPPER PLATE EGD, FLEXIBLE, DIAGNOSTIC 09/05/2015 gastroesophageal reflux/ESOPHAGOGASTRODUODENOSCOPY (EGD), FLEXIBLE, TRANSORAL, DIAGNOSTIC performedby Kojo Ghosh DO at ENDOSCOPY [facility] INJECT DX/THER SUBSTANCE INTERLAMINAR CERVICAL/THORACIC W IMAGE GUIDE 10/13/2017 INJECTION SPINE LUMBAR CERVICAL OR THORACIC performed by Alli Hill DO at OR [facility] INJECT DX/THER SUBSTANCE INTERLAMINAR CERVICAL/THORACIC W IMAGE GUIDE 02/23/2018 INJECTION SPINE LUMBAR CERVICAL OR THORACIC performed by Alli Hill DO at OR [facility] INJECT DX/THER SUBSTANCE INTERLAMINAR CERVICAL/THORACIC W IMAGE GUIDE 10/25/2019 INJECTION SPINE LUMBAR CERVICAL OR THORACIC performed by Alli Hill DO at OR [facility] INJECT DX/THER SUBSTANCE INTERLAMINAR CERVICAL/THORACIC W IMAGE GUIDE 07/14/2020 INJECTION SPINE LUMBAR CERVICAL OR THORACIC performed by Alli Hill DO at OR [facility] INJECT DX/THER SUBSTANCE INTERLAMINAR CERVICAL/THORACIC W IMAGE GUIDE 05/25/2021 INJECTION SPINE LUMBAR CERVICAL OR THORACIC performed by Alli Hill DO at OR [facility] KNEE ARTHROSCOPY/MENISCECTOMY Left 01/16/2018 ARTHROSCOPY KNEE MEDIAL OR LATERAL MENISCECTOMY performed by Irene Pike DO at OR [facility] MISCELLANEOUS ORDER ([facility] ONLY) 10/2017 Dr Hill cervical. MOHS SURGERY REFERRAL OP right nose REMOVE ADDED SPINE LAMINA, 1 SEG N/A 08/12/2021 LAMINECTOMY FACETECTOMY AND FORAMINOTOMY ADDITIONAL LEVELS performed by Jayme Stanton MD at OR [facility] REMOVE CATARACT, INSERT LENS PROSTH Right 03/01/2023 RIGHT EXTRACAPSULAR CATARACT REMOVAL WITH INTRAOCULAR LENS performed by Uche Sheffield MDat OR [facility] REMOVE CATARACT, INSERT LENS PROSTH Left 03/22/2023 LEFT EXTRACAPSULAR CATARACT REMOVAL WITH INTRAOCULAR LENS performed by Uche Sheffield MD at OR [facility] REMOVE NECK SPINE LAMINA, 1 SEG N/A 08/12/2021 LAMINECTOMY FACETECTOMY AND FORAMINOTOMY POSTERIOR CERVICAL performed by Jayme Stanton MD at OR [facility] SPINE FUSION, EACH ADD'L VERTEBRA N/A 08/12/2021 ARTHRODESIS SPINE POSTERIOR EACH ADDITIONAL VERTEBRAE performed by Jayme Stanton MD at OR [facility] SPINE SEG FIX, POST, 3-6 SEG, INSERT N/A 08/12/2021 POSTERIOR SPINE SEGMENTAL INSTRUMENTATION 3 TO 6 PSF performed by Jayme Stanton MD at OR [facility] THIGH/KNEE SUBQ TUMOR REMOVAL, UNDER 3 [...] fever,valve replaced 2008. Heart Disorder Father of DC age 58 Thyroid Disorder Daughter Cancer Brother 64 liver,lung. Other (covid complications) Brother summer 2022 Asthma Grandfather (Paternal) Breast Cancer No significant [...] normal spirometry. Review of chest x-ray 12/30/21 [facility] reveals clear lungs, normal heart size. [...] you have any questions or concerns. Donna Asencio PA-C Allergy and Immunology [facility] Supervising Physician: Walter Benavidez MD Type of [...] PM EDT Office Visit Orthopaedics Spine Surgery, [facility] [address] [place] [address] Jayme Stanton MD [address] [place] [address] [place] [address] 08/18/2023 2:00 PM EDT Office Visit Family Practice [facility] [address] [place] [address] Alyssa Patel CRNP [address] [place] [address] 09/05/2023 10:15 AM EDT Appointment RadiologyJennifer [address] [place] [address] 09/21/2023 10:30 AM EDT Imaging Radiology [facility] 1st [facility] [address] [place] [address] 01/31/2024 10:00 AM EST Office Visit Allergy/Immunology [facility] [place] [address] Donna Asencio PA-C 200 [facility] [place] [address] 02/22/2024 9:40 AM EST Office Visit Family [facility] [address] [place] [address] Unruly Jennings MD [address] [place] [address] Health Maintenance Due Date Last Done Comments Cologuard 01/30/1996 Sigmoidoscopy 01/30/1996 Fecal Occult Blood Test 03/29/2015 03/29/2014 COVID-19 Vaccine ( season) 2022 01/09/2022, 03/26/2021, 07/04/2020, Additional history exists DXA Scan 05/11/2023 05/11/2016, 060 09/2004, 08/25/2004 GFR 08/18/2023 02/17/2023, 0 08/2022, 02/05/2022, Additional history exists Albumin/Creatinine Ratio 08/25/2023 023, 11/10/2021, 10/10/2020, Additional history exists CKD HGB USE SMARTSET 97131 08/25/202308/24, 11/10/2021, 11/10/2021, Additional history exists CKD PHOS USE SMARTSET 49611 08/25/2023 06/0 08/2022, 11/10/2021, 08/28/2021, Additional history [...] this encounter Medical Devices Implanted Type Area Liquor Runner Device Identifier Shelf Expiration Date Model / Serial / Lot Bone Fiber Pliafx 2.5cc Dmnrlz - [id number] - [id number] Implanted:Qt y: 1 on 08/12/2021 by Jayme Stanton MD at OR [facility] Graft N/A: Neck LIFENET 06/03/2024 BL-1800-02 / [id number] / [id number] 4.5x20 Screw Implanted:Qt y: 2 on 08/12/2021 by Jayme Stanton MD at OR [facility] Screw N/A: Spine Lumbar [employer] 1020-45-420 / / 3.5x12 Reduction Screw Implanted:Qt y: 4 on 08/12/2021 by Jayme Stanton MD at OR [facility] Screw N/A: Spine Lumbar [employer] 1020-35-312 / / 3.5x12 Screw Implanted:Qt y: 4 on 08/12/2021 by Jayme Stanton MD at OR [facility] Screw N/A: Spine Lumbar [employer] 1020-35-112 / / Set Screw - [id number] Implanted:Qt y: 10 on 08/12/2021 by Jayme Stanton MD at OR [facility] Screw N/A: Spine Lumbar JNJ : [employer]INE [id number] / / Dbx 5cc [id number] - [id number] - [id number] Implanted:Qt y: 1 on 08/12/2021 by Jayme Stanton MD at OR [facility] Tissue - Human N/A: Neck MUSCULOSKELETAL TRANSPLANT FND [id number] 03/09/2023 [id number] / [id number] / LOT NA 4.0x65 Maverick Implanted:Qt y: 2 on 08/12/2021 by Jayme Stanton MD at OR [facility] N/A: Spine Lumbar [employer] 1020-64-065 / / Lens Li61ao 13.00mm 18.50 - [id number] - [id number] Implanted:Qt y: 1 on 03/01/2023 by Uche Sheffield MD at OR [facility] Right: Eye BAUSCH & LOMB 09/18/2027 [id number] / [id number] / [id number] Lens Li61ao 13.00mm 20.00 - [id number] - [id number] Implanted:Qt y: 1 on 03/22/2023 by Uche Sheffield MD at OR [facility] Left: Eye BAUSCH & LOMB 09/18/2027 [id number] / [id number] / [id number] documented as of this encounter Visit Diagnoses [...] the patient have Health Care Power of Bath Attendant? No Code Status History Code Status Date Activated Date Inactivated Comments Full Code 03/01/2023 9:28 AM 03/01/2023 3:27 PM Thi s order reflects the patients wishes and were consensually agreed upon. Question Answer Comments Discussion of Advance Directives occurred with: Patient Does the patient have a Living Will? No Does the patient have Health Care Power of Bath Attendant? No Full Code 08/20/2021 12:59 AM 08/21/2021 [...] and were consensually agreed upon. Care Teams Elder Counselor Relationship Specialty Start Date End Date Unruly Jennings MD [address] [place] [address] PCP - General Family Medicine 03/25/14 documented as of this encounter"
--- OUTSIDE RECORDS SUMMARY | 2023-11-01 19:14 | External Medical Summary ---
Author Name Unknown Address Unknown Organization K01:[facility] [place] [address] [place] [address] Laboratory Report Ordering Provider Test Date Status KYLEIGH UGALDE 08/18/2023 15:20:49 Final Observation Date Value Abnormality Reference (Units ) Status MYCODE SPECIMEN-SST 08/18/2023 15:20:49 Freezing of extracted DNA, whole blood and/or serum. Final Performing Location [facility] [place] [address] [place] [address]
--- OUTSIDE RECORDS SUMMARY | 2023-11-01 19:14 | External Medical Summary | Summary of Care ---
Author Name Unknown Organization [facility] Address [address] [place] [address] Phone [phone] Care Team Providers Care Mud Mixer Helper Name Role Phone Unruly Jennings MD Primary Care Provider + Reason for Visit * Reason Onset Date Comments Update 07/25/2023 Encounter Details Date Type Department Care Team (Late st Contact Info) Description 07/25/2023 Telephone Family Practice [facility] [address] [place] [address] Unruly Jennings MD [address] [facility] [address] Update Allergies Active Allergy Reactions Criticality Noted [...] by GI 04/04 FOB neg. 08/01 mammo [facility] Pap 09/30 [facility] 2006 stress echo [facility] ADVANCE DIRECTIVE INFORMATION 07/29/2004 Overview: No, [...] mRNA, LNP-s, No Pre serve, 2-Dose Series ([employer]) 03/26/2021,07/04/2020,06/13/2020 Covid-19, Mrna, Lnp-s, Pf, B ivalent, 30 Mcg, IM, 12 yrs and above ([employer]) 01/09/2022 Pneumococcal Conjugate Vacc, 13 Valent (Prevnar) [...] encounter Miscellaneous Notes * Telephone Encounter - Isabella Madden MD [...] 07/28/2023 10:30 AM EDT Office Visit Allergy/Immunology [facility] [place] [address] [place] [address] Donna Asencio PA-C 200 [facility] [place] [address] 08/12/2023 1:00 PM EDT Office Visit Orthopaedics Spine Surgery, [facility] 132 [facility] [place] [address] Jayme Stanton MD [address] [place] [address] [place] [address] 08/18/2023 2:00 PM EDT Office Visit [facility] 132 [facility] [place] [address] Alyssa Patel CRNP 132 [facility] [place] [address] 09/05/2023 10:15 AM EDT Appointment Jennifer Naidu [address] [place] [address] 09/21/2023 10:30 AM EDT Imaging Radiology [facility] 1st [facility] [place] 132 [facility] [place] [address] 02/22/2024 9:40 AM EST Office Visit [facility] [address] [place] [address] Unruly Jennings MD [address] [place] [address] Health Maintenance Due Date Last Done Comments Cologuard 01/30/1996 Sigmoidoscopy 01/30/1996 Fecal Occult Blood Test 03/29/2015 03/29/2014 COVID-19 Vaccine ( season) 2022 01/09/2022, 03/26/2021, 07/04/2020, Additional history exists DXA Scan 05/11/2023 05/11/2016, 09/2004, 08/25/2004 GFR 08/18/2023 02/17/2023, 08/2022, 02/05/2022, Additional history exists Albumin/Creatinine Ratio 08/25/2023 023, 11/10/2021, 10/10/2020, Additional history exists CKD HGB USE SMARTSET 23401 08/25/202308/24, 11/10/2021, 11/10/2021, Additional history exists CKD PHOS USE SMARTSET 39601 08/25/202308/2022, 11/10/2021, 08/28/2021, Additional history exists HbA1c [...] this encounter Medical Devices Implanted Type Area Central Office Repairer Device Identifier Shelf Expiration Date Model / Serial / Lot Bone Fiber Pliafx 2.5cc Dmnrlz - [id number] - [id number] Implanted:Qt y: 1 on 08/12/2021 by Jayme Stanton MD at OR [facility] Graft N/A: Neck LIFENET 06/03/2024 BL-1800-02 / [id number] / [id number] 4.5x20 Screw Implanted:Qt y: 2 on 08/12/2021 by Jayme Stanton MD at OR [facility] Screw N/A: Spine Lumbar [employer] 1020-45-420 / / 3.5x12 Reduction Screw Implanted:Qt y: 4 on 08/12/2021 by Jayme Stanton MD at OR [facility] Screw N/A: Spine Lumbar [employer] 1020-35-312 / / 3.5x12 Screw Implanted:Qt y: 4 on 08/12/2021 by Jayme Stanton MD at OR [facility] Screw N/A: Spine Lumbar [employer] 1020-35-112 / / Set Screw - [id number] Implanted:Qt y: 10 on 08/12/2021 by Jayme Stanton MD at OR [facility] Screw N/A: Spine Lumbar JNJ : [employer]INE [id number] / / Dbx c [id number] - [id number] - [id number] Implanted:Qt y: 1 on 08/12/2021 by Jayme Stanton MD at OR [facility] Tissue - Human N/A: Neck MUSCULOSKELETAL TRANSPLANT FND [id number] 03/09/2023 [id number] / [id number] / LOT NA 4.0x65 Maverick Implanted:Qt y: 2 on 08/12/2021 by Jayme Stanton MD at OR [facility] N/A: Spine Lumbar [employer] 1020-64-065 / / Lens Li61ao 13.00mm 18.50 - [id number] - [id number] Implanted:Qt y: 1 on 03/01/2023 by Uche Sheffield MD at OR [facility] Right: Eye BAUSCH & LOMB 09/18/2027 [id number] / [id number] / [id number] Lens Li61ao 13.00mm 20.00 - [id number] - [id number] Implanted:Qt y: 1 on 03/22/2023 by Uche Sheffield MD at OR [facility] Left: Eye BAUSCH & LOMB 09/18/2027 [id number] / [id number] / [id number] documented as of this encounter Advance Directives [...] the patient have Health Care Power of Optometrist Owner? No Code Status History Code Status Date Activated Date Inactivated Comments Full Code 03/01/2023 9:28 AM 03/01/2023 3:27 PM Thi s order reflects the patients wishes and were consensually agreed upon. Question Answer Comments Discussion of Advance Directives occurred with: Patient Does the patient have a Living Will? No Does the patient have Health Care Power of Optometrist Owner? No Full Code 08/20/2021 12:59 AM 08/21/2021 [...] and were consensually agreed upon. Care Teams Mud Mixer Helper Relationship Specialty Start Date End Date Unruly Jennings MD [address] [place] [address] PCP - General Family Medicine 03/25/14 documented as of this encounter
--- OUTSIDE RECORDS SUMMARY | 2023-11-01 19:14 | External Medical Summary ---
Author Name Unknown Address Unknown Organization K01[place] [place] [facility] [address] [facility] [address] [facility] [address] Laboratory Report Ordering Provider Test Date Status AMERICOMEGHA MENDIETATom 08/18/2023 15:20:49 Final Observation Date Value Abnormality Reference (Units ) Status HbA1C 08/18/2023 15:20:49 6.3 Above high normal 4. 0-5.6 (%) Final The use of HbA1c to monitor glycemic status is based on normal hemoglobin and HbA composition. This test should not be used in patients with abnormal hemoglobin that affects the half life of the red blood cell or the in vivo glycation rates. Glucose, estimated average 08/18/2023 15:20:49 134 Above high normal <126 (mg/dL) Hang lazar Performing Location [facility] [place] [address] [place] [address] Hee. [facility] [address]
--- OUTSIDE RECORDS SUMMARY | 2023-11-01 19:14 | External Medical Summary ---
Author Name Unknown Address Unknown Organization K01:[facility] [place] [address] [place] [address] Laboratory Report Ordering Provider Test Date Status BELEN DRISCOLL 08/18/2023 15:20:49 Final Normal: <30 mg/g creatinine< br/>High: 30-300 mg/g creatinine
Very High: >300 mg/g creatinine
Nephrotic: >2200 mg/g creatinine Observation Date Value Abnormality Reference (Units ) Status Albumin, Urine 08/18/2023 15:20:49 3.04 (mg/dL) Final Creatinine, Urine 08/18/2023 15:20:49 156 (mg/dL) Final Albumin/Creatinine [Mass Ratio] in Urine 08/18/2023 15:20:49 19 <30 (mg/g Creat) Final Performing Location [facility] [place] [facility] [address] [place] [address]
--- OUTSIDE RECORDS SUMMARY | 2023-11-01 19:14 | External Medical Summary | Summary of Care ---
Author Name Unknown Organization [facility] Address [address] [place] [address] Phone [phone] Care Team Providers Care Head Track Coach Name Role Phone Unruly Jennings MD Primary Care Provider + Reason for Visit * Reason Onset Date Comments Update 07/25/2023 Encounter Details Date Type Department Care Team (Late st Contact Info) Description 07/25/2023 Telephone Family Practice [facility] [address] [place] [address] Unruly Jennings MD [address] [facility] [facility] [address] Update Allergies Active Allergy Reactions Criticality Noted [...] as of this encounter (statuses as of 07/26/2023) Medications Medication Sig Dispensed Refills Start Date [...] as of this encounter (statuses as of 07/26/2023) Active Problems Problem Noted Date Diagnosed Date [...] GI 04/04 FOB neg. 08/01 mammo WNL [facility] Pap 09/30 [facility] WN 2006 stress echo [facility] ADVANCE DIRECTIVE INFORMATION 07/29/2004 Overview: No, Advance Directive brochure given to patient. GENERAL OSTEOARTHROSIS 07/29/2004 Allergic rhinitis 07/29/2004 Dyslipidemia, goal to be determined 07/29/2004 Persistent insomnia 07/29/2004 Overview: ICD-10 update of inactive term Former smoker 11/07/2003 documented as of this encounter (statuses as of 07/26/2023) Resolved Problems Problem Noted Date Diagnosed Date [...] as of this encounter (statuses as of 07/26/2023) Immunizations Name Administration Dates Next Due COVID-19 mRNA, LNP-s, No Pre serve, 2-Dose Series ([employer]) 03/26/2021,07/04/2020,06/13/2020 Covid-19, Mrna, Lnp-s, Pf, B ivalent, [...] as of this encounter Miscellaneous Notes * Addendum Note - Isabella Madden MD [...] Patient would like prescription sent to [facility] * Telephone Encounter - Isabella Madden MD - 07/25/2023 11:40 AM EDT Since she started taking augmentin, I believe she should get better slowly But wonder if she would like to add steroid ? It can help her current symptoms * Telephone Encounter - Kirsetn Carvalho LPN - 07/25/2023 11:32 AM EDT [...] requesting a nurse Caller was transferred to [facility] at the nurse line. documented in this encounter Plan of Treatment Upcoming Encounters Date Type Department Care Team (Late st Contact Info) Description 07/28/2023 10:30 AM EDT Office Visit Allergy/Immunology [place] [place] [address] [place] [address] Donna Asencio PA-C [address] [place] [address] 08/12/2023 1:00 PM EDT Office Visit Orthopaedics Sp[facility], [facility] [place] [address] Jayme Stanton MD [address] [place] [address] [place] [address] 08/18/2023 2:00 PM EDT Office Visit [facility] 132 [facility] [place] [address] Alyssa Patel CRNP [address] [place] [address] 09/05/2023 10:15 AM EDT Appointment Radiology, [place] [address] [place] [address] 09/21/2023 10:30 AM EDT Imaging Radiology [facility]st [facility] 132 [facility] [place] [address] 02/22/2024 9:40 AM EST Office Visit [facility] [place] [address] Unruly Jennings MD [address] [place] [address] Health Maintenance Due Date Last Done Comments Cologuard 01/30/1996 Sigmoidoscopy 01/30/1996 Fecal Occult Blood Test 03/29/2015 03/29/2014 COVID-19 Vaccine ( season) 2022 01/09/2022, 03/26/2021, 07/04/2020, Additional history exists DXA Scan 05/11/2023 05/11/2016, 09/2004, 08/25/2004 GFR 08/18/2023 02/17/2023, 08/2022, 02/05/2022, Additional history exists Albumin/Creatinine Ratio 08/25/2023 023, 11/10/2021, 10/10/2020, Additional history exists CKD HGB USE SMARTSET 07422 08/25/202308/24, 11/10/2021, 11/10/2021, Additional history exists CKD PHOS USE SMARTSET 82783 08/25/202308/2022, 11/10/2021, 08/28/2021, Additional history exists HbA1c [...] this encounter Medical Devices Implanted Type Area Day Light Relief Operator Device Identifier Shelf Expiration Date Model / Serial / Lot Bone Fiber Pliafx 2.5cc Dmnrlz - [id number] - [id number] Implanted:Qt y: 1 on 08/12/2021 by Jayme Stanton MD at OR [facility] Graft N/A: Neck LIFENET 06/03/2024 BL-1800-02 / [id number] / [id number] 4.5x20 Screw Implanted:Qt y: 2 on 08/12/2021 by Jayme Stanton MD at OR [facility] Screw N/A: Spine Lumbar [employer] 1020-45-420 / / 3.5x12 Reduction Screw Implanted:Qt y: 4 on 08/12/2021 by Jayme Stanton MD at OR [facility] Screw N/A: Spine Lumbar [employer] 1020-35-312 / / 3.5x12 Screw Implanted:Qt y: 4 on 08/12/2021 by Jayme Stanton MD at OR [facility] Screw N/A: Spine Lumbar [employer] 1020-35-112 / / Set Screw - [id number] Implanted:Qt y: 10 on 08/12/2021 by Jayme Stanton MD at OR [facility] Screw N/A: Spine Lumbar JNJ : DE[employer] SPINE [id number] / / Dbx 5cc 199732 - [id number] - [id number] Implanted:Qt y: 1 on 08/12/2021 by Jayme Stanton MD at OR [facility] Tissue - Human N/A: Neck MUSCULOSKELETAL TRANSPLANT FND [id number] 03/09/2023 [id number] / [id number] / LOT NA 4.0x65 Maverick Implanted:Qt y: 2 on 08/12/2021 by Jayme Stanton MD at OR [facility] N/A: Spine Lumbar [employer] 1020-64-065 / / Lens Li61ao 13.00mm 18.50 - [id number] - [id number] Implanted:Qt y: 1 on 03/01/2023 by Uche Sheffield MD at OR [facility] Right: Eye BAUSCH & LOMB 09/18/2027 [id number] / [id number] / [id number] Lens Li61ao 13.00mm 20.00 - [id number] - [id number] Implanted:Qt y: 1 on 03/22/2023 by Uche Sheffield MD at OR [facility] Left: Eye BAUSCH & LOMB 09/18/2027 [id number] / [id number] / [id number] documented as of this encounter Advance Directives [...] the patient have Health Care Power of Hand Slitter? No Code Status History Code Status Date Activated Date Inactivated Comments Full Code 03/01/2023 9:28 AM 03/01/2023 3:27 PM Thi s order reflects the patients wishes and were consensually agreed upon. Question Answer Comments Discussion of Advance Directives occurred with: Patient Does the patient have a Living Will? No Does the patient have Health Care Power of Hand Slitter? No Full Code 08/20/2021 12:59 AM 08/21/2021 [...] and were consensually agreed upon. Care Teams Head Track Coach Relationship Specialty Start Date End Date Unruly Jennings MD [address] [place] [address] PCP - General Family Medicine 03/25/14 documented as of this encounter
--- OUTSIDE RECORDS SUMMARY | 2023-11-01 19:14 | External Medical Summary ---
Author Name Unknown Address Unknown Organization [id number]:[facility] [place] [address] Laboratory Report Ordering Provider Test Date Status BELEN DRISCOLL 08/18/2023 15:20:49 Final Observation Date Value Abnormality Reference (Units ) Status SYNC LEUKOCYTES IN BLOOD BY AUTOMATED COUNT 08/18/2023 15:20:49 7.91 4.00-10.80 (K/uL) Final Segs 08/18/2023 15:20:49 58.8 40.0-75.0 (%) Final Lymphs % 08/18/2023 15:20:49 27.4 18.0-42.0 (%) Final Monos 08/18/2023 15:20:49 10.0 1.0-11.0 (%) Final Eosinophils 08/18/2023 15:20:49 3.4 0.0-6.0 (%) Final Basos 08/18/2023 15:20:49 0.4 0.0-2.0 (%) Final Absolute Segs 08/18/2023 15:20:49 4.65 1.80-7.70 (K/uL) Final Lymphs, absolute 08/18/2023 15:20:49 2.17 1.00-4.80 (K/ul) Final Monos, Abs 08/18/2023 15:20:49 0.79 0.00-1.10 (K/uL) Final Eos, Abs 08/18/2023 15:20:49 0.27 0.00-0.70 (K/uL) Final Basos, Abs 08/18/2023 15:20:49 0.03 0.00-0.20 (K/uL) Final Performing Location [facility] [place] [address]
--- OUTSIDE RECORDS SUMMARY | 2023-11-01 19:14 | External Medical Summary ---
Author Name Unknown Address Unknown Organization [id number]:[facility] [place] - [address] [facility] [place] [address] Laboratory Report Ordering Provider Test Date Status BELEN DRISCOLL 08/18/2023 15:20:49 Final Observation Date Value Abnormality Reference (Units ) Status Magnesium 08/18/2023 15:20:49 2.2 1.5-2.6 (m g/dL) Final Performing Location [facility] - [address] [place] [address]
--- OUTSIDE RECORDS SUMMARY | 2023-11-01 19:14 | External Medical Summary | Summary of Care ---
Author Name Unknown Organization [facility] Address [address] [place] [address] Phone [phone] Care Team Providers Care Him Specialists Name Role Phone Unruly Jennings MD Primary Care Provider + Reason for Referral * Evaluate & Treat - Unlimited Visits (Within 10 days (routine)) - Authorized Specialty Diagnoses / Procedures Referred By Mihai t Referred To Contact Cardiovascular Medicine / Cardiology Diagnoses PVC (premature ventricular contraction) Prolonged Q-T interval on ECG Alyssa Patel CRNP [address] [place] [address] Referral ID Status Reason Start Date Expiration Date Visits Requested Visits Authorized [id number] Authorized Specialty Services Required 08/18/2023 999 999 Question Answer Referral Priority Within 10 days (routine) Where should this appointment be scheduled? [facility] To which of the following clinics are you referring your patient? General Cardiology Clinic * Precert (Within 10 days (routine)) - Authorized Specialty Diagnoses / Procedures Referred By Contvilma t Referred To Contact Cardiac Studies Diagnoses PVC (premature ventricular contraction) Prolonged Q-T interval on ECG Procedures ECHO, COMPLETE (2D), TRANS-THORACIC Alyssa Patel CRNP [address] [place] [address] Referral ID Status Reason Start Date Expiration Date V isits Requested Visits Authorized [id number] Authorized Precert 08/18/2023 999 999 * Evaluate & Treat - Unlimited Visits (Within 10 days (routine)) - Authorized Specialty Diagnoses / Procedures Referred By Contac t Referred To Contact Otolaryngology Diagnoses Rhinitis, nonallergic Alyssa Patel CRNP [address] [place] [address] Referral ID Status Reason Start Date Expiration Date Visits Requested Visits Authorized [id number] Authorized Specialty Services Required 08/18/2023 999 999 Question Answer Referral Priority Within 10 days (routine) Where should this appointment be scheduled? [facility] Reason for Referral Nasal/Sinus/Allergy Conditions Specific Condition: Rhinitis/Post Nasal Drip * Evaluate & Treat - Unlimited Visits (Within 10 days (routine)) - Authorized Specialty Diagnoses / Procedures Referred By Contact Referred To Contact GI NUTRITION/IM / Gastroenterology Diagnoses Severe obesity with body mass index (BMI) of 35.0 to 39.9 with serious comorbidity (HCC) Alyssa Patel CRNP [address] [place] [address] Referral ID Status Reason Start Date Expiration Date Visits Requested Visits Authorized [id number] Authorized Specialty Services Required 08/18/2023 999 999 Question Answer Referral Priority Within 10 days (routine) Where should this appointment be scheduled? [facility] For what condition is the patient being seen? Obesity Reason for Visit * Reason Comments Chest Pain Last week Short of Breath Cough Sometimes productive for yellow mucous Encounter Details Date Type Department Care Team (Late st Contact Info) Description 08/18/2023 2:00 PM EDT Office Visit Family [facility] [address] [place] [address] Alyssa Patel CRNP [address] [place] [address] Chest pain, unspecified type*; Prolonged Q-T interval on ECG; PVC (premature ventricular contraction); Hypertensive kidney disease with stage 3a chronic kidney disease (HCC); HTN, goal below 140/90; Prediabetes; Rhinitis, nonallergic; RADHA (obstructive sleep apnea); Severe obesity with body mass index (BMI) of 35.0 to 39.9 with serious comorbidity (HCC); Encounter for long-term (current) use of medications Allergies Active Allergy Reactions Criticality Noted Date [...] as of this encounter (statuses as of 08/18/2023) Medications Medication Sig Dispensed Refills Start Date [...] as of this encounter (statuses as of 08/18/2023) Active Problems Problem Noted Date Diagnosed Date [...] 04/04 FOB neg. 08/01 mammo WNL [facility] Pap 09/30 [facility] WNL 2006 stress echo [facility] WN ADVANCE DIRECTIVE INFORMATION 07/29/2004 Overview: No, Advance Directive brochure given to patient. GENERAL OSTEOARTHROSIS 07/29/2004 Allergic rhinitis 07/29/2004 Dyslipidemia, goal to be determined 07/29/2004 Persistent insomnia 07/29/2004 Overview: ICD-10 update of inactive term Former smoker 11/07/2003 documented as of this encounter (statuses as of 08/18/2023) Resolved Problems Problem Noted Date Diagnosed Date [...] as of this encounter (statuses as of 08/18/2023) Immunizations Name Administration Dates Next Due COVID-19 mRNA, LNP-s, No Pre serve, 2-Dose Series ([employer]) 03/26/2021,07/04/2020,06/13/2020 Covid-19, Mrna, Lnp-s, Pf, B ivalent, 30 Mcg, IM, 12 yrs and above ([employer]) 01/09/2022 Pneumococcal Conjugate Vacc, 13 Valent (Prevnar) [...] Sign Reading Time Taken Comments Blood Pressure 130/68 08/18/2023 2:47 PM EDT Pulse 65 08/18/2023 1:51 PM EDT Temperature 36.7 C (98 F) 08/18/2023 1:51 PM EDT Respiratory Rate 16 08/18/2023 1:51 PM EDT Oxygen Saturation 95% 08/18/2023 1:51 PM EDT room air Inhaled Oxygen Concentration - - Weight 80.9 kg (178 lb 6.4 oz) 08/18/2023 1:51 P M EDT Height - - Body Mass Index 36.03 03/22/2023 9:10 AM EST documented in this [...] as of this encounter Progress Notes * Alyssa Patel CRNP - 08/18/2023 2:22 PM EDT Images from the original note were not included. History of Present Illness Katelin Ashraf is a 73 year old female that presents for Chest Pain (Last week), Short of Breath, and Cough (Sometimes productive for yellow mucous) HPI Here for evaluation of the above. Last week had substernal chest pressure. Better now. Does not feel pvc's or palpitations but her heart rhythm is very irregular on auscultation. No SOB/dyspnea at rest. 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 Dirnking a lotof diet tonic water. Hx prolonged QT. Saw aluminum hydroxide process operator -- taking flonase, astelin after saline rinses as well as daily singulair. Completed augmentin and medrol dose pack. No nosebleeds. No new headaches. Current Outpatient Medications Medication Sig Dispense Refill Azelastine HCl 0.1 % Nasal Solution (Astelin) Administer 2 Sprays into nostril in the morning and 2Sprays before bedtime. 90 mL 3 Saline Nasal Gel (Nasogel) Administer into each nostril as needed (nasal congestion and dryness). 1g 1 Montelukast Sodium 10 MG Oral Tablet (Singulair) Take 1 Tablet by mouth in the morning. 90 Tablet 3 Rosuvastatin Calcium 20 MG Oral Tablet (Crestor) TAKE 1 TABLET BY MOUTH EVERY DAY 90 Tablet 1 tiZANidine HCl 4 MG Oral Capsule Take 1 Capsule by mouth in the morning and 1 Capsule at noon and 1Capsule before bedtime. 90 Capsule 3 Zolpidem Tartrate 5 MG Oral Tablet (Ambien) TAKE 1 TABLET BY MOUTH EVERYDAY AT BEDTIME 90 Tablet 1 Albuterol Sulfate HFA 108 (90 Base) MCG/ACT Inhalation Aerosol Solution Inhale 2 Puffs by mouth every 4 hours as needed for Cough, Shortness of Breath or Wheezing. 3 to 5 minutes apart. 18 g 2 Omeprazole 40 MG Oral Capsule Delayed Release (PriLOSEC) TAKE 1 CAPSULE BY MOUTH DAILY 1 HOUR BEFORE THE FIRST MEAL OF THE DAY 90 Capsule 2 Fluticasone Propionate 50 MCG/ACT Nasal Suspension Use 2 squirts in each nostril daily each morningto prevent chronic nasal symptoms 1 mL 0 CPAP every night at bedtime . Dicyclomine HCl 10 MG Oral Capsule (Bentyl) TAKE 1 CAPSULE BY MOUTH 4 TIMES A DAY NEEDED (ABD PAIN/CRAMPING). 360 Cap 1 meclizine (ANTIVERT) 25 MG Tablet Take 1 Tab by mouth 3 times a day as needed for Dizziness. 30 Tab8 acetaminophen (TYLENOL) 500 MG Tablet Take 2 Tabs by mouth every 8 hours as needed for Pain. 100 Tab 0 methylPREDNISolone 4 MG Oral Tablet Therapy Pack (Medrol Dosepack) follow package directions (Patient not taking: Reported on 08/18/2023) 21 Tablet 0 No current facility-administered medications for this visit. Physical Exam Vitals: 08/18/23 1351 08/18/23 1447 Temp: 36.7 C (98 F) Pulse: 65 Resp: 16 SpO2: 95% BP: 152/70 130/68 Physical Exam Vitals reviewed. Constitutional: Appearance: Normal appearance. HENT: Head: Normocephalic and atraumatic. Right Ear: Tympanic membrane, ear canal and external ear normal. Left Ear: Tympanic membrane, ear canal and external ear normal. Nose: Nose normal. Mouth/Throat: Mouth: Mucous membranes are moist. Eyes: Extraocular Movements: Extraocular movements intact. Conjunctiva/sclera: Conjunctivae normal. Pupils: Pupils are equal, round, and reactive to light. Cardiovascular: Rate and Rhythm: Normal rate. Rhythm irregular. Heart sounds: Normal heart sounds. Pulmonary: Effort: Pulmonary effort is normal. Breath sounds: Normal breath sounds. Abdominal: General: There is no distension. Palpations: Abdomen is soft. Tenderness: There is no abdominal tenderness. Musculoskeletal: Cervical back: Neck supple. Right lower leg: No edema. Left lower leg: No edema. Lymphadenopathy: Cervical: No cervical adenopathy. Skin: General: Skin is warm and dry. Capillary Refill: Capillary refill takes less than 2 seconds. Neurological: Mental Status: She is alert and oriented to person, place, and time. Psychiatric: Behavior: Behavior normal. Thought Content: Thought content normal. Assessment and Plan Chest pain, unspecified type Better now but with PVCs and hx prolonged QT will have her follow up with cardiology Stop drinking tonic water Check labs today Discussed indications for ER - EKG; Future - EKG Prolonged Q-T interval on ECG As above - ECHO, COMPLETE (2D), TRANS-THORACIC; Future - CARDIOLOGY REFERRAL OP PVC (premature ventricular contraction) As above - COMPREHENSIVE METABOLIC PANEL; Future - MAGNESIUM; Future - ECHO, COMPLETE (2D), TRANS-THORACIC; Future - CARDIOLOGY REFERRAL OP Hypertensive kidney disease with stage 3a chronic kidney disease (HCC) Recheck labs ordered HTN, goal below 140/90 - COMPREHENSIVE METABOLIC PANEL; Future - ALBUMIN / CREATININE RATIO, URINE; Future Prediabetes - HEMOGLOBIN A1C; Future Rhinitis, nonallergic - ADULT/PEDS OTOLARYNGOLOGY REFERRAL OP RADHA (obstructive sleep apnea) Severe obesity with body mass index (BMI) of 35.0 to 39.9 with serious comorbidity (HCC) - GI NUTRITION REFERRAL OP Encounter for long-term (current) use of medications - COMPREHENSIVE METABOLIC PANEL; Future - CBC WITH WBC DIFFERENTIAL; Future - MAGNESIUM; Future - ALBUMIN / CREATININE RATIO, URINE; Future - VITAMIN B12; Future Wrap-Up Follow Up: Return for Labs Today. | For: Labs Today | Check-out note: Schedule cardiology Time: I spent a total of 30-39 minutes (exact time 30 mins) on the date of service in preparation, delivery, and documentation of the care provided to Katelin Ashraf excluding any time spent in the performance of separately billed services. documented in this encounter Procedure Notes * Francisco Evans DO - 08/18/2023 12:57 PM EDTAssociated Order(s): EKG REASON FOR STUDY: CHEST PAIN CONCLUSIONS: Sinus rhythm with with frequent Premature ventricular complexes Possible Left atrial enlargement Prolonged QT interval or tu fusion, consider myocardial disease, electrolyte imbalance, or drug effects Abnormal ECG When compared with ECG of 19-Aug-2021 20:40, Premature ventricular complexes are now Present Ventricular Rate: 77 Atrial Rate: 77 HI Interval: 144 QRS Duration: 66 QT/QTc: 464/525 ms P-R-T [place]: 53 : 49 : 6 degrees documented in this encounter Plan of Treatment Upcoming Encounters Date Type Department Care Team (Late st Contact Info) Description 08/18/2023 3:50 PM EDT Laboratory Laboratory, [facility] [address] [place] [phone] [facility] [address] [place] [address] Arrived 09/05/2023 10:15 AM EDT Appointment Radiology, Jennifer [address] [place] [address] [place] [address] 09/21/2023 10:30 AM EDT Imaging Radiology [facility] 1st Floor, [place] [address] [place] [address] 09/29/2023 9:30 AM EDT Office Visit Interventional Pain Center, [facility] [address] [place] [address] [address] Luna Bonilla PA-C [address] [facility] [place] [address] 11/18/2023 10:30 AM EDT Office Visit Orthopaedics Spine Surgery, [facility] [address] [facility] [place] [address] Jayme Stanton MD [address] [place] [address] [place] [address] 01/31/2024 10:00 AM EST Office Visit [facility] [address] [place] [address] Donna Asencio PA-C [address] [facility] [place] [address] 02/22/2024 9:40 AM EST Office Visit Family Practice [facility] [address] [facility] [place] [address] Unruly Jennings MD [address] [facility] [place] [address] Scheduled Orders Name Type Priority Associated Diagnoses Orde r Schedule HEMOGLOBIN A1C Lab Routine Prediabetes Expected: 08/18/2023 (Approximate), Expires: 08/17/2024 COMPREHENSIVE METABOLIC PANEL Lab Routine HTN, goal below 140/90 PVC (premature ventricular contraction) Encounter for long-term (current) use of medications Expected: 08/18/2023 (Approximate), Expires: 08/17/2024 CBC WITH WBC DIFFERENTIAL Lab Routine Encounter for long-term (current) use of medications Expected: 08/18/2023 (Approximate), Expires: 08/17/2024 MAGNESIUM Lab Routine PVC (premature ventricular contraction) Encounter for long-term (current) use of medications Expected: 08/18/2023 (Approximate), Expires: 08/17/2024 ALBUMIN / CREATININE RATIO, URINE Lab Routine HTN, goal below 140/90 Encounter for long-term (current) use of medications Expected: 08/18/2023 (Approximate), Expires: 08/17/2024 VITAMIN B12 Lab Routine Encounter for long-term (current) use of medications Expected: 08/18/2023 (Approximate), Expires: 08/17/2024 ECHO, COMPLETE (2D), TRANS-THORACIC Echocardiology Routine PVC (premature ventricular contraction) Prolonged Q-T interval on ECG Expected: 08/18/2023, Expires: 09/17/2025 Scheduled Referrals Name Type Priority Associated Diagnoses Orde r Schedule GI NUTRITION REFERRAL OP Referral Within 10 days (routine) Severe obesity with body mass index (BMI) of 35.0 to 39.9 with serious comorbidity (HCC) Ordered: 08/18/2023 ADULT/PEDS OTOLARYNGOLOGY REFERRAL OP Referral Within 10 days (routine) Rhinitis, nonallergic Ordered: 08/18/2023 CARDIOLOGY REFERRAL OP Referral Within 10 days (routine) PVC (premature ventricular contraction) Prolonged Q-T interval on ECG Ordered: 08/18/2023 Health Maintenance Due Date Last Done Comments Cologuard 01/30/1996 Sigmoidoscopy 01/30/1996 Fecal Occult Blood Test 03/29/2015 03/29/2014 COVID-19 Vaccine ( season) 2022 01/09/2022, 03/26/2021, 07/04/2020, Additional history exists DXA Scan 05/11/2023 05/11/2016, 06/0 09/2004, 08/25/2004 GFR 08/18/2023 02/17/2023, 06/0 08/2022, 02/05/2022, Additional history exists Albumin/Creatinine Ratio 08/25/2023 023, 11/10/2021, 10/10/2020, Additional history exists CKD HGB USE SMARTSET 90647 08/25/202308/24, 11/10/2021, 11/10/2021, Additional history exists CKD PHOS USE SMARTSET 61020 08/25/2023 06/0 08/2022, 11/10/2021, 08/28/2021, Additional history [...] this encounter Medical Devices Implanted Type Area Beam Press Operator Device Identifier Shelf Expiration Date Model / Serial / Lot Bone Fiber Pliafx 2.5cc Dmnrlz - [id number] - [id number] Implanted:Qt y: 1 on 08/12/2021 by Jayme Stanton MD at OR [facility] Graft N/A: Neck [employer] 06/03/2024 [id number] / [id number] / [id number] 4.5x20 Screw Implanted:Qt y: 2 on 08/12/2021 by Jayme Stanton MD at OR [facility] Screw N/A: Spine Lumbar [employer] [id number] / / 3.5x12 Reduction Screw Implanted:Qt y: 4 on 08/12/2021 by Jayme Stanton MD at OR [facility] Screw N/A: Spine Lumbar [employer] [id number] / / 3.5x12 Screw Implanted:Qt y: 4 on 08/12/2021 by Jayme Stanton MD at OR [facility] Screw N/A: Spine Lumbar [employer] [id number] / / Set Screw - [id number] Implanted:Qt y: 10 on 08/12/2021 by Jayme Stanton MD at OR [facility] Screw N/A: Spine Lumbar JNJ : [employer] [id number] / / Dbx 5c [id number] - [id number] - [id number] Implanted:Qt y: 1 on 08/12/2021 by Jayme Stanton MD at OR [facility] Tissue - Human N/A: Neck MUSCULOSKELETAL TRANSPLANT FND [id number] 03/09/2023 [id number] / [id number] / LOT NA 4.0x65 Maverick Implanted:Qt y: 2 on 08/12/2021 by Jayme Stanton MD at OR [facility] N/A: Spine Lumbar [employer] [id number] / / Lens Li61ao 13.00mm 18.50 - [id number] - [id number] Implanted:Qt y: 1 on 03/01/2023 by Uche Sheffield MD at OR [facility] Right: Eye [employer]OM[employer] 09/18/2027 [id number] / [id number] / [id number] Lens Li61ao 13.00mm 20.00 - [id number] - [id number] Implanted:Qt y: 1 on 03/22/2023 by Uche Sheffield MD at OR [facility] Left: Eye [employer]OMB 09/18/2027 [id number] / [id number] / [id number] documented as of this encounter Procedures Procedure Name Priority Date/Time Associated Diagnosis Comments HI ECG ROUTINE ECG W/LEAST 12 LDS I&R ONLY Routine 08/18/2023 12:57 PM EDT Chest pain, unspecified type documented in this encounter Results * EKG (08/18/2023 12:57 PM EDT) 08/18/2023 12:5 7 PM EDT Narrative Procedure Note Francisco Evans DO - 08/18/2023 12:57 PM EDT REASON FOR STUDY: CHEST PAIN CONCLUSIONS: Sinus rhythm with with frequent Premature ventricular complexes Possible Left atrial enlargement Prolonged QT interval or tu fusion, consider myocardial disease,electrolyte imbalance, or drug effects Abnormal ECG When compared with ECG of 19-Aug-2021 20:40, Premature ventricular complexes are now Present Ventricular Rate: 77 Atrial Rate: 77 HI Interval: 144 QRS Duration: 66 QT/QTc: 464/525 ms P-R-T [place]: 53 : 49 : 6 degrees Alyssa WALDRON EKG [facility] CARDIOLOGY documented in this encounter Visit Diagnoses Diagnosis Chest pain, unspecified type- Primary Prolonged Q-T interval on ECG Nonspecific abnormal electrocardiogram (ECG) (EKG) PVC (premature ventricular contraction) Other premature beats Hypertensive kidney disease with stage 3a chronic kidney disease (HCC) HTN, goal below 140/90 Unspecified essential hypertension Prediabetes Other abnormal glucose Rhinitis, nonallergic Chronic rhinitis RADHA (obstructive sleep apnea) Obstructive sleep apnea (adult) (pediatric) Severe obesity with body mass index (BMI) of 35.0 to 39.9 with serious comorbidity (HCC) Encounter for long-term (current) use of medications Encounter for long-term (current) use of other medications documented in this encounter Advance Directives * [...] and were consensually agreed upon. Care Teams Him Specialists Relationship Specialty Start Date End Date Unruly Jennings MD [address] [place] [address] PCP - General Family Medicine 03/25/14 documented as of this encounter"
--- OUTSIDE RECORDS SUMMARY | 2023-11-01 19:14 | External Medical Summary | Summary of Care ---
Author Name Unknown Organization [facility] Address [address] [place] [address] Phone [phone] Care Team Providers Care Commercial Trailer Truck Driver Name Role Phone Unruly Jennings MD Primary Care Provider + Reason for Visit * Reason Comments Outpatient Testing Encounter Details Date Type Department Care Team (Late st Contact Info) Description 08/18/2023 3:50 PM EDT Laboratory Laboratory, [facility] [address] [facility] [place] [address] [facility] [address] [place] [address] Diagnostic Photonics Other*[id number]; Hypertension, unspecified type; Prediabetes; HTN, goal below 140/90; PVC (premature ventricular contraction); Encounter for long-term (current) use of medications [...] by GI 04/04 [facility]. [facility] WN 2006 stress echo [facility] ADVANCE DIRECTIVE INFORMATION 07/29/2004 Overview: No, Advance [...] mRNA, LNP-s, No Pre serve, 2-Dose Series ([facility]) 03/26/2021,07/04/2020,06/13/2020 Covid-19, Mrna, Lnp-s, Pf, B ivalent, 30 Mcg, IM, 12 yrs and above ([facility]) 01/09/2022 Pneumococcal Conjugate Vacc, 13 Valent (Prevnar) [...] No 08/20/2021 documented as of this encounter Plan of Treatment Upcoming Encounters Date Type Department Care Team (Late st Contact Info) Description 09/05/2023 10:15 AM EDT Appointment Radiology, Jennifer [address] [place] [address] 09/21/2023 10:30 AM EDT Imaging Radiology [facility] 1st [facility] [address] [place] [address] 09/29/2023 9:30 AM EDT Office Visit Interventional Pain Center, [facility] 132 [facility] [place] [address] Luna Bonilla PA-C [address] [place] [address] 11/18/2023 10:30 AM EDT Office Visit Orthopaedics Spine Surgery, [facility] [address] [place] [address] Jayme Stanton MD [address] [place] [address] [place] [address] 01/31/2024 10:00 AM EST Office Visit Allergy/Immunology [facility] [address] [place] [address] Donna Asencio PA-C [address] [place] [address] 02/22/2024 9:40 AM EST Office Visit Family Practice [facility] [address] [place] [address] Unruly Jennings MD [address] [place] [address] Pending Results Name Type Priority Associated Diagnoses Date /Time MYCODE SUBSEQUENT ADULT Lab Routine MyCode Research Other*[id number] 08/18/2023 3:20 PM EDT COMPREHENSIVE METABOLIC PANEL Lab Routine Hypertension, unspecified type 08/18/2023 3:20 PM EDT HEMOGLOBIN A1C Lab Routine Prediabetes 08/18/2023 3:20 PM EDT CBC WITH WBC DIFFERENTIAL Lab Routine Encounter for long-term (current) use of medications 08/18/2023 3:20 PM EDT MAGNESIUM Lab Routine PVC (premature ventricular contraction) Encounter for long-term (current) use of medications 08/18/2023 3:20 PM EDT ALBUMIN / CREATININE RATIO, URINE Lab Routine HTN, goal below 140/90 Encounter for long-term (current) use of medications 08/18/2023 3:20 PM EDT VITAMIN B12 Lab Routine Encounter for long-term (current) use of medications 08/18/2023 3:20 PM EDT MYCODE SST1 Lab Routine MyCode Research Other*[id number] 08/18/2023 3:20 PM EDT MYCODE SST2 Lab Routine MyCode Research Other*[id number] 08/18/2023 3:20 PM EDT CBC Lab Routine Encounter for long-term (current) use of medications 08/18/2023 3:20 PM EDT DIFFERENTIAL, AUTOMATED Lab Routine Encounter for long-term (current) use of medications 08/18/2023 3:20 PM EDT Health Maintenance Due Date Last Done Comments Cologuard 01/30/1996 Sigmoidoscopy 01/30/1996 Fecal Occult Blood Test 03/29/2015 03/29/2014 COVID-19 Vaccine ( season) 2022 01/09/2022, 03/26/2021, 07/04/2020, Additional history exists DXA Scan 05/11/2023 05/11/2016, 06/0 09/2004, 08/25/2004 GFR 08/18/2023 02/17/2023, 06/0 08/2022, 02/05/2022, Additional history exists Albumin/Creatinine Ratio 08/25/2023 023, 11/10/2021, 10/10/2020, Additional history exists CKD HGB USE SMARTSET 86509 08/25/202308/24, 11/10/2021, 11/10/2021, Additional history exists CKD PHOS USE SMARTSET 58361 08/25/2023 06/0 08/2022, 11/10/2021, 08/28/2021, Additional history [...] this encounter Medical Devices Implanted Type Area Shade Classifier Device Identifier Shelf Expiration Date Model / Serial / Lot Bone Fiber Pliafx 2.5cc Dmnrlz - [id number] - [id number] Implanted:Qt y: 1 on 08/12/2021 by Jayme Stanton MD at OR [facility] Graft N/A: Neck LIFENET 06/03/2024 BL-1800-02 / [id number] / [id number] 4.5x20 Screw Implanted:Qt y: 2 on 08/12/2021 by Jayme Stanton MD at OR [facility] Screw N/A: Spine Lumbar [employer] [id number] / / 3.5x12 Reduction Screw Implanted:Qt y: 4 on 08/12/2021 by Jayme Stanton MD at OR [facility] Screw N/A: Spine Lumbar [employer] 1020-35-312 / / 3.5x12 Screw Implanted:Qt y: 4 on 08/12/2021 by Jayme Stanton MD at OR [facility] Screw N/A: Spine Lumbar [employer] 1020-35-112 / / Set Screw - [id number] Implanted:Qt y: 10 on 08/12/2021 by Jayme Stanton MD at OR [facility] Screw N/A: Spine Lumbar JNJ : [employer] SPINE [id number] / / Dbx [facility] [id number] - [id number] - [id number] Implanted:Qt y: 1 on 08/12/2021 by Jayme Stanton MD at OR [facility] Tissue - Human N/A: Neck MUSCULOSKELETAL TRANSPLANT FND [id number] 03/09/2023 [id number] / [id number] / LOT NA 4.0x65 Maverick Implanted:Qt y: 2 on 08/12/2021 by Jayme Stanton MD at OR [facility] N/A: Spine Lumbar [employer] 1020-64-065 / / Lens Li61ao 13.00mm 18.50 - [id number] - [id number] Implanted:Qt y: 1 on 03/01/2023 by Uche Sheffield MD at OR [facility] Right: Eye BAUSCH & LOMB 09/18/2027 [id number] / [id number] / [id number] Lens Li61ao 13.00mm 20.00 - [id number] - [id number] Implanted:Qt y: 1 on 03/22/2023 by Uche Sheffield MD at OR [facility] Left: Eye BAUSCH & LOMB 09/18/2027 [id number] / [id number] / [id number] documented as of this encounter Visit Diagnoses Diagnosis MyCode Research Other*[id number] Hypertension, unspecified type Prediabetes Other abnormal glucose PVC (premature ventricular contraction) Other premature beats Encounter for long-term (current) use of medications [...] and were consensually agreed upon. Care Teams Commercial Trailer Truck Driver Relationship Specialty Start Date End Date Unruly Jennings MD [address] [place] [address] PCP - General Family Medicine 03/25/14 documented as of this encounter
--- OUTSIDE RECORDS SUMMARY | 2023-11-01 19:14 | External Medical Summary ---
Author Name Unknown Address Unknown Organization [id number][facility] [address] [place] [address] Laboratory Report Ordering Provider Test Date Status BELEN DRISCOLL 08/18/2023 15:20:49 Final Observation Date Value Abnormality Reference (Units ) Status WBC, Total 08/18/2023 15:20:49 7.91 4.00-10.8 0 (K/uL) Final RBC 08/18/2023 15:20:49 4.99 3.85-5.15 (M/uL) Final Hemoglobin 08/18/2023 15:20:49 15.0 12.0-15.3 (g/dL) Final HCT 08/18/2023 15:20:49 44.4 36.0-45.2 (%) Final MCV 08/18/2023 15:20:49 89.0 81.5-97.5 (fL) Final MCH 08/18/2023 15:20:49 30.1 27.0-34.0 (pg) Final MCHC 08/18/2023 15:20:49 33.8 32.0-36.0 (g/dL) Final RDW 08/18/2023 15:20:49 14.5 11.5-15.5 (%) Final Platelets 08/18/2023 15:20:49 176 140-400 (K /uL) Final MPV 08/18/2023 15:20:49 11.0 6.6-11.1 ( fL) Final Performing Location LAB[facility]ATORY [facility] [address] - [address] [place] [address]
--- OUTSIDE RECORDS SUMMARY | 2023-11-01 19:14 | External Medical Summary ---
Author Name Unknown Address Unknown Organization K01:[facility] [place] - [address] [place] [address] Laboratory Report Ordering Provider Test Date Status KYLEIGH UGALDE 08/18/2023 15:20:49 Final Observation Date Value Abnormality Reference (Units ) Status MYCODE SPECIMEN-SST 08/18/2023 15:20:49 Freezing of extracted DNA, whole blood and/or serum. Final Performing Location LABORATORY [facility] - [address] [place] [address]
--- OUTSIDE RECORDS SUMMARY | 2023-11-01 19:14 | External Medical Summary ---
Author Name Unknown Address Unknown Organization K01[facility] [place] [address] [place] [address] Laboratory Report Ordering Provider Test Date Status BELEN DRISCOLL 08/18/2023 15:20:49 Final Observation Date Value Abnormality Reference (Units ) Status Vitamin B12 08/18/2023 15:20:49 017 036-2896 (pg/mL) Final Performing Location [facility] [place] [address] [place] [address]
--- OUTSIDE RECORDS SUMMARY | 2023-11-01 19:15 | External Medical Summary | Summary of Care ---
Author Name Unknown Organization [facility] Address [address] [facility] [address] Phone [phone] Care Team Providers Care Tree Girdler Name Role Phone Unruly Jennings MD Primary Care Provider + Encounter Details Date Type Department Care Team (Late st Contact Info) Description 07/19/2023 Patient Reported Data Patient Survey Ortho OBERD Allergies Active Allergy Reactions Criticality Noted Date [...] as of this encounter (statuses as of 07/19/2023) Medications Medication Sig Dispensed Refills Start Date End Date Status acetaminophen (TYLENOL) 500 MG Tablet Take 2 Tabs by mouth every 8 hours as needed for Pain. 100 Tab 0 07/22/2015 Active meclizine (ANTIVERT) 25 MG TabletIndications:Ve rtigo Take 1 Tab by mouth 3 times a day as needed for Dizziness. 30 Tab 8 03/24/2019 Active Saline Nasal Gel (Nasogel)Indications :Acute recurrent sinusitis, unspecified location,Suspected COVID-19 virus infection Administer into each nostril as needed (nasal congestion and dryness). 1 g 1 06/04/2020 Active Dicyclomine HCl 10 MG Oral Capsule (Bentyl) TAKE 1 CAPSULE BY MOUTH 4 TIMES A DAY NEEDED (ABD PAIN/CRAMPING). 360 Cap 1 12/04/2020 Active CPAP every night at bedtime . 0 Active Benzonatate 100 MG Oral Capsule (Tessalon Perles) Take 1 Capsule by mouth 3 times a day as needed for Cough. 0 01/01/2022 Active Fluticasone Propionate 50 MCG/ACT Nasal Suspension Use 2 squirts in each nostril daily each morning to prevent chronic nasal symptoms 1 mL 0 01/14/2022 Active Azelastine HCl 0.1 % Nasal Solution (Astelin) Administer 2 Sprays into nostril in the morning and 2 Sprays before bedtime. 90 mL 3 02/25/2022 Active Omeprazole 40 MG Oral Capsule Delayed Release (PriLOSEC)Indication s:Abdominal pain, epigastric TAKE 1 CAPSULE BY MOUTH DAILY 1 HOUR BEFORE THE FIRST MEAL OF THE DAY 90 Capsule 2 06/08/2022 Active Gabapentin 300 MG Oral Capsule (Neurontin)Indicatio ns:Spasm of muscle TAKE 1 CAPSULE BY MOUTH TWICE A DAY NEEDED FOR PAIN 60 Capsule 5 11/25/2022 Active Cyclobenzaprine HCl 5 MG Oral Tablet (Flexeril)Indication s:Other muscle spasm TAKE 1 TABLET BY MOUTH THREE TIMES A DAY NEEDED FOR MUSCLE SPASM 90 Tablet 2 02/09/2023 Active Albuterol Sulfate HFA 108 (90 Base) MCG/ACT Inhalation Aerosol Solution Inhale 2 Puffs by mouth every 4 hours as needed for Cough, Shortness of Breath or Wheezing. 3 to 5 minutes apart. 18 g 2 02/14/2023 Active traMADol HCl 50 MG Oral Tablet (Ultram)Indications: Cervical radiculopathy Take 1 Tablet by mouth every 6 hours as needed for Pain, Severe. 20 Tablet 0 05/04/2023 Active Zolpidem Tartrate 5 MG Oral Tablet (Ambien)Indications: Persistent insomnia TAKE 1 TABLET BY MOUTH EVERYDAY AT BEDTIME 90 Tablet 1 05/11/2023 Active tiZANidine HCl 4 MG Oral CapsuleIndications:N amanuel muscle spasm Take 1 Capsule by mouth in the morning and 1 Capsule at noon and 1 Capsule before bedtime. 90 Capsule 3 05/11/2023 Active methylPREDNISolone 4 MG Oral Tablet Therapy Pack (Medrol Dosepack)Indications :Cervical radiculopathy follow package directions 21 Tablet 0 05/11/2023 Active Rosuvastatin Calcium 20 MG Oral Tablet (Crestor)Indications :Dyslipidemia, goal to be determined TAKE 1 TABLET BY MOUTH EVERY DAY 90 Tablet 1 05/30/2023 Active documented as of this encounter (statuses as of 07/19/2023) Active Problems Problem Noted Date Diagnosed Date [...] [facility] ADVANCE DIRECTIVE INFORMATION 07/29/2004 Overview: No, Advance Directive brochure given to patient. GENERAL OSTEOARTHROSIS 07/29/2004 Allergic rhinitis 07/29/2004 Dyslipidemia, goal to be determined 07/29/2004 Persistent insomnia 07/29/2004 Overview: ICD-10 update of inactive term Former smoker 11/07/2003 documented as of this encounter (statuses as of 07/19/2023) Resolved Problems Problem Noted Date Diagnosed Date [...] as of this encounter (statuses as of 07/19/2023) Immunizations Name Administration Dates Next Due COVID-19 mRNA, LNP-s, No Pre serve, 2-Dose Series ([employer]) 03/26/2021,07/04/2020,06/13/2020 Covid-19, Mrna, Lnp-s, Pf, B ivalent, [...] Cigarettes 0.5 42 0 03/21/1968 - 10/19/2008 Smokeless Tobacco: Never Comments:No passive smoke ex posures Alcohol Use Standard Drinks/Week Comments Yes 0 (1 standard drink = 0.6 oz pur e alcohol) rare PHQ-2 Answer Date Recorded PHQ-2 Score 0 12/20/2018 Hunger Vital Sign Answer Date Recorded Worried About Running Out of Food in the Last Ye ar Never true 12/20/2018 Ran Out of Food in the Last Year Never true 12/20/2018 Sex and Gender Information Value Date Recorded Sex Assigned at Not on file Gender Identity Not on file Sexual Orientation Not on file Job Start Date Occupation Industry Not on [...] 07/28/2023 10:30 AM EDT Office Visit Allergy/Immunology [facility] [address] [place] [address] Donna Asencio PA-C 200 [facility] [place] [address] 08/12/2023 1:00 PM EDT Office Visit Orthopaedics Spine Surgery, [facility] 132 [facility] [place] [address] Jayme Stanton MD [address] [place] [address] [place] [address] 08/18/2023 2:00 PM EDT Office Visit Family Practice [facility] [address] [place] [address] Alyssa Patel CRNP 132 [facility] [place] [address] 09/05/2023 10:15 AM EDT Appointment Jennifer Naidu [address] [place] [address] 09/21/2023 10:30 AM EDT Imaging Radiology [address] [place] [address] 02/22/2024 9:40 AM EST Office Visit Family Practice [facility] [address] [place] [address] Unruly Jennings MD [address] [place] [address] Health Maintenance Due Date Last Done Comments Cologuard 01/30/1996 Sigmoidoscopy 01/30/1996 Fecal Occult Blood Test 03/29/2015 03/29/2014 Depression Screening 12/21/2019 12/20/2018 COVID-19 Vaccine ( season) 2022 01/09/2022, 03/26/2021, 07/04/2020, Additional history exists DXA Scan 05/11/2023 05/11/2016, 09/2004, 08/25/2004 GFR 08/18/2023 02/17/2023, 08/2022, 02/05/2022, Additional history exists Albumin/Creatinine Ratio 08/25/2023 023, 11/10/2021, 10/10/2020, Additional history exists CKD HGB USE SMARTSET 22345 08/25/202308/24, 11/10/2021, 11/10/2021, Additional history exists CKD PHOS USE SMARTSET 42373 08/25/2023/0 08/2022, 11/10/2021, 08/28/2021, Additional history exists HbA1c 08/25/2023 08/24/2022, 10/20, 07/16/2021, Additional history exists Mammogram 09/03/2023 09/02/2022, 08/19, 07/08/2021, Additional history exists DTaP,Tdap,and Td Vaccines (2 - Td or Tdap) 03/25/2024 03/25/2014, 10/24/2002 Colonoscopy 10/29/2024 10/30/2019, 10/19, 01/14/2017, Additional history [...] this encounter Medical Devices Implanted Type Area Venetian Blind Assembler Device Identifier Shelf Expiration Date Model / Serial / Lot Bone Fiber Pliafx 2.5cc Dmnrlz - [id number] - [id number] Implanted:Qt y: 1 on 08/12/2021 by Jayme Stanton MD at OR [facility] Graft N/A: Neck LIFENET 06/03/2024 BL-1800-02 [id number] 4.5x20 Screw Implanted:Qt y: 2 on 08/12/2021 by Jayme Stanton MD at OR [facility] Screw N/A: Spine Lumbar [employer] 1020-45-420 / / 3.5x12 Reduction Screw Implanted:Qt y: 4 on 08/12/2021 by Jayme Stanton MD at OR [facility] Screw N/A: Spine Lumbar [employer] 1020-35-312 / / 3.5x12 Screw Implanted:Qt y: 4 on 08/12/2021 by Jayme Stanton MD at OR [facility] Screw N/A: Spine Lumbar [employer] 1020-35-112 / / Set Screw - [id number] Implanted:Qt y: 10 on 08/12/2021 by Jayme Stanton MD at OR [facility] Screw N/A: Spine Lumbar JNJ : DE[employer] SPINE [id number] / / Dbx 5cc 352069 - [id number] - [id number] Implanted:Qt y: 1 on 08/12/2021 by Jayme Stanton MD at OR [facility] Tissue - Human N/A: Neck MUSCULOSKELETAL TRANSPLANT FND [id number] 03/09/2023 [id number] / [id number] / LOT NA 4.0x65 Maverick Implanted:Qt y: 2 on 08/12/2021 by Jayme Stanton MD at OR [facility] N/A: Spine Lumbar [employer] 1020-64-065 / / Lens Li61ao 13.00mm 18.50 - [id number] - [id number] Implanted:Qt y: 1 on 03/01/2023 by Uche Sheffield MD at OR [facility] Right: Eye BAUSCH & LOMB 09/18/2027 [id number] / [id number] / [id number] Lens Li61ao 13.00mm 20.00 - [id number] - [id number] Implanted:Qt y: 1 on 03/22/2023 by Uche Sheffield MD at OR [facility] Left: Eye BAUSCH & LOMB 09/18/2027 [id number] / [id number] / [id number] documented as of this encounter Advance Directives [...] the patient have Health Care Power of Tray Server? No Code Status History Code Status Date Activated Date Inactivated Comments Full Code 03/01/2023 9:28 AM 03/01/2023 3:27 PM Thi s order reflects the patients wishes and were consensually agreed upon. Question Answer Comments Discussion of Advance Directives occurred with: Patient Does the patient have a Living Will? No Does the patient have Health Care Power of Tray Server? No Full Code 08/20/2021 12:59 AM 08/21/2021 [...] and were consensually agreed upon. Care Teams Tree Girdler Relationship Specialty Start Date End Date Unruly Jennings MD [address] [place] [address] PCP - General Family Medicine 03/25/14 documented as of this encounter
--- OUTSIDE RECORDS SUMMARY | 2023-11-01 19:15 | External Medical Summary | Summary of Care ---
Author Name Unknown Organization [facility] Address [address] [place] [facility] [place] [address] Phone [phone] Care Team Providers Care Economics Instructor Name Role Phone Unruly Jennings MD [...] [facility] echo [facility] ADVANCE DIRECTIVE INFORMATION 07/29/2004 Overview: [...] mRNA, LNP-s, No Pre serve, 2-Dose Series ([employer]) 03/26/2021,07/04/2020,06/13/2020 Covid-19, Mrna, Lnp-s, Pf, B [...] 07/28/2023 10:30 AM EDT Office Visit Allergy/Immunology [facility] [address] [place] [address] Donna Asencio PA-C 200 [facility] [place] [address] 08/12/2023 1:00 PM EDT Office Visit Orthopaedics Spine Surgery, [facility] 132 [facility] [place] [address] Jayme Stanton MD [address] [place] [address] [place] [address] 08/18/2023 2:00 PM EDT Office Visit Family Practice [facility] [address] [place] [address] Alyssa Patel CRNP 132 [facility] [place] [address] 09/05/2023 10:15 AM EDT Appointment Jennifer Naidu [address] [place] [address] 09/21/2023 10:30 AM EDT Imaging Radiology [address] [place] [address] 02/22/2024 9:40 AM EST Office Visit Family Practice [facility] [address] [place] [address] Unruly Jennings MD [address] [place] [address] Health Maintenance Due Date Last Done Comments Cologuard 01/30/1996 Sigmoidoscopy 01/30/1996 Fecal Occult Blood Test 03/29/2015 03/29/2014 Depression Screening 12/21/2019 12/20/2018 COVID-19 Vaccine ( season) 2022 01/09/2022, 03/26/2021, 07/04/2020, Additional history exists DXA Scan 05/11/2023 05/11/2016, 09/2004, 08/25/2004 GFR 08/18/2023 02/17/2023, 08/2022, 02/05/2022, Additional history exists Albumin/Creatinine Ratio 08/25/2023 023, 11/10/2021, 10/10/2020, Additional history exists CKD HGB USE SMARTSET 70296 08/25/202308/24, 11/10/2021, 11/10/2021, Additional history exists CKD PHOS USE SMARTSET 08098 08/25/2023/0 08/2022, 11/10/2021, 08/28/2021, Additional history exists [...] this encounter Medical Devices Implanted Type Area Operators Teacher Device Identifier Shelf Expiration Date Model / Serial / Lot Bone Fiber Pliafx 2.5cc Dmnrlz - [id number] - [id number] Implanted:Qt y: 1 on 08/12/2021 by Jayme Stanton MD at OR [facility] Graft N/A: Neck LIFENET 06/03/2024 BL-1800-02 [id number] 4.5x20 Screw Implanted:Qt y: 2 on [...] INC 1020-35-112 / / Set Screw - [id number] Implanted:Qt y: 10 on 08/12/2021 by Jayme Stanton MD at OR [facility] Screw N/A: Spine Lumbar JNJ : DE[employer] SPINE [id number] / / Dbx 5cc 504532 - [id number] - [id number] Implanted:Qt y: 1 on 08/12/2021 by Jayme Stanton MD at OR [facility] Tissue - Human N/A: Neck MUSCULOSKELETAL TRANSPLANT FND [id number] 03/09/2023 [id number] / [id number] / LOT NA 4.0x65 Maverick Implanted:Qt y: 2 on 08/12/2021 by Jayme Stanton MD at OR [facility] N/A: Spine Lumbar [employer] INC 1020-64-065 / / Lens Li61ao 13.00mm 18.50 - [id number] - [id number] Implanted:Qt y: 1 on 03/01/2023 by Uche Sheffield MD at OR [facility] Right: Eye BAUSCH & LOMB 09/18/2027 [id number] / [id number] / [id number] Lens Li61ao 13.00mm 20.00 - [id number] - [id number] Implanted:Qt y: 1 on 03/22/2023 by Uche Sheffield MD at OR [facility] Left: Eye BAUSCH & LOMB 09/18/2027 [id number] / [id number] / [id number] documented as of this encounter Advance Directives [...] the patient have Health Care Power of Director Of Operations Support? No Code Status History Code Status Date Activated Date Inactivated Comments Full Code 03/01/2023 9:28 AM 03/01/2023 3:27 PM Thi s order reflects the patients wishes and were consensually agreed upon. Question Answer Comments Discussion of Advance Directives occurred with: Patient Does the patient have a Living Will? No Does the patient have Health Care Power of Director Of Operations Support? No Full Code 08/20/2021 12:59 AM 08/21/2021 [...] and were consensually agreed upon. Care Teams Economics Instructor Relationship Specialty Start Date End Date Unruly Jennings MD [address] [place] [address] PCP - General Family Medicine 03/25/14 documented as of this encounter
--- OUTSIDE RECORDS SUMMARY | 2023-11-01 19:15 | External Medical Summary | Summary of Care ---
Author Name Unknown Organization [facility] Address [address] [place] [address] Phone [phone] Care Team Providers Care Pipe Installer Name Role Phone Unruly Jennings MD Primary Care Provider + Reason for Visit * Reason Comments Acute Pt here today for un set stomach, fever, chills and a cough for about two weeks.Pt also states she has the shakes Encounter Details Date Type Department Care Team (Late st Contact Info) Description 07/21/2023 9:00 AM EDT Office Visit [facility] [place] [id number] [place] [address] Isabella Madden MD [address] [place] [address] Bronchitis, complicated*; Allergic rhinitis, unspecified seasonality, unspecified trigger; Prediabetes; Rhinitis, nonallergic; S/P cervical spinal fusion; HTN, goal below 140/90 Allergies Active Allergy Reactions Criticality Noted Date [...] as of this encounter (statuses as of 07/21/2023) Medications Medication Sig Dispensed Refills Start Date End Date Status acetaminophen (TYLENOL) 500 MG Tablet Take 2 Tabs by mouth every 8 hours as needed for Pain. 100 Tab 0 6 Active meclizine (ANTIVERT) 25 MG TabletIndications :Vertigo Take 1 Tab by mouth 3 times a day as needed for Dizziness. 30 Tab 8 0 Active Saline Nasal Gel (Nasogel)Indicati ons:Acute recurrent sinusitis, unspecified location,Suspecte d COVID-19 virus infection Administer into each nostril as needed (nasal congestion and dryness). 1 g 1 1 Active Dicyclomine HCl 10 MG Oral Capsule (Bentyl) TAKE 1 CAPSULE BY MOUTH 4 TIMES A DAY NEEDED (ABD PAIN/CRAMPING) . 360 Cap 1 1 Active CPAP every night at bedtime . 0 Active Fluticasone Propionate 50 MCG/ACT Nasal Suspension Use 2 squirts in each nostril daily each morning to prevent chronic nasal symptoms 1 mL 0 2 Active Azelastine HCl 0.1 % Nasal Solution (Astelin) Administer 2 Sprays into nostril in the morning and 2 Sprays before bedtime. 90 mL 3 2 Active Omeprazole 40 MG Oral Capsule Delayed Release (PriLOSEC)Indicat ions:Abdominal pain, epigastric TAKE 1 CAPSULE BY MOUTH DAILY 1 HOUR BEFORE THE FIRST MEAL OF THE DAY 90 Capsule 2 3 Active Albuterol Sulfate HFA 108 (90 Base) MCG/ACT Inhalation Aerosol Solution Inhale 2 Puffs by mouth every 4 hours as needed for Cough, Shortness of Breath or Wheezing. 3 to 5 minutes apart. 18 g 2 3 Active Zolpidem Tartrate 5 MG Oral Tablet (Ambien)Indicatio ns:Persistent insomnia TAKE 1 TABLET BY MOUTH EVERYDAY AT BEDTIME 90 Tablet 1 4 Active tiZANidine HCl 4 MG Oral CapsuleIndication s:Neck muscle spasm Take 1 Capsule by mouth in the morning and 1 Capsule at noon and 1 Capsule before bedtime. 90 Capsule 3 4 Active Rosuvastatin Calcium 20 MG Oral Tablet (Crestor)Indicati ons:Dyslipidemia, goal to be determined TAKE 1 TABLET BY MOUTH EVERY DAY 90 Tablet 1 4 Active Montelukast Sodium 10 MG Oral Tablet (Singulair) Take 1 Tablet by mouth in the morning. 90 Tablet 3 4 Active Amoxicillin-Pot Clavulanate 875-125 MG Oral Tablet (Augmentin) Take 1 Tablet by mouth in the morning and 1 Tablet before bedtime. Do all this for 10 days. 20 Tablet 0 4 07/31/19 24 Active Benzonatate 100 MG Oral Capsule (Tessalon Perles) Take 1 Capsule by mouth 3 times a day as needed for Cough. 0 2 07/21/19 24 Discontinued Gabapentin 300 MG Oral Capsule (Neurontin)Indica tions:Spasm of muscle TAKE 1 CAPSULE BY MOUTH TWICE A DAY NEEDED FOR PAIN 60 Capsule 5 3 07/21/19 24 Discontinued(Pat ient preference/disco ntinuation) Cyclobenzaprine HCl 5 MG Oral Tablet (Flexeril)Indicat ions:Other muscle spasm TAKE 1 TABLET BY MOUTH THREE TIMES A DAY NEEDED FOR MUSCLE SPASM 90 Tablet 2 3 07/21/19 24 Discontinued(Pat ient preference/disco ntinuation) traMADol HCl 50 MG Oral Tablet (Ultram)Indicatio ns:Cervical radiculopathy Take 1 Tablet by mouth every 6 hours as needed for Pain, Severe. 20 Tablet 0 4 07/21/19 24 Discontinued(Pat ient preference/disco ntinuation) methylPREDNISolon e 4 MG Oral Tablet Therapy Pack (Medrol Dosepack)Indicati ons:Cervical radiculopathy follow package directions 21 Tablet 0 4 07/21/19 24 Discontinued(Pat ient preference/disco ntinuation) documented as of this encounter (statuses as of 07/21/2023) Active Problems Problem Noted Date Diagnosed Date [...] 07/16/2014 SALAS (nonalcoholic steatohepatitis) 06/18/2014 Overview: 06/02 new Dx. Borderline high LFT HTN, goal [...] GI 04/04 FOB neg. 08/01 mammo WNL [facility] Pap 09/30 [facility] WN 2006 stress echo [facility] DIRECTIVE INFORMATION 07/29/2004 Overview: No, Advance Directive brochure given to patient. GENERAL OSTEOARTHROSIS 07/29/2004 Allergic rhinitis 07/29/2004 Dyslipidemia, goal to be determined 07/29/2004 Persistent insomnia 07/29/2004 Overview: ICD-10 update of inactive term Former smoker 11/07/2003 documented as of this encounter (statuses as of 07/21/2023) Resolved Problems Problem Noted Date Diagnosed Date [...] as of this encounter (statuses as of 07/21/2023) Immunizations Name Administration Dates Next Due COVID-19 mRNA, LNP-s, No Pre serve, 2-Dose Series ([employer]) 03/26/2021,07/04/2020,06/13/2020 Covid-19, Mrna, Lnp-s, Pf, B ivalent, [...] Sign Reading Time Taken Comments Blood Pressure 144/84 07/21/2023 8:39 AM EDT Pulse 51 07/21/2023 8:39 AM EDT Temperature 36.7 C (98 F) 07/21/2023 8:39 AM EDT Respiratory Rate 16 07/21/2023 8:39 AM EDT Oxygen Saturation 96% 07/21/2023 8:39 AM EDT Inhaled Oxygen Concentration - - Weight 78.5 kg (173 lb) 07/21/2023 8:39 AM EDT Height - - Body Mass Index 34.94 03/22/2023 9:10 AM EST documented in this [...] No 08/20/2021 documented as of this encounter Patient Instructions * Patient Instructions* Isabella Madden MD - 07/21/2023 8:59 AM EDT Singulair daily Augmentin twice daily for 10 days Mucinex a few days Saline to clean up 2-3 times per day And used flonase daily Albuterol inhaler Hydration enough documented in this encounter Progress Notes * Isabella Madden MD - 07/21/2023 8:55 AM EDT Subjective Katelin Ashraf is a 73 year old female. Chief Complaint Patient presents with Acute Pt here today for unset stomach, fever, chills and a cough for about two weeks. Pt also states she has the shakes HPI: PMH: Patient Active Problem List Diagnosis Code Former [...] of tobacco use Z87.891 Rhinitis, nonallergic J31.0 Current Outpatient Medications Medication Sig Dispense Refill acetaminophen (TYLENOL) 500 MG Tablet Take 2 Tabs by mouth every 8 hours as needed for Pain. 100 Tab 0 meclizine (ANTIVERT) 25 MG Tablet Take 1 Tab by mouth 3 times a day as needed for Dizziness. 30 Tab8 Saline Nasal Gel (Nasogel) Administer into each [...] prevent chronic nasal symptoms 1 mL 0 Azelastine HCl 0.1 % Nasal Solution [...] BY MOUTH EVERY DAY 90 Tablet 1 No current facility-administered medications for this visit. Past Medical History: Diagnosis Date 5th nerve [...] other and unspecified parts of face Polycythemia S/P cervical spinal fusion 08/31/2021 Shoulder pain, right injured painting Sleep apnea, obstructive Spasm of muscle 09/02/2017 Spondylolysis of lumbar region 08/09/2015 Chronic b/l pars defects Vitamin D deficiency 06/04/2016 Past Surgical History: Procedure Laterality Date ALLOGRAFT, MORSELIZED, FOR SPINE SURGERY N/A 08/12/2021 ALLOGRAFT FOR SPINE SURGERY MORSELIZED performed by Jayme Stanton MD at OR [facility] BREAST BIOPSY Left 1973 Benign COLONOSCOPY 10/2004 Normal, [facility] Dr Renee hyperplastic rectal polyp COLONOSCOPY, DIAGNOSTIC (RECTUM) 07/11/2014 lymphocytic colitis/COLONOSCOPY FLEXIBLE PROXIMAL DIAGNOSTIC performed by Kojo Ghosh DO at ENDOSCOPY [facility] COLONOSCOPY, DIAGNOSTIC (RECTUM) 01/14/2017 normal bx/COLONOSCOPY FLEXIBLE PROXIMAL DIAGNOSTIC performed by Heidy Munoz DO at ENDOSCOPY [facility] COLONOSCOPY, DIAGNOSTIC (RECTUM) 10/30/2019 normal / COLONOSCOPY FLEXIBLE PROXIMAL DIAGNOSTIC performed by Heidy Munoz DO at ENDOSCOPY [facility] DENTAL SURGERY PROCEDURE NEC UPPER PLATE EGD, FLEXIBLE, DIAGNOSTIC 09/05/2015 gastroesophageal reflux/ESOPHAGOGASTRODUODENOSCOPY (EGD), FLEXIBLE, TRANSORAL, DIAGNOSTIC performedby Kojo Ghosh DO at ENDOSCOPY [facility] INJECT DX/THER SUBSTANCE INTERLAMINAR CERVICAL/THORACIC W IMAGE GUIDE 10/13/2017 INJECTION SPINE LUMBAR CERVICAL OR THORACIC performed by Alli Hill DO at OR [facility] INJECT DX/THER SUBSTANCE INTERLAMINAR CERVICAL/THORACIC W IMAGE GUIDE 02/23/2018 INJECTION SPINE LUMBAR CERVICAL OR THORACIC performed by Alli Hill, DO at OR [facility] INJECT DX/THER SUBSTANCE INTERLAMINAR CERVICAL/THORACIC W IMAGE GUIDE 10/25/2019 INJECTION SPINE LUMBAR CERVICAL OR THORACIC performed by Tate Dion Hill, DO at OR [facility] INJECT DX/THER SUBSTANCE INTERLAMINAR CERVICAL/THORACIC W IMAGE GUIDE 07/14/2020 INJECTION SPINE LUMBAR CERVICAL OR THORACIC performed by Alli Hill, at OR [facility] INJECT DX/THER SUBSTANCE INTERLAMINAR CERVICAL/THORACIC W IMAGE GUIDE 05/25/2021 INJECTION SPINE LUMBAR CERVICAL OR THORACIC performed by Alli Hill DO at OR [facility] KNEE ARTHROSCOPY/MENISCECTOMY Left 01/16/2018 ARTHROSCOPY KNEE MEDIAL OR LATERAL MENISCECTOMY performed by Irene Pike DO at OR [facility] MISCELLANEOUS ORDER ([facility] ONLY) 10/2017 Dr Hill cervical. MOHS SURGERY REFERRAL OP right nose REMOVE ADDED SPINE LAMINA, 1 SEG N/A 08/12/2021 LAMINECTOMY FACETECTOMY AND FORAMINOTOMY ADDITIONAL LEVELS performed by Jayme Stanton MD at OR [facility] REMOVE CATARACT, INSERT LENS PROSTH Right 03/01/2023 RIGHT EXTRACAPSULAR CATARACT REMOVAL WITH INTRAOCULAR LENS performed by Uche Sheffield MDa OR [facility] REMOVE CATARACT, INSERT LENS PROSTH Left 03/22/2023 LEFT EXTRACAPSULAR CATARACT REMOVAL WITH INTRAOCULAR LENS performed by Uche Sheffield MD at OR [facility] REMOVE NECK SPINE LAMINA, 1 SEG N/A 08/12/2021 LAMINECTOMY FACETECTOMY AND FORAMINOTOMY POSTERIOR CERVICAL performed by Jayme Stanton MD at OR [facility] SPINE FUSION, EACH ADD'L VERTEBRA N/A 08/12/2021 ARTHRODESIS SPINE POSTERIOR EACH ADDITIONAL VERTEBRAE performed by Jayme Stanton MD at OR [facility] SPINE SEG FIX, POST, 3-6 SEG, INSERT N/A 08/12/2021 POSTERIOR SPINE SEGMENTAL INSTRUMENTATION 3 TO 6 PSF performed by Jayme Stanton MD at OR [facility] THIGH/KNEE SUBQ TUMOR REMOVAL, UNDER 3 CM VASC ANKLE BRACHIAL INDEX 06/10/2006 normal Review of patient's allergies indicates: Allergen Reactions [...] fever,valve replaced 2008. Heart Disorder Father of [place] age 58 Thyroid Disorder Daughter Cancer Brother 64 liver,lung. 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 . daughter -thyroid. 1 granddaughter at [facility] Other Topics Concern Service No Blood Transfusions No Caffeine Concern No Occupational Exposure No Hobby Hazards No Sleep Concern No Stress Concern No Weight Concern No Special Diet No Back Care No Exercise No Bike Helmet Not Asked Seat Belt Yes Self-Exams Yes Social History Narrative Has new coon cat 2015. Other pets. From [facility]. Area. Social Determinants of Health Financial Resource Strain: Not on file Food Insecurity: Patient Declined (07/21/2023) Hunger Vital Sign Worried About Running Out of Food in the Last Year: Patient declined Ran Out of Food in the Last Year: Patient declined Transportation Needs: Not on file Physical Activity: Not on file Stress: Not on file Social Connections: Not on file Intimate Partner Violence: Not on file Housing Stability: Not on file Objective BP 144/84 | Pulse 51 | Temp 36.7 C (98 F) (Infrared ) | Resp 16 | Wt 78.5 kg (173 lb) | SpO2 96% | BMI 34.94 kg/m | BSA 1.81 m ASSESSMENT/PLAN: Bronchitis, complicated (Primary) Allergic rhinitis, unspecified seasonality, unspecified trigger Prediabetes Rhinitis, nonallergic S/P cervical spinal fusion HTN, goal below 140/90 Isabella Madden MD documented in this encounter Nursing Notes * Rossana Pink LPN - 07/21/2023 8:36 AM EDT Chief Complaint Patient presents with Acute Pt here today for unset stomach, fever, chills and a cough for about two weeks. Pt also states she has the shakes documented in this encounter Plan of Treatment Upcoming Encounters Date Type Department Care Team (Late st Contact Info) Description 07/28/2023 10:30 AM EDT Office Visit Allergy/Immunology [facility] [address] [place] [address] Donna Asencio PA-C [address] [facility] [place] [address] 08/12/2023 1:00 PM EDT Office Visit Orthopaedics Spine Surgery, [facility] [address] [facility] [place] [address] Jayme Stanton MD [address] [place] [address] [place] [address] 08/18/2023 2:00 PM EDT [facility] [address] [facility] [place] [address] Alyssa Patel CRNP [address] [facility] [place] [address] 09/05/2023 10:15 AM EDT Appointment Radiology, [place] [address] [place] [address] 09/21/2023 10:30 AM EDT Imaging Radiology [facility] [address] [facility] [place] [address] 02/22/2024 9:40 AM EST Office Visit [facility] [address] [facility] [place] [address] Unruly Jennings MD [address] [place] [address] Health Maintenance Due Date Last Done Comments Cologuard 01/30/1996 Sigmoidoscopy 01/30/1996 Fecal Occult Blood Test 03/29/2015 03/29/2014 COVID-19 Vaccine ( season) 2022 01/09/2022, 03/26/2021, 07/04/2020, Additional history exists DXA Scan 05/11/2023 05/11/2016, 09/2004, 08/25/2004 GFR 08/18/2023 02/17/2023, 060 08/2022, 02/05/2022, Additional history exists Albumin/Creatinine Ratio 08/25/2023 023, 11/10/2021, 10/10/2020, Additional history exists CKD HGB USE SMARTSET 62497 08/25/202308/24, 11/10/2021, 11/10/2021, Additional history exists CKD PHOS USE SMARTSET 27409 08/25/2023 06/0 08/2022, 11/10/2021, 08/28/2021, Additional history [...] this encounter Medical Devices Implanted Type Area Loan Servicing Officer Device Identifier Shelf Expiration Date Model / Serial / Lot Bone Fiber Pliafx 2.5cc Dmnrlz - [id number] - [id number] Implanted:Qt y: 1 on 08/12/2021 by Jayme Stanton MD at OR [facility] Graft N/A: Neck [employer] 06/03/2024 [id number] / [id number] / [id number] 4.5x20 Screw Implanted:Qt y: 2 on 08/12/2021 by Jayme Stanton MD at OR [facility] Screw N/A: Spine Lumbar [employer] [id number] / / 3.5x12 Reduction Screw Implanted:Qt y: 4 on 08/12/2021 by Jayme Stanton MD at OR [facility] Screw N/A: Spine Lumbar [employer] [id number] / / 3.5x12 Screw Implanted:Qt y: 4 on 08/12/2021 by Jayme Stanton MD at OR [facility] Screw N/A: Spine Lumbar [employer] [id number] / / Set Screw - [id number] Implanted:Qt y: 10 on 08/12/2021 by Jayme Stanton MD at OR [facility] Screw N/A: Spine Lumbar JNJ : [employer] [id number] / / Dbx 5cc [id number] - [id number] - [id number] Implanted:Qt y: 1 on 08/12/2021 by Jayme Stanton MD at OR [facility] Tissue - Human N/A: Neck [employer]CULOSKELETAL TRANSPLANT FND [id number] 03/09/2023 [id number] / [id number] / LOT NA 4.0x65 [place]ick Implanted:Qt y: 2 on 08/12/2021 by Jayme Stanton MD at OR [facility] N/A: Spine Lumbar [employer] 1020-64-065 / / Lens Li61ao 13.00mm 18.50 - [id number] - [id number] Implanted:Qt y: 1 on 03/01/2023 by Uche Sheffield MD at OR [facility] Right: Eye [employer] 09/18/2027 [id number] / [id number] / [id number] Lens Li61ao 13.00mm 20.00 - [id number] - [id number] Implanted:Qt y: 1 on 03/22/2023 by Uche Sheffield MD at OR [facility] Left: Eye [employer]OM[employer] 09/18/2027 [id number] / [id number] / [id number] documented as of this encounter Visit Diagnoses Diagnosis Bronchitis, complicated- Primary Bronchitis, not specified as acute or chronic Allergic rhinitis, unspecified seasonality, unspecified trigger Prediabetes Other abnormal glucose Rhinitis, nonallergic Chronic rhinitis S/P cervical spinal fusion Arthrodesis status HTN, goal below 140/90 Unspecified essential hypertension documented in this encounter Advance Directives Latest [...] the patient have Health Care Power of Press Machine Operator? No Code Status History Code Status Date Activated Date Inactivated Comments Full Code 03/01/2023 9:28 AM 03/01/2023 3:27 PM Thi s order reflects the patients wishes and were consensually agreed upon. Question Answer Comments Discussion of Advance Directives occurred with: Patient Does the patient have a Living Will? No Does the patient have Health Care Power of Press Machine Operator? No Full Code 08/20/2021 12:59 AM 08/21/2021 [...] and were consensually agreed upon. Care Teams Pipe Installer Relationship Specialty Start Date End Date Unruly Jennings MD [address] [place] [address] PCP - General Family Medicine 03/25/14 documented as of this encounter"
--- OUTSIDE RECORDS SUMMARY | 2023-11-01 19:15 | External Medical Summary | Summary of Care ---
Author Name Unknown Organization [facility] Address [address] [place] [address] Phone [phone] Care Team Providers Care Systems Mgr Name Role Phone Unruly Jennings MD Primary Care Provider + Reason for Visit * Reason Comments eRx-Medication Refill Encounter Details Date Type Department Care Team (Late st Contact Info) Description 05/28/2023 Refill Family Practice [facility] [address] [place] [id number] Alyssa Patel CRNP [address] [facility] [address] HYPERLIPIDEMIA NEC/NOS Allergies Active Allergy Reactions Criticality Noted Date [...] as of this encounter (statuses as of 05/30/2023) Medications Medication Sig Dispensed Refills Start Date [...] 06/08/2022 Active Gabapentin 300 MG Oral Capsule (Neurontin)Indicat ions:Spasm of muscle TAKE 1 CAPSULE BY MOUTH TWICE A DAY NEEDED FOR PAIN 60 Capsule 5 11/25/2022 Active Cyclobenzaprine HCl 5 MG Oral Tablet (Flexeril)Indicati ons:Other muscle spasm TAKE 1 TABLET BY MOUTH THREE TIMES A DAY NEEDED FOR MUSCLE SPASM 90 Tablet 2 02/09/2023 Active Albuterol Sulfate HFA 108 (90 Base) MCG/ACT Inhalation Aerosol Solution Inhale 2 Puffs by mouth every 4 hours as needed for Cough, Shortness of Breath or Wheezing. 3 to 5 minutes apart. 18 g 2 02/14/2023 Active traMADol HCl 50 MG Oral Tablet (Ultram)Indication s:Cervical radiculopathy Take 1 Tablet by mouth every [...] 4 MG Oral Tablet Therapy Pack (Medrol Dosepack)Indicatio ns:Cervical radiculopathy follow package directions 21 Tablet 0 05/11/2023 Active Rosuvastatin Calcium 20 MG Oral Tablet (Crestor)Indicatio ns:Dyslipidemia, goal to be determined TAKE 1 TABLET BY MOUTH EVERY DAY 90 Tablet 1 05/30/2023 Active Rosuvastatin Calcium 20 MG Oral Tablet (Crestor)Indicatio ns:Dyslipidemia, goal to be determined TAKE 1 TABLET BY MOUTH EVERY DAY 90 Tablet 0 02/11/2023 05/30/19 24 Discontinued documented as of this encounter (statuses as of 05/30/2023) Active Problems Problem Noted Date Diagnosed Date [...] GI 04/04 FOB neg. 08/01 mammo WNL [facility] Pap 09/30 [facility] WNL 2006 stress echo [facility] WN ADVANCE DIRECTIVE INFORMATION 07/29/2004 Overview: No, Advance Directive brochure given to patient. GENERAL OSTEOARTHROSIS 07/29/2004 Allergic rhinitis 07/29/2004 Dyslipidemia, goal to be determined 07/29/2004 Persistent insomnia 07/29/2004 Overview: ICD-10 update of inactive term Former smoker 11/07/2003 documented as of this encounter (statuses as of 05/30/2023) Resolved Problems Problem Noted Date Diagnosed Date [...] as of this encounter (statuses as of 05/30/2023) Immunizations Name Administration Dates Next Due COVID-19 mRNA, LNP-s, No Pre serve, 2-Dose Series (Genlot) 03/26/2021,07/04/2020,06/13/2020 Covid-19, Mrna, Lnp-s, Pf, B ivalent, [...] encounter Miscellaneous Notes * Telephone Encounter - Breanna Higuera, [facility] - 05/30/2023 1:47 PM EDTSigned Prescriptions: Disp Refills Rosuvastatin Calcium 20 MG Oral Tablet (Cr*90 Tab*1 Sig: TAKE 1 TABLET BY MOUTH EVERY DAYAuthorizing Provider: Bharti PATEL User: BREANNA HIGUERA------ documented in this encounter Plan of Treatment Upcoming Encounters Date Type Department Care Team (Late st Contact Info) Description 07/28/2023 10:30 AM EDT [facility] [place] 200 [facility] [place] [address] Donna Asencio PA-C 200 [facility] [place] [address] 08/12/2023 1:00 PM EDT Office Visit Orthopaedics Spine Surgery, [facility] [address] [place] [address] Jayme Stanton MD [address] [place] [address] [place] [address] 08/18/2023 2:00 PM EDT Office Visit Family [facility] [address] [place] [address] Alyssa Patel CRNP 132 [place] [address] 09/05/2023 10:15 AM EDT Appointment Radiology, Jennifer [address] [place] [address] 02/22/2024 9:40 AM EST Office Visit [facility] [address] [place] [address] Unruly Jennings MD [address] [address] Health Maintenance Due Date Last Done Comments Depression Screening 12/21/2019 12/20/2018 COVID-19 Vaccine ( season) 2022 01/09/2022, 03/26/2021, 07/04/2020, Additional history exists DXA Scan 05/11/2023 05/11/2016, 0 09/2004, 08/25/2004 GFR 08/18/2023 02/17/2023, 0 08/2022, 02/05/2022, Additional history exists Albumin/Creatinine Ratio 08/25/2023 023, 11/10/2021, 10/10/2020, Additional history exists CKD HGB USE SMARTSET 27153 08/25/202308/24, 11/10/2021, 11/10/2021, Additional history exists CKD PHOS USE SMARTSET 79560 08/25/20230 08/2022, 11/10/2021, 08/28/2021, Additional history exists HbA1c 08/25/2023 08/24/2022, 10/20, 07/16/2021, Additional history exists Mammogram 09/03/2023 09/02/2022, 08/19, 07/08/2021, Additional history exists DTaP,Tdap,and Td Vaccines (2 - Td or Tdap) 03/25/2024 03/25/2014, 10/24/2002 COLONOSCOPY-EVERY 5 YRS AGES 18-100 10/29/2024 10/30/2019, 10/30/2019, 01/14/2017, Additional history exists Lipid Panel 02/18/2028 02/17/2023, 10/20, 11/14/2020, Additional history exists Pneumococcal Vaccine: 65+ Years Completed 06/05/2017, 06/06/2016 Zoster Vaccines Completed 03/26/2021, 10/2020, 03/29/2014 LUNG CANCER SCREENING - USE SMARTSET 78301 Completed 09/17/2022 Influenza Vaccine (FLU shot) Completed , 01/07/2022, 12/19/2020, Additional history exists GARDASIL-HPV IMMUNIZATION SERIES Aged Out No longer eligible based on patient's age to complete this topic Hepatitis B Aged Out No longer eligi ble based on patient's age to complete this topic MENINGOCOCCAL (MENACTRA/MENVEO) Aged Out No longer eligible based on patient's age to complete this topic documented as of this encounter Medical Devices Implanted Type Area Stock Patcher Device Identifier Shelf Expiration Date Model / Serial / Lot Bone Fiber Pliafx 2.5cc Dmnrlz - [id number] - [id number] Implanted:Qt y: 1 on 08/12/2021 by Jayme Stanton MD at OR [facility] Graft N/A: Neck LIFENET 06/03/2024 BL-1800-02 / [id number] / [id number] 4.5x20 Screw Implanted:Qt y: 2 on 08/12/2021 by Jayme Stanton MD at OR [facility] Screw N/A: Spine Lumbar [employer] 1020-45-420 / / 3.5x12 Reduction Screw Implanted:Qt y: 4 on 08/12/2021 by Jayme Stanton MD at OR [facility] Screw N/A: Spine Lumbar [employer] 1020-35-312 / / 3.5x12 Screw Implanted:Qt y: 4 on 08/12/2021 by Jayme Stanton MD at OR [facility] Screw N/A: Spine Lumbar [employer] 1020-35-112 / / Set Screw - [id number] Implanted:Qt y: 10 on 08/12/2021 by Jayme Stanton MD at OR [facility] Screw N/A: Spine Lumbar JNJ : [employer] [id number] / / Dbx 5cc [id number] - [id number] - [id number] Implanted:Qt y: 1 on 08/12/2021 by Jayme Stanton MD at OR [facility] Tissue - Human N/A: Neck MUSCULOSKELETAL TRANSPLANT FND [id number] 03/09/2023 [id number] / [id number] / LOT NA 4.0x65 Maverick Implanted:Qt y: 2 on 08/12/2021 by Jayme Stanton MD at OR [facility] N/A: Spine Lumbar [employer] 1020-64-065 / / Lens Li61ao 13.00mm 18.50 - [id number] - [id number] Implanted:Qt y: 1 on 03/01/2023 by Uche Sheffield MD at OR [facility] Right: Eye BAUSCH & LOMB 09/18/2027 [id number] / [id number] / [id number] Lens Li61ao 13.00mm 20.00 - [id number] - [id number] Implanted:Qt y: 1 on 03/22/2023 by Uche Sheffield MD at OR [facility] Left: Eye BAUSCH & LOMB 09/18/2027 [id number] / [id number] / [id number] documented as of this encounter Visit Diagnoses Diagnosis HYPERLIPIDEMIA NEC/NOS Other and unspecified hyperlipidemia documented in this encounter Advance Directives Latest [...] the patient have Health Care Power of Alarm Adjuster? No Code Status History Code Status Date Activated Date Inactivated Comments Full Code 03/01/2023 9:28 AM 03/01/2023 3:27 PM Thi s order reflects the patients wishes and were consensually agreed upon. Question Answer Comments Discussion of Advance Directives occurred with: Patient Does the patient have a Living Will? No Does the patient have Health Care Power of Alarm Adjuster? No Full Code 08/20/2021 12:59 AM 08/21/2021 [...] and were consensually agreed upon. Care Teams Systems Mgr Relationship Specialty Start Date End Date Unruly Jennings MD [address] [address] PCP - General Family Medicine 03/25/14 documented as of this encounter
--- OUTSIDE RECORDS SUMMARY | 2023-11-01 19:15 | External Medical Summary | Summary of Care ---
Author Name Unknown Organization [facility] Address [address] [facility] [place] [address] Phone [phone] Care Team Providers Care Line Fixer Name Role Phone Unruly Jennings MD Primary [...] GI 04/04 FOB neg. 08/01 mammo WNL [facility] Pap 09/30 [facility] WN 2006 stress echo [facility] ADVANCE DIRECTIVE INFORMATION 07/29/2004 Overview: No, [...] mRNA, LNP-s, No Pre serve, 2-Dose Series (eBIZ.mobility) 03/26/2021,07/04/2020,06/13/2020 Covid-19, Mrna, Lnp-s, Pf, B ivalent, [...] 07/28/2023 10:30 AM EDT Office Visit Allergy/Immunology [facility] [address] [place] [address] Donna Asencio PA-C 200 [facility] [place] [address] 08/12/2023 1:00 PM EDT Office Visit Orthopaedics Spine Surgery, [facility] 132 [facility] [place] [address] Jayme Stanton MD [address] [place] [address] [place] [address] 08/18/2023 2:00 PM EDT Office Visit Family Practice [facility] [address] [place] [address] Alyssa Patel CRNP 132 [facility] [place] [address] 09/05/2023 10:15 AM EDT Appointment Jennifer Naidu [address] [place] [address] 09/21/2023 10:30 AM EDT Imaging Radiology [address] [place] [address] 02/22/2024 9:40 AM EST Office Visit Family Practice [facility] [address] [place] [address] Unruly Jennings MD [address] [place] [address] Health Maintenance Due Date Last Done Comments Cologuard 01/30/1996 Sigmoidoscopy 01/30/1996 Fecal Occult Blood Test 03/29/2015 03/29/2014 Depression Screening 12/21/2019 12/20/2018 COVID-19 Vaccine ( season) 2022 01/09/2022, 03/26/2021, 07/04/2020, Additional history exists DXA Scan 05/11/2023 05/11/2016, 09/2004, 08/25/2004 GFR 08/18/2023 02/17/2023, 08/2022, 02/05/2022, Additional history exists Albumin/Creatinine Ratio 08/25/2023 023, 11/10/2021, 10/10/2020, Additional history exists CKD HGB USE SMARTSET 35521 08/25/202308/24, 11/10/2021, 11/10/2021, Additional history exists CKD PHOS USE SMARTSET 11651 08/25/2023/0 08/2022, 11/10/2021, 08/28/2021, Additional history exists [...] this encounter Medical Devices Implanted Type Area Aquatic Laborer Device Identifier Shelf Expiration Date Model / Serial / Lot Bone Fiber Pliafx 2.5cc Dmnrlz - [id number] - [id number] Implanted:Qt y: 1 on 08/12/2021 by Jayme Stanton MD at OR [facility] Graft N/A: Neck LIFENET 06/03/2024 BL-1800-02 [id number] 4.5x20 Screw Implanted:Qt y: 2 on 08/12/2021 by Jayme Stanton MD at OR [facility] Screw N/A: Spine Lumbar [employer] 1020-45-420 / / 3.5x12 Reduction Screw Implanted:Qt y: 4 on 08/12/2021 by Jayme Stanton MD at OR [facility] Screw N/A: Spine Lumbar [employer] 1020-35-312 / / 3.5x12 Screw Implanted:Qt y: 4 on 08/12/2021 by Jayme Stanton MD at OR [facility] Screw N/A: Spine Lumbar [employer] 1020-35-112 / / Set Screw - [id number] Implanted:Qt y: 10 on 08/12/2021 by Jayme Stanton MD at OR [facility] Screw N/A: Spine Lumbar JNJ : [employer] [id number] / / Dbx 5cc [id number] - [id number] - [id number] Implanted:Qt y: 1 on 08/12/2021 by Jayme Stanton MD at OR [facility] Tissue - Human N/A: Neck MUSCULOSKELETAL TRANSPLANT FND [id number] 03/09/2023 [id number] / [id number] / LOT NA 4.0x65 Maverick Implanted:Qt y: 2 on 08/12/2021 by Jayme Stanton MD at OR [facility] N/A: Spine Lumbar [employer] 1020-64-065 / / Lens Li61ao 13.00mm 18.50 - [id number] - [id number] Implanted:Qt y: 1 on 03/01/2023 by Uche Sheffield MD at OR [facility] Right: Eye BAUSCH & LOMB 09/18/2027 [id number] / [id number] / [id number] Lens Li61ao 13.00mm 20.00 - [id number] - [id number] Implanted:Qt y: 1 on 03/22/2023 by Uche Sheffield MD at OR [facility] Left: Eye BAUSCH & LOMB 09/18/2027 [id number] / [id number] / [id number] documented as of this encounter Advance Directives [...] the patient have Health Care Power of Double End Production Grinder? No Code Status History Code Status Date Activated Date Inactivated Comments Full Code 03/01/2023 9:28 AM 03/01/2023 3:27 PM Thi s order reflects the patients wishes and were consensually agreed upon. Question Answer Comments Discussion of Advance Directives occurred with: Patient Does the patient have a Living Will? No Does the patient have Health Care Power of Double End Production Grinder? No Full Code 08/20/2021 12:59 AM 08/21/2021 [...] and were consensually agreed upon. Care Teams Line Fixer Relationship Specialty Start Date End Date Unruly Jennings MD [address] [place] [address] PCP - General Family Medicine 03/25/14 documented as of this encounter
--- OUTSIDE RECORDS SUMMARY | 2023-11-01 19:15 | External Medical Summary | Summary of Care ---
Author Name Unknown Organization [facility] Address [address] [place] [address] Phone [phone] Care Team Providers Care Merchandising Specialist Name Role Phone Unruly Jennings MD Primary Care Provider + Reason for Visit * Reason Onset Date Comments Health Maintenance 07/08/2023 Encounter Details Date Type Department Care Team (Late st Contact Info) Description 07/08/2023 Telephone Family Practice [facility] [address] [place] [address] Unruly Jennings MD [address] [facility] [address] Health Maintenance Allergies Active Allergy Reactions Criticality Noted Date [...] as of this encounter (statuses as of 07/08/2023) Medications Medication Sig Dispensed Refills Start Date [...] as of this encounter (statuses as of 07/08/2023) Active Problems Problem Noted Date Diagnosed Date [...] GI 04/04 FOB neg. 08/[address] [facility] Pap 09/30 [facility] WN 2006 stress echo [facility] ADVANCE DIRECTIVE INFORMATION 07/29/2004 Overview: No, Advance Directive brochure given to patient. GENERAL OSTEOARTHROSIS 07/29/2004 Allergic rhinitis 07/29/2004 Dyslipidemia, goal to be determined 07/29/2004 Persistent insomnia 07/29/2004 Overview: ICD-10 update of inactive term Former smoker 11/07/2003 documented as of this encounter (statuses as of 07/08/2023) Resolved Problems Problem Noted Date Diagnosed Date [...] as of this encounter (statuses as of 07/08/2023) Immunizations Name Administration Dates Next Due COVID-19 mRNA, LNP-s, No Pre serve, 2-Dose Series (Sonics) 03/26/2021,07/04/2020,06/13/2020 Covid-19, Mrna, Lnp-s, Pf, B ivalent, 30 Mcg, IM, 12 yrs and above (Sonics) 01/09/2022 Pneumococcal Conjugate Vacc, 13 Valent (Prevnar) [...] encounter Miscellaneous Notes * Telephone Encounter - ChantelleBrettDERREK walton - 07/08/2023 8:58 AM EDT Care Gaps Comprehensive Care Outreach Last Office/Telemedicine Visit: 05/11/2023 (in office), Visit date not found (telemedicine) Next Office Visit: 08/18/2023 Hemoglobin AIC Results: Lab Results Component Value Date/Time HEMOGLOBIN A1C - [facility] 5.8 (H) 08/24/2022 10:29 AM HEMOGLOBIN A1C - [facility] 5.7 (H) 11/10/2021 01:16 PM HEMOGLOBIN A1C - [facility] 6.4 (H) 07/16/2021 08:11 AM BP Readings from Last 1 Encounters: 05/11/23 134/80 Reviewed Health Maintenance below: Health Maintenance Topic Date Due Depression Screening 12/21/2019 COVID-19 Vaccine ( season) 2022 DXA Scan 05/11/2023 Albumin/Creatinine Ratio 08/25/2023 GFR 08/18/2023 HbA1c 08/25/2023 CKD HGB USE SMARTSET 20147 08/25/2023 CKD PHOS USE SMARTSET 89051 08/25/2023 Labs ordered most due after appt will defer to pcp for others Dexa wants to check with insurance first Care Gap Outreach Action Taken: Spoke to patient documented in this encounter Plan of Treatment Upcoming Encounters Date Type Department Care Team (Late st Contact Info) Description 07/28/2023 10:30 AM EDT Office Visit Allergy/Immunology [facility] [address] [place] [address] Donna Asencio PA-C 200 [facility] [place] [address] 08/12/2023 1:00 PM EDT Office Visit Orthopaedics Spine Surgery, [facility] [address] [place] [address] Jayme Stanton MD [address] [place] [address] [place] [address] 08/18/2023 2:00 PM EDT Office Visit Family Practice [facility] [address] [place] [address] Alyssa Patel CRNP [address] [place] [address] 09/05/2023 10:15 AM EDT Appointment RadiologyJennifer [address] [place] [address] 09/21/2023 10:30 AM EDT Imaging Radiology [address] [place] [address] 02/22/2024 9:40 AM EST Office Visit Family [facility] [address] [place] [address] Unruly Jennings MD [address] [place] [address] Scheduled Orders Name Type Priority Associated Diagnoses Orde r Schedule COMPREHENSIVE METABOLIC PANEL Lab Routine Hypertension, unspecified type Expected: 08/18/2023, Expires: 07/07/2024 Health Maintenance Due Date Last Done Comments Depression Screening 12/21/2019 12/20/2018 COVID-19 Vaccine ( season) 2022 01/09/2022, 03/26/2021, 07/04/2020, Additional history exists DXA Scan 05/11/2023 05/11/2016, 0 09/2004, 08/25/2004 GFR 08/18/2023 02/17/2023, 0 08/2022, 02/05/2022, Additional history exists Albumin/Creatinine Ratio 08/25/2023 023, 11/10/2021, 10/10/2020, Additional history exists CKD HGB USE SMARTSET 21414 08/25/202308/24, 11/10/2021, 11/10/2021, Additional history exists CKD PHOS USE SMARTSET 13025 08/25/2023 06/0 08/2022, 11/10/2021, 08/28/2021, Additional history exists HbA1c 08/25/2023 08/24/2022, 10/20, 07/16/2021, Additional history exists Mammogram 09/03/2023 09/02/2022, 08/19, 07/08/2021, Additional history exists DTaP,Tdap,and Td Vaccines (2 - Td or Tdap) 03/25/2024 03/25/2014, 10/24/2002 COLONOSCOPY-EVERY 5 YRS AGES 18-100 10/29/2024 10/30/2019, 10/30/2019, 01/14/2017, Additional history exists Lipid Panel 02/18/2028 02/17/2023, 08/2 05/2021, 11/14/2020, Additional history exists Pneumococcal Vaccine: 65+ Years Completed 06/05/2017, 06/06/2016 Zoster Vaccines Completed 03/26/2021, 100 10/2020, 03/29/2014 Lung Cancer Screening Completed 09/17/2022 [...] this encounter Medical Devices Implanted Type Area Financial Advisor Trainee Device Identifier Shelf Expiration Date Model / Serial / Lot Bone Fiber Pliafx 2.5cc Dmnrlz - [id number] - [id number] Implanted:Qt y: 1 on 08/12/2021 by Jayme Stanton MD at OR [facility] Graft N/A: Neck LIFENET 06/03/2024 BL-1800-02 / [id number] / [id number] 4.5x20 Screw Implanted:Qt y: 2 on 08/12/2021 by Jayme Stanton MD at OR [facility] Screw N/A: Spine Lumbar [employer] 1020-45-420 / / 3.5x12 Reduction Screw Implanted:Qt y: 4 on 08/12/2021 by Jayme Stanton MD at OR [facility] Screw N/A: Spine Lumbar [employer] 1020-35-312 / / 3.5x12 Screw Implanted:Qt y: 4 on 08/12/2021 by Jayme Stanton MD at OR [facility] Screw N/A: Spine Lumbar [employer] 1020-35-112 / / Set Screw - [id number] Implanted:Qt y: 10 on 08/12/2021 by Jayme Stanton MD at OR [facility] Screw N/A: Spine Lumbar JNJ : DEPU[employer] SPINE [id number] / / Dbx 5c 605822 - [id number] - [id number] Implanted:Qt y: 1 on 08/12/2021 by Jayme Stanton MD at OR [facility] Tissue - Human N/A: Neck MUSCULOSKELETAL TRANSPLANT FND [id number] 03/09/2023 [id number] / [id number] / LOT NA 4.0x65 Maverick Implanted:Qt y: 2 on 08/12/2021 by Jayme Stanton MD at OR [facility] N/A: Spine Lumbar [employer] 1020-64-065 / / Lens Li61ao 13.00mm 18.50 - [id number] - [id number] Implanted:Qt y: 1 on 03/01/2023 by Uche Sheffield MD at OR [facility] Right: Eye BAUSCH & LOMB 09/18/2027 [id number] / [id number] / [id number] Lens Li61ao 13.00mm 20.00 - [id number] - [id number] Implanted:Qt y: 1 on 03/22/2023 by Uche Sheffield MD at OR [facility] Left: Eye BAUSCH & LOMB 09/18/2027 [id number] / [id number] / [id number] documented as of this encounter Visit Diagnoses Diagnosis Hypertension, unspecified type- Primary documented in this encounter Advance Directives Latest [...] the patient have Health Care Power of Rubbish Collection Supervisor? No Code Status History Code Status Date Activated Date Inactivated Comments Full Code 03/01/2023 9:28 AM 03/01/2023 3:27 PM Thi s order reflects the patients wishes and were consensually agreed upon. Question Answer Comments Discussion of Advance Directives occurred with: Patient Does the patient have a Living Will? No Does the patient have Health Care Power of Rubbish Collection Supervisor? No Full Code 08/20/2021 12:59 AM 08/21/2021 [...] and were consensually agreed upon. Care Teams Merchandising Specialist Relationship Specialty Start Date End Date Unruly Jennings MD [address] [place] [address] PCP - General Family Medicine 03/25/14 documented as of this encounter
--- OUTSIDE RECORDS SUMMARY | 2023-11-01 19:15 | External Medical Summary | Summary of Care ---
Author Name Unknown Organization [facility] Address [address] [place] [place] [place] [address] Phone [phone] Care Team Providers Care Side Trimmer Name Role Phone Unruly Jennings MD Primary [...] GI 04/04 FOB neg. 08/01 mammo WNL [facility] Pap 09/30 [facility] WN 2006 stress echo [facility] [...] mRNA, LNP-s, No Pre serve, 2-Dose Series (NeuroVigil) 03/26/2021,07/04/2020,06/13/2020 Covid-19, Mrna, Lnp-s, Pf, B ivalent, [...] 07/28/2023 10:30 AM EDT Office Visit Allergy/Immunology [facility] [address] [place] [address] Donna Asencio PA-C 200 [facility] [place] [address] 08/12/2023 1:00 PM EDT Office Visit Orthopaedics Spine Surgery, [facility] 132 [facility] [place] [address] Jayme Stanton MD [address] [place] [address] [place] [address] 08/18/2023 2:00 PM EDT Office Visit Family Practice [facility] [address] [place] [address] Alyssa Patel CRNP 132 [facility] [place] [address] 09/05/2023 10:15 AM EDT Appointment Jennifer Naidu 21 [place] [address] 09/21/2023 10:30 AM EDT Imaging Radiology [address] [place] [address] 02/22/2024 9:40 AM EST Office Visit Family Practice [facility] [address] [place] [address] Unruly Jennings MD [address] [place] [address] Health Maintenance Due Date Last Done Comments Cologuard 01/30/1996 Sigmoidoscopy 01/30/1996 Fecal Occult Blood Test 03/29/2015 03/29/2014 Depression Screening 12/21/2019 12/20/2018 COVID-19 Vaccine ( season) 2022 01/09/2022, 03/26/2021, 07/04/2020, Additional history exists DXA Scan 05/11/2023 05/11/2016, 09/2004, 08/25/2004 GFR 08/18/2023 02/17/2023, 08/2022, 02/05/2022, Additional history exists Albumin/Creatinine Ratio 08/25/2023 023, 11/10/2021, 10/10/2020, Additional history exists CKD HGB USE SMARTSET 62290 08/25/202308/24, 11/10/2021, 11/10/2021, Additional history exists CKD PHOS USE SMARTSET 57889 08/25/2023/0 08/2022, 11/10/2021, 08/28/2021, Additional history exists [...] this encounter Medical Devices Implanted Type Area Gi Physician Device Identifier Shelf Expiration Date Model / Serial / Lot Bone Fiber Pliafx 2.5cc Dmnrlz - [id number] - [id number] Implanted:Qt y: 1 on 08/12/2021 by Jayme Stanton MD at OR [facility] Graft N/A: Neck LIFENET 06/03/2024 BL-1800-02 [id number] 4.5x20 Screw Implanted:Qt y: 2 on 08/12/2021 by Jayme Stanton MD at OR [facility] Screw N/A: Spine Lumbar [employer] 1020-45-420 / / 3.5x12 Reduction Screw Implanted:Qt y: 4 on 08/12/2021 by Jayme Stanton MD at OR [facility] Screw N/A: Spine Lumbar [employer] 1020-35-312 / / 3.5x12 Screw Implanted:Qt y: 4 on 08/12/2021 by Jayme Stanton MD at OR [facility] Screw N/A: Spine Lumbar [employer] 1020-35-112 / / Set Screw - [id number] Implanted:Qt y: 10 on 08/12/2021 by Jayme Stanton MD at OR [facility] Screw N/A: Spine Lumbar JNJ : [employer] [id number] / / Dbx 5cc [id number] - [id number] - [id number] Implanted:Qt y: 1 on 08/12/2021 by Jayme Stanton MD at OR [facility] Tissue - Human N/A: Neck MUSCULOSKELETAL TRANSPLANT FND [id number] 03/09/2023 [id number] / [id number] / LOT NA 4.0x65 Maverick Implanted:Qt y: 2 on 08/12/2021 by Jayme Stanton MD at OR [facility] N/A: Spine Lumbar [employer] 1020-64-065 / / Lens Li61ao 13.00mm 18.50 - [id number] - [id number] Implanted:Qt y: 1 on 03/01/2023 by Uche Sheffield MD at OR [facility] Right: Eye BAUSCH & LOMB 09/18/2027 [id number] / [id number] / [id number] Lens Li61ao 13.00mm 20.00 - [id number] - [id number] Implanted:Qt y: 1 on 03/22/2023 by Uche Sheffield MD at OR [facility] Left: Eye BAUSCH & LOMB 09/18/2027 [id number] / [id number] / [id number] documented as of this encounter Advance Directives [...] the patient have Health Care Power of Die Repair? No Code Status History Code Status Date Activated Date Inactivated Comments Full Code 03/01/2023 9:28 AM 03/01/2023 3:27 PM Thi s order reflects the patients wishes and were consensually agreed upon. Question Answer Comments Discussion of Advance Directives occurred with: Patient Does the patient have a Living Will? No Does the patient have Health Care Power of Die Repair? No Full Code 08/20/2021 12:59 AM 08/21/2021 [...] and were consensually agreed upon. Care Teams Side Trimmer Relationship Specialty Start Date End Date Unruly Jennings MD [address] [place] [address] PCP - General Family Medicine 03/25/14 documented as of this encounter
--- OUTSIDE RECORDS SUMMARY | 2023-11-01 19:15 | External Medical Summary | Summary of Care ---
Author Name Unknown Organization [facility] Address [address] [place] [facility] [place] [address] Phone [phone] Care Team Providers Care Supervisor Pile Driving Name Role Phone Unruly Balderas MD Primary Care Provider + Reason for Visit * Reason Onset Date Comments eRx-Medication Refill Status Check 05/10/2023 Encounter Details Date Type Department Care Team (Late st Contact Info) Description 05/10/2023 Refill Family [facility] [address] [place] [address] Unruly Balderas MD [address] [place] [address] Persistent insomnia Allergies Active Allergy Reactions Criticality Noted Date [...] as of this encounter (statuses as of 05/19/2023) Medications Medication Sig Dispensed Refills Start Date [...] MUSCLE SPASM 90 Tablet 2 02/09/2023 Active Rosuvastatin Calcium 20 MG Oral Tablet (Crestor)Indicatio ns:Dyslipidemia, goal to be determined TAKE 1 TABLET BY MOUTH EVERY DAY 90 Tablet 0 02/11/2023 Active Albuterol Sulfate HFA 108 (90 Base) [...] AT BEDTIME 90 Tablet 1 05/11/2023 Active Zolpidem Tartrate 5 MG Oral Tablet (Ambien)Indication s:Persistent insomnia Take 1 Tablet by mouth at bedtime. 90 Tablet 1 11/10/2022 05/11/19 24 Discontinued documented as of this encounter (statuses as of 05/19/2023) Active Problems Problem Noted Date Diagnosed Date [...] GI 04/04 FOB neg. 08/01 mammo WNL [facility] Pap 09/30 [facility] WN 2006 stress echo [facility] ADVANCE DIRECTIVE INFORMATION 07/29/2004 Overview: No, Advance Directive brochure given to patient. GENERAL OSTEOARTHROSIS 07/29/2004 Allergic rhinitis 07/29/2004 Dyslipidemia, goal to be determined 07/29/2004 Persistent insomnia 07/29/2004 Overview: ICD-10 update of inactive term Former smoker 11/07/2003 documented as of this encounter (statuses as of 05/19/2023) Resolved Problems Problem Noted Date Diagnosed Date [...] as of this encounter (statuses as of 05/19/2023) Immunizations Name Administration Dates Next Due COVID-19 mRNA, LNP-s, No Pre serve, 2-Dose Series (RescueTime) 03/26/2021,07/04/2020,06/13/2020 Covid-19, Mrna, Lnp-s, Pf, B ivalent, 30 Mcg, IM, 12 yrs and above (RescueTime) 01/09/2022 Pneumococcal Conjugate Vacc, 13 Valent (Prevnar) [...] encounter Miscellaneous Notes * Telephone Encounter - Veronique Willis PHARM Tech - 05/19/2023 2:26 PM EST Pt calling to request Ambien. Informed pt that RX is available at their pharmacy. Pt verbalized understanding and stated they will check with their pharmacy regarding this medication. Thank you, Veronique Willis Frame Stripper I [facility] ([facility])(formerly Telepharmacy) 05/19/2023,2:28 PM * Telephone Encounter - Unruly Balderas MD - 05/11/2023 10:42 PM EST Signed Prescriptions: Disp Refills Zolpidem Tartrate 5 MG Oral Tablet (Ambien)90 Tab*1 Sig: TAKE 1 TABLET BY MOUTH EVERYDAY AT BEDTIME Authorizing Provider: UNRULY BALDERAS * Telephone Encounter - Seema Delgado [facility] - 05/11/2023 6:23 AM EST Pending Prescriptions: Disp Refills Zolpidem Tartrate 5 MG Oral Tablet (Ambien)90 Tab*1 Sig: TAKE 1 TABLET BY MOUTH EVERYDAY AT BEDTIME * Telephone Encounter - Seema Delgado [facility] - 05/11/2023 6:22 AM EST I have reviewed the patients controlled substance dispensing history in the Prescription Drug Monitoring Program in compliance with the [facility] regulations before prescribing a controlled substance. PDMP checked on 05/11/2023. Pending Prescriptions: Disp Refills Zolpidem Tartrate 5 MG Oral Tablet (Ambie*90 Tab*1 Sig: TAKE 1 TABLET BY MOUTH EVERYDAY AT BEDTIME Last Visit: 02/17/2023 (in office), Visit date not found (telemedicine) Next Visit: 05/11/2023 Date medication was last filled: 02/08 Date medication is due for refill: 05/09 Pharmacy: [id number] Is this request for a controlled substance? Yes and Urine Drug Screen Not completed Toxicology results: No results found for this or any previous visit. Please approve if appropriate. Thank you, Seema Delgado, PharmD. Clinical Pharmacist [facility] ([facility]) (formerly Telepharmacy) 05/11/2023, 6:22 AM documented in this encounter Plan of Treatment Upcoming Encounters Date Type Department Care Team (Late st Contact Info) Description 07/28/2023 10:30 AM EDT Office Visit Allergy/Immunology [facility] [address] [facility] [place] [address] Donna Asencio PA-C 200 [facility] [place] [address] 08/12/2023 1:00 PM EDT Office Visit Orthopaedics Spine Surgery, [facility] [address] [place] [address] Jayme Stanton MD [address] [place] [address] [place] [address] 08/18/2023 2:00 PM EDT Office Visit Family Practice [facility] [address] [place] [address] Alyssa Patel CRNP [address] [place] [address] 09/05/2023 10:15 AM EDT Appointment Radiology, [place] [address] [place] [address] 02/22/2024 9:40 AM EST Office Visit Family [facility] [address] [place] [address] Unruly Balderas MD [address] [place] [address] Health Maintenance Due Date Last Done Comments Depression Screening 12/21/2019 12/20/2018 COVID-19 Vaccine ( season) 2022 01/09/2022, 03/26/2021, 07/04/2020, Additional history exists DXA Scan 05/11/2023 05/11/2016, 0 09/2004, 08/25/2004 GFR 08/18/2023 02/17/2023, 0 08/2022, 02/05/2022, Additional history exists Albumin/Creatinine Ratio 08/25/2023 023, 11/10/2021, 10/10/2020, Additional history exists CKD HGB USE SMARTSET 47071 08/25/202308/24, 11/10/2021, 11/10/2021, Additional history exists CKD PHOS USE SMARTSET 31950 08/25/2023 060 08/2022, 11/10/2021, 08/28/2021, Additional history exists HbA1c [...] 03/29/2014 LUNG CANCER SCREENING - USE SMARTSET 86990 Completed 09/17/2022 Influenza Vaccine (FLU shot) Completed [...] this encounter Medical Devices Implanted Type Area Historical Interpreter Device Identifier Shelf Expiration Date Model / Serial / Lot Bone Fiber Pliafx 2.5cc Dmnrlz - [id number] - [id number] Implanted:Qt y: 1 on 08/12/2021 by Jayme Stanton MD at OR [facility] Graft N/A: Neck LIFENET 06/03/2024 BL-1800-02 / [id number] / [id number] 4.5x20 Screw Implanted:Qt y: 2 on 08/12/2021 by Jayme Stanton MD at OR [facility] Screw N/A: Spine Lumbar [employer] 1020-45-420 / / 3.5x12 Reduction Screw Implanted:Qt y: 4 on 08/12/2021 by Jayme Stanton MD at OR [facility] Screw N/A: Spine Lumbar [employer] 1020-35-312 / / 3.5x12 Screw Implanted:Qt y: 4 on 08/12/2021 by Jayme Stanton MD at OR [facility] Screw N/A: Spine Lumbar [employer] 1020-35-112 / / Set Screw - [id number] Implanted:Qt y: 10 on 08/12/2021 by Jayme Stanton MD at OR [facility] Screw N/A: Spine Lumbar JNJ : DE[employer] SPINE [id number] / / Dbx 5cc 562262 - [id number] - [id number] Implanted:Qt y: 1 on 08/12/2021 by Jayme Stanton MD at OR [facility] Tissue - Human N/A: Neck MUSCULOSKELETAL TRANSPLANT FND [id number] 03/09/2023 [id number] / [id number] / LOT NA 4.0x65 Maverick Implanted:Qt y: 2 on 08/12/2021 by Jayme Stanton MD at OR [facility] N/A: Spine Lumbar [employer] 1020-64-065 / / Lens Li61ao 13.00mm 18.50 - [id number] - [id number] Implanted:Qt y: 1 on 03/01/2023 by Uche Sheffield MD at OR [facility] Right: Eye BAUSCH & LOMB 09/18/2027 [id number] / [id number] / [id number] Lens Li61ao 13.00mm 20.00 - [id number] - [id number] Implanted:Qt y: 1 on 03/22/2023 by Uche Sheffield MD at OR [facility] Left: Eye BAUSCH & LOMB 09/18/2027 [id number] / [id number] / [id number] documented as of this encounter Visit Diagnoses Diagnosis Persistent insomnia Persistent disorder of initiating or maintaining sleep documented in this encounter Advance Directives Latest [...] the patient have Health Care Power of Blast Furnace [employer]ili[employer] Supervisor? No Code Status History Code Status Date Activated Date Inactivated Comments Full Code 03/01/2023 9:28 AM 03/01/2023 3:27 PM Thi s order reflects the patients wishes and were consensually agreed upon. Question Answer Comments Discussion of Advance Directives occurred with: Patient Does the patient have a Living Will? No Does the patient have Health Care Power of Bl[employer] Furn[employer]ili[employer] Supervisor? No Full Code 08/20/2021 12:59 AM [...] and were consensually agreed upon. Care Teams Supervisor Pile Driving Relationship Specialty Start Date End Date Unruly Balderas MD [address] [address] PCP - General Family Medicine 03/25/14 documented as of this encounter
--- OUTSIDE RECORDS SUMMARY | 2023-11-01 19:15 | External Medical Summary | Summary of Care ---
Author Name Unknown Organization [facility] Address [address] [facility] [place] [address] Phone [phone] Care Team Providers Care Desk Pen Set Assembler Name Role Phone Unruly Jennings MD Primary Care Provider + Reason for Visit * Reason Onset Date Comments Pre-op Clearance 03/09/2023 Encounter Details Date Type Department Care Team (Late st Contact Info) Description 03/09/2023 Telephone Family Practice [facility] [address] [place] [address] Alyssa Patel CRNP [address] [place] [address] Pre-op Clearance Allergies Active Allergy Reactions Criticality Noted Date [...] as of this encounter (statuses as of 06/08/2023) Medications Medication Sig Dispensed Refills Start Date End Date Status acetaminophen (TYLENOL) 500 MG Tablet Take 2 Tabs by mouth every 8 hours as needed for Pain. 100 Tab 0 6 Active meclizine (ANTIVERT) 25 MG TabletIndication s:Vertigo Take 1 Tab by mouth 3 times a day as needed for Dizziness. 30 Tab 8 0 Active Saline Nasal Gel (Nasogel)Indicat ions:Acute recurrent sinusitis, unspecified location,Suspect ed COVID-19 virus infection Administer into each nostril as needed (nasal congestion and dryness). 1 g 1 1 Active Dicyclomine HCl 10 MG Oral Capsule (Bentyl) TAKE 1 CAPSULE BY MOUTH 4 TIMES A DAY NEEDED (ABD PAIN/CRAMPING). 360 Cap 1 1 Active CPAP every night at bedtime . 0 Active Benzonatate 100 MG Oral Capsule (Tessalon Perles) Take 1 Capsule by mouth 3 times a day as needed for Cough. 0 2 Active Fluticasone Propionate 50 MCG/ACT Nasal Suspension [...] THE DAY 90 Capsule 2 3 Active Gabapentin 300 MG Oral Capsule (Neurontin)Indic ations:Spasm of muscle TAKE 1 CAPSULE BY MOUTH TWICE A DAY NEEDED FOR PAIN 60 Capsule 5 3 Active Cyclobenzaprine HCl 5 MG Oral Tablet (Flexeril)Indica tions:Other muscle spasm TAKE 1 TABLET BY MOUTH THREE TIMES A DAY NEEDED FOR MUSCLE SPASM 90 Tablet 2 3 Active Albuterol Sulfate HFA 108 (90 Base) MCG/ACT Inhalation Aerosol Solution Inhale 2 Puffs by mouth every 4 hours as needed for Cough, Shortness of Breath or Wheezing. 3 to 5 minutes apart. 18 g 2 3 Active tiZANidine HCl 4 MG Oral Capsule Take 1 Capsule by mouth in the morning and 1 Capsule at noon and 1 Capsule before bedtime. 90 Capsule 3 3 05/11/19 24 Discontinued(Ref ill) Zolpidem Tartrate 5 MG Oral Tablet (Ambien)Indicati ons:Persistent insomnia Take 1 Tablet by mouth at bedtime. 90 Tablet 1 3 05/11/19 24 Discontinued Rosuvastatin Calcium 20 MG Oral Tablet (Crestor)Indicat ions:Dyslipidemi a, goal to be determined TAKE 1 TABLET BY MOUTH EVERY DAY 90 Tablet 0 3 05/30/19 24 Discontinued documented as of this encounter (statuses as of 06/08/2023) Active Problems Problem Noted Date Diagnosed Date [...] by GI 04/04 [facility] neg. 08[facility] WN 2006 stress echo [facility] ADVANCE DIRECTIVE INFORMATION 07/29/2004 Overview: No, Advance Directive brochure given to patient. GENERAL OSTEOARTHROSIS 07/29/2004 Allergic rhinitis 07/29/2004 Dyslipidemia, goal to be determined 07/29/2004 Persistent insomnia 07/29/2004 Overview: ICD-10 update of inactive term Former smoker 11/07/2003 documented as of this encounter (statuses as of 06/08/2023) Resolved Problems Problem Noted Date Diagnosed Date [...] as of this encounter (statuses as of 06/08/2023) Immunizations Name Administration Dates Next Due COVID-19 mRNA, LNP-s, No Pre serve, 2-Dose Series (Volunia) 03/26/2021,07/04/2020,06/13/2020 Covid-19, Mrna, Lnp-s, Pf, B ivalent, [...] Telephone Encounter - Alyssa Patel CRNP - 03/11/2023 1:21 PM EST Addendum added to a/p of 02/17 H&P * Telephone Encounter - Jenniffer Baxter OSA - 03/09/2023 11:53 AM EST Pt seen in the office for cataract pre op clearance but this clearance will just be over our 30 days allowed for upcoming cat surgery on 03/22/2023. Is the provider willing to addend (electronically sign and current date) this ov note and clear the pt? documented in this encounter Plan of Treatment Upcoming Encounters Date Type Department Care Team (Late st Contact Info) Description 07/28/2023 10:30 AM EDT Office Visit Allergy/Immunology [facility] [address] [place] [address] Donna Asencio PA-C [address] [place] [address] 08/12/2023 1:00 PM EDT Office Visit Orthopaedics Spine Surgery, [facility] 132 [facility] [place] [address] Jayme Stanton MD [address] [place] [address] [place] [address] 08/18/2023 2:00 PM EDT Office Visit [facility] 132 [facility] [place] [address] Alyssa Patel CRNP 132 [facility] [place] [address] 09/05/2023 10:15 AM EDT Appointment Radiology, [place] [address] [place] [address] 02/22/2024 9:40 AM EST Office Visit [facility] 132 [facility] [place] [address] Unruly Jennings MD 132 [facility] [place] [address] Health Maintenance Due Date Last Done Comments Depression Screening 12/21/2019 12/20/2018 COVID-19 Vaccine ( season) 2022 01/09/2022, 03/26/2021, 07/04/2020, Additional history exists DXA Scan 05/11/2023 05/11/2016, 0 09/2004, 08/25/2004 GFR 08/18/2023 02/17/2023, 0 08/2022, 02/05/2022, Additional history exists Albumin/Creatinine Ratio 08/25/2023 023, 11/10/2021, 10/10/2020, Additional history exists CKD HGB USE SMARTSET 51592 08/25/202308/24, 11/10/2021, 11/10/2021, Additional history exists CKD PHOS USE SMARTSET 83974 08/25/2023 06/0 08/2022, 11/10/2021, 08/28/2021, Additional history [...] 03/29/2014 LUNG CANCER SCREENING - USE SMARTSET 08854 Completed 09/17/2022 Influenza Vaccine (FLU shot) Completed [...] this encounter Medical Devices Implanted Type Area Rubber Goods Cutter Finisher Device Identifier Shelf Expiration Date Model / Serial / Lot Bone Fiber Pliafx 2.5cc Dmnrlz - [id number] - [id number] Implanted:Qt y: 1 on 08/12/2021 by Jayme Stanton MD at OR [facility] Graft N/A: Neck LIFENET 06/03/2024 BL-1800-02 / [id number] / [id number] 4.5x20 Screw Implanted:Qt y: 2 on 08/12/2021 by Jayme Stanton MD at OR [facility] Screw N/A: Spine Lumbar [employer] 1020-45-420 / / 3.5x12 Reduction Screw Implanted:Qt y: 4 on 08/12/2021 by Jayme Stanton MD at OR [facility] Screw N/A: Spine Lumbar [employer] 1020-35-312 / / 3.5x12 Screw Implanted:Qt y: 4 on 08/12/2021 by Jayme Stanton MD at OR [facility] Screw N/A: Spine Lumbar [employer] 1020-35-112 / / Set Screw - [id number] Implanted:Qt y: 10 on 08/12/2021 by Jayme Stanton MD at OR [facility] Screw N/A: Spine Lumbar JNJ : DE[employer] SPINE [id number] / / Dbx 5cc [id number] - [id number] - [id number] Implanted:Qt y: 1 on 08/12/2021 by Jayme Stanton MD at OR [facility] Tissue - Human N/A: Neck MUSCULOSKELETAL TRANSPLANT FND [id number] 03/09/2023 [id number] / [id number] / LOT NA 4.0x65 Maverick Implanted:Qt y: 2 on 08/12/2021 by Jayme Stanton MD at OR [facility] N/A: Spine Lumbar [employer] 1020-64-065 / / Lens Li61ao 13.00mm 18.50 - [id number] - [id number] Implanted:Qt y: 1 on 03/01/2023 by Uche Sheffield MD at OR [facility] Right: Eye BAUSCH & LOMB 09/18/2027 [id number] / [id number] / [id number] Lens Li61ao 13.00mm 20.00 - [id number] - [id number] Implanted:Qt y: 1 on 03/22/2023 by Uche Sheffield MD at OR [facility] Left: Eye BAUSCH & LOMB 09/18/2027 [id number] / [id number] / [id number] documented as of this encounter Advance Directives [...] have Health Care Power of Director Of Casework Services? No Code Status History Code Status Date Activated Date Inactivated Comments Full Code 03/01/2023 9:28 AM 03/01/2023 3:27 PM Thi s order reflects the patients wishes and were consensually agreed upon. Question Answer Comments Discussion of Advance Directives occurred with: Patient Does the patient have a Living Will? No Does the patient have Health Care Power of Director Of Casework Services? No Full Code 08/20/2021 12:59 AM 08/21/2021 [...] and were consensually agreed upon. Care Teams Desk Pen Set Assembler Relationship Specialty Start Date End Date Unruly Jennings MD [address] [place] [address] PCP - General Family Medicine 03/25/14 documented as of this encounter
--- OUTSIDE RECORDS SUMMARY | 2023-11-01 19:16 | External Medical Summary | Summary of Care ---
Author Name Unknown Organization [facility] Address [address] [place] [address] Phone [phone] Care Team Providers Care Nurse'S Assistant Name Role Phone Unruly Balderas MD Primary Care Provider + Reason for Visit * Reason Comments eRx-Medication Refill Encounter Details Date Type Department Care Team (Late st Contact Info) Description 05/10/2023 Refill Family Practice [facility] [address] [place] [address] Unruly Balderas MD [address] [facility] [place] [address] Persistent insomnia Allergies Active Allergy Reactions Criticality [...] as of this encounter (statuses as of 05/11/2023) Medications Medication Sig Dispensed Refills Start Date [...] as of this encounter (statuses as of 05/11/2023) Active Problems Problem Noted Date Diagnosed Date [...] 04/04 FOB neg. 08/01 mammo WNL [facility] Pap 09/30 [facility] WN 2006 stress echo [facility] WN ADVANCE DIRECTIVE INFORMATION 07/29/2004 Overview: No, Advance Directive brochure given to patient. GENERAL OSTEOARTHROSIS 07/29/2004 Allergic rhinitis 07/29/2004 Dyslipidemia, goal to be determined 07/29/2004 Persistent insomnia 07/29/2004 Overview: ICD-10 update of inactive term Former smoker 11/07/2003 documented as of this encounter (statuses as of 05/11/2023) Resolved Problems Problem Noted Date Diagnosed Date [...] as of this encounter (statuses as of 05/11/2023) Immunizations Name Administration Dates Next Due COVID-19 mRNA, LNP-s, No Pre serve, 2-Dose Series (Oculus VR) 03/26/2021,07/04/2020,06/13/2020 Covid-19, Mrna, Lnp-s, Pf, B ivalent, 30 Mcg, IM, 12 yrs and above (Oculus VR) 01/09/2022 Pneumococcal Conjugate Vacc, 13 Valent (Prevnar) [...] encounter Miscellaneous Notes * Telephone Encounter - Unruly Balderas MD - 05/11/2023 10:42 PM EST Signed Prescriptions: Disp Refills Zolpidem Tartrate 5 MG Oral Tablet (Ambien)90 Tab*1 Sig: TAKE 1 TABLET BY MOUTH EVERYDAY AT BEDTIME Authorizing Provider: UNRULY BALDERAS * Telephone Encounter - [facility] located [facility] - 05/11/2023 6:23 AM EST Pending Prescriptions: Disp Refills Zolpidem Tartrate 5 MG Oral Tablet (Ambien)90 Tab*1 Sig: TAKE 1 TABLET BY MOUTH EVERYDAY AT BEDTIME * Telephone Encounter - Seema Deglado RPh - 05/11/2023 6:22 AM EST I have reviewed the patients controlled substance dispensing history in the Prescription Drug Monitoring Program in compliance with the [facility] regulations before prescribing a controlled substance. PDMP checked on 05/11/2023. Pending Prescriptions: Disp Refills Zolpidem Tartrate 5 MG Oral Tablet (Ambie*90 Tab*1 Sig: TAKE 1 TABLET BY MOUTH EVERYDAY AT BEDTIME Last Visit: 02/17/2023 (in office), Visit date not found (telemedicine) Next Visit: 05/11/2023 Date medication was last filled: 02/08 Date medication is due for refill: 05/09 Pharmacy: [id number] Is this request for a controlled [...] 10:30 AM EDT Office Visit Allergy/Immunology [facility] Ar[facility] [address] [place] [address] Donna Asencio PA-C [address] [place] [address] 08/12/2023 1:00 PM EDT Office Visit Orthopaedics Spine Surgery, [facility] [address] [place] [address] Jayme Stanton MD [address] [place] [address] [place] [address] 08/18/2023 2:00 PM EDT Office Visit [facility] [address] [place] [address] Alyssa Patel CRNP [address] [place] [address] 09/05/2023 10:15 AM EDT Appointment Radiology, [place] [address] [place] [address] 02/22/2024 9:40 AM EST [facility] [place] [address] Unruly Balderas MD [address] [place] [address] Health Maintenance Due Date Last Done Comments Depression Screening 12/21/2019 12/20/2018 COVID-19 Vaccine ( season) 2022 01/09/2022, 03/26/2021, 07/04/2020, Additional history exists DXA Scan 05/11/2023 05/11/2016, 0 09/2004, 08/25/2004 GFR 08/18/2023 02/17/2023, 0 08/2022, 02/05/2022, Additional history exists Albumin/Creatinine Ratio 08/25/2023 023, 11/10/2021, 10/10/2020, Additional history exists CKD HGB USE SMARTSET 05150 08/25/202308/24, 11/10/2021, 11/10/2021, Additional history exists CKD PHOS USE SMARTSET 52324 08/25/20230 08/2022, 11/10/2021, 08/28/2021, Additional history exists [...] 03/29/2014 LUNG CANCER SCREENING - USE SMARTSET 48084 Completed 09/17/2022 Influenza Vaccine (FLU shot) Completed [...] this encounter Medical Devices Implanted Type Area Boilermaker Device Identifier Shelf Expiration Date Model / Serial / Lot Bone Fiber Pliafx 2.5cc Dmnrlz - [id number] - [id number] Implanted:Qt y: 1 on 08/12/2021 by Jayme Stanton MD at [facility] Graft N/A: Neck L[employer] 06/03/2024 [id number] 4.5x20 Screw Implanted:Qt y: 2 on 08/12/2021 by Jayme Stanton MD at [facility] Screw N/A: Spine Lumbar [employer] [id number] / / 3.5x12 Reduction Screw Implanted:Qt y: 4 on 08/12/2021 by Jayme Stanton MD at [facility] Screw N/A: Spine Lumbar [employer] 1020-35-312 / / 3.5x12 Screw Implanted:Qt y: 4 on 08/12/2021 by Jayme Stanton MD at [facility] Screw N/A: Spine Lumbar [employer] 1020-35-112 / / Set Screw - [id number] Implanted:Qt y: 10 on 08/12/2021 by Jayme Stanton MD at [facility] Screw N/A: Spine Lumbar JNJ : [employer] [id number] / / Dbx [facility] [id number] - [id number] - [id number] Implanted:Qt y: 1 on 08/12/2021 by Jayme Stanton MD at [facility] Tissue - Human N/A: Neck [employer]OSKELETAL [employer]ANSPL[employer] FND [id number] 03/09/2023 [id number] / [id number] / LOT NA 4.0x65 Maverick Implanted:Qt y: 2 on 08/12/2021 by Jayme Stanton MD at [facility] N/A: Spine Lumbar [employer] 1020-64-065 / / Lens Li61ao 13.00mm 18.50 - [id number] - [id number] Implanted:Qt y: 1 on 03/01/2023 by Uche Sehffield MD at [facility] Right: Eye [employer] 09/18/2027 [id number] / [id number] / [id number] Lens Li61ao 13.00mm 20.00 - [id number] - [id number] Implanted:Qt y: 1 on 03/22/2023 by Uche Sheffield MD at [facility] Left: Eye [employer]CH [employer]OMB 09/18/2027 [id number] / [id number] / [id number] documented as of this encounter Visit Diagnoses [...] the patient have Health Care Power of Vp & General Counsel? No Code Status History Code Status Date Activated Date Inactivated Comments Full Code 03/01/2023 9:28 AM 03/01/2023 3:27 PM Thi s order reflects the patients wishes and were consensually agreed upon. Question Answer Comments Discussion of Advance Directives occurred with: Patient Does the patient have a Living Will? No Does the patient have Health Care Power of Vp & General Counsel? No Full Code 08/20/2021 12:59 AM 08/21/2021 [...] and were consensually agreed upon. Care Teams Nurse'S Assistant Relationship Specialty Start Date End Date Unruly Balderas MD [address] [place] [address] PCP - General Family Medicine 03/25/14 documented as of this encounter
--- OUTSIDE RECORDS SUMMARY | 2023-11-01 19:16 | External Medical Summary | Summary of Care ---
Author Name Unknown Organization [facility] Address [address] [facility] [place] [address] Phone [phone] Care Team Providers Care Cafeteria Manager Name Role Phone Unruly Jennings MD Primary Care Provider + Reason for Visit * Reason Comments Neck Pain worsening Encounter Details Date Type Department Care Team (Late st Contact Info) Description 05/11/2023 10:40 AM EST Office Visit Family [facility] [address] [place] [address] Magi Mendez CRNP [address] [facility] [place] [address] Neck muscle spasm*; Cervical radiculopathy; S/P cervical spinal fusion; Prediabetes Allergies Active Allergy Reactions Criticality Noted Date [...] Tab 8 03/24/2019 Active Saline Nasal Gel (Nasogel)Indication s:Acute recurrent sinusitis, unspecified location,Suspected COVID-19 virus infection [...] THE DAY 90 Capsule 2 06/08/2022 Active Zolpidem Tartrate 5 MG Oral Tablet (Ambien)Indications :Persistent insomnia Take 1 Tablet by mouth at bedtime. 90 Tablet 1 11/10/2022 Active Gabapentin 300 MG Oral Capsule (Neurontin)Indicati ons:Spasm of muscle TAKE 1 CAPSULE BY MOUTH TWICE A DAY NEEDED FOR PAIN 60 Capsule 5 11/25/2022 Active Cyclobenzaprine HCl 5 MG Oral Tablet (Flexeril)Indicatio ns:Other muscle spasm TAKE 1 TABLET BY MOUTH [...] Active traMADol HCl 50 MG Oral Tablet (Ultram)Indications :Cervical radiculopathy Take 1 Tablet by mouth every 6 hours as needed for Pain, Severe. 20 Tablet 0 05/04/2023 Active tiZANidine HCl 4 MG Oral CapsuleIndications: Neck muscle spasm Take 1 Capsule by mouth in the morning and 1 Capsule at noon and 1 Capsule before bedtime. 90 Capsule 3 05/11/2023 Active methylPREDNISolone 4 MG Oral Tablet Therapy Pack (Medrol Dosepack)Indication s:Cervical radiculopathy follow package directions 21 Tablet 0 05/11/2023 Active tiZANidine HCl 4 MG Oral Capsule Take 1 Capsule by mouth in the morning and 1 Capsule at noon and 1 Capsule before bedtime. 90 Capsule 3 08/27/2022 4 Discontinue d(Refill) documented as of this [...] 04/04 FOB neg. 08/01 mammo WNL [facility] Pap 09/30 [facility] WNL 2006 stress echo [facility] WN ADVANCE DIRECTIVE INFORMATION 07/29/2004 Overview: [...] mRNA, LNP-s, No Pre serve, 2-Dose Series ([employer] Crossing) 03/26/2021,07/04/2020,06/13/2020 Covid-19, Mrna, Lnp-s, Pf, B ivalent, [...] 0 [birth year]/21/1968 - 10/19/2008 Smokeless Tobacco: Never Tobacco Cessation:Counseling Given: Not [...] Sign Reading Time Taken Comments Blood Pressure 134/80 05/11/2023 11:07 AM EST Pulse 76 05/11/2023 10:44 AM EST Temperature 36.8 C (98.2 F) 05/11/2023 10:[address] Respiratory Rate 16 05/11/2023 10:44 AM EST Oxygen Saturation - - Inhaled Oxygen Concentration - - Weight 81.2 kg (179 lb) 05/11/2023 10:44 AM EST Height - - Body Mass Index 36.15 03/22/2023 9:10 AM EST documented in this [...] as of this encounter Progress Notes * Magi Mendez CRNP - 05/11/2023 10:51 AM EST Images from the original note were not included. Acute Family Medicine Visit History of Present Illness Katelin Ashraf is a very pleasant 73 year old female with PMH listed below presenting with neck pain. Long standing neck issue due to cervical stenosis, s/p cervica spine fusion. 2 weeks ago, she noticed her neck pain was worse without trauma. Usually rest/gabapentin improves her pain but it has not been successful. Gabapentin increase do 3 times daily. Tramadol didn't work for pain. Spasm and sharp pain down in R arm, following C4-5 dermatome. Doing exercise from PT. Slept only 2-3 hours due to spasm/pain. Medrol can make her jittery but works for her flare ups. Social History Socioeconomic History Marital status: Significant Other Spouse name: Not on file Number of children: 1 Years of education: Not on file Highest education level: Not on file Occupational History Occupation: retired @[employer] office Occupation: former-[employer] Tobacco Use Smoking status: Former Current packs/day: 0.00 Average packs/day: 0.5 packs/day for 42.0 years (21.0 ttl pk-yrs) Types: Cigarettes Start date: 03/21/1968 Quit date: 10/19/2008 Years since quittin.5 Smokeless tobacco: Never Tobacco comments: No passive smoke exposures Vaping Use Vaping Use: Never used Substance and Sexual Activity Alcohol use: Yes Comment: rare Drug use: No Sexual activity: Yes Partners: Male Comment: Partner-Dion Thompson. . daughter -thyroid. 1 granddaughter at [facility] Other Topics Concern Service No Blood Transfusions No Caffeine Concern No Occupational Exposure No Hobby Hazards No Sleep Concern No Stress Concern No Weight Concern No Special Diet No Back Care No Exercise No Bike Helmet Not Asked Seat Belt Yes Self-Exams Yes Social History Narrative Has new coon cat 2014. Other pets. From [facility]. Area. Social Determinants of Health Financial Resource Strain: Not on file Food Insecurity: No Food Insecurity (12/20/2018) Hunger Vital Sign Worried About Running Out of Food in the Last Year: Never true Ran Out of Food in the Last Year: Never true Transportation Needs: Not on file Physical Activity: Not on file Stress: Not on file Social Connections: Not on file Intimate Partner Violence: Not on file Housing Stability: Not on file PMH: Past Medical History: Diagnosis Date 5th nerve [...] performed by Jayme Stanton MD at OR [facility] BREAST BIOPSY Left 1974 Benign COLONOSCOPY 10/2004 Normal, [facility] Dr Renee hyperplastic rectal polyp COLONOSCOPY, DIAGNOSTIC (RECTUM) 07/11/2014 lymphocytic colitis/COLONOSCOPY FLEXIBLE PROXIMAL DIAGNOSTIC performed by Kojo Ghosh DO at ENDOSCOPY [facility] COLONOSCOPY, DIAGNOSTIC (RECTUM) 01/14/2017 normal bx/COLONOSCOPY FLEXIBLE PROXIMAL DIAGNOSTIC performed by Heidy Munoz DO at ENDOSCOPY [facility] COLONOSCOPY, DIAGNOSTIC (RECTUM) 10/30/2019 normal / COLONOSCOPY FLEXIBLE PROXIMAL DIAGNOSTIC performed by Heidy Munoz DO at ENDOSCOPY [facility] DENTAL SURGERY PROCEDURE NEC UPPER PLATE EGD, FLEXIBLE, DIAGNOSTIC 09/05/2015 gastroesophageal reflux/ESOPHAGOGASTRODUODENOSCOPY (EGD), FLEXIBLE, TRANSORAL, DIAGNOSTIC performedby Kojo Ghosh DO at ENDOSCOPY [facility] INJECT DX/THER SUBSTANCE INTERLAMINAR CERVICAL/THORACIC W IMAGE GUIDE 10/13/2017 INJECTION SPINE LUMBAR CERVICAL OR THORACIC performed by Alli Hill, at OR [facility] INJECT DX/THER SUBSTANCE INTERLAMINAR CERVICAL/THORACIC W IMAGE GUIDE 02/23/2018 INJECTION SPINE LUMBAR CERVICAL OR THORACIC performed by Alli Hill, at OR [facility] INJECT DX/THER SUBSTANCE INTERLAMINAR CERVICAL/THORACIC W IMAGE GUIDE 10/25/2019 INJECTION SPINE LUMBAR CERVICAL OR THORACIC performed by Alli Hill, at OR [facility] INJECT DX/THER SUBSTANCE INTERLAMINAR CERVICAL/THORACIC W IMAGE GUIDE 07/14/2020 INJECTION SPINE LUMBAR CERVICAL OR THORACIC performed by Alli Hill DO at OR [facility] INJECT DX/THER SUBSTANCE INTERLAMINAR CERVICAL/THORACIC W IMAGE GUIDE 05/25/2021 INJECTION SPINE LUMBAR CERVICAL OR THORACIC performed by Alli Hill DO at OR [facility] KNEE ARTHROSCOPY/MENISCECTOMY Left 01/16/2018 ARTHROSCOPY KNEE MEDIAL OR LATERAL MENISCECTOMY performed by Irene Pike DO at OR [facility] MISCELLANEOUS ORDER ([facility] ONLY) 10/2017 Dr Hill cervical. MOHS SURGERY REFERRAL OP right nose REMOVE ADDED SPINE LAMINA, 1 SEG N/A 08/12/2021 LAMINECTOMY FACETECTOMY AND FORAMINOTOMY ADDITIONAL LEVELS performed by Jayme Stanton MD at OR [facility] REMOVE CATARACT, INSERT LENS PROSTH Right 03/01/2023 RIGHT EXTRACAPSULAR CATARACT REMOVAL WITH INTRAOCULAR LENS performed by Uche Sheffield MDat OR [facility] REMOVE CATARACT, INSERT LENS PROSTH Left 03/22/2023 LEFT EXTRACAPSULAR CATARACT REMOVAL WITH INTRAOCULAR LENS performed by Uche Sheffield MD at OR [facility] REMOVE NECK SPINE LAMINA, 1 SEG N/A 08/12/2021 LAMINECTOMY FACETECTOMY AND FORAMINOTOMY POSTERIOR CERVICAL performed by Jayme Stanton MD at OR [facility] SPINE FUSION, EACH ADD'L VERTEBRA N/A 08/12/2021 ARTHRODESIS SPINE POSTERIOR EACH ADDITIONAL VERTEBRAE performed by Jayme Stanton MD at OR [facility] SPINE SEG FIX, POST, 3-6 SEG, INSERT N/A 08/12/2021 POSTERIOR SPINE SEGMENTAL INSTRUMENTATION 3 TO 6 PSF performed by Jayme Stanton MD at OR [facility] THIGH/KNEE SUBQ TUMOR REMOVAL, UNDER 3 CM VASC ANKLE BRACHIAL INDEX 06/10/2006 normal Outpatient Medications Marked as Taking for the 05/11/23 encounter (Office Visit) with Magi Mendez CRNP Medication Sig traMADol HCl 50 MG Oral Tablet (Ultram) Take 1 Tablet by mouth every 6 hours as needed for Pain, Severe. Albuterol Sulfate HFA 108 (90 Base) MCG/ACT Inhalation Aerosol Solution Inhale 2 Puffs by mouth every 4 hours as needed for Cough, Shortness of Breath or Wheezing. 3 to 5 minutes apart. Rosuvastatin Calcium 20 MG Oral Tablet (Crestor) TAKE 1 TABLET BY MOUTH EVERY DAY Cyclobenzaprine HCl 5 MG Oral Tablet (Flexeril) TAKE 1 TABLET BY MOUTH THREE TIMES A DAY NEEDED FOR MUSCLE SPASM Gabapentin 300 MG Oral Capsule (Neurontin) TAKE 1 CAPSULE BY MOUTH TWICE A DAY NEEDED FOR PAIN Zolpidem Tartrate 5 MG Oral Tablet (Ambien) Take 1 Tablet by mouth at bedtime. Omeprazole 40 MG Oral Capsule Delayed Release (PriLOSEC) TAKE 1 CAPSULE BY MOUTH DAILY 1 HOUR BEFORE THE FIRST MEAL OF THE DAY Azelastine HCl 0.1 % Nasal Solution (Astelin) Administer 2 Sprays into nostril in the morning and 2Sprays before bedtime. Fluticasone Propionate 50 MCG/ACT Nasal Suspension Use 2 squirts in each nostril daily each morningto prevent chronic nasal symptoms CPAP every night at bedtime . Dicyclomine HCl 10 MG Oral Capsule (Bentyl) TAKE 1 CAPSULE BY MOUTH 4 TIMES A DAY NEEDED (ABD PAIN/CRAMPING). Saline Nasal Gel (Nasogel) Administer into each nostril as needed (nasal congestion and dryness). meclizine (ANTIVERT) 25 MG Tablet Take 1 Tab by mouth 3 times a day as needed for Dizziness. acetaminophen (TYLENOL) 500 MG Tablet Take 2 Tabs by mouth every 8 hours as needed for Pain. Review of patient's allergies indicates: Allergen Reactions Trimethoprim Other reaction(s): hyper Atorvastatin myalgia Bactrim [Sulfa Antibiotics] hyper Codeine Nausea/vomiting Ibuprofen Lymphocytic colitis Kiwi Extract Hives Morphine And Related vomiting Peanut-Containing Drug Products Pt states if she eats too many her throat starts to feel funny. Propoxyphene Other reaction(s): Unknown Simvastatin Myalgia Iodine Other reaction(s): skin discoloration Most Recent Immunizations Administered Date(s) Administered COVID-19 mRNA, LNP-s, No Preserve, 2-Dose Series (Simple Crossing) 03/26/2021 Covid-19, Mrna, Lnp-s, Pf, Bivalent, 30 Mcg, IM, 12 yrs and above (Simple Crossing) 01/09/2022 Pneumococcal Conjugate Vacc, 13 Valent (Prevnar) 06/06/2016 Pneumococcal Polysaccharide PPV23 (Pneumovax) 06/05/2017 Season Influenza, Quad, PF, Adjuvanted, 65+ Yrs, IM (FLUAD) 12/03/2019 Seasonal Influenza, Quadrivalent Hd (Fluzone Hd) 02/02/2023 Seasonal Influenza, Quadrivalent, No Preserve, IM 11/27/2017 Seasonal Influenza, Split, IIV3, With Preserve, Inj 11/13/2016 Seasonal Influenza, Trivalent, Adjuvanted, 65+ yrs 12/19/2020 TD - Tetanus/Diptheria (ADULT) 10/24/2002 TDAP (age 10 and older)(Boostrix) 03/25/2014 Tetanus Toxid Adsorbed 03/21/2007 Varicella Zoster Vaccine (Adult) 03/29/2014 Zoster Vaccine Recombinant (Shingrix) 03/26/2021 Review of Systems: Physical Exam BP 152/88 (BP Site: Left Arm, BP Position: Sitting, BP Cuff Size: Large) | Pulse 76 | Temp 36.8 C(98.2 F) (Tympanic) | Resp 16 | Wt 81.2 kg (179 lb) | BMI 36.15 kg/m | BSA 1.84 m Physical Exam Constitutional: Appearance: Normal appearance. HENT: Head: Normocephalic. Neck: Comments: Reduced ROM due to neck pain. Muscle tightness/tenderness. No weakness in b/l arms, but reports tingling senseation in R arm. Musculoskeletal: Cervical back: Neck supple. No pain with movement. Lymphadenopathy: Cervical: No cervical adenopathy. Skin: General: Skin is warm. Neurological: Mental Status: She is alert and oriented to person, place, and time. Psychiatric: Mood and Affect: Mood normal. Assessment and Plan 1. Neck muscle spasm Discussed risk, benefits, alternatives - tiZANidine HCl 4 MG Oral Capsule; Take 1 Capsule by mouth in the morning and 1 Capsule at noon and 1 Capsule before bedtime. Dispense: 90 Capsule; Refill: 3 2. Cervical radiculopathy Acute flare up on chronic neck issue Will plan to use tizanidine so that she can sleep Start medrol tomorrow morning Consider PT if persistent - methylPREDNISolone 4 MG Oral Tablet Therapy Pack (Medrol Dosepack); follow package directions Dispense: 21 Tablet; Refill: 0 3. S/P cervical spinal fusion 4. Prediabetes Wrap-Up I have advised the patient to call our office with any worsening or new symptoms. I spent a total of 20-29 minutes (exact time 25 mins) on the date of service in preparation, delivery, and documentation of the care provided to Katelin Ashraf excluding any time spent in the performance of separately billed services. Magi Mendez, MSN, ELECTRONIC COMPONENT PROCESSOR [facility] documented in this encounter Nursing Notes * Kem Pacheco RN - 05/11/2023 10:46 AM EST Chief Complaint Patient presents with Neck Pain worsening documented in this encounter Plan of Treatment Upcoming Encounters Date Type Department Care Team (Late st Contact Info) Description 07/28/2023 10:30 AM EDT Office Visit Allergy/Immunology [facility] Arguello [address] [place] [address] Donna Asencio PA-C [address] [place] [address] 08/12/2023 1:00 PM EDT Office Visit Orthopaedics Spine Surgery, [address] [place] [address] Jayme Stanton MD [address] [place] [address] [place] [address] 08/18/2023 2:00 PM EDT Office Visit [facility] [address] [place] [address] Alyssa Patel CRNP [address] [place] [address] 09/05/2023 10:15 AM EDT Appointment Radiology, Jennifer [address] [place] [address] 02/22/2024 9:40 AM EST Office Visit [facility] [address] [place] [address] Unruly Jennings MD [address] [facility] [place] [address] Health Maintenance Due Date Last Done Comments Depression Screening 12/21/2019 12/20/2018 COVID-19 Vaccine ( season) 2022 01/09/2022, 03/26/2021, 07/04/2020, Additional history exists DXA Scan 05/11/2023 05/11/2016, 0 09/2004, 08/25/2004 GFR 08/18/2023 02/17/2023, 060 08/2022, 02/05/2022, Additional history exists Albumin/Creatinine Ratio 08/25/2023 023, 11/10/2021, 10/10/2020, Additional history exists CKD HGB USE SMARTSET 17799 08/25/202308/24, 11/10/2021, 11/10/2021, Additional history exists CKD PHOS USE SMARTSET 79417 08/25/2023 06/0 08/2022, 11/10/2021, 08/28/2021, Additional history [...] 03/29/2014 LUNG CANCER SCREENING - USE SMARTSET 39496 Completed 09/17/2022 Influenza Vaccine (FLU shot) Completed [...] this encounter Medical Devices Implanted Type Area Hospital Educator Device Identifier Shelf Expiration Date Model / Serial / Lot Bone Fiber Pliafx 2.5cc Dmnrlz - [id number] - [id number] Implanted:Qt y: 1 on 08/12/2021 by Jayme Stanton MD at OR [facility] Graft N/A: Neck LIFENET 06/03/2024 BL-1800- [id number] 4.5x20 Screw Implanted:Qt y: 2 on 08/12/2021 by Jayme Stanton MD at OR [facility] Screw N/A: Spine Lumbar [employer] [id number] / / 3.5x12 Reduction Screw Implanted:Qt y: 4 on 08/12/2021 by Jayme Stanton MD at OR [facility] Screw N/A: Spine Lumbar [employer] [id number] / / 3.5x12 Screw Implanted:Qt y: 4 on 08/12/2021 by Jayme Stanton MD at OR [facility] Screw N/A: Spine Lumbar [employer] 1020-35-112 / / Set Screw - [id number] Implanted:Qt y: 10 on 08/12/2021 by Jayme Stanton MD at OR [facility] Screw N/A: Spine Lumbar JNJ : [employer] [id number] / / Dbx [facility] [id number] - [id number] - [id number] Implanted:Qt y: 1 on 08/12/2021 by Jayme Stanton MD at OR [facility] Tissue - Human N/A: Neck MUSCULOSKELETAL TRANSPLANT FND [id number] 03/09/2023 [id number] / [id number] / LOT NA 4.0x65 Maverick Implanted:Qt y: 2 on 08/12/2021 by Jayme Stanton MD at OR [facility] N/A: Spine Lumbar [employer] 1020-64-065 / / Lens Li61ao 13.00mm 18.50 - [id number] - [id number] Implanted:Qt y: 1 on 03/01/2023 by Uche Sheffield MD at OR [facility] Right: Eye [employer] 09/18/2027 [id number] / [id number] / [id number] Lens Li61ao 13.00mm 20.00 - [id number] - [id number] Implanted:Qt y: 1 on 03/22/2023 by Uche Sheffield MD at OR [facility] Left: Eye [employer]OM[employer] 09/18/2027 [id number] / [id number] / [id number] documented as of this encounter Visit Diagnoses Diagnosis Neck muscle spasm- Primary Spasm of muscle Cervical radiculopathy Brachial neuritis or radiculitis nos S/P cervical spinal fusion Arthrodesis status Prediabetes Other abnormal glucose documented in this encounter Advance Directives Latest [...] the patient have Health Care Power of Paint Roller Assembler? No Code Status History Code Status Date Activated Date Inactivated Comments Full Code 03/01/2023 9:28 AM 03/01/2023 3:27 PM Thi s order reflects the patients wishes and were consensually agreed upon. Question Answer Comments Discussion of Advance Directives occurred with: Patient Does the patient have a Living Will? No Does the patient have Health Care Power of Paint Roller Assembler? No Full Code 08/20/2021 12:59 AM 08/21/2021 [...] and were consensually agreed upon. Care Teams Cafeteria Manager Relationship Specialty Start Date End Date Unruly Jennings MD [address] [place] [address] PCP - General Family Medicine 03/25/14 documented as of this encounter"
--- OUTSIDE RECORDS SUMMARY | 2023-11-01 19:16 | External Medical Summary | Summary of Care ---
Author Name Unknown Organization [facility] Address [address] [place] [address] Phone [phone] Care Team Providers Care Philosophy Professor Name Role Phone Unruly Jennings MD Primary Care Provider + Reason for Visit * Reason Onset Date Comments Appointment 05/04/2023 Encounter Details Date Type Department Care Team (Late st Contact Info) Description 05/04/2023 Telephone Family Practice [facility] [address] [place] [address] [facility] [address] [facility] [address] Appointment Allergies Active Allergy Reactions Criticality Noted Date [...] as of this encounter (statuses as of 05/10/2023) Medications Medication Sig Dispensed Refills Start Date [...] THE DAY 90 Capsule 2 06/08/2022 Active tiZANidine HCl 4 MG Oral Capsule Take 1 Capsule by mouth in the morning and 1 Capsule at noon and 1 Capsule before bedtime. 90 Capsule 3 08/27/2022 Active Additional Information Patient not taking.Reported on 03/01/2023 Zolpidem Tartrate 5 MG Oral Tablet (Ambien)Indications: Persistent insomnia Take 1 Tablet by mouth at bedtime. 90 Tablet 1 11/10/2022 Active Gabapentin 300 MG Oral Capsule (Neurontin)Indicatio [...] Pain, Severe. 20 Tablet 0 05/04/2023 Active documented as of this encounter (statuses as of 05/10/2023) Active Problems Problem Noted Date Diagnosed Date [...] GI 04/04 FOB neg. 08/01 mammo WNL [facility] Pap 09/30 [facility] WN 2006 stress echo [facility] ADVANCE DIRECTIVE INFORMATION 07/29/2004 Overview: No, Advance Directive brochure given to patient. GENERAL OSTEOARTHROSIS 07/29/2004 Allergic rhinitis 07/29/2004 Dyslipidemia, goal to be determined 07/29/2004 Persistent insomnia 07/29/2004 Overview: ICD-10 update of inactive term Former smoker 11/07/2003 documented as of this encounter (statuses as of 05/10/2023) Resolved Problems Problem Noted Date Diagnosed Date [...] as of this encounter (statuses as of 05/10/2023) Immunizations Name Administration Dates Next Due COVID-19 mRNA, LNP-s, No Pre serve, 2-Dose Series ([employer]) 03/26/2021,07/04/2020,06/13/2020 Covid-19, Mrna, Lnp-s, Pf, B ivalent, 30 Mcg, IM, 12 yrs and above ([employer]) 01/09/2022 Pneumococcal Conjugate Vacc, 13 Valent (Prevnar) [...] encounter Miscellaneous Notes * Telephone Encounter - Nina Mustafa LPN - 05/10/2023 8:25 AM EST Called and spoke with patient. Notified of below. Scheduled for tomorrow morning with Magi Mendez. * Telephone Encounter - Estrada Feliz OSA - 05/06/2023 9:38 AM EST No acute appts with any of the local providers, today or tomorrow. Please advise * Telephone Encounter - Unruly Jennings MD - 05/04/2023 10:02 PM EST 5 d Rx for tramadol sent. Schedule OV w/any provider for worsening neck pain "I have reviewed the patient's controlled substance dispensing history in the Prescription Drug Monitoring Program in compliance with the [facility] regulations before prescribing a controlled substance." * Telephone Encounter - Marsha Melton LPN - 05/04/2023 3:29 PM EST Call Details Pain and/or Headache PAIN: Yes Pain Level: 12/28 Describe the Pain: (spasms) Location of Pain: back and neck How long has the pain lasted? over a week Does the pain radiate? Yes (down to arm) Is there a clear cause for the pain? Yes (surgery) Has the pain changed? Yes (worsened) Does anything make the pain better? Nothing Does anything make the pain worse? moving Patient's Action(s) What have you done or taken for this problem? She tried Gabapentin and heating pad Additional Comment(s) Additional Comments: Patient is asking for an appointment and/or Tramadol Patient Request Patient Requesting: Appointment,Advice,Medication Prescribed Preferred pharmacy: [id number] [address] [place] [address] Please advise if appt or meds are appropriate * Telephone Encounter - Rossana Hairston OSA - 05/04/2023 10:10 AM EST No Appointments Available Patient declined appointments?: No What Visit Type is needed? Acute If Acute Visit Type is needed, were surrounding clinics offered to patient (Yes/No)? No acute available Was patient offered appointments with other available providers (Yes/No)? No appointments available See Call Details? (Yes or No): Yes documented in this encounter Plan of Treatment Upcoming Encounters Date Type Department Care Team (Late st Contact Info) Description 05/11/2023 10:40 AM EST Office [facility] [address] Magi Mendez CRNP [address] [place] [address] 07/28/2023 10:30 AM EDT Office Visit Allergy/Immunology [facility] [address] [place] [address] [facility] [place] [address] Donna Asencio PA-C [address] [facility] [place] [address] 08/12/2023 1:00 PM EDT Office Visit Orthopaedics [facility] 132 [facility] [place] [address] Jayme Stanton MD [address] [place] [address] [place] [address] 08/18/2023 2:00 PM EDT Office Visit Family Practice [facility] [address] [facility] [place] [address] Alyssa Patel CRNP [address] [place] [address] 09/05/2023 10:15 AM EDT Appointment [facility] [place] [facility] [place] [address] 02/22/2024 9:40 AM EST Office Visit Family [facility] [address] [facility] [place] [address] Unruly Jennings MD [address] [place] [address] Health Maintenance Due Date Last Done Comments Depression Screening 12/21/2019 12/20/2018 COVID-19 Vaccine ( season) 2022 01/09/2022, 03/26/2021, 07/04/2020, Additional history exists DXA Scan 05/11/2023 05/11/2016, 09/2004, 08/25/2004 GFR 08/18/2023 02/17/2023, 08/2022, 02/05/2022, Additional history exists Albumin/Creatinine Ratio 08/25/2023 023, 11/10/2021, 10/10/2020, Additional history exists CKD HGB USE SMARTSET 28355 08/25/202308/24, 11/10/2021, 11/10/2021, Additional history exists CKD PHOS USE SMARTSET 62981 08/25/2023 060 08/2022, 11/10/2021, 08/28/2021, Additional history [...] 03/29/2014 LUNG CANCER SCREENING - USE SMARTSET 84513 Completed 09/17/2022 Influenza Vaccine (FLU shot) Completed [...] this encounter Medical Devices Implanted Type Area Tube Worker Device Identifier Shelf Expiration Date Model / Serial / Lot Bone Fiber Pliafx 2.5cc Dmnrlz - [id number] - [id number] Implanted:Qt y: 1 on 08/12/2021 by Jayme Stanton MD at OR [facility] Graft N/A: Neck L[employer]ET 06/03/2024 [id number] / [id number] / [id number] 4.5x20 Screw Implanted:Qt y: 2 on 08/12/2021 by Jayme Stanton MD at OR [facility] Screw N/A: Spine Lumbar [employer] [id number] / / 3.5x12 Reduction Screw Implanted:Qt y: 4 on 08/12/2021 by Jayme Stanton MD at OR [facility] Screw N/A: Spine Lumbar [employer] [id number] / / 3.5x12 Screw Implanted:Qt y: 4 on 08/12/2021 by Jayme Stanton MD at OR [facility] Screw N/A: Spine Lumbar [employer] [id number] / / Set Screw - [id number] Implanted:Qt y: 10 on 08/12/2021 by Jayme Stanton MD at OR [facility] Screw N/A: Spine Lumbar JNJ : [employer] [id number] / / Dbx 5c [id number] - [id number] - [id number] Implanted:Qt y: 1 on 08/12/2021 by Jayme Stanton MD at OR [facility] Tissue - Human N/A: Neck [employer]CULOSKELETAL TRANSPLANT FND [id number] 03/09/2023 [id number] / [id number] / LOT NA 4.0x65 Maverick Implanted:Qt y: 2 on 08/12/2021 by Jayme Stanton MD at OR [facility] N/A: Spine Lumbar [employer] 1020-64-065 / / Lens Li61ao 13.00mm 18.50 - [id number] - [id number] Implanted:Qt y: 1 on 03/01/2023 by Uche Sheffield MD at OR [facility] Right: Eye [employer] 09/18/2027 [id number] / [id number] / [id number] Lens Li61ao 13.00mm 20.00 - [id number] - [id number] Implanted:Qt y: 1 on 03/22/2023 by Uche Sheffield MD at OR [facility] Left: Eye [employer] 09/18/2027 [id number] / [id number] / [id number] documented as of this encounter Visit Diagnoses Diagnosis Cervical radiculopathy- Primary Brachial neuritis or radiculitis nos documented in this encounter Advance Directives Latest [...] the patient have Health Care Power of Public Relations Intern? No Code Status History Code Status Date Activated Date Inactivated Comments Full Code 03/01/2023 9:28 AM 03/01/2023 3:27 PM Thi s order reflects the patients wishes and were consensually agreed upon. Question Answer Comments Discussion of Advance Directives occurred with: Patient Does the patient have a Living Will? No Does the patient have Health Care Power of Public Relations Intern? No Full Code 08/20/2021 12:59 AM 08/21/2021 [...] and were consensually agreed upon. Care Teams Philosophy Professor Relationship Specialty Start Date End Date Unruly Jennings MD [address] [facility] [place] [address] PCP - General Family Medicine 03/25/14 documented as of this encounter
--- NOTE | 2023-11-01 19:22 | Ultrasound Report ---
US duplex renal art/vein BI CLINICAL HISTORY: r/o renal artery stenosis TECHNIQUE: Real-time grayscale and color and spectral Doppler ultrasound imaging of the kidneys was p erformed. Comparison: None available at the time of this dictation. FINDINGS: Right kidney measures 9.4 cm. Left kidney measures 11.4 cm. RIGHT: The right kidney is normal in size, contour, cortical thickness, and echogenicity. No hydronephrosis is identified. No renal lesion is identified. Spectral analysis: Intrarenal resistive indices measure up to 0.78. Waveforms are normal in appearance.. Renal artery ve locities and waveforms are normal. Renal vein patent. LEFT: The left kidney is normal in size, contour, cortical thickness and echogenicity. No hydronephrosis i s identified. No renal lesion is identified. Spectral analysis: Intrarenal resistive indices measure up to 0.76. Waveforms are normal in appearance. Renal artery radha ocities and waveforms are normal. Renal vein patent. Abdominal aorta: Patent. Peak systolic velocity 103 cm/s. Bladder: Normal. Bilateral ureteral jets present. Reference ranges: Normal main renal artery peak systolic velocity less than 180 cm/s. Ratio of renal artery PSV to aort ic PSV less than 3.5 equates to normal or less than 60% stenosis. Only one of the two criteria listed needs to be met for diagnosis. Arcuate resistive indices about 0.8 are elevated. IMPRESSION: No evidence of renal artery stenosis. ACT 112: Negative or not required by law. Electronically signed by: Ashu Jose M.D. 11/01/2023 7:21 PM
--- NOTE | 2023-11-01 20:04 | Critical Care Consultation ---
Date of Consultation November 01, 2023 Assessment & Plan (1) Hypertensive urgency: Patient with past medical history of hypertension, states she was previously on amlodipine and hydrochlorothiazide but no longer takes and blood pressure currently controlled with lifestyle modifications and's low-sodium diet. Found to be hypertensive with systolics in the 220s. - Currently requiring nicardipine drip to maintain blood pressure 180s to 200s systolic overnight. - Will start oral regimen amlodipine, Coreg, hydrochlorothiazide - CT head unremarkable -Heart healthy low-sodium diet - Monitor in ICU and wean nicardipine drip as tolerated. Continuous monitoring on telemetry (2) CKD (chronic kidney disease), stage III: Creatinine at baseline, stable. Monitor routine BMPs and replete electrolytes as indicated -Renal artery duplex unremarkable (3) HLD (hyperlipidemia): Continue statin History of Present Illness Attending Physician: Rhys Pal MD History of Present Illness Patient is a 73-year-old female with past medical history significant for RADHA, HLD, HTN (currently not on antihypertensives), CKD stage III, who presented to the emergency department after being referred from cardiology clinic for hypertension with systolic blood pressure 230s and was reporting headaches. In the emergency department she was given clonidine but remained hypertensive, started on nicardipine drip. Patient now transferred to the ICU for further management of hypertensive urgency requiring vasoactive drip. On arrival to the ICU the patient is alert and oriented, sinus rhythm on monitor and hypertensive with systolics now in the 180s. Patient states that she had been having a headache for the past couple of days with generalized weakness, in which she is now asymptomatic. She denies dizziness or syncopal episodes, changes in vision, chest pain or palpitations, back pain, abdominal pain, nausea or vomiting, swelling in hands or feet, changes in gait. She denies recent illness or fevers, cough or congestion, shortness of breath, sore throat. Allergies Allergy/AdvReac Type Severity Reaction Status Date / Time kiwi Allergy Intermediate hives-kiwi Verified 11/01/23 15:57 extract peanut Allergy Intermediate per pt "if Verified 11/01/23 15:57 eat too many, throat feels funny". iodine Allergy Mild skin Verified 11/01/23 15:57 discoloration propoxyphene Allergy Unknown Unknown Verified 11/01/23 15:57 atorvastatin AdvReac Intermediate myalgia Verified 11/01/23 15:57 codeine AdvReac Intermediate nausea--if Verified 11/01/23 15:57 giving an antiemitic will be okay per pt. ibuprofen AdvReac Intermediate lymphocytic Verified 11/01/23 15:57 colitis morphine AdvReac Intermediate Vomiting Verified 11/01/23 15:57 simvastatin AdvReac Intermediate myalgia Verified 11/01/23 15:57 Sulfa (Sulfonamide AdvReac Intermediate hyper Verified 11/01/23 15:57 Antibiotics) sulfamethoxazole AdvReac Intermediate hyper Verified 12/30/21 12:06 [From Bactrim] trimethoprim [From Bactrim] AdvReac Intermediate hyper Verified 11/01/23 15:57 Home Medications Medication Instructions Recorded Confirmed Type rosuvastatin 20 mg tablet 20 mg PO HS 03/06/18 11/01/23 History zolpidem 5 mg tablet 5 mg PO HS Sleep 03/06/18 11/01/23 History dicyclomine 10 mg capsule 10 mg PO QID PRN Abdominal Pain 08/10/19 11/01/23 History meclizine 25 mg tablet 25 mg PO TID PRN Dizziness 08/10/19 11/01/23 History acetaminophen 500 mg tablet 1,000 mg PO Q8H PRN Pain 12/30/21 11/01/23 History (Tylenol Extra Strength) fluticasone propionate 50 2 spray intranasal DAILY #16 grams 01/01/22 11/01/23 Rx mcg/actuation nasal spray,suspension albuterol sulfate 90 mcg/actuation 2 puff inhalation Q4 PRN 11/01/23 11/01/23 History aerosol inhaler COUGH,SOB,WHEEZING amlodipine 5 mg tablet 5 mg PO DAILY #30 tabs 11/01/23 Rx azelastine 137 mcg (0.1 %) nasal 2 spray intranasal AMHS 11/01/23 11/01/23 History spray clonidine HCl 0.1 mg tablet 0.1 mg PO DAILY PRN SBP>180 MM HG 11/01/23 11/01/23 History hydrochlorothiazide 12.5 mg tablet 12.5 mg PO DAILY #30 tabs 11/01/23 Rx metoprolol tartrate 25 mg tablet 25 mg PO BID 11/01/23 11/01/23 History montelukast 10 mg tablet 10 mg PO QAM 11/01/23 11/01/23 History omeprazole 40 mg capsule,delayed 40 mg PO DAILYBB 11/01/23 11/01/23 History release sodium chloride-aloe vera nasal 1 applic topical . NEEDED PRN 11/01/23 11/01/23 History gel (Saline Nasal (aloe vera) gel) NASAL CONGESTION AND DRYNESS tizanidine 4 mg capsule 4 mg PO TID 11/01/23 11/01/23 History Patient History Medical History (Updated 11/01/23 @ 17:41 by Rhys Pal MD) Chronic back pain Migraines Osteoarthritis SALAS (nonalcoholic steatohepatitis) Surgical History S/P left knee arthroscopy Family History Father Heart disease Social History Smoking Status: Former smoker Tobacco Type: Cigarettes Do You Dip or Chew Tobacco: No; Hx Alcohol Use: No Hx Substance Use: No Preferred Language: Moldovan Communication Ability: Effective Forensic Psychologist Required: No Beliefs That Will Affect Care: None Current Living Situation: Significant Other Current Living Situation Comment: lives with friend Other Information That Helps Us Care for You: No Feels Safe at Home: Yes Safety Concerns: Feels Safe At This Time Assistive Devices: CPAP, Denture - Upper, Denture - Lower and Glasses Review of Systems Review of Systems: All systems reviewed & are unremarkable except as noted in HPI & below Physical Exam Constitutional: WD/WN, vitals as above cooperative and comfortable Eyes: PERRL, conjunctivae normal, anicteric sclerae ENMT: external ear and nose normal, oropharynx normal Neck: trachea midline, no thyromegaly Respiratory: normal respiratory effort, lungs clear to auscultation Cardiovascular: RRR, no murmur, no edema Gastrointestinal (Abdomen): normal bowel sounds, soft, nontender, no hepatosplenomegaly Musculoskeletal: no cyanosis or clubbing, extremities motor strength 5/5 Skin: no rashes, warm and dry Neurologic: PERRL, EOMI, accommodation nl, no face palsy, no dysarthria Psychiatric: A+Ox3, euthymic affect Results & Data Results & Data Vital Signs (Past 12 Hours) Vital Signs Temp Pulse Pulse Pulse Resp BP BP 11/01/23 19:35 36.5 C 92 H 15 185/79 H 11/01/23 19:00 91 H 15 193/80 H 11/01/23 18:42 89 22 180/105 H 11/01/23 18:31 83 17 186/98 H 11/01/23 18:16 77 20 220/105 H 11/01/23 18:01 78 21 224/95 H 11/01/23 17:10 83 178/82 H 11/01/23 16:03 79 18 220/161 H 11/01/23 14:53 70 18 228/87 H 11/01/23 14:52 69 20 11/01/23 13:20 67 182/93 H 11/01/23 12:55 69 214/120 H 11/01/23 12:16 77 11/01/23 11:57 36.5 C 45 L 18 210/70 H Pulse Ox O2 Del Method 11/01/23 19:35 92 Room Air 11/01/23 19:00 92 Room Air 11/01/23 18:42 91 Room Air 11/01/23 18:31 92 Room Air 11/01/23 18:16 91 Room Air 11/01/23 18:01 94 Room Air 11/01/23 17:10 11/01/23 16:03 97 11/01/23 14:53 97 Room Air 11/01/23 14:52 97 Room Air 11/01/23 13:20 11/01/23 12:55 11/01/23 12:16 11/01/23 11:57 93 Room Air Coding Level of Care Code 97795 IN/OBS CONSULT LVL 3,45M Diagnoses Hypertensive urgency I16.0 CKD (chronic kidney disease), stage III N18.3 HLD (hyperlipidemia) E78.5 Time Spent (min) 47
[2023-11-01] MEDS: ROSUVASTATIN CALCIUM 20 MG TAB PO SCH (21:06)
[2023-11-01] MEDS: ZOLPIDEM TARTRATE 5 MG TAB PO PRN (22:40)
--- OUTSIDE RECORDS SUMMARY | 2023-11-02 03:56 | External Medical Summary | Summary of Care ---
Author Name Unknown Organization [facility] Address [address] [facility] [place] [address] Phone [phone] Care Team Providers Care Zipper Trimmer Hand Name Role Phone Unruly Jennings MD Primary Care Provider + Reason for Visit * Reason Comments NEW PATIENT Encounter Details Date Type Department Care Team (Late st Contact Info) Description 11/01/2023 9:00 AM EDT Office Visit Cardiology, [facility] [address] [place] [address] Nicolas Brown, DO [address] [facility] [place] [address] HTN, goal below 140/90*; Frequent PVCs; Prolonged QT interval Allergies Active Allergy Reactions Criticality Noted Date [...] as of this encounter (statuses as of 11/01/2023) Medications Medication Sig Dispensed Refills Start Date [...] BEFORE BEDTIME 90 Capsule 3 10/24/2023 Active cloNIDine HCl 0.1 MG Oral Tablet (Catapres) take 1 tablet by mouth daily as needed for systolic blood pressure over 180 mm Hg 3 Tablet 11/01/2023 Active Metoprolol Tartrate 25 MG Oral Tablet (Lopressor) Take 1 Tablet by mouth in the morning and 1 Tablet before bedtime. 60 Tablet 5 11/01/2023 Active Hospital, Clinic, or Other Facility Administered Medication Ordered Dose Route Frequency Start Date End Date Status cloNIDine (Catapres) tab 50 mcgIndications:HTN, goal below 140/90 50 mcg OR Daily(AM) 11/01/2023 11/01/2023 Ended cloNIDine (Catapres) tab 50 mcgIndications:HTN, goal below 140/90 50 mcg OR Daily(AM) 11/01/2023 11/01/2023 Ended documented as of this encounter (statuses as of 11/01/2023) Active Problems Problem Noted Date Diagnosed Date [...] [facility] Pap 09/30 [facility] WNL 2006 stress echo [facility] WNL ADVANCE DIRECTIVE INFORMATION 07/29/2004 Overview: No, Advance Directive brochure given to patient. GENERAL OSTEOARTHROSIS 07/29/2004 Allergic rhinitis 07/29/2004 Dyslipidemia, goal to be determined 07/29/2004 Persistent insomnia 07/29/2004 Overview: ICD-10 update of inactive term Former smoker 11/07/2003 documented as of this encounter (statuses as of 11/01/2023) Resolved Problems Problem Noted Date Diagnosed Date [...] as of this encounter (statuses as of 11/01/2023) Immunizations Name Administration Dates Next Due COVID-19 mRNA, LNP-s, No Pre serve, 2-Dose Series ([employer]) 03/26/2021,07/04/2020,06/13/2020 Covid-19, Mrna, Lnp-s, Pf, B ivalent, 30 Mcg, IM, 12 yrs and above ([employer]) 01/09/2022 Pneumococcal Conjugate Vacc, 13 Valent (Prevnar) [...] Sign Reading Time Taken Comments Blood Pressure 222/94 11/01/2023 10:40 AM EDT Pulse 96 11/01/2023 10:40 AM EDT Temperature - - Respiratory Rate 16 11/01/2023 8:58 AM EDT Oxygen Saturation - - Inhaled Oxygen Concentration - - Weight - - Height - - Body Mass Index - - documented in this encounter Functional Status Functional [...] as of this encounter Progress Notes * Nicolas Brown, - 11/01/2023 11:26 AM EDT Patient reassessed, she has received clonidine 50 micrograms orally x1, with the second dose 30 minutes later, and after being observed for 1 hour, systolic blood pressure remains elevated 216/104. At this point, recommend emergency department evaluation for hypertensive urgency. Will print her records and provide them for her to take with her. Her boyfriend is going to provide transportation rather than the ambulance which I think is reasonable. Nicolas Brown DO * Nicolas Brown, - 11/01/2023 9:19 AM EDT Cardiology Consultation [facility] 11/01/2023 History of Present Illness: Katelin Ashraf is a 73 year old year old female who had initially been referred for cardiology consultation by [facility] free of the evaluation of an abnormal EKG performed on 08/18/2023 for findings of frequent premature ventricular contractions and QT interval prolongation. The patient was tentatively scheduled to see me in November, in the meantime presented for her resting echocardiogram today. Echocardiogram revealed preserved left ventricular systolic function, with normal LV wall motion on the sinus beats, LVEF of 55%, no significant valvular heart disease. Frequent premature ventricular contractions however were noted during the echocardiogram including episodes of ventricular bigeminy. At the conclusion of the study, the patient's blood pressure was measured and it was found to be 220/84. She was therefore add to my scheduled for acute assessment today. Her EKG was initially taken on 08/18/2023 when she presented to family practice for multiple acute complaints including a preceding episode of chest discomfort, shortness of breath, and cough productive of yellow mucus at that time. She was had recent issues with her sinuses with noted rhinorrhea and pressure in her ears and was actually referred to ENT and had a tentative appointment for that today which has been postponed. The patient describes a brief episode of left-sided chest discomfort a few days ago that lasted 1 minute, occurred rest, and was atypical in character for angina. She does not seem to note an irregular heart rhythm of the PVCs Medical History: Obstructive sleep apnea for which she was on CPAP in his noncompliant with this Cervical spine disease prompting surgical intervention of C3-T1 2 years ago, she was residual muscle tightness in and around her lower neck and trapezius area and has been following with interventional pain management for that, she states that this pain has been relatively well-controlled today Impaired glucose tolerance Dyslipidemia for which he was on Crestor Chart history of elevated blood pressure but has not previously been treatment Review of Systems: All systems reviewed & are unremarkable except as noted in HPI & below Past Medical History: Patient Active Problem List Diagnosis Former smoker ADVANCE DIRECTIVE INFORMATION GENERAL OSTEOARTHROSIS Allergic rhinitis Dyslipidemia, goal to be determined Persistent insomnia HTN, goal below 140/90 Medical home patient encounter SALAS (nonalcoholic steatohepatitis) Lymphocytic colitis IBD (inflammatory bowel disease) Migraine without aura and without status migrainosus, not intractable Small vessel disease, cerebrovascular Chronic bilateral low back pain without sciatica Spondylolysis of lumbar region Vitamin D deficiency History of basal cell carcinoma Hypersomnolence disorder Snoring Polycythemia RADHA (obstructive sleep apnea) Nocturnal hypoxemia Hypertensive kidney disease with stage 3a chronic kidney disease (HCC) Hypertensive kidney disease with chronic kidney disease stage III (HCC) Chronic kidney disease, stage 3a (HCC) Hypokalemia Leukocytosis Cervical spinal stenosis HCAP (healthcare-associated pneumonia) History of recent intraspinal surgery 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 S/P cervical spinal fusion Prediabetes History of tobacco use Rhinitis, nonallergic Severe obesity with body mass index (BMI) of 35.0 to 39.9 with serious comorbidity (HCC) Chest pressure Prolonged Q-T interval on ECG Past Surgical History: Procedure Laterality Date ALLOGRAFT, MORSELIZED, FOR SPINE SURGERY N/A 08/12/2021 ALLOGRAFT FOR SPINE SURGERY MORSELIZED performed by Jayme Stanton MD at [facility] BREAST BIOPSY Left 1974 Benign COLONOSCOPY 10/2004 Normal, [facility] Dr Renee hyperplastic rectal polyp COLONOSCOPY, DIAGNOSTIC (RECTUM) 07/11/2014 lymphocytic colitis/COLONOSCOPY FLEXIBLE PROXIMAL DIAGNOSTIC performed by Kojo Ghosh DO at ENDOSCOPY [facility] COLONOSCOPY, DIAGNOSTIC (RECTUM) 01/14/2017 normal bx/COLONOSCOPY FLEXIBLE PROXIMAL DIAGNOSTIC performed by Heidy Munoz DO at ENDOSCOPY [facility] COLONOSCOPY, DIAGNOSTIC (RECTUM) 10/30/2019 normal / COLONOSCOPY FLEXIBLE PROXIMAL DIAGNOSTIC performed by Heidy Munoz DO at ENDOSCOPY [facility] DENTAL SURGERY PROCEDURE NEC UPPER PLATE EGD, FLEXIBLE, DIAGNOSTIC 09/05/2015 gastroesophageal reflux/ESOPHAGOGASTRODUODENOSCOPY (EGD), FLEXIBLE, TRANSORAL, DIAGNOSTIC performedby Kojo Ghosh DO at ENDOSCOPY [facility] INJECT DX/THER SUBSTANCE INTERLAMINAR CERVICAL/THORACIC W IMAGE [...] performed by Alli Hill, DO at OR [facility] INJECT DX/THER SUBSTANCE INTERLAMINAR CERVICAL/THORACIC W IMAGE GUIDE 07/14/2020 INJECTION SPINE LUMBAR CERVICAL OR THORACIC performed by Alli Hill, at OR [facility] INJECT DX/THER SUBSTANCE INTERLAMINAR CERVICAL/THORACIC W IMAGE GUIDE 05/25/2021 INJECTION SPINE LUMBAR CERVICAL OR THORACIC performed by Alli Hill DO at OR [facility] KNEE ARTHROSCOPY/MENISCECTOMY Left 01/16/2018 ARTHROSCOPY KNEE MEDIAL OR LATERAL MENISCECTOMY performed by Irene Pike DO at OR [facility] MISCELLANEOUS ORDER ([facility] ONLY) 10/2017 Dr Hill cervical. MOHS SURGERY REFERRAL OP right nose REMOVE ADDED SPINE LAMINA, 1 SEG N/A 08/12/2021 LAMINECTOMY FACETECTOMY AND FORAMINOTOMY ADDITIONAL LEVELS performed by Jayme Stanton MD at OR [facility] REMOVE CATARACT, INSERT LENS PROSTH Right 03/01/2023 RIGHT EXTRACAPSULAR CATARACT REMOVAL WITH INTRAOCULAR LENS performed by Uche Sheffield MDat OR [facility] REMOVE CATARACT, INSERT LENS PROSTH Left 03/22/2023 LEFT EXTRACAPSULAR CATARACT REMOVAL WITH INTRAOCULAR LENS performed by Uche Sheffield MD at OR [facility] REMOVE NECK SPINE LAMINA, 1 SEG N/A 08/12/2021 LAMINECTOMY FACETECTOMY AND FORAMINOTOMY POSTERIOR CERVICAL performed by Jayme Stanton MD at OR [facility] SPINE FUSION, EACH ADD'L VERTEBRA N/A 08/12/2021 ARTHRODESIS SPINE POSTERIOR EACH ADDITIONAL VERTEBRAE performed by Jayme Stanton MD at OR [facility] SPINE SEG FIX, POST, 3-6 SEG, INSERT N/A 08/12/2021 POSTERIOR SPINE SEGMENTAL INSTRUMENTATION 3 TO 6 PSF performed by Jayme Stanton MD at OR [facility] THIGH/KNEE SUBQ TUMOR REMOVAL, UNDER 3 CM VASC ANKLE BRACHIAL INDEX 06/10/2006 normal Family History: Family History Problem Relation Name Age of Onset Heart Disorder Mother rheumatic fever,valve replaced 2008. Heart Disorder Father of [place] age 58 Thyroid Disorder Daughter Cancer Brother 64 liver,lung. Other (covid complications) Brother summer 2021 Asthma Grandfather (Paternal) Breast Cancer No significant family history Mother: at the age of 83, h/o "angina" and fluid retention, h/o Rheumatic heart disease Father: at the age of 58, was a smoker, of a "heart attack". Per pt recollection had a long illness , details unknown, in 1976 [place] siblings two brothers and one sister . Sister of colon CA. One brother was a [place] Vet. 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 Occupation: former-[employer] Tobacco Use Smoking status: Former Current packs/day: 0.00 Average packs/day: 1 pack/day for 40.6 years (40.6 ttl pk-yrs) Types: Cigarettes Start date: 03/21/1968 Quit date: 10/19/2008 Years since quittin.0 Passive exposure: Past Smokeless tobacco: Never Tobacco comments: No passive smoke exposures Vaping Use Vaping status: Never Used Substance and Sexual Activity Alcohol use: Yes Comment: rare Drug use: No Sexual activity: Yes Partners: Male Allergies: Trimethoprim, Atorvastatin, Bactrim [sulfa antibiotics], Codeine, Ibuprofen, Kiwi extract, Morphine and codeine, Peanut-containing drug products, Propoxyphene, Simvastatin, and Iodine Medications: Current Outpatient Medications Medication Sig Dispense Refill [...] No current facility-administered medications for this visit. OBJECTIVE/PHYSICAL EXAMINATION: BP 230/92 | Pulse 100 | Resp 16 BP Readings from Last 4 Encounters: 11/01/23 230/92 08/18/23 130/68 07/28/23 134/86 07/21/23 144/84 General: no acute distress and stated age Eyes: conjunctiva are pink and non-injected, sclera clear Neck: normal jugular venous pulse, no hepatojugular reflux Chest: normal shape and normal respiratory effort Lungs: clear to auscultation and percussion Cardiac Exam: - regular heart sounds, no murmurs, rubs, or gallops Abdomen: abdomen soft, non-tender, no abnormal masses and no hepatosplenomegaly Musculoskeletal: no gait disturbance, no weakness Extremities: no edema and no cyanosis Neuro: grossly normal exam Psych: appropriate affect and insight. Data: EKG performed today 11/01/2023 and interpreted independently reveals sinus rhythm at 80 beats per minute with age undetermined septal infarct pattern noted in lead V2, frequent PVCs, the corrected QTinterval is 510 milliseconds, but difficult to measure given the frequent ventricular ectopy. Compared to the previous tracing dating back to Jul, 2023, there has been no significant interval change. Transthoracic echocardiogram performed today with results as summarized above Latest Reference Range & Units 02/17/23 15:32 Triglycerides <=174 mg/dL 223 (H) Cholesterol <200 mg/dL 148 Non-HDL Cholesterol <=159 mg/dL 102 HDL Cholesterol >49 mg/dL 46 (L) LDL Cholesterol (Direct Measure) <=129 mg/dL 69 (H): Data is abnormally high (L): Data is abnormally low IMPRESSION: 73 year old year old female HTN, goal below 140/90 (Primary) - the patient has had multiple blood pressure measurements today, initially in the echocardiogram suite, pressure was 220/84, a repeat measurement in the cardiology clinic was 230/92, and when I measured the blood pressure manually in the left upper arm systolic blood pressure was still above 180 millimeters Hg. Patient has had a vague bleeding headache earlier today, that has not completely resolved, but it was certainly better than what she describes earlier today, it was somewhat difficult to distinguish between this headache pain and her sinus pain that she had been having recently, but it certainly sounds different. 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 We discussed options such as proceeding to the emergency departmenteither via EMS or having her significant other common pick her up, or having her take a dose of oral clonidine here in the clinic with ongoing supervision by the undersigned in our nursing staff,. Benefits and risks of each approach discussed with the patient. Will proceed with a trial of clonidine0.1 mg, 1/2 tablet (50 mcg) x 1 in cardiology clinic and will reassess her BP. If no improvement will refer to the ED. If improved , will send home with a prescription for 2 additional clonidine tablets. She may take 1/2 to 1 tablet my mouth daily as needed for systolic BP over 180 mm Hg. Will start metoprolol tartrate 25 mg two times per day for treatment of HTN and PVC suppression. First dose this evening. Frequent PVCs -Metoprolol tartrate as noted above. Labs tomorrow. - COMPREHENSIVE METABOLIC PANEL; Future; Expected date: 11/02/2023 - TSH WITH FREE T4 IF INDICATED; Future; Expected date: 11/02/2023 - MAGNESIUM; Future; Expected date: 11/02/2023 Prolonged QT interval Normal LVEF, labs tomorrow as noted. - COMPREHENSIVE METABOLIC PANEL; Future; Expected date: 11/02/2023 - TSH WITH FREE T4 IF INDICATED; Future; Expected date: 11/02/2023 - MAGNESIUM; Future; Expected date: 11/02/2023 Orders: - cloNIDine HCl 0.1 MG Oral Tablet (Catapres); takeone half to 1 tablet by mouth daily as needed for systolic blood pressure over 180 mm Hg - Metoprolol Tartrate 25 MG Oral Tablet (Lopressor); Take 1 Tablet by mouth in the morning and 1 Tablet before bedtime. I spent a total of Greater than 55 mins (exact time 90 mins) on the date of service in preparation,delivery, and documentation of the care provided to Katelin Ashraf excluding any time spent in theperformance of separately billed services or time spent by another provider/QHP. Follow Up: Return in about 30 days (around 12/01/2023) for Clinic Visit. | For: Clinic Visit | Check-out note: Keep 12/01/[address] Brown . Non fasting labs tomorrow. Nicolas Brown DO Cardiology[address] [address] This chart was completed in part utilizing [employer] Speech Voice Recognition Software. Grammatical errors, random word insertions, prounoun errors, and incomplete sentences are an occasional consequence of this system due to software limitations, ambient noise, and hardware issues. Any formal questions or concerns about the content, text, or information contained within the body of this dictation should be directly addressed to the provider for clarification. documented in this encounter Procedure Notes * Nicolas Brown DO - 11/01/2023 8:57 AM EDTAssociated Order(s): EKG REASON FOR STUDY: new pt;new pt CONCLUSIONS: Sinus rhythm with frequent premature ventricular contractions. Septal infarct (cited on or before 18-Aug-2023) Prolonged QT interval or tu fusion, consider myocardial disease, electrolyte imbalance, or drug effects Abnormal ECG When compared with ECG of 18-Aug-2023 12:57, Questionable change in initial forces of Septal leads Otherwise, no significant interval change. Ventricular Rate: 88 Atrial Rate: 88 CT Interval: 148 QRS Duration: 78 QT/QTc: 422/510 ms P-R-T [place]: 56 : 50 : 24 degrees documented in this encounter Nursing Notes * Vale Escudero LPN - 11/01/2023 8:49 AM EDT Examination Room: 12 Name: Katelin Ashraf Date of : 1950 Reason for Visit: New pt Problems/Concerns: Found to have high bp during echo, headache, Interim Hosp(s): denies Chest Pain/SOB: denies MyChart Discussed: decline Patient was instructed to not get up on the exam table until directed and assisted by their provider; patient is to remain seated in the chair/ wheelchair/ exam table for fall prevention and safety reasons. Patient is aware staff will assist stepping down off exam table with personnel. documented in this encounter Miscellaneous Notes * Addendum Note - Nicolas Brown DO - 11/01/2023 11:27 AM EDTAddended by: NICOLAS BROWN on: 11/01/2023 11:27 AM Modules accepted: Orders * Addendum Note - Vale Escudero LPN - 11/01/2023 10:45 AM EDTAddended by: VALE ESCUDERO on: 11/01/2023 10:45 AM Modules accepted: Orders documented in this encounter Plan of Treatment Upcoming Encounters Date Type Department Care Team (Late st Contact Info) Description 11/18/2023 10:30 AM EDT Office Visit Orthopaedics Spine Surgery, [facility] [address] [place] [address] Jayme Stanton MD [address] [place] [address] 11/22/2023 2:00 PM EDT Scheduled Telephone Interventional Pain Center, [facility] [address] [place] [address] [facility] Nurse Phone Call Interventional Pain [facility] [address] [place] [address] 12/01/2023 11:00 AM EDT [facility], [facility] [address] [facility] [place] [address] Nicolas Brown DO [address] [place] [address] 01/31/2024 10:00 AM EST Office Visit Allergy/Immunology [facility] [address] [facility] [place] [address] Donna Asencio PA-C [address] [facility] [place] [address] 02/22/2024 9:40 AM EST Office Visit [facility] Practice [facility] [address] [facility] [place] [address] Unruly Jennings MD [address] [place] [address] Scheduled Orders Name Type Priority Associated Diagnoses Orde r Schedule COMPREHENSIVE METABOLIC PANEL Lab Routine HTN, goal below 140/90 Frequent PVCs Prolonged QT interval Expected: 11/02/2023, Expires: 01/19/2024 TSH WITH FREE T4 IF INDICATED Lab Routine HTN, goal below 140/90 Frequent PVCs Prolonged QT interval Expected: 11/02/2023, Expires: 01/19/2024 MAGNESIUM Lab Routine HTN, goal below 140/90 Frequent PVCs Prolonged QT interval Expected: 11/02/2023, Expires: 01/19/2024 Health Maintenance Due Date Last Done Comments Cologuard 01/30/1996 Sigmoidoscopy 01/30/1996 Fecal Occult Blood Test 03/29/2015 03/29/2014 Adult Wellness Visit 2017 COVID-19 Vaccine ( season) 2022 01/09/2022, 03/26/2021, 07/04/2020, Additional history exists DXA Scan 05/11/2023 05/11/2016, 09/2004, 08/25/2004 CKD PHOS USE SMARTSET 82742 08/25/202308/2022, 11/10/2021, 08/28/2021, Additional history exists Mammogram 09/03/2023 09/02/2022, 08/19, 07/08/2021, Additional history exists Influenza Vaccine (FLU shot) (#1) 2023 02/02/2023, 01/07/2022, 12/19/2020, Additional history exists GFR 02/18/2024 08/18/2023, 01/21, 08/24/2022, Additional history exists DTaP,Tdap,and Td Vaccines (2 - Td or Tdap) 03/25/2024 03/25/2014, 10/24/2002 Depression Screening 07/20/2024 07/21/2023 Albumin/Creatinine Ratio 08/17/2024 024, 08/24/2022, 11/10/2021, Additional history exists CKD HGB USE SMARTSET 10242 08/17/202408/17, 08/18/2023, 08/24/2022, Additional history exists HbA1c [...] this encounter Medical Devices Implanted Type Area Hr Shared Services Consultant Device Identifier Shelf Expiration Date Model / Serial / Lot Bone Fiber Pliafx 2.5cc Dmnrlz - [id number] - [id number] Implanted:Qt y: 1 on 08/12/2021 by Jayme Stanton MD at OR [facility] Graft N/A: Neck [employer] 06/03/2024 [id number] / [id number] / [id number] 4.5x20 Screw Implanted:Qt y: 2 on 08/12/2021 by Jayme Stanton MD at OR [facility] Screw N/A: Spine Lumbar [employer] [id number] / / 3.5x12 Reduction Screw Implanted:Qt y: 4 on 08/12/2021 by Jayme Stanton MD at OR [facility] Screw N/A: Spine Lumbar [employer] [id number] / / 3.5x12 Screw Implanted:Qt y: 4 on 08/12/2021 by Jayme Stanton MD at OR [facility] Screw N/A: Spine Lumbar [employer] [id number] / / Set Screw - [id number] Implanted:Qt y: 10 on 08/12/2021 by Jayme Stanton MD at OR [facility] Screw N/A: Spine Lumbar JNJ : [employer] [id number] / / [id number] [id number] - [id number] - [id number] Implanted:Qt y: 1 on 08/12/2021 by Jayme Stanton MD at OR [facility] Tissue - Human N/A: Neck MUSCULOSKELETAL TRANSPLANT FND [id number] 03/09/2023 [id number] / [id number] / LOT NA 4.0x65 Maverick Implanted:Qt y: 2 on 08/12/2021 by Jayme Stanton MD at OR [facility] N/A: Spine Lumbar [employer] [id number] / / Lens Li61ao 13.00mm 18.50 - [id number] - [id number] Implanted:Qt y: 1 on 03/01/2023 by Uche Sheffield MD at OR [facility] Right: Eye [employer] 09/18/2027 [id number] / [id number] / [id number] Lens Li61ao 13.00mm 20.00 - [id number] - [id number] Implanted:Qt y: 1 on 03/22/2023 by Uche Sheffield MD at OR [facility] Left: Eye [employer]OMB 09/18/2027 [id number] / [id number] / [id number] documented as of this encounter Procedures Procedure Name Priority Date/Time Associated Diagnosis Comments CT ECG ROUTINE ECG W/LEAST 12 LDS W/I&R Routine 11/01/2023 8:57 AM EDT HTN, goal below 140/90 documented in this encounter Results * EKG (11/01/2023 8:57 AM EDT) 11/01/2023 8:57 AM EDT Narrative Procedure Note Nicolas Brown, - 11/01/2023 8:57 AM EDT REASON FOR STUDY: new pt;new pt CONCLUSIONS: Sinus rhythm with frequent premature ventricular contractions. Septal infarct (cited on or before 18-Aug-2023) Prolonged QT interval or tu fusion, consider myocardial disease,electrolyte imbalance, or drug effects Abnormal ECG When compared with ECG of 18-Aug-2023 12:57, Questionable change in initial forces of Septal leads Otherwise, no significant interval change. Ventricular Rate: 88 Atrial Rate: 88 CT Interval: 148 QRS Duration: 78 QT/QTc: 422/510 ms P-R-T [place]: 56 : 50 : 24 degrees Nicolas Brown DO EKG [facility] documented in this encounter Visit Diagnoses Diagnosis HTN, goal below 140/90- Primary Unspecified essential hypertension Frequent PVCs Other premature beats Prolonged QT interval Nonspecific abnormal electrocardiogram (ECG) (EKG) documented in this encounter Administered Medications Inactive Administered Medications - up to 3 most recent administrations Medication Order MAR Action Action Date Dose Rate Site cloNIDine (Catapres) tab 50 mcg 50 mcg, Oral, Daily(AM), First dose on Tue11/01/23 at 1100, Last dose on Tue11/01/23 at 1100, For 1 dose, Hold for SBP below 100 and notify service if dose is held Given 11/01/2023 10:10 AM EDT 50 mcg cloNIDine (Catapres) tab 50 mcg 50 mcg, Oral, Daily(AM), First dose on Tue11/01/23 at 1200, Last dose on Tue11/01/23 at 1200, For 1 dose, Hold for SBP below 100 and notify service if dose is held Given 11/01/2023 10:40 AM EDT 50 mcg documented in this encounter Advance Directives * [...] and were consensually agreed upon. Care Teams Zipper Trimmer Hand Relationship Specialty Start Date End Date Unruly Jennings MD [address] [place] [address] PCP - General Family Medicine 10/24/23 documented as of this encounter
--- OUTSIDE RECORDS SUMMARY | 2023-11-02 03:56 | External Medical Summary | Summary of Care ---
Author Name Unknown Organization [facility] Address [address] [place] [address] Phone [phone] Care Team Providers Care Real Estate Appraiser Name Role Phone Unruly Jennings MD Primary Care Provider + Reason for Visit * Reason Comments NEW PATIENT Encounter Details Date Type Department Care Team (Late st Contact Info) Description 11/01/2023 9:00 AM EDT Office Visit Cardiology, [facility] [address] [place] [address] Nicolas Brown, DO [address] [facility] [address] HTN, goal below 140/90*; Frequent PVCs; Prolonged [...] below 140/90 50 mcg OR Daily(AM) 11/01/2023 11/02/2023 Active cloNIDine (Catapres) tab 50 mcgIndications:HTN, goal below [...] 04/04 FOB neg. 08/01 mammo WNL [facility] Pap 09/30 [facility] WNL 2006 stress echo [facility] WNL ADVANCE DIRECTIVE INFORMATION 07/29/2004 Overview: [...] mRNA, LNP-s, No Pre serve, 2-Dose Series (Lookwider) 03/26/2021,07/04/2020,06/13/2020 Covid-19, Mrna, Lnp-s, Pf, B ivalent, 30 Mcg, IM, 12 yrs and above (Lookwider) 01/09/2022 Pneumococcal Conjugate Vacc, 13 Valent (Prevnar) [...] Sign Reading Time Taken Comments Blood Pressure 230/92 11/01/2023 8:58 AM EDT Pulse 100 11/01/2023 8:58 AM EDT Temperature - - Respiratory Rate [...] - 11/01/2023 9:19 AM EDT Cardiology Consultation [facility] [place] [facility] 11/01/2023 History of Present Illness: Katelin [...] MORSELIZED performed by Jayme Stanton MD at [facility] BREAST BIOPSY Left 1974 Benign COLONOSCOPY 10/2004 Normal, [facility] Dr Renee hyperplastic rectal polyp COLONOSCOPY, DIAGNOSTIC (RECTUM) 07/11/2014 lymphocytic colitis/COLONOSCOPY FLEXIBLE PROXIMAL DIAGNOSTIC performed by Kojo Ghosh DO at ENDOSCOPY [facility] COLONOSCOPY, DIAGNOSTIC (RECTUM) 01/14/2017 normal bx/COLONOSCOPY FLEXIBLE PROXIMAL DIAGNOSTIC performed by Heidy Munoz DO at ENDOSCOPY [facility] COLONOSCOPY, DIAGNOSTIC (RECTUM) 10/30/2019 normal / COLONOSCOPY FLEXIBLE PROXIMAL DIAGNOSTIC performed by Heidy Munoz DO at ENDOSCOPY [facility] DENTAL SURGERY PROCEDURE NEC UPPER PLATE EGD, FLEXIBLE, DIAGNOSTIC 09/05/2015 gastroesophageal reflux/ESOPHAGOGASTRODUODENOSCOPY (EGD), FLEXIBLE, TRANSORAL, DIAGNOSTIC performedby Kojo Ghosh DO at ENDOSCOPY [facility] INJECT DX/THER SUBSTANCE INTERLAMINAR CERVICAL/THORACIC W IMAGE [...] performed by Jayme Stanton MD at OR [facility] REMOVE CATARACT, INSERT LENS PROSTH Right 03/01/2023 RIGHT EXTRACAPSULAR CATARACT REMOVAL WITH INTRAOCULAR LENS performed by Uche Sheffield MDat OR [facility] REMOVE CATARACT, INSERT LENS PROSTH Left 03/22/2023 LEFT EXTRACAPSULAR CATARACT REMOVAL WITH INTRAOCULAR LENS performed by Uche Sheffield MD at OR [facility] REMOVE NECK SPINE LAMINA, 1 SEG N/A 08/12/2021 LAMINECTOMY FACETECTOMY AND FORAMINOTOMY POSTERIOR CERVICAL performed by Jayme Stanton MD at OR [facility] SPINE FUSION, EACH ADD'L VERTEBRA N/A 08/12/2021 ARTHRODESIS SPINE POSTERIOR EACH ADDITIONAL VERTEBRAE performed by Jayme Stanton MD at OR [facility] SPINE SEG FIX, POST, 3-6 SEG, INSERT N/A 08/12/2021 POSTERIOR SPINE SEGMENTAL INSTRUMENTATION 3 TO 6 PSF performed by Jayme Stanton MD at OR [facility] THIGH/KNEE SUBQ TUMOR REMOVAL, UNDER 3 CM VASC ANKLE BRACHIAL INDEX 06/10/2006 normal Family History: Family History Problem Relation Name Age of Onset Heart Disorder Mother rheumatic fever,valve replaced 2008. 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 We discussed [...] Non fasting labs tomorrow. Nicolas Brown DO Cardiology[address] [address] This chart was completed in part utilizing [employer] Speech Voice Recognition Software. Grammatical errors, random [...] change. Ventricular Rate: 88 Atrial Rate: 88 [place] Interval: 148 QRS Duration: 78 QT/QTc: 422/510 ms P-R-T [place]: 56 : 50 : 24 degrees documented [...] AM EDT Office Visit Orthopaedics Spine Surgery, [facility] [address] [place] [address] Jayme Stanton MD [address] [place] [address] 11/22/2023 2:00 PM EDT Scheduled Telephone Interventional Pain Center, [facility] [address] [place] [address] [facility] Nurse Phone Call Interventional Pain [facility] [address] [place] [address] 12/01/2023 11:00 AM EDT Office Visit Cardiology, [facility] [place] [address] Nicolas Brown DO [address] [place] [address] 01/31/2024 10:00 AM EST Office Visit Allergy/Immunology [facility] [address] [facility] [place] [address] Donna Asencio PA-C [address] [facility] [facility] [place] [address] 02/22/2024 9:40 AM EST Office Visit Family Practice [facility] [place] [address] Unruly Jennings MD [address] [place] [address] Scheduled Orders Name Type Priority Associated Diagnoses [...] 05/11/2016, 09/2004, 08/25/2004 CKD PHOS USE SMARTSET 39420 08/25/202308/2022, 11/10/2021, 08/28/2021, Additional history exists Mammogram 09/03/2023 09/02/2022, 08/19, 07/08/2021, Additional history exists Influenza Vaccine (FLU shot) (#1) 2023 02/02/2023, 01/07/2022, 12/19/2020, Additional history exists GFR 02/18/2024 08/18/2023, 01/21, 08/24/2022, Additional history exists DTaP,Tdap,and Td Vaccines (2 - Td or Tdap) 03/25/2024 03/25/2014, 10/24/2002 Depression Screening 07/20/2024 07/21/2023 Albumin/Creatinine Ratio 08/17/2024 024, 08/24/2022, 11/10/2021, Additional history exists CKD HGB USE SMARTSET 80505 08/17/202408/17, 08/18/2023, 08/24/2022, Additional history exists HbA1c [...] this encounter Medical Devices Implanted Type Area Body Component Engineer Device Identifier Shelf Expiration Date Model / Serial / Lot Bone Fiber Pliafx 2.5cc Dmnrlz - [id number] - [id number] Implanted:Qt y: 1 on 08/12/2021 by Jayme Stanton MD at OR [facility] Graft N/A: Neck LIFENET 06/03/2024 BL-1800-02 / [id number] / [id number] 4.5x20 Screw Implanted:Qt y: 2 on 08/12/2021 by Jayme Stanton MD at OR [facility] Screw N/A: Spine Lumbar [employer] 1020-45-420 / / 3.5x12 Reduction Screw Implanted:Qt y: 4 on 08/12/2021 by Jayme Stanton MD at OR [facility] Screw N/A: Spine Lumbar [employer] 1020-35-312 / / 3.5x12 Screw Implanted:Qt y: 4 on 08/12/2021 by Jayme Stanton MD at OR [facility] Screw N/A: Spine Lumbar [employer] 1020-35-112 / / Set Screw - [id number] Implanted:Qt y: 10 on 08/12/2021 by Jayme Stanton MD at OR [facility] Screw N/A: Spine Lumbar JNJ : DEPUY SPINE [id number] / / Dbx 5c 143721 - [id number] - [id number] Implanted:Qt y: 1 on 08/12/2021 by Jayme Stanton MD at OR [facility] Tissue - Human N/A: Neck MUSCULOSKELETAL TRANSPLANT FND [id number] 03/09/2023 [id number] / [id number] / LOT NA 4.0x65 Maverick Implanted:Qt y: 2 on 08/12/2021 by Jayme Stanton MD at OR [facility] N/A: Spine Lumbar [employer] 1020-64-065 / / Lens Li61ao 13.00mm 18.50 - [id number] - [id number] Implanted:Qt y: 1 on 03/01/2023 by Uche Sheffield MD at OR [facility] Right: Eye BAUSCH & LOMB 09/18/2027 [id number] / [id number] / [id number] Lens Li61ao 13.00mm 20.00 - [id number] - [id number] Implanted:Qt y: 1 on 03/22/2023 by Uche Sheffield MD at OR [facility] Left: Eye BAUSCH & LOMB 09/18/2027 [id number] / [id number] / [id number] documented as of this encounter Procedures Procedure Name Priority Date/Time Associated Diagnosis Comments KS ECG ROUTINE ECG W/LEAST 12 LDS W/I&R [...] change. Ventricular Rate: 88 Atrial Rate: 88 KS Interval: 148 QRS Duration: 78 QT/QTc: 422/510 ms P-R-T [place]: 56 : 50 : 24 degrees Nicolas [...] Given 11/01/2023 10:10 AM EDT 50 mcg documented in this [...] and were consensually agreed upon. Care Teams Real Estate Appraiser Relationship Specialty Start Date End Date Unruly Jennings MD [address] [place] [address] PCP - General Family Medicine 10/24/23 documented as of this encounter
--- OUTSIDE RECORDS SUMMARY | 2023-11-02 03:57 | External Medical Summary | Summary of Care ---
Author Name Unknown Organization [facility] Address [address] [place] [address] Phone [phone] Care Team Providers Care Development Manager Name Role Phone Unruly Jennings MD Primary Care Provider + Reason for Visit * Reason Comments NEW PATIENT Encounter Details Date Type Department Care Team (Late st Contact Info) Description 11/01/2023 9:00 AM EDT [facility] Visit [facility] [address] [place] [address] Travon Cameron, DO [address] [facility] [place] [address] HTN, goal below 140/90*; Frequent PVCs; Prolonged [...] by GI 04/04 FOB neg. 08/01 mammo L [facility] Pap 09/30 [facility] WN 2006 stress echo [facility] WN ADVANCE DIRECTIVE INFORMATION 07/29/2004 [...] mRNA, LNP-s, No Pre serve, 2-Dose Series (iBid2Save) 03/26/2021,07/04/2020,06/13/2020 Covid-19, Mrna, Lnp-s, Pf, B ivalent, [...] as of this encounter Progress Notes * Travon Cameron, - 11/01/2023 9:19 AM EDT Cardiology Consultation [facility] [place] [place] [facility] 11/01/2023 History of Present Illness: Katelin [...] was atypical in character for angina. She was not seem to note an irregular heart [...] tolerance Dyslipidemia for which he was on Manzanitaor Chart history of elevated blood pressure but [...] performed [facility] BREAST BIOPSY Left 1973 Benign COLONOSCOPY 10/2004 Normal, [facility] Dr Renee hyperplastic rectal polyp COLONOSCOPY, DIAGNOSTIC (RECTUM) 07/11/2014 lymphocytic colitis/COLONOSCOPY FLEXIBLE PROXIMAL DIAGNOSTIC performed by Kojo Ghosh DO at ENDOSCOPY [facility] COLONOSCOPY, DIAGNOSTIC (RECTUM) 01/14/2017 normal bx/COLONOSCOPY FLEXIBLE PROXIMAL DIAGNOSTIC performed by Heidy Munoz DO at ENDOSCOPY [facility] COLONOSCOPY, DIAGNOSTIC (RECTUM) 10/30/2019 normal / COLONOSCOPY FLEXIBLE PROXIMAL DIAGNOSTIC performed by Heidy Munoz DO at ENDOSCOPY [facility] DENTAL SURGERY PROCEDURE NEC UPPER PLATE EGD, FLEXIBLE, DIAGNOSTIC 09/05/2015 gastroesophageal reflux/ESOPHAGOGASTRODUODENOSCOPY (EGD), FLEXIBLE, TRANSORAL, DIAGNOSTIC performedby Kojo Ghosh DO at ENDOSCOPY [facility] INJECT DX/THER SUBSTANCE INTERLAMINAR CERVICAL/THORACIC W IMAGE GUIDE 10/13/2017 INJECTION SPINE LUMBAR CERVICAL OR THORACIC performed by Alli Hill, DO at OR [facility] INJECT DX/THER SUBSTANCE INTERLAMINAR CERVICAL/THORACIC W IMAGE GUIDE 02/23/2018 INJECTION SPINE LUMBAR CERVICAL OR THORACIC performed by Alli Hill, DO at OR [facility] INJECT DX/THER SUBSTANCE INTERLAMINAR CERVICAL/THORACIC W IMAGE GUIDE 10/25/2019 INJECTION SPINE LUMBAR CERVICAL OR THORACIC performed by Alli Dion Hill, DO at OR [facility] INJECT DX/THER SUBSTANCE INTERLAMINAR CERVICAL/THORACIC W IMAGE GUIDE 07/14/2020 INJECTION SPINE LUMBAR CERVICAL OR THORACIC performed by Alli Dion Hill, DO at OR [facility] INJECT DX/THER SUBSTANCE INTERLAMINAR CERVICAL/THORACIC W IMAGE GUIDE 05/25/2021 INJECTION SPINE LUMBAR CERVICAL OR THORACIC performed by [place] Dion Hill DO at OR [facility] KNEE ARTHROSCOPY/MENISCECTOMY Left 01/16/2018 ARTHROSCOPY KNEE MEDIAL OR LATERAL MENISCECTOMY performed by Irene Pike DO at OR [facility] MISCELLANEOUS ORDER ([facility] ONLY) 10/2017 Dr Hill cervical. MOHS SURGERY REFERRAL OP right nose REMOVE ADDED SPINE LAMINA, 1 SEG N/A 08/12/2021 LAMINECTOMY FACETECTOMY AND FORAMINOTOMY ADDITIONAL LEVELS performed by [facility]me [facility] MD [facility] REMOVE CATARACT, INSERT LENS PROSTH Right 03/01/2023 RIGHT EXTRACAPSULAR CATARACT REMOVAL WITH INTRAOCULAR LENS performed by Uche Sheffield MDat OR [facility] REMOVE CATARACT, INSERT LENS PROSTH Left 03/22/2023 LEFT EXTRACAPSULAR CATARACT REMOVAL WITH INTRAOCULAR LENS performed by Uche Sheffield MD at OR [facility] REMOVE NECK SPINE LAMINA, 1 SEG N/A 08/12/2021 LAMINECTOMY FACETECTOMY AND FORAMINOTOMY POSTERIOR CERVICAL performed by Jayme [facility] MD [facility] SPINE FUSION, EACH ADD'L VERTEBRA N/A 08/12/2021 ARTHRODESIS SPINE POSTERIOR EACH ADDITIONAL VERTEBRAE performed by Jayme Stanton MD at [facility] SPINE SEG FIX, POST, 3-6 SEG, INSERT N/A 08/12/2021 POSTERIOR SPINE SEGMENTAL INSTRUMENTATION 3 TO 6 PSF performed by Jayme Stanton MD [facility] THIGH/KNEE SUBQ TUMOR REMOVAL, UNDER 3 CM VASC ANKLE BRACHIAL INDEX 06/10/2006 normal Family History: Family History Problem Relation Name Age of Onset Heart Disorder Mother rheumatic fever,valve replaced 2008. 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 We [...] a trial of clonidine0.1 mg, 1/2 tablet (500 mcg) x 1 in cardiology clinic and [...] Check-out note: Keep 12/01/[address] Cameron . Non fasting labs tomorrow. [facility] [address] [facility] [place] [address] This chart was completed in part utilizing [employer] Speech Voice Recognition Software. Grammatical errors, random [...] documented in this encounter Nursing Notes * Shobha Deutsch LPN - 11/01/2023 8:49 AM EDT Examination [...] table with personnel. documented in this encounter Plan of Treatment Upcoming Encounters Date Type Department Care Team (Late st Contact Info) Description 11/18/2023 10:30 AM EDT Office Visit Orthopaedics Spine Surgery, [facility] [address] [place] [address] Jayme Stanton MD [address] [place] [address] 11/22/2023 2:00 PM EDT Scheduled Telephone Inter[facility], [facility] [address] [facility] [place] [address] [facility], Nurse Phone Call Interventional Pain [facility] [address] [place] [address] 12/01/2023 11:00 AM EDT Office Visit Cardiology, [facility] [address] [facility] [place] [address] Travon Cameron DO [address] [facility] [place] [address] 01/31/2024 10:00 AM EST Office Visit Allergy/Immunology [facility] [address] [place] [address] Donna Asencio PA-C [address] [facility] [place] [address] 02/22/2024 9:40 AM EST Office Visit [facility] [address] [facility] [place] [address] Unruly Jennings MD [address] [facility] [place] [address] Scheduled Orders Name Type Priority Associated Diagnoses Orde r Schedule EKG EKG Routine HTN, goal below 140/90 Ordered: 11/01/2023 COMPREHENSIVE METABOLIC PANEL Lab Routine HTN, goal [...] 05/11/2016, 09/2004, 08/25/2004 CKD PHOS USE SMARTSET 37561 08/25/202308/2022, 11/10/2021, 08/28/2021, Additional history exists Mammogram 09/03/2023 09/02/2022, 08/19, 07/08/2021, Additional history exists Influenza Vaccine (FLU shot) (#1) 2023 02/02/2023, 01/07/2022, 12/19/2020, Additional history exists GFR 02/18/2024 08/18/2023, 01/21, 08/24/2022, Additional history exists DTaP,Tdap,and Td Vaccines (2 - Td or Tdap) 03/25/2024 03/25/2014, 10/24/2002 Depression Screening 07/20/2024 07/21/2023 Albumin/Creatinine Ratio 08/17/2024 024, 08/24/2022, 11/10/2021, Additional history exists CKD HGB USE SMARTSET 06814 08/17/202408/17, 08/18/2023, 08/24/2022, Additional history exists HbA1c [...] this encounter Medical Devices Implanted Type Area Logistics/Shipper Device Identifier Shelf Expiration Date Model / Serial / Lot Bone Fiber Pliafx 2.5cc Dmnrlz - [id number] - [id number] Implanted:Qt y: 1 on 08/12/2021 by [facility] Graft N/A: Neck LIFENET 06/03/2024 BL-1800-02 / [id number] / [id number] 4.5x20 Screw Implanted:Qt y: 2 on 08/12/2021 by [facility] Screw N/A: Spine Lumbar [employer] 1020-45-420 / / 3.5x12 Reduction Screw Implanted:Qt y: 4 on 08/12/2021 by [facility]me [facility] Screw N/A: Spine Lumbar [employer] 1020-35-312 / / 3.5x12 Screw Implanted:Qt y: 4 on 08/12/2021 by [facility] Screw N/A: Spine Lumbar [employer] 1020-35-112 / / Set Screw - [id number] Implanted:Qt y: 10 on 08/12/2021 by Jayme [facility] Screw N/A: Spine Lumbar JNJ : DEPUY SPINE [id number] / / Dbx 5c 061495 - [id number] - [id number] Implanted:Qt y: 1 on 08/12/2021 by Jayme [facility] MD [facility] Tissue - Human N/A: Neck MUSCULOSKELETAL TRANSPLANT FND [id number] 03/09/2023 [id number] / [id number] / LOT NA 4.0x65 Maverick Implanted:Qt y: 2 on 08/12/2021 by Jayme [facility] MD [facility] N/A: Spine Lumbar [employer] 1020-64-065 / / Lens Li61ao 13.00mm 18.50 - [id number] - [id number] Implanted:Qt y: 1 on 03/01/2023 by Uche Sheffield MD at OR [facility] Right: Eye BAUSCH & LOMB 09/18/2027 [id number] / [id number] / [id number] Lens Li61ao 13.00mm 20.00 - [id number] - [id number] Implanted:Qt y: 1 on 03/22/2023 by Uche Sheffield MD at OR [facility] Left: Eye BAUSCH & LOMB 09/18/2027 [id number] / [id number] / [id number] documented as of this encounter Visit Diagnoses Diagnosis HTN, goal [...] and were consensually agreed upon. Care Teams Development Manager Relationship Specialty Start Date End Date Unruly Jennings MD [address] [place] [address] PCP - General Family Medicine 10/24/23 documented as of this encounter
--- OUTSIDE RECORDS SUMMARY | 2023-11-02 03:57 | External Medical Summary | Summary of Care ---
Author Name Unknown Organization [facility] Address [address] [facility] [place] [address] Phone [phone] Care Team Providers Care Engineer Of System Development Name Role Phone Unruly Jennings MD Primary Care Provider + Reason for Visit * Reason Comments NEW PATIENT Encounter Details Date Type Department Care Team (Late st Contact Info) Description 11/01/2023 9:00 AM EDT Office Visit Cardiology, [facility] [address] [place] [address] Travon Cameron, DO [address] [place] [address] HTN, goal below 140/90*; Frequent PVCs; Prolonged [...] GI 04/04 FOB neg. 08/01 mammo [facility] Pap 09/30 [facility] mRNA, LNP-s, No Pre serve, 2-Dose Series (PurpleTeal) 03/26/2021,07/04/2020,06/13/2020 Covid-19, Mrna, Lnp-s, Pf, B ivalent, [...] - 11/01/2023 9:19 AM EDT Cardiology Consultation [facility] [place] [place] [facility] 11/01/2023 History of Present Illness: Katelin [...] tolerance Dyslipidemia for which he was on [place] Chart history of elevated blood pressure but [...] performed by Jayme Stanton MD at OR [facility] BREAST BIOPSY Left 1972 Benign COLONOSCOPY 10/2004 Normal, [facility] Dr Renee hyperplastic rectal polyp COLONOSCOPY, DIAGNOSTIC (RECTUM) 07/11/2014 lymphocytic colitis/COLONOSCOPY FLEXIBLE PROXIMAL DIAGNOSTIC performed by Kojo Ghosh DO at ENDOSCOPY [facility] COLONOSCOPY, DIAGNOSTIC (RECTUM) 01/14/2017 normal bx/COLONOSCOPY FLEXIBLE PROXIMAL DIAGNOSTIC performed by Heidy Munoz DO at ENDOSCOPY [facility] COLONOSCOPY, DIAGNOSTIC (RECTUM) 10/30/2019 normal / COLONOSCOPY FLEXIBLE PROXIMAL DIAGNOSTIC performed by Heidy Munoz DO at ENDOSCOPY [facility] DENTAL SURGERY PROCEDURE NEC UPPER PLATE EGD, FLEXIBLE, DIAGNOSTIC 09/05/2015 gastroesophageal reflux/ESOPHAGOGASTRODUODENOSCOPY (EGD), FLEXIBLE, TRANSORAL, DIAGNOSTIC performedby Kojo Ghosh DO at ENDOSCOPY [facility] INJECT DX/THER SUBSTANCE INTERLAMINAR CERVICAL/THORACIC W IMAGE GUIDE 10/13/2017 INJECTION SPINE LUMBAR CERVICAL OR THORACIC performed by Alli Hill, DO at OR [facility] INJECT DX/THER SUBSTANCE INTERLAMINAR CERVICAL/THORACIC W IMAGE GUIDE 02/23/2018 INJECTION SPINE LUMBAR CERVICAL OR THORACIC performed by Alli Hill, DO at OR [facility] INJECT DX/THER SUBSTANCE INTERLAMINAR CERVICAL/THORACIC W IMAGE GUIDE 10/25/2019 INJECTION SPINE LUMBAR CERVICAL OR THORACIC performed by Alli Dion Hill, DO at OR [facility] INJECT DX/THER SUBSTANCE INTERLAMINAR CERVICAL/THORACIC W IMAGE GUIDE 07/14/2020 INJECTION SPINE LUMBAR CERVICAL OR THORACIC performed by Alli Dion Hill, DO at OR [facility] INJECT DX/THER SUBSTANCE INTERLAMINAR CERVICAL/THORACIC W IMAGE GUIDE 05/25/2021 INJECTION SPINE LUMBAR CERVICAL OR THORACIC performed by [place] Dion Hill DO at OR [facility] KNEE ARTHROSCOPY/MENISCECTOMY Left 01/16/2018 ARTHROSCOPY KNEE MEDIAL OR LATERAL MENISCECTOMY performed by Irene Pike DO at OR [facility] MISCELLANEOUS ORDER ([facility] ONLY) 10/2017 Dr Hill cervical. MOHS SURGERY REFERRAL OP right nose REMOVE ADDED SPINE LAMINA, 1 SEG N/A 08/12/2021 LAMINECTOMY FACETECTOMY AND FORAMINOTOMY ADDITIONAL LEVELS performed by Jayme Stanton MD at OR [facility] REMOVE CATARACT, INSERT LENS PROSTH Right 03/01/2023 RIGHT EXTRACAPSULAR CATARACT REMOVAL WITH INTRAOCULAR LENS performed by Uche Sheffield MDat OR [facility] REMOVE CATARACT, INSERT LENS PROSTH Left 03/22/2023 LEFT EXTRACAPSULAR CATARACT REMOVAL WITH INTRAOCULAR LENS performed by Uche Sheffield MD at OR [facility] REMOVE NECK SPINE LAMINA, 1 SEG N/A 08/12/2021 LAMINECTOMY FACETECTOMY AND FORAMINOTOMY POSTERIOR CERVICAL performed by Jayme Stanton MD at OR [facility] SPINE FUSION, EACH ADD'L VERTEBRA N/A 08/12/2021 ARTHRODESIS SPINE POSTERIOR EACH ADDITIONAL VERTEBRAE performed by Jayme Stanton MD at OR [facility] SPINE SEG FIX, POST, 3-6 SEG, INSERT N/A 08/12/2021 POSTERIOR SPINE SEGMENTAL INSTRUMENTATION 3 TO 6 PSF performed by Jayme Stanton MD at OR [facility] THIGH/KNEE SUBQ TUMOR REMOVAL, UNDER 3 [...] of children: 1 Occupational History 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 We discussed [...] Non fasting labs tomorrow. Travon Cameron DO Cardiology, [address] [address] This chart was completed in part utilizing [employer] Speech Voice Recognition Software. Grammatical errors, random [...] encounter Miscellaneous Notes * Addendum Note - Vale Escudero LPN - 11/01/2023 10:45 AM EDTAddended by: VALE ESCUDERO on: 11/01/2023 10:45 AM Modules accepted: Orders documented in this encounter Plan of Treatment Upcoming Encounters Date Type Department Care Team (Late st Contact Info) Description 11/18/2023 10:30 AM EDT Office Visit Orthopaedics Spine Surgery, [facility] [address] [facility] [place] [address] Jayme Stanton MD [address] [place] [address] 11/22/2023 2:00 PM EDT Scheduled Telephone Interventional Pain Center, [facility] [address] [facility] [place] [address] Yobani, Nurse Phone Call Interventional Pain [facility] [address] [facility] [place] [address] 12/01/2023 11:00 AM EDT Office Visit Cardiology, [facility] [address] [facility] [place] [address] Travon Cameron DO [address] [place] [address] 01/31/2024 10:00 AM EST Office Visit Allergy/Immunology [facility] [address] [facility] [address] [place] [address] Donna Asencio PA-C [address] [facility] [place] [address] 02/22/2024 9:40 AM EST Office Visit Family Practice [facility] [address] [place] [address] Unruly Jennings MD [address] [place] [address] Scheduled Orders Name Type Priority Associated Diagnoses [...] 05/11/2016, 09/2004, 08/25/2004 CKD PHOS USE SMARTSET 16214 08/25/2023 06/0 08/2022, 11/10/2021, 08/28/2021, Additional history exists Mammogram 09/03/2023 09/02/2022, 08/19, 07/08/2021, Additional history exists Influenza Vaccine (FLU shot) (#1) 2023 02/02/2023, 01/07/2022, 12/19/2020, Additional history exists GFR 02/18/2024 08/18/2023, 01/21, 08/24/2022, Additional history exists DTaP,Tdap,and Td Vaccines (2 - Td or Tdap) 03/25/2024 03/25/2014, 10/24/2002 Depression Screening 07/20/2024 07/21/2023 Albumin/Creatinine Ratio 08/17/202408/17/ 024, 08/24/2022, 11/10/2021, Additional history exists CKD HGB USE SMARTSET 85116 08/17/202408/17, 08/18/2023, 08/24/2022, Additional history exists HbA1c [...] this encounter Medical Devices Implanted Type Area Magnetic Resonance Imaging Director Device Identifier Shelf Expiration Date Model / Serial / Lot Bone Fiber Pliafx 2.5cc Dmnrlz - [id number] - [id number] Implanted:Qt y: 1 on 08/12/2021 by Jayme Stanton MD at OR [facility] Graft N/A: Neck LIFENET 06/03/2024 BL-1800-02 / [id number] 4.5x20 Screw Implanted:Qt y: 2 on 08/12/2021 by Jayme Stanton MD at OR [facility] Screw N/A: Spine Lumbar [employer] 1020-45-420 / / 3.5x12 Reduction Screw Implanted:Qt y: 4 on 08/12/2021 by Jayme Stanton MD at OR [facility] Screw N/A: Spine Lumbar [employer] 1020-35-312 / / 3.5x12 Screw Implanted:Qt y: 4 on 08/12/2021 by Jayme Stanton MD at OR [facility] Screw N/A: Spine Lumbar [employer] 102035-112 / / Set Screw - [id number] Implanted:Qt y: 10 on 08/12/2021 by Jayme Stanton MD at OR [facility] Screw N/A: Spine Lumbar JNJ : [employer] [id number] / / Dbx 5cc [id number] - [id number] - [id number] Implanted:Qt y: 1 on 08/12/2021 by Jayme Stanton MD at OR [facility] Tissue - Human N/A: Neck MUSCULOSKELETAL TRANSPLANT FND [id number] 03/09/2023 [id number] / [id number] / LOT NA 4.0x65 Maverick Implanted:Qt y: 2 on 08/12/2021 by Jayme Stanton MD at OR [facility] N/A: Spine Lumbar [employer] 1020-64-065 / / Lens Li61ao 13.00mm 18.50 - [id number] - [id number] Implanted:Qt y: 1 on 03/01/2023 by Uche Sheffield MD at OR [facility] Right: Eye BAUSCH & LOMB 09/18/2027 [id number] / [id number] / [id number] Lens Li61ao 13.00mm 20.00 - [id number] - [id number] Implanted:Qt y: 1 on 03/22/2023 by Uche Sheffield MD at OR [facility] Left: Eye BAUSCH & LOMB 09/18/2027 [id number] / [id number] / [id number] documented as of this encounter Visit Diagnoses [...] and were consensually agreed upon. Care Teams Engineer Of System Development Relationship Specialty Start Date End Date Unruly Jennings MD [address] [place] [address] PCP - General Family Medicine 10/24/23 documented as of this encounter
--- OUTSIDE RECORDS SUMMARY | 2023-11-02 03:57 | External Medical Summary | Summary of Care ---
Author Name Unknown Organization [facility] Address [address] [facility] [place] [address] Phone [phone] Care Team Providers Care Managed Care Liaison Name Role Phone Unruly Jennings MD Primary Care Provider + Reason for Visit * Reason Comments NEW PATIENT Encounter Details Date Type Department Care Team (Late st Contact Info) Description 11/01/2023 9:00 AM EDT Office Visit Cardiology, [facility] [address] [place] [address] Travon Cameron, DO [address] [facility] [place] [address] HTN, goal below 140/90*; Frequent PVCs; Prolonged [...] mRNA, LNP-s, No Pre serve, 2-Dose Series (MMRGlobal) 03/26/2021,07/04/2020,06/13/2020 Covid-19, Mrna, Lnp-s, Pf, B ivalent, [...] - 11/01/2023 9:19 AM EDT Cardiology Consultation [facility] [place] [place] [facility] 11/01/2023 History of Present Illness: Katelin [...] tolerance Dyslipidemia for which he was on [place] Chart history of elevated blood pressure but [...] performed by Jayme Stanton MD at OR [facility] BREAST BIOPSY Left 1972 Benign COLONOSCOPY 10/2004 Normal, [facility] Dr Renee hyperplastic rectal polyp COLONOSCOPY, DIAGNOSTIC (RECTUM) 07/11/2014 lymphocytic colitis/COLONOSCOPY FLEXIBLE PROXIMAL DIAGNOSTIC performed by Kojo Ghosh DO at ENDOSCOPY [facility] COLONOSCOPY, DIAGNOSTIC (RECTUM) 01/14/2017 normal bx/COLONOSCOPY FLEXIBLE PROXIMAL DIAGNOSTIC performed by Heidy Munoz DO at ENDOSCOPY [facility] COLONOSCOPY, DIAGNOSTIC (RECTUM) 10/30/2019 normal / COLONOSCOPY FLEXIBLE PROXIMAL DIAGNOSTIC performed by Heidy Munoz DO at ENDOSCOPY [facility] DENTAL SURGERY PROCEDURE NEC UPPER PLATE EGD, FLEXIBLE, DIAGNOSTIC 09/05/2015 gastroesophageal reflux/ESOPHAGOGASTRODUODENOSCOPY (EGD), FLEXIBLE, TRANSORAL, DIAGNOSTIC performedby Kojo Ghosh DO at ENDOSCOPY [facility] INJECT DX/THER SUBSTANCE INTERLAMINAR CERVICAL/THORACIC W IMAGE GUIDE 10/13/2017 INJECTION SPINE LUMBAR CERVICAL OR THORACIC performed by Alli Hill, DO at OR [facility] INJECT DX/THER SUBSTANCE INTERLAMINAR CERVICAL/THORACIC W IMAGE GUIDE 02/23/2018 INJECTION SPINE LUMBAR CERVICAL OR THORACIC performed by Alli Hill, DO at OR [facility] INJECT DX/THER SUBSTANCE INTERLAMINAR CERVICAL/THORACIC W IMAGE GUIDE 10/25/2019 INJECTION SPINE LUMBAR CERVICAL OR THORACIC performed by Alli Dion Hill, DO at OR [facility] INJECT DX/THER SUBSTANCE INTERLAMINAR CERVICAL/THORACIC W IMAGE GUIDE 07/14/2020 INJECTION SPINE LUMBAR CERVICAL OR THORACIC performed by Alli Dion Hill, DO at OR [facility] INJECT DX/THER SUBSTANCE INTERLAMINAR CERVICAL/THORACIC W IMAGE GUIDE 05/25/2021 INJECTION SPINE LUMBAR CERVICAL OR THORACIC performed by Leon Dion Hill DO at OR [facility] KNEE ARTHROSCOPY/MENISCECTOMY Left 01/16/2018 ARTHROSCOPY KNEE MEDIAL OR LATERAL MENISCECTOMY performed by Irene Pike DO at OR [facility] MISCELLANEOUS ORDER ([facility] ONLY) 10/2017 Dr Hill cervical. MOHS SURGERY REFERRAL OP right nose REMOVE ADDED SPINE LAMINA, 1 SEG N/A 08/12/2021 LAMINECTOMY FACETECTOMY AND FORAMINOTOMY ADDITIONAL LEVELS performed by Jayme Stanton MD at OR [facility] REMOVE CATARACT, INSERT LENS PROSTH Right 03/01/2023 RIGHT EXTRACAPSULAR CATARACT REMOVAL WITH INTRAOCULAR LENS performed by Uche Sheffield MDat OR [facility] REMOVE CATARACT, INSERT LENS PROSTH Left 03/22/2023 LEFT EXTRACAPSULAR CATARACT REMOVAL WITH INTRAOCULAR LENS performed by Uche Sheffield MD at OR [facility] REMOVE NECK SPINE LAMINA, 1 SEG N/A 08/12/2021 LAMINECTOMY FACETECTOMY AND FORAMINOTOMY POSTERIOR CERVICAL performed by Jayme Stanton MD at OR [facility] SPINE FUSION, EACH ADD'L VERTEBRA N/A 08/12/2021 ARTHRODESIS SPINE POSTERIOR EACH ADDITIONAL VERTEBRAE performed by Jayme Stanton MD at OR [facility] SPINE SEG FIX, POST, 3-6 SEG, INSERT N/A 08/12/2021 POSTERIOR SPINE SEGMENTAL INSTRUMENTATION 3 TO 6 PSF performed by Jayme Stanton MD at OR [facility] THIGH/KNEE SUBQ TUMOR REMOVAL, UNDER 3 CM VASC ANKLE BRACHIAL INDEX 06/10/2006 normal Family History: Family History Problem Relation Name Age of Onset Heart Disorder Mother rheumatic fever,valve replaced 2008. 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 We [...] fasting labs tomorrow. Travon Cameron DO Cardiology, [address] [address] This chart was completed in part utilizing [employer] Speech Voice Recognition Software. Grammatical errors, random [...] EDT Office Visit Orthopaedics Spine Surgery, [facility] [address] [facility] [place] [address] Jayme Stanton MD [address] [place] [address] 11/22/2023 2:00 PM EDT Scheduled Telephone Interventional Pain Center, [facility] [address] [facility] [place] [address] Yobani, Nurse Phone Call Interventional Pain [facility] [address] [facility] [place] [address] 12/01/2023 11:00 AM EDT Office Visit Cardiology, [facility] [place] [address] Travon Cameron DO [address] [place] [address] 01/31/2024 10:00 AM EST Office Visit Allergy/Immunology [facility] [address] [facility] [address] [place] [address] Donna Asencio PA-C [address] [facility] [place] [address] 02/22/2024 9:40 AM EST Office Visit Family Practice [facility] [address] [place] [address] Unruly Jennings MD [address] [place] [address] Scheduled Orders Name Type Priority Associated Diagnoses [...] 05/11/2016, 09/2004, 08/25/2004 CKD PHOS USE SMARTSET 07135 08/25/2023 06/0 08/2022, 11/10/2021, 08/28/2021, Additional history [...] Additional history exists CKD HGB USE SMARTSET 14003 08/17/202408/17, 08/18/2023, 08/24/2022, Additional history exists HbA1c [...] this encounter Medical Devices Implanted Type Area Storage Management Architect Device Identifier Shelf Expiration Date Model / Serial / Lot Bone Fiber Pliafx 2.5cc Dmnrlz - [id number] - [id number] Implanted:Qt y: 1 on 08/12/2021 by Jayme Stanton MD at OR [facility] Graft N/A: Neck LIFENET 06/03/2024 BL-1800-02 / [id number] 4.5x20 Screw Implanted:Qt y: 2 on 08/12/2021 by Jayme Stanton MD at OR [facility] Screw N/A: Spine Lumbar [employer] 1020-45-420 / / 3.5x12 Reduction Screw Implanted:Qt y: 4 on 08/12/2021 by Jayme Stanton MD at OR [facility] Screw N/A: Spine Lumbar [employer] 1020-35-312 / / 3.5x12 Screw Implanted:Qt y: 4 on 08/12/2021 by Jayme Stanton MD at OR [facility] Screw N/A: Spine Lumbar [employer] 102035-112 / / Set Screw - [id number] Implanted:Qt y: 10 on 08/12/2021 by Jayme Stanton MD at OR [facility] Screw N/A: Spine Lumbar JNJ : [employer] [id number] / / Dbx 5cc [id number] - [id number] - [id number] Implanted:Qt y: 1 on 08/12/2021 by Jayme Stanton MD at OR [facility] Tissue - Human N/A: Neck MUSCULOSKELETAL TRANSPLANT FND [id number] 03/09/2023 [id number] / [id number] / LOT NA 4.0x65 Maverick Implanted:Qt y: 2 on 08/12/2021 by Jayme Stanton MD at OR [facility] N/A: Spine Lumbar [employer] 1020-64-065 / / Lens Li61ao 13.00mm 18.50 - [id number] - [id number] Implanted:Qt y: 1 on 03/01/2023 by Uche Sheffield MD at OR [facility] Right: Eye [employer]USCH [employer] LOMB 09/18/2027 [id number] / [id number] / [id number] Lens Li61ao 13.00mm 20.00 - [id number] - [id number] Implanted:Qt y: 1 on 03/22/2023 by Uche Sheffield MD at OR [facility] Left: Eye BAUSCH & LOMB 09/18/2027 [id number] / [id number] / [id number] documented as of this encounter Visit Diagnoses [...] and were consensually agreed upon. Care Teams Managed Care Liaison Relationship Specialty Start Date End Date Unruly Jennings MD [address] [place] [address] PCP - General Family Medicine 10/24/23 documented as of this encounter
--- OUTSIDE RECORDS SUMMARY | 2023-11-02 03:57 | External Medical Summary | Summary of Care ---
Author Name Unknown Organization [facility] Address [address] [facility] [place] [address] Phone [phone] Care Team Providers Care Liner Inserter Name Role Phone Unruly Jennings MD Primary Care Provider + Reason for Visit * Reason Comments NEW PATIENT Encounter Details Date Type Department Care Team (Late st Contact Info) Description 11/01/2023 9:00 AM EDT Office Visit Cardiology, [facility] [address] [place] [address] Travon Cameron, DO [address] [facility] [place] [address] HTN, goal below 140/90*; Frequent PVCs; Prolonged [...] GI 04/04 FOB neg. 08/01 mammo L [facility] Pap 09/30 [facility] WN 2006 stress echo [facility] WN ADVANCE DIRECTIVE INFORMATION 07/29/2004 [...] mRNA, LNP-s, No Pre serve, 2-Dose Series ([employer]) 03/26/2021,07/04/2020,06/13/2020 Covid-19, Mrna, Lnp-s, Pf, B ivalent, [...] - 11/01/2023 9:19 AM EDT Cardiology Consultation [facility] [place] [place] [facility] 11/01/2023 History of Present Illness: Katelin [...] tolerance Dyslipidemia for which he was on [place] Chart history of elevated blood pressure but [...] performed by Jayme Stanton MD at OR [facility] BREAST BIOPSY Left 1973 Benign COLONOSCOPY 10/2004 Normal, [facility] Dr Renee hyperplastic rectal polyp COLONOSCOPY, DIAGNOSTIC (RECTUM) 07/11/2014 lymphocytic colitis/COLONOSCOPY FLEXIBLE PROXIMAL DIAGNOSTIC performed by Kojo Ghosh DO at ENDOSCOPY [facility] COLONOSCOPY, DIAGNOSTIC (RECTUM) 01/14/2017 normal bx/COLONOSCOPY FLEXIBLE PROXIMAL DIAGNOSTIC performed by Heidy Munoz DO at ENDOSCOPY [facility] COLONOSCOPY, DIAGNOSTIC (RECTUM) 10/30/2019 normal / COLONOSCOPY FLEXIBLE PROXIMAL DIAGNOSTIC performed by Heidy Munoz DO at ENDOSCOPY [facility] DENTAL SURGERY PROCEDURE NEC UPPER PLATE EGD, FLEXIBLE, DIAGNOSTIC 09/05/2015 gastroesophageal reflux/ESOPHAGOGASTRODUODENOSCOPY (EGD), FLEXIBLE, TRANSORAL, DIAGNOSTIC performedby Kojo Ghosh DO at ENDOSCOPY [facility] INJECT DX/THER SUBSTANCE INTERLAMINAR CERVICAL/THORACIC W IMAGE GUIDE 10/13/2017 INJECTION SPINE LUMBAR CERVICAL OR THORACIC performed by Alli Hill, DO at OR [facility] INJECT DX/THER SUBSTANCE INTERLAMINAR CERVICAL/THORACIC W IMAGE GUIDE 02/23/2018 INJECTION SPINE LUMBAR CERVICAL OR THORACIC performed by Alli Hill, DO at OR [facility] INJECT DX/THER SUBSTANCE INTERLAMINAR CERVICAL/THORACIC W IMAGE GUIDE 10/25/2019 INJECTION SPINE LUMBAR CERVICAL OR THORACIC performed by Alli Dion Hill, DO at OR [facility] INJECT DX/THER SUBSTANCE INTERLAMINAR CERVICAL/THORACIC W IMAGE GUIDE 07/14/2020 INJECTION SPINE LUMBAR CERVICAL OR THORACIC performed by Alli Dion Hill, DO at OR [facility] INJECT DX/THER SUBSTANCE INTERLAMINAR CERVICAL/THORACIC W IMAGE GUIDE 05/25/2021 INJECTION SPINE LUMBAR CERVICAL OR THORACIC performed by Leland Dion Hill DO at OR [facility] KNEE ARTHROSCOPY/MENISCECTOMY Left 01/16/2018 ARTHROSCOPY KNEE MEDIAL OR LATERAL MENISCECTOMY performed by Irene Pike DO at OR [facility] MISCELLANEOUS ORDER ([facility] ONLY) 10/2017 Dr Hill cervical. MOHS SURGERY REFERRAL OP right nose REMOVE ADDED SPINE LAMINA, 1 SEG N/A 08/12/2021 LAMINECTOMY FACETECTOMY AND FORAMINOTOMY ADDITIONAL LEVELS performed by Jayme Stanton MD at OR [facility] REMOVE CATARACT, INSERT LENS PROSTH Right 03/01/2023 RIGHT EXTRACAPSULAR CATARACT REMOVAL WITH INTRAOCULAR LENS performed by Uche Sheffield MDat OR [facility] REMOVE CATARACT, INSERT LENS PROSTH Left 03/22/2023 LEFT EXTRACAPSULAR CATARACT REMOVAL WITH INTRAOCULAR LENS performed by Uche Sheffield MD at OR [facility] REMOVE NECK SPINE LAMINA, 1 SEG N/A 08/12/2021 LAMINECTOMY FACETECTOMY AND FORAMINOTOMY POSTERIOR CERVICAL performed by Jayme Stanton MD at OR [facility] SPINE FUSION, EACH ADD'L VERTEBRA N/A 08/12/2021 ARTHRODESIS SPINE POSTERIOR EACH ADDITIONAL VERTEBRAE performed by Jayme Stanton MD at OR [facility] SPINE SEG FIX, POST, 3-6 SEG, INSERT N/A 08/12/2021 POSTERIOR SPINE SEGMENTAL INSTRUMENTATION 3 TO 6 PSF performed by Jayme Stanton MD at OR [facility] THIGH/KNEE SUBQ TUMOR REMOVAL, UNDER 3 CM VASC ANKLE BRACHIAL INDEX 06/10/2006 normal Family History: Family History Problem Relation Name Age of Onset Heart Disorder Mother rheumatic fever,valve replaced 2008. 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 We [...] fasting labs tomorrow. Travon Cameron DO Cardiology, [address] [address] This chart was completed in part utilizing [employer] Speech Voice Recognition Software. Grammatical errors, random [...] [facility] [address] [facility] [place] [address] Jayme Stanton MD [address] [place] [address] 11/22/2023 2:00 PM EDT Scheduled Telephone Interventional Pain Center, [facility] [address] [facility] [place] [address] Y[place], Nurse Phone Call Interventional Pain [place] [address] [facility] [place] [address] 12/01/2023 11:00 AM EDT Office Visit Cardiology, [facility] [place] [address] Travon Cameron DO [address] [place] [address] 01/31/2024 10:00 AM EST Office Visit Allergy/Immunology [facility] [address] [facility] [place] [address] Donna Asencio PA-C [address] [facility] [place] [address] 02/22/2024 9:40 AM EST Office Visit Family Practice [facility] [address] [place] [address] Unruly Jennings MD [address] [place] [address] Scheduled Orders Name Type Priority Associated Diagnoses [...] 05/11/2016, 09/2004, 08/25/2004 CKD PHOS USE SMARTSET 50691 08/25/2023 06/0 08/2022, 11/10/2021, 08/28/2021, Additional history [...] Additional history exists CKD HGB USE SMARTSET 98161 08/17/202408/17, 08/18/2023, 08/24/2022, Additional history exists HbA1c [...] this encounter Medical Devices Implanted Type Area Relaster Device Identifier Shelf Expiration Date Model / Serial / Lot Bone Fiber Pliafx 2.5cc Dmnrlz - [id number] - [id number] Implanted:Qt y: 1 on 08/12/2021 by Jayme Stanton MD at OR [facility] Graft N/A: Neck LIFENET 06/03/2024 BL-1800-02 / [id number] 4.5x20 Screw Implanted:Qt y: 2 on 08/12/2021 by Jayme Stanton MD at OR [facility] Screw N/A: Spine Lumbar [employer] 1020-45-420 / / 3.5x12 Reduction Screw Implanted:Qt y: 4 on 08/12/2021 by Jayme Stanton MD at OR [facility] Screw N/A: Spine Lumbar [employer] 1020-35-312 / / 3.5x12 Screw Implanted:Qt y: 4 on 08/12/2021 by Jayme Stanton MD at OR [facility] Screw N/A: Spine Lumbar [employer] 102035-112 / / Set Screw - [id number] Implanted:Qt y: 10 on 08/12/2021 by Jayme Stanton MD at OR [facility] Screw N/A: Spine Lumbar JNJ : [employer] SPINE [id number] / / Dbx 5cc [id number] - [id number] - [id number] Implanted:Qt y: 1 on 08/12/2021 by Jayme Stanton MD at OR [facility] Tissue - Human N/A: Neck [employer]OSKELETAL TRANSPLANT FND [id number] 03/09/2023 [id number] / [id number] / LOT NA 4.0x65 Maverick Implanted:Qt y: 2 on 08/12/2021 by Jayme Stanton MD at OR [facility] N/A: Spine Lumbar [employer] 1020-64-065 / / Lens Li61ao 13.00mm 18.50 - [id number] - [id number] Implanted:Qt y: 1 on 03/01/2023 by Uche Sheffield MD at OR [facility] Right: Eye BAUSCH & LOMB 09/18/2027 [id number] / [id number] / [id number] Lens Li61ao 13.00mm 20.00 - [id number] - [id number] Implanted:Qt y: 1 on 03/22/2023 by Uche Sheffield MD at OR [facility] Left: Eye BAUSCH & LOMB 09/18/2027 [id number] / [id number] / [id number] documented as of this encounter Visit Diagnoses [...] and were consensually agreed upon. Care Teams Liner Inserter Relationship Specialty Start Date End Date Unruly Jennings MD [address] [place] [address] PCP - General Family Medicine 10/24/23 documented as of this encounter
--- OUTSIDE RECORDS SUMMARY | 2023-11-02 03:57 | External Medical Summary | Summary of Care ---
Author Name Unknown Organization [facility] Address [address] [place] [facility] [place] [address] Phone [phone] Care Team Providers Care Philosophy Lecturer Name Role Phone Unruly Jennings MD Primary Care Provider + Reason for Visit * Reason Comments NEW PATIENT Encounter Details Date Type Department Care Team (Late st Contact Info) Description 11/01/2023 9:00 AM EDT Office Visit Cardiology, [facility] [address] [place] [address] Travon Cameron, DO [address] [facility] [place] [address] HTN, goal below 140/90*; Frequent PVCs; Prolonged [...] 50 mcg OR Daily(AM) 11/01/2023 11/02/2023 Active documented as of this encounter (statuses [...] GI 04/04 FOB neg. 08/01 mammo L [facility] Pap 09/30 [facility] WN 2006 stress echo [facility] WN ADVANCE DIRECTIVE INFORMATION 07/29/2004 [...] mRNA, LNP-s, No Pre serve, 2-Dose Series ([employer]) 03/26/2021,07/04/2020,06/13/2020 Covid-19, Mrna, Lnp-s, Pf, B ivalent, [...] - 11/01/2023 9:19 AM EDT Cardiology Consultation [facility] [place] [facility] 11/01/2023 History of Present Illness: Katelin [...] tolerance Dyslipidemia for which he was on [place] Chart history of elevated blood pressure but [...] performed by Jayme Stanton MD at OR [facility] BREAST BIOPSY Left 1972 Benign COLONOSCOPY 10/2004 Normal, [facility] Dr Renee hyperplastic rectal polyp COLONOSCOPY, DIAGNOSTIC (RECTUM) 07/11/2014 lymphocytic colitis/COLONOSCOPY FLEXIBLE PROXIMAL DIAGNOSTIC performed by Kojo Ghosh DO at ENDOSCOPY [facility] COLONOSCOPY, DIAGNOSTIC (RECTUM) 01/14/2017 normal bx/COLONOSCOPY FLEXIBLE PROXIMAL DIAGNOSTIC performed by Heidy Munoz DO at ENDOSCOPY [facility] COLONOSCOPY, DIAGNOSTIC (RECTUM) 10/30/2019 normal / COLONOSCOPY FLEXIBLE PROXIMAL DIAGNOSTIC performed by Heidy Munoz DO at ENDOSCOPY [facility] DENTAL SURGERY PROCEDURE NEC UPPER PLATE EGD, FLEXIBLE, DIAGNOSTIC 09/05/2015 gastroesophageal reflux/ESOPHAGOGASTRODUODENOSCOPY (EGD), FLEXIBLE, TRANSORAL, DIAGNOSTIC performedby Kojo Ghosh DO at ENDOSCOPY [facility] INJECT DX/THER SUBSTANCE INTERLAMINAR CERVICAL/THORACIC W IMAGE GUIDE 10/13/2017 INJECTION SPINE LUMBAR CERVICAL OR THORACIC performed by Alli Hill, DO at OR [facility] INJECT DX/THER SUBSTANCE INTERLAMINAR CERVICAL/THORACIC W IMAGE GUIDE 02/23/2018 INJECTION SPINE LUMBAR CERVICAL OR THORACIC performed by Alli Hill, DO at OR [facility] INJECT DX/THER SUBSTANCE INTERLAMINAR CERVICAL/THORACIC W IMAGE GUIDE 10/25/2019 INJECTION SPINE LUMBAR CERVICAL OR THORACIC performed by Alli Dion Hill, DO at OR [facility] INJECT DX/THER SUBSTANCE INTERLAMINAR CERVICAL/THORACIC W IMAGE GUIDE 07/14/2020 INJECTION SPINE LUMBAR CERVICAL OR THORACIC performed by Alli Dion Hill, DO at OR [facility] INJECT DX/THER SUBSTANCE INTERLAMINAR CERVICAL/THORACIC W IMAGE GUIDE 05/25/2021 INJECTION SPINE LUMBAR CERVICAL OR THORACIC performed by [place] Dion Hill DO at OR [facility] KNEE ARTHROSCOPY/MENISCECTOMY Left 01/16/2018 ARTHROSCOPY KNEE MEDIAL OR LATERAL MENISCECTOMY performed by Irene Pike DO at OR [facility] MISCELLANEOUS ORDER ([facility] ONLY) 10/2017 Dr Hill cervical. MOHS SURGERY REFERRAL OP right nose REMOVE ADDED SPINE LAMINA, 1 SEG N/A 08/12/2021 LAMINECTOMY FACETECTOMY AND FORAMINOTOMY ADDITIONAL LEVELS performed by Jayme Stanton MD at OR [facility] REMOVE CATARACT, INSERT LENS PROSTH Right 03/01/2023 RIGHT EXTRACAPSULAR CATARACT REMOVAL WITH INTRAOCULAR LENS performed by Uche Sheffield MDat OR [facility] REMOVE CATARACT, INSERT LENS PROSTH Left 03/22/2023 LEFT EXTRACAPSULAR CATARACT REMOVAL WITH INTRAOCULAR LENS performed by Uche Sheffield MD at OR [facility] REMOVE NECK SPINE LAMINA, 1 SEG N/A 08/12/2021 LAMINECTOMY FACETECTOMY AND FORAMINOTOMY POSTERIOR CERVICAL performed by Jayme Stanton MD at OR [facility] SPINE FUSION, EACH ADD'L VERTEBRA N/A 08/12/2021 ARTHRODESIS SPINE POSTERIOR EACH ADDITIONAL VERTEBRAE performed by Jayme Stanton MD at OR [facility] SPINE SEG FIX, POST, 3-6 SEG, INSERT N/A 08/12/2021 POSTERIOR SPINE SEGMENTAL INSTRUMENTATION 3 TO 6 PSF performed by Jayme Stanton MD at OR [facility] THIGH/KNEE SUBQ TUMOR REMOVAL, UNDER 3 [...] of children: 1 Occupational History Occupation: retired @[employer] Occupation: former-[employer] Tobacco Use Smoking status: Former Current packs/day: [...] and 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 We [...] Non fasting labs tomorrow. [facility] [address] [facility] [place] [address] This chart was completed in part utilizing [employer] Speech Voice Recognition Software. Grammatical errors, random [...] AM EDT Office Visit Orthopaedics Spine Surgery, [facility] [address] [place] [address] Jayme Stanton MD [address] [place] [address] 11/22/2023 2:00 PM EDT Scheduled Telephone Interventional Pain Center, [facility] 132 [facility] [place] [address] [facility], Nurse Phone Call Interventional Pain [facility] [address] [place] [address] 12/01/2023 11:00 AM EDT Office Visit Cardiology, [facility] 132 [facility] [place] [address] Travon Cameron DO 132 [facility] [place] [address] 01/31/2024 10:00 AM EST Office Visit Allergy/Immunology [facility] [address] [place] [address] Donna Asencio PA-C 200 [facility] [place] [address] 02/22/2024 9:40 AM EST Office Visit Family Practice [facility] 132 [facility] [place] [address] Unruly Jennings MD [address] [facility] [place] [address] Scheduled Orders Name Type Priority Associated Diagnoses [...] 05/11/2016, 09/2004, 08/25/2004 CKD PHOS USE SMARTSET 66545 08/25/202308/2022, 11/10/2021, 08/28/2021, Additional history exists Mammogram 09/03/2023 09/02/2022, 08/19, 07/08/2021, Additional history exists Influenza Vaccine (FLU shot) (#1) 2023 02/02/2023, 01/07/2022, 12/19/2020, Additional history exists GFR 02/18/2024 08/18/2023, 01/21, 08/24/2022, Additional history exists DTaP,Tdap,and Td Vaccines (2 - Td or Tdap) 03/25/2024 03/25/2014, 10/24/2002 Depression Screening 07/20/2024 07/21/2023 Albumin/Creatinine Ratio 08/17/2024 024, 08/24/2022, 11/10/2021, Additional history exists CKD HGB USE SMARTSET 22883 08/17/202408/17, 08/18/2023, 08/24/2022, Additional history exists HbA1c [...] this encounter Medical Devices Implanted Type Area Skating Carhop Device Identifier Shelf Expiration Date Model / Serial / Lot Bone Fiber Pliafx 2.5cc Dmnrlz - [id number] - [id number] Implanted:Qt y: 1 on 08/12/2021 by Jayme Stanton MD at OR [facility] Graft N/A: Neck LIFENET 06/03/2024 BL-1800-02 / [id number] / [id number] 4.5x20 Screw Implanted:Qt y: 2 on 08/12/2021 by Jayme Stanton MD at OR [facility] Screw N/A: Spine Lumbar [employer] 1020-45-420 / / 3.5x12 Reduction Screw Implanted:Qt y: 4 on 08/12/2021 by Jayme Stanton MD at OR [facility] Screw N/A: Spine Lumbar [employer] 1020-35-312 / / 3.5x12 Screw Implanted:Qt y: 4 on 08/12/2021 by Jayme Stanton MD at OR [facility] Screw N/A: Spine Lumbar [employer] 1020-35-112 / / Set Screw - [id number] Implanted:Qt y: 10 on 08/12/2021 by Jayme Stanton MD at OR [facility] Screw N/A: Spine Lumbar JNJ : [employer]INE [id number] / / Dbx 5c [id number] - [id number] - [id number] Implanted:Qt y: 1 on 08/12/2021 by Jayme Stanton MD at OR [facility] Tissue - Human N/A: Neck MUSCULOSKELETAL TRANSPLANT FND [id number] 03/09/2023 [id number] / [id number] / LOT NA 4.0x65 Maverick Implanted:Qt y: 2 on 08/12/2021 by Jayme Stanton MD at OR [facility] N/A: Spine Lumbar [employer] 1020-64-065 / / Lens Li61ao 13.00mm 18.50 - [id number] - [id number] Implanted:Qt y: 1 on 03/01/2023 by Uche Sheffield MD at OR [facility] Right: Eye BAUSCH & LOMB 09/18/2027 [id number] / [id number] / [id number] Lens Li61ao 13.00mm 20.00 - [id number] - [id number] Implanted:Qt y: 1 on 03/22/2023 by Uche Sheffield MD at OR [facility] Left: Eye BAUSCH & LOMB 09/18/2027 [id number] / [id number] / [id number] documented as of this encounter Visit Diagnoses Diagnosis HTN, goal below 140/90- Primary Unspecified essential hypertension Frequent PVCs Other premature beats Prolonged QT interval Nonspecific abnormal electrocardiogram (ECG) (EKG) documented in this encounter Advance Directives * [...] were consensually agreed upon. Care Teams Philosophy Lecturer Relationship Specialty Start Date End Date Unruly Jennings MD [address] [place] [address] PCP - General Family Medicine 10/24/23 documented as of this encounter
--- OUTSIDE RECORDS SUMMARY | 2023-11-02 03:57 | External Medical Summary | Summary of Care ---
Author Name Unknown Organization [facility] Address [address] [facility] [place] [place] [address] Phone [phone] Care Team Providers Care Change Advisor Name Role Phone Unruly Jennings MD Primary Care Provider + Reason for Visit * Reason Comments NEW PATIENT Encounter Details Date Type Department Care Team (Late st Contact Info) Description 11/01/2023 9:00 AM EDT Office Visit Cardiology, [facility] [address] [place] [address] Nicolas Brown, DO [address] [facility] [place] [address] HTN, goal below 140/90*; Frequent PVCs; Prolonged [...] 04/04 FOB neg. 08/01 mammo WNL [facility] Pap 09/30 [facility] WNL 2006 stress echo [facility] WNL ADVANCE DIRECTIVE INFORMATION 07/29/2004 Overview: No, [...] mRNA, LNP-s, No Pre serve, 2-Dose Series (Totus Power) 03/26/2021,07/04/2020,06/13/2020 Covid-19, Mrna, Lnp-s, Pf, B ivalent, 30 Mcg, IM, 12 yrs and above (Totus Power) 01/09/2022 Pneumococcal Conjugate Vacc, 13 Valent (Prevnar) [...] EDT Patient reassessed, she has received clonidine 500 micrograms orally x1, with the second dose [...] 9:19 AM EDT Cardiology Consultation [facility] 11/01/2023 History of Present Illness: Katelin [...] conclusion of the study, the patient's blood pressurewas measured and it was found to be [...] MORSELIZED performed by Jayme Stanton MD at [facility] BREAST BIOPSY Left 1974 Benign COLONOSCOPY 10/2004 Normal, [facility] Dr Renee hyperplastic rectal polyp COLONOSCOPY, DIAGNOSTIC (RECTUM) 07/11/2014 lymphocytic colitis/COLONOSCOPY FLEXIBLE PROXIMAL DIAGNOSTIC performed by Kojo Ghosh DO at ENDOSCOPY [facility] COLONOSCOPY, DIAGNOSTIC (RECTUM) 01/14/2017 normal bx/COLONOSCOPY FLEXIBLE PROXIMAL DIAGNOSTIC performed by Heidy Munoz DO at ENDOSCOPY [facility] COLONOSCOPY, DIAGNOSTIC (RECTUM) 10/30/2019 normal / COLONOSCOPY FLEXIBLE PROXIMAL DIAGNOSTIC performed by Heidy Munoz DO at ENDOSCOPY [facility] DENTAL SURGERY PROCEDURE NEC UPPER PLATE EGD, FLEXIBLE, DIAGNOSTIC 09/05/2015 gastroesophageal reflux/ESOPHAGOGASTRODUODENOSCOPY (EGD), FLEXIBLE, TRANSORAL, DIAGNOSTIC performedby Kojo Ghosh DO at ENDOSCOPY [facility] INJECT DX/THER SUBSTANCE INTERLAMINAR CERVICAL/THORACIC W [...] LENS performed by Uche Sheffield MDat OR [facility] REMOVE CATARACT, INSERT LENS PROSTH Left 03/22/2023 LEFT EXTRACAPSULAR CATARACT REMOVAL WITH INTRAOCULAR LENS performed by Uche Sheffield MD at OR [facility] REMOVE NECK SPINE LAMINA, 1 SEG [...] fever,valve replaced 2008. 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 We [...] Non fasting labs tomorrow. Nicolas Brown DO Cardiology[address] [address] This chart was completed in part utilizing [employer] Speech Voice Recognition Software. Grammatical errors, random [...] [facility] [address] [place] [address] Jayme Stanton MD [facility] [address] [place] [address] 11/22/2023 2:00 PM EDT Scheduled Telephone Interventional Pain Center, [facility] [address] [place] [address] Yobani Nurse Phone Call Interventional Pain [facility] [address] [place] [address] 12/01/2023 11:00 AM EDT Office Visit Cardiology, [facility] 132 [facility] [place] [address] Nicolas Brown DO [address] [place] [address] 01/31/2024 10:00 AM EST Office Visit Allergy/Immunology [facility] [address] [place] [address] Donna Asencio PA-C [address] [place] [address] 02/22/2024 9:40 AM EST Office Visit Family Practice [facility] [address] [place] [address] Unruly Jennings MD [address] [facility] [place] [address] Scheduled Orders Name Type Priority Associated Diagnoses [...] Additional history exists DXA Scan 05/11/2023 05/11/2016, 0609/2004, 08/25/2004 CKD PHOS USE SMARTSET 00765 08/25/2023 06/0 08/2022, 11/10/2021, 08/28/2021, Additional history [...] Additional history exists CKD HGB USE SMARTSET 93800 08/17/202408/17, 08/18/2023, 08/24/2022, Additional history exists HbA1c 08/17/2024 08/18/2023, 06/08/2022, 11/10/2021, Additional history exists Colonoscopy 10/29/2024 10/30/2019, [...] this encounter Medical Devices Implanted Type Area Shredder Operator Device Identifier Shelf Expiration Date Model / Serial / Lot Bone Fiber Pliafx 2.5cc Dmnrlz - [id number] - [id number] Implanted:Qt y: 1 on 08/12/2021 by Jayme Stanton MD at OR [facility] Graft N/A: Neck LIFENET 06/03/2024 BL-1800-02 / [id number] / [id number] 4.5x20 Screw Implanted:Qt y: 2 on [...] INC 1020-35-112 / / Set Screw - [id number] Implanted:Qt y: 10 on 08/12/2021 by Jayme Stanton MD at OR [facility] Screw N/A: Spine Lumbar JNJ : DEPUY SPINE [id number] / / Dbx 5cc [id number] - [id number] - [id number] Implanted:Qt y: 1 on 08/12/2021 by Jayme Stanton MD at OR [facility] Tissue - Human N/A: Neck MUSCULOSKELETAL TRANSPLANT FND [id number] 03/09/2023 [id number] / [id number] / LOT NA 4.0x65 Maverick Implanted:Qt y: 2 on 08/12/2021 by Jayme Stanton MD at OR [facility] N/A: Spine Lumbar DEPU[employer] SPINE INC 1020-64-065 / / Lens Li61ao 13.00mm 18.50 - [id number] - [id number] Implanted:Qt y: 1 on 03/01/2023 by Uche Sheffield MD at OR [facility] Right: Eye BAUSCH & LOMB 09/18/2027 [id number] / [id number] / [id number] Lens Li61ao 13.00mm 20.00 - [id number] - [id number] Implanted:Qt y: 1 on 03/22/2023 by Uche Sheffield MD at OR [facility] Left: Eye BAUSCH & LOMB 09/18/2027 [id number] / [id number] / [id number] documented as of this encounter Visit Diagnoses [...] and were consensually agreed upon. Care Teams Change Advisor Relationship Specialty Start Date End Date Unruly Jennings MD [address] [place] [address] PCP - General Family Medicine 10/24/23 documented as of this encounter
--- OUTSIDE RECORDS SUMMARY | 2023-11-02 03:57 | External Medical Summary | Summary of Care ---
Author Name Unknown Organization [facility] Address [address] [place] [facility] [place] [address] Phone [phone] Care Team Providers Care Hot Box Spotter Name Role Phone Unruly Jennings MD Primary Care Provider + Reason for Visit * Reason Comments NEW PATIENT Encounter Details Date Type Department Care Team (Late st Contact Info) Description 11/01/2023 9:00 AM EDT Office Visit Cardiology, [facility] [address] [place] [address] Travon Cameron, DO [address] [facility] [place] [address] HTN, goal below 140/90*; Frequent PVCs; Prolonged [...] GI 04/04 FOB neg. 08/01 mammo L [facility] Pap 09/30 [facility] WN 2006 stress echo [facility] WN ADVANCE DIRECTIVE INFORMATION 07/29/2004 [...] mRNA, LNP-s, No Pre serve, 2-Dose Series (Odimax) 03/26/2021,07/04/2020,06/13/2020 Covid-19, Mrna, Lnp-s, Pf, B ivalent, [...] - 11/01/2023 9:19 AM EDT Cardiology Consultation [facility] [place] [place] [facility] 11/01/2023 History of Present Illness: Katelin [...] tolerance Dyslipidemia for which he was on [place] Chart history of elevated blood pressure but [...] performed by Jayme Stanton MD at OR [facility] BREAST BIOPSY Left 1973 Benign COLONOSCOPY 10/2004 Normal, [facility] Dr Renee hyperplastic rectal polyp COLONOSCOPY, DIAGNOSTIC (RECTUM) 07/11/2014 lymphocytic colitis/COLONOSCOPY FLEXIBLE PROXIMAL DIAGNOSTIC performed by Kojo Ghosh DO at ENDOSCOPY [facility] COLONOSCOPY, DIAGNOSTIC (RECTUM) 01/14/2017 normal bx/COLONOSCOPY FLEXIBLE PROXIMAL DIAGNOSTIC performed by Heidy Munoz DO at ENDOSCOPY [facility] COLONOSCOPY, DIAGNOSTIC (RECTUM) 10/30/2019 normal / COLONOSCOPY FLEXIBLE PROXIMAL DIAGNOSTIC performed by Heidy Munoz DO at ENDOSCOPY [facility] DENTAL SURGERY PROCEDURE NEC UPPER PLATE EGD, FLEXIBLE, DIAGNOSTIC 09/05/2015 gastroesophageal reflux/ESOPHAGOGASTRODUODENOSCOPY (EGD), FLEXIBLE, TRANSORAL, DIAGNOSTIC performedby Kojo Ghosh DO at ENDOSCOPY [facility] INJECT DX/THER SUBSTANCE INTERLAMINAR CERVICAL/THORACIC W IMAGE GUIDE 10/13/2017 INJECTION SPINE LUMBAR CERVICAL OR THORACIC performed by Alli Hill, DO at OR [facility] INJECT DX/THER SUBSTANCE INTERLAMINAR CERVICAL/THORACIC W IMAGE GUIDE 02/23/2018 INJECTION SPINE LUMBAR CERVICAL OR THORACIC performed by Alli Hill, DO at OR [facility] INJECT DX/THER SUBSTANCE INTERLAMINAR CERVICAL/THORACIC W IMAGE GUIDE 10/25/2019 INJECTION SPINE LUMBAR CERVICAL OR THORACIC performed by Alli Dion Hill, DO at OR [facility] INJECT DX/THER SUBSTANCE INTERLAMINAR CERVICAL/THORACIC W IMAGE GUIDE 07/14/2020 INJECTION SPINE LUMBAR CERVICAL OR THORACIC performed by Alli Dion Hill, DO at OR [facility] INJECT DX/THER SUBSTANCE INTERLAMINAR CERVICAL/THORACIC W IMAGE GUIDE 05/25/2021 INJECTION SPINE LUMBAR CERVICAL OR THORACIC performed by [place] Dion Hill DO at OR [facility] KNEE ARTHROSCOPY/MENISCECTOMY Left 01/16/2018 ARTHROSCOPY KNEE MEDIAL OR LATERAL MENISCECTOMY performed by Irene Pike DO at OR [facility] MISCELLANEOUS ORDER ([facility] ONLY) 10/2017 Dr Hill cervical. MOHS SURGERY REFERRAL OP right nose REMOVE ADDED SPINE LAMINA, 1 SEG N/A 08/12/2021 LAMINECTOMY FACETECTOMY AND FORAMINOTOMY ADDITIONAL LEVELS performed by Jayme Stanton MD at OR [facility] REMOVE CATARACT, INSERT LENS PROSTH Right 03/01/2023 RIGHT EXTRACAPSULAR CATARACT REMOVAL WITH INTRAOCULAR LENS performed by Uche Sheffield MDat OR [facility] REMOVE CATARACT, INSERT LENS PROSTH Left 03/22/2023 LEFT EXTRACAPSULAR CATARACT REMOVAL WITH INTRAOCULAR LENS performed by Uche Sheffield MD at OR [facility] REMOVE NECK SPINE LAMINA, 1 SEG N/A 08/12/2021 LAMINECTOMY FACETECTOMY AND FORAMINOTOMY POSTERIOR CERVICAL performed by Jayme Stanton MD at OR [facility] SPINE FUSION, EACH ADD'L VERTEBRA N/A 08/12/2021 ARTHRODESIS SPINE POSTERIOR EACH ADDITIONAL VERTEBRAE performed by Jayme Stanton MD at OR [facility] SPINE SEG FIX, POST, 3-6 SEG, INSERT N/A 08/12/2021 POSTERIOR SPINE SEGMENTAL INSTRUMENTATION 3 TO 6 PSF performed by Jayme Stanton MD at OR [facility] THIGH/KNEE SUBQ TUMOR REMOVAL, UNDER 3 CM VASC ANKLE BRACHIAL INDEX 06/10/2006 normal Family History: Family History Problem Relation Name Age of Onset Heart Disorder Mother rheumatic fever,valve replaced 2008. 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 We discussed [...] fasting labs tomorrow. Travon Cameron DO Cardiology, [address] [address] This chart was completed in part utilizing [employer] Speech Voice Recognition Software. Grammatical errors, random [...] Orthopaedics Spine Surgery, [facility] 132 [facility] [place] [address] Jayme Stanton MD [address] [place] [address] 11/22/2023 2:00 PM EDT Scheduled Telephone Interventional Pain Center, [facility] 132 [facility] [place] [address] [place], Nurse Phone Call Interventional Pain [facility] 132 [facility] [place] [address] 12/01/2023 11:00 AM EDT Office Visit Cardiology, [facility] [address] [facility] [place] [address] Travon Cameron DO [address] [place] [address] 01/31/2024 10:00 AM EST Office Visit Allergy/Immunology [facility] [address] [facility] [place] [address] Donna Asencio PA-C 200 [facility] [place] [address] 02/22/2024 9:40 AM EST Office Visit Family Practice [facility] [address] [place] [address] Unruly Jennings MD [address] [place] [address] Scheduled Orders Name Type Priority Associated Diagnoses [...] 05/11/2016, 09/2004, 08/25/2004 CKD PHOS USE SMARTSET 20238 08/25/2023 06/0 08/2022, 11/10/2021, 08/28/2021, Additional history [...] Additional history exists CKD HGB USE SMARTSET 96845 08/17/202408/17, 08/18/2023, 08/24/2022, Additional history exists HbA1c [...] this encounter Medical Devices Implanted Type Area Evp Business Development Device Identifier Shelf Expiration Date Model / Serial / Lot Bone Fiber Pliafx 2.5cc Dmnrlz - [id number] - [id number] Implanted:Qt y: 1 on 08/12/2021 by Jayme Stanton MD at OR [facility] Graft N/A: Neck LIFENET 06/03/2024 BL-1800-02 / [id number] 4.5x20 Screw Implanted:Qt y: 2 on 08/12/2021 by Jayme Stanton MD at OR [facility] Screw N/A: Spine Lumbar DEPUY SPINE INC 1020-45-420 / / 3.5x12 Reduction Screw Implanted:Qt y: 4 on 08/12/2021 by Jayme Stanton MD at OR [facility] Screw N/A: Spine Lumbar DEPU[employer] INC 1020-35-312 / / 3.5x12 Screw Implanted:Qt y: 4 on 08/12/2021 by Jayme Stanton MD at OR [facility] Screw N/A: Spine Lumbar DEPUY SPINE INC 102035-112 / / Set Screw - [id number] Implanted:Qt y: 10 on 08/12/2021 by Jayme Stanton MD at OR [facility] Screw N/A: Spine Lumbar JNJ : DEPUY SPINE [id number] / / Dbx 5cc [id number] - [id number] - [id number] Implanted:Qt y: 1 on 08/12/2021 by Jayme Stanton MD at OR [facility] Tissue - Human N/A: Neck MUSCULOSKELETAL TRANSPLANT FND [id number] 03/09/2023 [id number] / [id number] / LOT NA 4.0x65 Maverick Implanted:Qt y: 2 on 08/12/2021 by Jayme Stanton MD at OR [facility] N/A: Spine Lumbar DEPU[employer] SPINE INC 1020-64-065 / / Lens Li61ao 13.00mm 18.50 - [id number] - [id number] Implanted:Qt y: 1 on 03/01/2023 by Uche Sheffield MD at OR [facility] Right: Eye BAUSCH & LOMB 09/18/2027 [id number] / [id number] / [id number] Lens Li61ao 13.00mm 20.00 - [id number] - [id number] Implanted:Qt y: 1 on 03/22/2023 by Uche Sheffield MD at OR [facility] Left: Eye BAUSCH & LOMB 09/18/2027 [id number] / [id number] / [id number] documented as of this encounter Visit Diagnoses [...] and were consensually agreed upon. Care Teams Hot Box Spotter Relationship Specialty Start Date End Date Unruly Jennings MD [address] [place] [address] PCP - General Family Medicine 10/24/23 documented as of this encounter
[2023-11-02 05:25] LABS: Basophils # (auto) 0.07 K/uL (0.00-0.20); Basophils % (auto) 0.6 %; Eosinophils # (auto) 0.18 K/uL (0.00-0.50); Eosinophils % (auto) 1.5 %; Hematocrit (blood only) 48.3 % (37.0-47.0); Hemoglobin 16.8 g/dl (12.0-16.0); Immature Granulocytes # (auto) 0.03 K/uL (0.01-0.20); Immature Granulocytes % (auto) 0.2 %; Lymphocytes # (auto) 2.49 K/uL (1.20-3.40); Lymphocytes % (auto) 20.5 %; Mean Corpuscular Hemoglobin 29.4 pg (25.0-34.0); Mean Corpuscular Hgb Conc 34.8 g/dL (32.0-36.0); Mean Corpuscular Volume 84.6 fL (80.0-100.0); Mean Platelet Volume 11.6 fL (9.4-12.4); Monocytes % (auto) 6.6 %; Neutrophils # (auto) 8.56 K/uL (1.40-6.50); Neutrophils % (auto) 70.6 %; Platelet Count 252 K/uL (130-400); RDW Coefficient of Variation 13.3 % (11.5-14.5); RDW Standard Deviation 41.2 fL (36.4-46.3); Red Blood Count 5.71 M/uL (4.20-5.40); White Blood Count 12.13 K/ul (4.8-10.8)
[2023-11-02 05:34] LABS: Albumin Globulin Ratio 1.6 (0.9-2); Albumin Level 4.7 gm/dl (3.4-5.0); BUN Creatinine Ratio 10.8 (10-20); Bilirubin,Total 1.4 mg/dl (0.2-1.0); Calcium 9.9 mg/dl (8.6-10.3); Creatinine Clr Calc Pharmacy 45.2 ml/min; Est GFR (African American) 63.6 ml/min; Est GFR (Non-African American) 54.9 ml/min; Globulin 2.9 gm/dl (2.5-4.0); Phosphorus 4.9 mg/dl (2.5-4.9); Potassium 3.6 mmol/L (3.5-5.1); Total Protein 7.6 gm/dl (6.0-8.3)
[2023-11-02 05:40] LABS: Troponin I High Sensitivity 49.1 pg/ml (0-14)
[2023-11-02] MEDS: PANTOprazole 40 MG TAB PO SCH (05:44)
[2023-11-02] MEDS: POTASSIUM CHLORIDE CRTAB 20 MEQ TABCR PO STA (06:19)
[2023-11-02 07:06] LABS: Estimated Average Glucose 123 mg/dl; Hemoglobin A1C 5.9 % (4.5-5.6)
[2023-11-02] MEDS: carvediloL 6.25 MG TAB PO SCH ×2 (07:44→18:07)
[2023-11-02] MEDS: hydroCHLOROthiazide 25 MG TAB PO SCH (07:44)
[2023-11-02] MEDS: amLODIPine BESYLATE 5 MG TAB PO SCH (07:44)
--- NOTE | 2023-11-02 09:00 | Cardiology Consultation ---
Date of Consultation November 02, 2023 Assessment & Plan (1) Hypertensive urgency: (2) RADHA on CPAP: (3) HLD (hyperlipidemia): (4) Prolonged QT interval: Plan Assessment: 73 year old female presents for acute management of hypertensive urgency. Plan: Hypertensive urgency: RADHA on CPAP: -patient with no documented history of hypertension with treatment. Review of OP records does show elevated Blood pressure readings. -Discussed in detail modifiable vs non-modifiable factors with relationship to high blood pressure. -Per JNC guidelines a patient between the ages of 65-70 years of age without Diabetes should have a goal blood pressure less than 140/80. Recommendations suggest with use of 3 antihypertensive therapies. -Patient is currently receiving 3 antihypertensive therapies including Amlodipine, Valsartan and Carvedilol. -Continue Amlodipine 10mg PO Daily, Valsartan 80mg PO Daily. We will increase her Carvedilol to 9.375mg PO Twice a day. Patient will receive an additional one time dose of 3.125mg now to make the dose. -Echocardiogram does not demonstrate any decline in LVEF or wall motion abnormalities. -High sensativity troponin with minimal elevation likely in response to markedly elevated blood pressure at the time of admission. flat trend. EKG is not suggestive of ischemia -Discussed CPAP machine with patient and importance of compliance for controlling blood pressure. -Recommend a low sodium diet, avoid excessive caffeine intake and abstain from any tobacco use (denies any use) HLD: -Continue with plan as per OP management with Crestor 20mg Daily Prolonged QT interval: -Review of telemetry demonstrates sinus rhythm with no ectopy or arrhythmia. -Echocardiogram demonstrates normal LVEF, no wall motion abnormalities and no significant valvular disease. -Avoid any prolonged QT medications which can include psychiatric medications, anti-emetics and many antibiotics. -Will continue to follow this in the outpatient setting. Case has been discussed with Dr. Fabian. Further recommendations regarding plan of care as per his assessment. I spent a total of 40 minutes on the date of service in preparation, delivery, documentation of the care provided to the patient excluding any time spent in the performance of separately billed services. CHIVO Andres Chan [facility] Card[facility] Supervising Physician Co-Signing Physician Notes Patient was seen and examined, chart medications and testing reviewed. Outpatient records reviewed from prior to hospitalization. Prior history of hypertension presents now with relatively asymptomatic other than mild headache hypertensive urgency. Found to have marked elevation in blood pressure on presentation for routine echocardiogram but degree significant to require ER evaluation. Blood pressure is improving. Initially treated with IV nicardipine now discontinued Notes prior treatment with amlodipine resulted in lower extremity edema Impression: Hypertension/hypertensive urgency: Discussed in detail with patient. Guidelines directed 3 medication treatment for initial level hypertension and underlying risk factor. Plan as above increase carvedilol dosing continue valsartan and amlodipine though ultimately will need to reduce amlodipine dosing. Continue hydrochlorothiazide. QT prolongation noted on EKG will need to follow and avoid QT prolonging medications History of Present Illness Reason for Consultation: Hypertensive urgency Abnormal EKG Requesting Physician: Claire martinez Attending Physician: Nick Salmon DO History of Present Illness HPI: patient is a 73 year old female with PMHx significant for RADHA(noncompliant on CPAP), Cervical spine disease with prior intervention, dyslipidemia, and documented history of elevated blood pressures without prior treatments. Her most recent history of event dates back to July 2023 when patient had been seen by her PCP for chest discomfort with URI symptoms. An EKG dated 08/18/23 demonstrates frequent PVCs and Prolonged QT. She was referred to Cardiology and an order was placed for a resting echocardiogram. Patient had presented to [facility] for her resting echo which demonstrates Normal LVEF, no wall motion abnormalities and no significant valvular disease. During course of exam, patient's blood pressure was noted to be 220/84. Dr. Cameron saw patient in consultation. patient had received 2 doses of IV Labetalol and PO Clonidine with minimal improvement and therefore was sent to [facility] for further evaluation. EKG at time of admission SR with PVC's, Rate 81bpm. QTc 457ms Repeat EKG with PVC's and Bigeminy Rate 87bpm. QTc 515mg Repeat EKG dated today 11/02/2023: SR/sinus arrhythmia, QTc 512ms Patient seen and examined at [facility] today reports feeling much better. She endorses a mild headache which seems to be improving with Tylenol. patient denies any chest pain, pressure, palpitations, shortness of breath, PND, pre- syncope or syncope. She denies any prior cardiac symptoms and denies any exertional chest pain or dyspnea. She states that both of her parents of heart attacks, but the details are vague. Patient states that she is compliant with her home CPAP. She did not use the CPAP last night reporting to the staff that she is allergic to the mask. Allergies Allergy/AdvReac Type Severity Reaction Status Date / Time kiwi Allergy Intermediate hives-kiwi Verified 11/01/23 15:57 extract peanut Allergy Intermediate per pt "if Verified 11/01/23 15:57 eat too many, throat feels funny". iodine Allergy Mild skin Verified 11/01/23 15:57 discoloration propoxyphene Allergy Unknown Unknown Verified 11/01/23 15:57 atorvastatin AdvReac Intermediate myalgia Verified 11/01/23 15:57 codeine AdvReac Intermediate nausea--if Verified 11/01/23 15:57 giving an antiemitic will be okay per pt. ibuprofen AdvReac Intermediate lymphocytic Verified 11/01/23 15:57 colitis morphine AdvReac Intermediate Vomiting Verified 11/01/23 15:57 simvastatin AdvReac Intermediate myalgia Verified 11/01/23 15:57 Sulfa (Sulfonamide AdvReac Intermediate hyper Verified 11/01/23 15:57 Antibiotics) sulfamethoxazole AdvReac Intermediate hyper Verified 12/30/21 12:06 [From Bactrim] trimethoprim [From Bactrim] AdvReac Intermediate hyper Verified 11/01/23 15:57 Home Medications Medication Instructions Recorded Confirmed Type rosuvastatin 20 mg tablet 20 mg PO HS 03/06/18 11/01/23 History zolpidem 5 mg tablet 5 mg PO HS Sleep 03/06/18 11/01/23 History dicyclomine 10 mg capsule 10 mg PO QID PRN Abdominal Pain 08/10/19 11/01/23 History meclizine 25 mg tablet 25 mg PO TID PRN Dizziness 08/10/19 11/01/23 History acetaminophen 500 mg tablet 1,000 mg PO Q8H PRN Pain 12/30/21 11/01/23 History (Tylenol Extra Strength) fluticasone propionate 50 2 spray intranasal DAILY #16 grams 01/01/22 11/01/23 Rx mcg/actuation nasal spray,suspension albuterol sulfate 90 mcg/actuation 2 puff inhalation Q4 PRN 11/01/23 11/01/23 History aerosol inhaler COUGH,SOB,WHEEZING amlodipine 5 mg tablet 5 mg PO DAILY #30 tabs 11/01/23 Rx azelastine 137 mcg (0.1 %) nasal 2 spray intranasal AMHS 11/01/23 11/01/23 History spray clonidine HCl 0.1 mg tablet 0.1 mg PO DAILY PRN SBP>180 MM HG 11/01/23 11/01/23 History hydrochlorothiazide 12.5 mg tablet 12.5 mg PO DAILY #30 tabs 11/01/23 Rx metoprolol tartrate 25 mg tablet 25 mg PO BID 11/01/23 11/01/23 History montelukast 10 mg tablet 10 mg PO QAM 11/01/23 11/01/23 History omeprazole 40 mg capsule,delayed 40 mg PO DAILYBB 11/01/23 11/01/23 History release sodium chloride-aloe vera nasal 1 applic topical . NEEDED PRN 11/01/23 11/01/23 History gel (Saline Nasal (aloe vera) gel) NASAL CONGESTION AND DRYNESS tizanidine 4 mg capsule 4 mg PO TID 11/01/23 11/01/23 History Patient History Medical History (Updated 11/02/23 @ 11:18 by CHIVO Andres) Chronic back pain Migraines Osteoarthritis SALAS (nonalcoholic steatohepatitis) Surgical History S/P left knee arthroscopy Family History Father Heart disease Social History Smoking Status: Former smoker Tobacco Type: Cigarettes Do You Dip or Chew Tobacco: No; Hx Alcohol Use: No Hx Substance Use: No Preferred Language: Burmese Communication Ability: Effective Director Of Conservation Required: No Beliefs That Will Affect Care: None Current Living Situation: Significant Other Current Living Situation Comment: lives with friend Other Information That Helps Us Care for You: No Feels Safe at Home: Yes Safety Concerns: Feels Safe At This Time Assistive Devices: CPAP, Denture - Upper, Denture - Lower and Glasses Review of Systems Review of Systems: All systems reviewed & are unremarkable except as noted in HPI & below Physical Exam Constitutional: well developed, well nourished and + overweight Neck: normal visual inspection and trachea midline Respiratory: normal respiratory effort; no respiratory distress, no labored breathing and no cough Auscultation: lungs clear to auscultation bilaterally; no crackles, no rales, no rhonchi and no wheezes Cardiovascular: RRR, no murmur, no edema Heart Sounds: normal S1 and normal S2; no murmur Vessels: dorsalis pedis pulses present; no JVD Extremities: no edema Skin: no rashes, warm and dry Psychiatric: A+Ox3, euthymic affect Results & Data Vital Signs (Past 12 Hours) Vital Signs Temp Pulse Pulse Resp BP BP BP 11/02/23 07:59 91 H 11/02/23 07:59 36.4 C L 11/02/23 07:30 92 H 20 158/113 H 11/02/23 06:00 87 19 172/76 H 11/02/23 05:00 88 20 152/74 H 11/02/23 04:00 36.8 C 86 17 182/89 H 11/02/23 03:00 93 H 15 167/85 H 11/02/23 02:30 99 H 20 169/89 H 11/02/23 02:00 88 14 158/103 H 11/02/23 01:30 85 18 155/86 H 11/02/23 01:00 83 20 134/63 11/02/23 00:30 167/81 H 11/02/23 00:00 36.5 C 93 H 19 173/81 H 11/02/23 00:00 90 11/01/23 23:00 36.5 C 78 11 L 184/80 H 11/01/23 22:45 82 178/86 H 11/01/23 22:43 80 16 11/01/23 22:31 80 18 177/90 H 11/01/23 22:12 91 H 22 11/01/23 22:00 88 15 11/01/23 22:00 82 18 172/78 H 11/01/23 21:51 90 14 11/01/23 21:30 36.8 C 86 18 177/79 H 11/01/23 21:00 85 14 162/69 H Pulse Ox O2 Del Method O2 Flow Rate FiO2 11/02/23 07:59 11/02/23 07:59 11/02/23 07:30 95 Room Air 11/02/23 06:00 94 Nasal Cannula 2 11/02/23 05:00 92 Nasal Cannula 2 11/02/23 04:00 92 Nasal Cannula 2 11/02/23 03:00 92 Nasal Cannula 2 11/02/23 02:30 92 Nasal Cannula 2 11/02/23 02:00 95 Nasal Cannula 2 11/02/23 01:30 95 Nasal Cannula 2 11/02/23 01:00 95 Nasal Cannula 2 11/02/23 00:30 11/02/23 00:00 95 Room Air 11/02/23 00:00 11/01/23 23:00 94 CPAP 11/01/23 22:45 92 CPAP 11/01/23 22:43 92 21 11/01/23 22:31 92 11/01/23 22:12 91 11/01/23 22:00 92 11/01/23 22:00 92 Room Air 11/01/23 21:51 92 11/01/23 21:30 90 11/01/23 21:00 92 Laboratory Results Cardiac Enzymes 11/01/23 11/02/23 11/02/23 Range/Units 12:20 04:24 09:54 AST 32 29 (13-39) U/L Troponin I High Sens 49.1 H 39.2 H (0-14) pg/ml CBC 11/01/23 11/02/23 Range/Units 12:20 04:24 WBC 10.86 H 12.13 H (4.8-10.8) K/ul RBC 5.75 H 5.71 H (4.20-5.40) M/uL Hgb 16.8 H 16.8 H (12.0-16.0) g/dl Hct 49.2 H 48.3 H (37.0-47.0) % Plt Count 229 252 (130-400) K/uL Neut # (Auto) 7.53 H 8.56 H (1.40-6.50) K/uL Lymph # (Auto) 2.48 2.49 (1.20-3.40) K/uL Ripley # (Auto) 0.62 H 0.80 H (0.11-0.59) K/uL Eos # (Auto) 0.14 0.18 (0.00-0.50) K/uL Baso # (Auto) 0.05 0.07 (0.00-0.20) K/uL Comprehensive Metabolic Panel 11/01/23 11/02/23 Range/Units 12:20 04:24 Sodium 141 140 (136-145) mmol/L Potassium 3.8 3.6 (3.5-5.1) mmol/L Chloride 106 103 (98-107) mmol/L Carbon Dioxide 26 26 (21-32) mmol/L BUN 13 11 (6-23) mg/dl Creatinine 1.06 1.02 (0.6-1.2) mg/dl Glucose 100 H 112 H (70-99(Fasting)) mg/dl Calcium 10.3 9.9 (8.6-10.3) mg/dl AST 32 29 (13-39) U/L ALT 26 24 (7-52) U/L Alkaline Phosphatase 79 79 (34-104) U/L Total Protein 8.0 7.6 (6.0-8.3) gm/dl Albumin 4.9 4.7 (3.4-5.0) gm/dl Intake and Output 11/01/23 11/02/23 11/02/23 22:59 06:59 14:59 Intake Total 235.000 / 1028.333 193.333 / 1028.333 300 / 300 Output Total 600 / 1300 700 / 1300 450 / 450 Balance -365.000 / -271.667 -506.667 / -271.667 -150 / -150 Intake: IV 85.000 / 728.333 43.333 / 728.333 niCARdipine 25 mg In Sodium 85.000 / 128.333 43.333 / 128.333 Chloride 0.9% 240 ml @ 0 MG/HR IV .Q0M [facility] Rx#:[id number] Oral 150 / 300 150 / 300 300 / 300 Output: Urine 600 / 1300 700 / 1300 450 / 450 Other: # Unmeasured Voids 1 Weight 78.9 kg 78.4 kg Weight Measurement Method [facility] Diagnostic Findings Renal Artery Duplex 11/02/2023: IMPRESSION: No evidence of renal artery stenosis. Echocardiogram At [facility] 11/01/2023 Interpretation Summary The examination is adequate to evaluate the referral indication. Sinus rhythm was present during the echocardiogram study with frequent premature ventricular contractions including episodes of ventricular bigeminy. The LV wall thickness is borderline increased (concentric). No LV segmental wall motion abnormalities are present on the sinus beats. The left ventricular systolic function is normal. Qualitative LV ejection Fraction = 55%. The right ventricular chamber size and systolic function are normal. The Doppler assessment of left ventricular diastolic dysfunction is indeterminate due to the underlying irregular rhythm. The estimated pulmonary artery systolic pressure is 30-38 mm Hg (normal to borderline elevated- Doppler assessment of tricuspid regurgiation envelope is technically limited due to the irregular rhythm). No significant valvular disease is present. Severe hypertension is present, with blood pressure reading of 220/84 at the time of echocardiogram. Compared to the report of the previous study dated 10/07/2016, frequent premature ventricular contractions were present. Same day cardiology follow-up was arranged with the undersigned interpreting provider. Chest xray 11/01/2023: IMPRESSION: No acute process.
--- NOTE | 2023-11-02 09:18 | Electrocardiogram Report ---
Test Reason : Blood Pressure : */* mmHG Vent. Rate : 82 BPM Atrial Rate : 82 BPM P-R Int : 138 ms QRS Dur : 84 ms QT Int : 440 ms P-R-T Axes : 49 20 29 degrees QTcB Int : 514 ms Sinus rhythm with occasional Premature atrial complexes Nonspecific T wave abnormality Abnormal ECG When compared with ECG of 01-Nov-2023 12:09, Premature ventricular complexes are no longer Present IL interval has increased Criteria for Anterior infarct are no longer Present Confirmed by Luke Taylor ([id number]) on 11/02/2023 9:17:38 AM Referred By: Travon Cameron Confirmed By: Luke Taylor
--- NOTE | 2023-11-02 09:23 | Electrocardiogram Report ---
Test Reason : Blood Pressure : */* mmHG Vent. Rate : 94 BPM Atrial Rate : 94 BPM P-R Int : 130 ms QRS Dur : 82 ms QT Int : 410 ms P-R-T Axes : 55 33 -17 degrees QTcB Int : 512 ms Sinus rhythm with occasional Premature atrial complexes Nonspecific T wave abnormality Abnormal ECG When compared with ECG of 01-Nov-2023 22:26, (unconfirmed) No significant change was found Confirmed by Luke Taylor ([id number]) on 11/02/2023 9:22:47 AM Referred By: Travon Cameron Confirmed By: Luke Taylor
--- NOTE | 2023-11-02 10:11 | Critical Care Progress Note ---
Date of Service November 02, 2023 Assessment & Plan (1) Hypertensive urgency: Plan: Off IV antihypertensives for greater than 10 hours -Start ARB -On max dose Norvasc -Coreg increasing per cardiology (2) CKD (chronic kidney disease), stage III: Plan: -Renal artery duplex unremarkable (3) HLD (hyperlipidemia): Plan: Continue statin Plan Stable for downgrade out of ICU Admission and Anticipated Discharge Date Admission Date: November 01, 2023 Subjective No overnight events. Results & Data Results & Data Vital Signs (Past 12 Hours) Vital Signs Temp Pulse Pulse Resp BP BP Pulse Ox 11/02/23 09:03 86 21 157/81 H 89 L 11/02/23 08:42 98 H 24 160/81 H 90 11/02/23 08:00 92 H 19 158/82 H 90 11/02/23 07:59 91 H 11/02/23 07:59 36.4 C L 11/02/23 07:30 92 H 20 158/113 H 95 11/02/23 06:00 87 19 172/76 H 94 11/02/23 05:00 88 20 152/74 H 92 11/02/23 04:00 36.8 C 86 17 182/89 H 92 11/02/23 03:00 93 H 15 167/85 H 92 11/02/23 02:30 99 H 20 169/89 H 92 11/02/23 02:00 88 14 158/103 H 95 11/02/23 01:30 85 18 155/86 H 95 11/02/23 01:00 83 20 134/63 95 11/02/23 00:30 167/81 H 11/02/23 00:00 36.5 C 93 H 19 173/81 H 95 11/02/23 00:00 90 11/01/23 23:00 36.5 C 78 11 L 184/80 H 94 11/01/23 22:45 82 178/86 H 92 11/01/23 22:43 80 16 92 11/01/23 22:31 80 18 177/90 H 92 11/01/23 22:12 91 H 22 91 O2 Del Method O2 Flow Rate FiO2 11/02/23 09:03 11/02/23 08:42 11/02/23 08:00 11/02/23 07:59 11/02/23 07:59 11/02/23 07:30 Room Air 11/02/23 06:00 Nasal Cannula 2 11/02/23 05:00 Nasal Cannula 2 11/02/23 04:00 Nasal Cannula 2 11/02/23 03:00 Nasal Cannula 2 11/02/23 02:30 Nasal Cannula 2 11/02/23 02:00 Nasal Cannula 2 11/02/23 01:30 Nasal Cannula 2 11/02/23 01:00 Nasal Cannula 2 11/02/23 00:30 11/02/23 00:00 Room Air 11/02/23 00:00 11/01/23 23:00 CPAP 11/01/23 22:45 CPAP 11/01/23 22:43 21 11/01/23 22:31 11/01/23 22:12 Critical Care Results & Data Vital Signs (Past 12 Hours) Vital Signs Temp Pulse Pulse Resp BP BP Pulse Ox 11/02/23 12:03 83 19 177/96 H 90 11/02/23 11:27 81 20 158/100 H 11/02/23 11:06 83 20 144/92 H 11/02/23 10:33 91 H 26 H 154/103 H 11/02/23 09:03 86 21 157/81 H 89 L 11/02/23 08:42 98 H 24 160/81 H 90 11/02/23 08:00 92 H 19 158/82 H 90 11/02/23 07:59 91 H 11/02/23 07:59 36.4 C L 11/02/23 07:30 92 H 20 158/113 H 95 11/02/23 06:00 87 19 172/76 H 94 11/02/23 05:00 88 20 152/74 H 92 11/02/23 04:00 36.8 C 86 17 182/89 H 92 11/02/23 03:00 93 H 15 167/85 H 92 O2 Del Method O2 Flow Rate 11/02/23 12:03 Room Air 11/02/23 11:27 11/02/23 11:06 11/02/23 10:33 11/02/23 09:03 11/02/23 08:42 11/02/23 08:00 11/02/23 07:59 11/02/23 07:59 11/02/23 07:30 Room Air 11/02/23 06:00 Nasal Cannula 2 11/02/23 05:00 Nasal Cannula 2 11/02/23 04:00 Nasal Cannula 2 11/02/23 03:00 Nasal Cannula 2 Lab & Micro Results (Past 24 Hours) RBC 5.71 M/uL (4.20-5.40) H 11/02/23 WBC 12.13 K/ul (4.8-10.8) H 11/02/23 Hgb 16.8 g/dl (12.0-16.0) H 11/02/23 Hct 48.3 % (37.0-47.0) H 11/02/23 MCV 84.6 fL (80.0-100.0) 11/02/23 MCH 29.4 pg (25.0-34.0) 11/02/23 MCHC 34.8 g/dL (32.0-36.0) 11/02/23 RDW Standard Deviation 41.2 fL (36.4-46.3) 11/02/23 RDW Coefficient of Variation 13.3 % (11.5-14.5) 11/02/23 Plt Count 252 K/uL (130-400) 11/02/23 MPV 11.6 fL (9.4-12.4) 11/02/23 Neutrophils (%) (Auto) 70.6 % 11/02/23 Lymphocytes (%) (Auto) 20.5 % 11/02/23 Monocytes # (Auto) 0.80 K/uL (0.11-0.59) H 11/02/23 Eosinophils # (Auto) 0.18 K/uL (0.00-0.50) 11/02/23 Immature Granulocyte % (Auto) 0.2 % 11/02/23 Neutrophils # (Auto) 8.56 K/uL (1.40-6.50) H 11/02/23 Lymphocytes # (Auto) 2.49 K/uL (1.20-3.40) 11/02/23 Monocytes # (Auto) 0.80 K/uL (0.11-0.59) H 11/02/23 Eosinophils # (Auto) 0.18 K/uL (0.00-0.50) 11/02/23 Basophils # (Auto) 0.07 K/uL (0.00-0.20) 11/02/23 Immature Granulocyte # (Auto) 0.03 K/uL (0.01-0.20) 4 Na 140 mmol/L (136-145) 11/02/23 K 3.6 mmol/L (3.5-5.1) 11/02/23 Cl 103 mmol/L (98-107) 11/02/23 CO2 26 mmol/L (21-32) 11/02/23 Anion Gap 11 (3-11) 11/02/23 BUN 11 mg/dl (6-23) 11/02/23 Creatinine 1.02 mg/dl (0.6-1.2) 11/02/23 Estimated GFR ( Amer) 63.6 ml/min 11/02/23 Estimated GFR (Non-Af Amer) 54.9 ml/min 11/02/23 BUN/Creatinine Ratio 10.8 (10-20) 11/02/23 Glu 112 mg/dl (70-99(Fasting)) H 11/02/23 Ca 9.9 mg/dl (8.6-10.3) 11/02/23 Phosphorus Level 4.9 mg/dl (2.5-4.9) 11/02/23 Total Bilirubin 1.4 mg/dl (0.2-1.0) H 11/02/23 AST 29 U/L (13-39) 11/02/23 ALT 24 U/L (7-52) 11/02/23 Alkaline Phosphatase 79 U/L (34-104) 11/02/23 TP 7.6 gm/dl (6.0-8.3) 11/02/23 Albumin 4.7 gm/dl (3.4-5.0) 11/02/23 Globulin 2.9 gm/dl (2.5-4.0) 11/02/23 Albumin/Globulin Ratio 1.6 (0.9-2) 11/02/23 Mg 2.0 mg/dl (1.7-2.4) 11/02/23 04:24 Calcium Level 9.9 mg/dl (8.6-10.3) 11/02/23 04:24 Diagnostic Findings (Past 24 Hours) Head CT 11/01/23 15:31 CT head/brain wo con CLINICAL HISTORY: headache, HTN urgency Technique: Contiguous axial CT images of the head were acquired from the base of the skull to the vertex without intravenous contrast administration. Images were viewed in brain, subdural and bone windows. Automated dose lowering techniques and/or adjustment according to patient size were utilized for this exam. Comparison: Comparison is made to CT head 02/08/2019 Findings: Areas of decreased attenuation are present in the periventricular and subcortical white matter bilaterally consistent with small vessel ischemic disease. Generalized cerebral atrophy with commensurate enlargement of the ventricles, sulci, and cisterns is also present. There is no acute intracranial hemorrhage or evidence of acute territorial infarction. No shift of the midline structures, mass effect, or extra-axial abnormalities are shown. Atherosclerotic calcifications are present in the intracranial segments of the internal carotid arteries. Imaged portions of the paranasal sinuses and mastoid air cells are clear. The orbits appear normal. There are no acute fractures of the calvaria or scalp swelling. Impression: No acute intracranial hemorrhage, no evidence of acute territorial infarction or other acute intracranial disease process. ACT 112: Negative or not required by law. Electronically signed by: Ashu Jose M.D. 11/01/2023 4:15 PM Renal Artery Duplex 11/01/23 15:31 US duplex renal art/vein BI CLINICAL HISTORY: r/o renal artery stenosis TECHNIQUE: Real-time grayscale and color and spectral Doppler ultrasound imaging of the kidneys was performed. Comparison: None available at the time of this dictation. FINDINGS: Right kidney measures 9.4 cm. Left kidney measures 11.4 cm. RIGHT: The right kidney is normal in size, contour, cortical thickness, and echogenicity. No hydronephrosis is identified. No renal lesion is identified. Spectral analysis: Intrarenal resistive indices measure up to 0.78. Waveforms are normal in appearance.. Renal artery velocities and waveforms are normal. Renal vein patent. LEFT: The left kidney is normal in size, contour, cortical thickness and echogenicity. No hydronephrosis is identified. No renal lesion is identified. Spectral analysis: Intrarenal resistive indices measure up to 0.76. Waveforms are normal in appearance. Renal artery velocities and waveforms are normal. Renal vein patent. Abdominal aorta: Patent. Peak systolic velocity 103 cm/s. Bladder: Normal. Bilateral ureteral jets present. Reference ranges: Normal main renal artery peak systolic velocity less than 180 cm/s. Ratio of renal artery PSV to aortic PSV less than 3.5 equates to normal or less than 60% stenosis. Only one of the two criteria listed needs to be met for diagnosis. Arcuate resistive indices about 0.8 are elevated. IMPRESSION: No evidence of renal artery stenosis. ACT 112: Negative or not required by law. Electronically signed by: Ashu Jose M.D. 11/01/2023 7:21 PM I & O Totals 24 Hours 11/01/23 11/02/23 11/03/23 06:59 06:59 06:59 Intake Total 1028.333 / 1028.333 450 / 450 Output Total 1300 / 1300 450 / 450 Balance -271.667 / -271.667 0 / 0 Cumulative 11/01/23 11:53 thru 11/02/23 12:28 Intake Total 1478.333 Output Total 1750 Balance -271.667 RT Ventilator Mngmt (Last Documented) Ventilator Ordered Settings Respiratory Rate 19 11/02/23 12:03 Fraction of Inspired Oxygen 21 11/01/23 22:43 Ventilator - PT Measurements Respiratory Rate 19 Coding Level of Care Code 76304 SUB INP/OBS CARE 04/14MIN Diagnoses Hypertensive urgency I16.0 CKD (chronic kidney disease), stage III N18.3 HLD (hyperlipidemia) E78.5
[2023-11-02] MEDS: VALSARTAN 80 MG TAB PO SCH (12:13)
[2023-11-02] MEDS: carvediloL 3.125 MG TAB PO ONE (12:13)
--- NOTE | 2023-11-02 14:10 | Hospitalist Progress Note ---
Date of Service November 02, 2023 Assessment & Plan (1) Hypertensive urgency: Plan: In summary, a 73 year old female with history of RADHA on CPAP, Obesity, Pre DM, HLD, Cerebrovascular Small Vessel Disease, SALAS, other problems noted below presenting with elevated BP from the Cardiology Clinic. Hypertensive urgency She had discontinued her antihypertensive medication Blood pressure was systolic to 120s after 2 doses of labetalol IV. Pt continues on a nicardipine drip, wean as tolerated Started on Amlodipine 10mg PO Daily, Valsartan 80mg PO Daily. We will increase her Carvedilol to 9.375mg PO Twice a day CT head without contrast reviewed. No bleed Renal Doppler ultrasound reviewed and no evidence of renal artery stenosis Continue CPAP while admitted for obstructive sleep apnea Cardiology and CCM consulted. Appreciate consults PVCs Carvedilol 9.375mg p.o. twice daily started Prolonged QT Avoid QT prolonging Meds Monitor and replace electrolytes Obstructive sleep apnea Likely contributing to hypertension Continue CPAP Chronic medical conditions Cerebrovascular small vessel disease CKD stage III SALAS Migraine IBD Dyslipidemia Prediabetes DVT prophylaxis Continue SCDs, Ambulate Full code Disposition Anticipate home when clinically stable A total time of 50 minutes spent in review and care coordination with this patient. Admission and Anticipated Discharge Date Admission Date: November 01, 2023 Anticipated date of discharge: 11/03/23 Subjective Pt admitted with hypertensive urgency, elevated troponin and prolonged QT. She was seen in the ICU. She feels better this am. Very mild SOTELO persists. Review of Systems Review of Systems: Constitutional- no fever; no weight loss Eyes- no acute visual changes ENT- no sinus drainage; no pharyngitis Pulmonary- no cough, no wheezing, no shortness of breath Cardiac- no chest pain, no palpitations, no orthopnea, no dependent edema GI- no nausea, no vomiting, no diarrhea, no melena, no hematochezia - no dysuria, no hematuria Musculoskeletal- no arthralgias, no myalgias Derm- no rashes, no new skin lesions, no changing skin lesions Hematologic- no unusual bruising, no unusual bleeding Lymphatics- no adenopathy Endocrine- no polyuria or polydipsia; no heat or cold intolerance Neuro- mild headache, no focal neurologic symptoms Psych- no anxiety, no depression Physical Exam Physical Exam: General- Alert Ox 3, Seems comfortable. Head- atraumatic Eyes- PERRL, EOMI, anicteric ENT- oropharynx clear Neck- supple, no JVD, no adenopathy, no thyromegaly; carotids +2/2, no bruits appreciated Lungs- clear to auscultation and percussion Heart- regular rhythm; no murmur, no gallop, no rub appreciated Abdomen- normal bowel sounds, soft, nontender, no masses or hepatosplenomegaly Extremities- no pretibial edema, no calf tenderness; peripheral pulses intact Neuro- alert, oriented x 3; PERRL, EOMI; no facial palsy; no dysarthria; motor 5/5 bilaterally; no cogwheel rigidity; patellar DTRs +2/2; toes downgoing bilaterally; Skin- warm & dry Results & Data Results & Data Vital Signs (Past 12 Hours) Vital Signs Temp Pulse Pulse Resp BP BP Pulse Ox 11/02/23 12:03 83 19 177/96 H 90 11/02/23 11:27 81 20 158/100 H 11/02/23 11:06 83 20 144/92 H 11/02/23 10:33 91 H 26 H 154/103 H 11/02/23 09:03 86 21 157/81 H 89 L 11/02/23 08:42 98 H 24 160/81 H 90 11/02/23 08:00 92 H 19 158/82 H 90 11/02/23 07:59 91 H 11/02/23 07:59 36.4 C L 11/02/23 07:30 92 H 20 158/113 H 95 11/02/23 06:00 87 19 172/76 H 94 11/02/23 05:00 88 20 152/74 H 92 11/02/23 04:00 36.8 C 86 17 182/89 H 92 11/02/23 03:00 93 H 15 167/85 H 92 11/02/23 02:30 99 H 20 169/89 H 92 11/02/23 02:00 88 14 158/103 H 95 O2 Del Method O2 Flow Rate 11/02/23 12:03 Room Air 11/02/23 11:27 11/02/23 11:06 11/02/23 10:33 11/02/23 09:03 11/02/23 08:42 11/02/23 08:00 11/02/23 07:59 11/02/23 07:59 08/14/24 07:30 Room Air 11/02/23 06:00 Nasal Cannula 2 11/02/23 05:00 Nasal Cannula 2 11/02/23 04:00 Nasal Cannula 2 11/02/23 03:00 Nasal Cannula 2 11/02/23 02:30 Nasal Cannula 2 11/02/23 02:00 Nasal Cannula 2 Diagnostic Findings Laboratory Results WBC 12.13 K/ul (4.8-10.8) H 11/02/23 04:24 RBC 5.71 M/uL (4.20-5.40) H 11/02/23 04:24 Hgb 16.8 g/dl (12.0-16.0) H 11/02/23 04:24 Hct 48.3 % (37.0-47.0) H 11/02/23 04:24 MCV 84.6 fL (80.0-100.0) 11/02/23 04:24 MCH 29.4 pg (25.0-34.0) 11/02/23 04:24 MCHC 34.8 g/dL (32.0-36.0) 11/02/23 04:24 RDW Std Deviation 41.2 fL (36.4-46.3) 11/02/23 04:24 RDW Coeff of Rivas 13.3 % (11.5-14.5) 11/02/23 04:24 Plt Count 252 K/uL (130-400) 11/02/23 04:24 MPV 11.6 fL (9.4-12.4) 11/02/23 04:24 Immature Gran % (Auto) 0.2 % 11/02/23 04:24 Neut % (Auto) 70.6 % 11/02/23 04:24 Lymph % (Auto) 20.5 % 11/02/23 04:24 Stark % (Auto) 6.6 % 11/02/23 04:24 Eos % (Auto) 1.5 % 11/02/23 04:24 Baso % (Auto) 0.6 % 11/02/23 04:24 Neut # (Auto) 8.56 K/uL (1.40-6.50) H 11/02/23 04:24 Lymph # (Auto) 2.49 K/uL (1.20-3.40) 11/02/23 04:24 Stark # (Auto) 0.80 K/uL (0.11-0.59) H 11/02/23 04:24 Eos # (Auto) 0.18 K/uL (0.00-0.50) 11/02/23 04:24 Baso # (Auto) 0.07 K/uL (0.00-0.20) 11/02/23 04:24 Immature Gran # (Auto) 0.03 K/uL (0.01-0.20) 11/02/23 04:24 Sodium 140 mmol/L (136-145) 11/02/23 04:24 Potassium 3.6 mmol/L (3.5-5.1) 11/02/23 04:24 Chloride 103 mmol/L (98-107) 11/02/23 04:24 Carbon Dioxide 26 mmol/L (21-32) 11/02/23 04:24 Anion Gap 11 (3-11) 11/02/23 04:24 BUN 11 mg/dl (6-23) 11/02/23 04:24 Creatinine 1.02 mg/dl (0.6-1.2) 11/02/23 04:24 Est Cr Clr Drug Dosing 45.2 ml/min 11/02/23 04:24 Est GFR ( Amer) 63.6 ml/min 11/02/23 04:24 Est GFR (Non-Af Amer) 54.9 ml/min 11/02/23 04:24 BUN/Creatinine Ratio 10.8 (10-20) 11/02/23 04:24 Glucose 112 mg/dl (70-99(Fasting)) H 11/02/23 04:24 POC Glucose 164 mg/dl (70-99) H 11/01/23 21:09 Estimat Average Glucose 123 mg/dl 11/02/23 04:24 Hemoglobin A1c 5.9 % (4.5-5.6) H 11/02/23 04:24 Calcium 9.9 mg/dl (8.6-10.3) 11/02/23 04:24 Phosphorus 4.9 mg/dl (2.5-4.9) 11/02/23 04:24 Magnesium 2.0 mg/dl (1.7-2.4) 11/02/23 04:24 Total Bilirubin 1.4 mg/dl (0.2-1.0) H 11/02/23 04:24 AST 29 U/L (13-39) 11/02/23 04:24 ALT 24 U/L (7-52) 11/02/23 04:24 Alkaline Phosphatase 79 U/L (34-104) 11/02/23 04:24 Troponin I High Sens 39.2 pg/ml (0-14) H 11/02/23 09:54 Total Protein 7.6 gm/dl (6.0-8.3) 11/02/23 04:24 Albumin 4.7 gm/dl (3.4-5.0) 11/02/23 04:24 Globulin 2.9 gm/dl (2.5-4.0) 11/02/23 04:24 Albumin/Globulin Ratio 1.6 (0.9-2) 11/02/23 04:24 TSH 4.672 uIu/ml (0.300-4.500) H 11/01/23 12:20 Free T4 0.86 ng/dl (0.61-1.60) 11/01/23 12:20 Urine Color Yellow 11/01/23 15:13 Urine Appearance Clear (Clear) 11/01/23 15:13 Urine pH 5.5 (4.5-7.5) 11/01/23 15:13 Ur Specific Miller 1.009 (1.000-1.030) 11/01/23 15:13 Urine Protein Trace (Negative) H 11/01/23 15:13 Urine Glucose (UA) Negative (Negative) 11/01/23 15:13 Urine Ketones Negative (Negative) 11/01/23 15:13 Urine Blood Negative (Negative) 11/01/23 15:13 Urine Nitrite Negative (Negative) 11/01/23 15:13 Urine Bilirubin Negative (Negative) 11/01/23 15:13 Urine Urobilinogen Negative (Negative) 11/01/23 15:13 Ur Leukocyte Esterase Trace (Negative) H 11/01/23 15:13 Urine WBC (Auto) 0-5 /hpf (0-5) 11/01/23 15:13 Urine RBC (Auto) 0-2 /hpf (0-2) 11/01/23 15:13 U Hyaline Cast (Auto) 0-2 /lpf (0-2) 11/01/23 15:13 U Epithel Cells (Auto) 0-2 /hpf (0-2) 11/01/23 15:13 Urine Bacteria (Auto) None Seen (None Seen) 11/01/23 15:13 Nasal Screen MRSA (PCR) Negative (Negative) 11/01/23 19:08 Impressions Chest X-Ray 11/01/23 11:55 XR chest 1V portable HISTORY: 73 years-old Female Hypertension COMPARISON: 12/30/2021 TECHNIQUE: AP view of the chest FINDINGS: Cardiomediastinal and hilar silhouettes are within normal limits. Lungs appear clear. No pneumothorax or pleural effusion. Cervicothoracic spinal fusion hardware. Bones appear grossly intact. IMPRESSION: No acute process. ACT 112: Negative or not required by law. The above report was generated using voice recognition software. It may contain grammatical, syntax or spelling errors. Electronically signed by: Floyd Zabala M.D. 11/01/2023 12:[address] 11/01/23 15:31 CT head/brain wo con CLINICAL HISTORY: headache, HTN urgency Technique: Contiguous axial CT images of the head were acquired from the base of the skull to the vertex without intravenous contrast administration. Images were viewed in brain, subdural and bone windows. Automated dose lowering techniques and/or adjustment according to patient size were utilized for this exam. Comparison: Comparison is made to CT head 02/08/2019 Findings: Areas of decreased attenuation are present in the periventricular and subcortical white matter bilaterally consistent with small vessel ischemic disease. Generalized cerebral atrophy with commensurate enlargement of the ventricles, sulci, and cisterns is also present. There is no acute intracranial hemorrhage or evidence of acute territorial infarction. No shift of the midline structures, mass effect, or extra-axial abnormalities are shown. Atherosclerotic calcifications are present in the intracranial segments of the internal carotid arteries. Imaged portions of the paranasal sinuses and mastoid air cells are clear. The orbits appear normal. There are no acute fractures of the calvaria or scalp swelling. Impression: No acute intracranial hemorrhage, no evidence of acute territorial infarction or other acute intracranial disease process. ACT 112: Negative or not required by law. Electronically signed by: Ashu Jose M.D. 11/01/2023 4:15 PM Renal Artery Duplex 11/01/23 15:31 US duplex renal art/vein BI CLINICAL HISTORY: r/o renal artery stenosis TECHNIQUE: Real-time grayscale and color and spectral Doppler ultrasound imaging of the kidneys was performed. Comparison: None available at the time of this dictation. FINDINGS: Right kidney measures 9.4 cm. Left kidney measures 11.4 cm. RIGHT: The right kidney is normal in size, contour, cortical thickness, and echogenicity. No hydronephrosis is identified. No renal lesion is identified. Spectral analysis: Intrarenal resistive indices measure up to 0.78. Waveforms are normal in appearance.. Renal artery velocities and waveforms are normal. Renal vein patent. LEFT: The left kidney is normal in size, contour, cortical thickness and echogenicity. No hydronephrosis is identified. No renal lesion is identified. Spectral analysis: Intrarenal resistive indices measure up to 0.76. Waveforms are normal in appearance. Renal artery velocities and waveforms are normal. Renal vein patent. Abdominal aorta: Patent. Peak systolic velocity 103 cm/s. Bladder: Normal. Bilateral ureteral jets present. Reference ranges: Normal main renal artery peak systolic velocity less than 180 cm/s. Ratio of renal artery PSV to aortic PSV less than 3.5 equates to normal or less than 60% stenosis. Only one of the two criteria listed needs to be met for diagnosis. Arcuate resistive indices about 0.8 are elevated. IMPRESSION: No evidence of renal artery stenosis. ACT 112: Negative or not required by law. Electronically signed by: Ashu Jose M.D. 11/01/2023 7:21 PM
[2023-11-02] MEDS: tiZANidine HCL 4 MG TABLET PO PRN (16:16)
[2023-11-02] MEDS ORDERED: ALUMINUM/MAGNESIUM/SIMETH (MAALOX MAX) 30 ML UDC PO PRN (16:48)
[2023-11-02] MEDS ORDERED: PROCHLORPERAZINE MALEATE 5 MG TAB PO PRN (16:48)
[2023-11-02 19:56] VITALS: TEMP 97.7
[2023-11-03 05:15] LABS: Albumin Globulin Ratio 1.5 (0.9-2); Albumin Level 4.7 gm/dl (3.4-5.0); BUN Creatinine Ratio 17.4 (10-20); Bilirubin,Total 1.4 mg/dl (0.2-1.0); Creatinine Clr Calc Pharmacy 42.2 ml/min; Est GFR (African American) 58.7 ml/min; Est GFR (Non-African American) 50.7 ml/min; Globulin 3.2 gm/dl (2.5-4.0); Magnesium 2.2 mg/dl (1.7-2.4); Phosphorus 4.5 mg/dl (2.5-4.9); Potassium 3.7 mmol/L (3.5-5.1); Total Protein 7.9 gm/dl (6.0-8.3)
[2023-11-03 05:20] LABS: Hematocrit (blood only) 50.9 % (37.0-47.0); Hemoglobin 17.3 g/dl (12.0-16.0); Mean Corpuscular Hemoglobin 29.7 pg (25.0-34.0); Mean Corpuscular Volume 87.5 fL (80.0-100.0); Platelet Count 253 K/uL (130-400); RDW Coefficient of Variation 13.7 % (11.5-14.5); RDW Standard Deviation 43.8 fL (36.4-46.3); Red Blood Count 5.82 M/uL (4.20-5.40); White Blood Count 13.39 K/ul (4.8-10.8)
[2023-11-03 11:10] VITALS: O2SAT 91
--- NOTE | 2023-11-03 12:02 | Cardiology Progress Note ---
Date of Service November 03, 2023 Assessment & Plan (1) Hypertensive urgency: (2) RADHA on CPAP: (3) HLD (hyperlipidemia): (4) Prolonged QT interval: Plan Assessment: 73 year old female presents for acute management of hypertensive urgency. Plan: Hypertensive urgency: RADHA on CPAP: -patient with no documented history of hypertension with treatment. Review of OP records does show elevated Blood pressure readings. -Discussed in detail modifiable vs non-modifiable factors with relationship to high blood pressure. -Per J[employer] guidelines a patient between the ages of 65-70 years of age without Diabetes should have a goal blood pressure less than 140/80. Recommendations suggest with use of 3 antihypertensive therapies. -Patient is currently receiving 3 antihypertensive therapies including Amlodipine, Valsartan and Carvedilol. -Continue Amlodipine 10mg PO Daily, Valsartan 80mg PO Daily. We will increase her Carvedilol to 9.375mg PO Twice a day. Patient will receive an additional one time dose of 3.125mg now to make the dose. -Echocardiogram does not demonstrate any decline in LVEF or wall motion abnormalities. -High sensativity troponin with minimal elevation likely in response to markedly elevated blood pressure at the time of admission. flat trend. EKG is not suggestive of ischemia -Discussed CPAP machine with patient and importance of compliance for controlling blood pressure. -Recommend a low sodium diet, avoid excessive caffeine intake and abstain from any tobacco use (denies any use) HLD: -Continue with plan as per OP management with Crestor 20mg Daily Prolonged QT interval: -Review of telemetry demonstrates sinus rhythm with no ectopy or arrhythmia. -Echocardiogram demonstrates normal LVEF, no wall motion abnormalities and no significant valvular disease. -Avoid any prolonged QT medications which can include psychiatric medications, anti-emetics and many antibiotics. -Will continue to follow this in the outpatient setting. Case has been discussed with Dr. Fabian. Further recommendations regarding plan of care as per his assessment. I spent a total of 40 minutes on the date of service in preparation, delivery, documentation of the care provided to the patient excluding any time spent in the performance of separately billed services. CHIVO Andres [facility] 11/03/2023 1. Hypertension hypertensive urgency improving. Would discharge on current regimen carvedilol 12.5 mg twice per day, valsartan, hydrochlorothiazide, amlodipine 2.5 mg p.o. daily. Prior difficulties with edema with amlodipine would not titrate higher 2. Prolonged QT interval follow-up with cardiology post discharge 3. Elevated hemoglobin possibly secondary to obstructive sleep apnea. Continue CPAP. Will check iron studies Admission and Anticipated Discharge Date Admission Date: November 01, 2023 Subjective Patient seen and examined, chart, medications, telemetry reviewed. Patient feels markedly improved today. Blood pressure still somewhat labile but trending towards much better controlled. Transient vagal event last evening with blood pressure lowered acutely. No chest pain or shortness of breath. No dizziness or lightheadedness. No arrhythmias on telemetry Laboratory studies notable for elevated hemoglobin Review of Systems Review of Systems: All systems reviewed & are unremarkable except as noted in Subjective Physical Exam Constitutional: WD/WN, vitals as above no acute distress Eyes: PERRL, conjunctivae normal, anicteric sclerae ENMT: external ear and nose normal, oropharynx normal Neck: trachea midline, no thyromegaly Respiratory: normal respiratory effort, lungs clear to auscultation Cardiovascular: RRR, no murmur, no edema Vessels: no JVD Musculoskeletal: no cyanosis or clubbing, extremities motor strength 5/5 Results & Data Vital Signs (Past 12 Hours) Vital Signs Temp Pulse Resp BP Pulse Ox O2 Del Method O2 Flow Rate 11/03/23 11:03 85 18 Room Air 11/03/23 11:01 139/73 11/03/23 10:46 117/68 11/03/23 10:31 151/109 H 11/03/23 10:27 88 13 11/03/23 10:16 141/70 H 11/03/23 10:16 141/70 H 11/03/23 10:12 86 22 11/03/23 10:06 89 21 11/03/23 09:42 96 H 18 11/03/23 09:41 149/76 H 11/03/23 09:31 154/60 H 11/03/23 09:24 90 20 91 11/03/23 09:15 141/82 H 11/03/23 09:15 141/82 H 11/03/23 09:12 83 21 11/03/23 09:09 86 21 11/03/23 09:00 132/58 L 11/03/23 08:54 94 H 37 H 08/15/24 08:46 139/62 11/03/23 08:45 87 21 11/03/23 08:30 161/65 H 11/03/23 08:18 90 26 H 11/03/23 08:15 153/79 H 11/03/23 08:06 88 17 11/03/23 07:43 139/75 11/03/23 07:42 90 139/75 11/03/23 07:28 36.5 C 11/03/23 07:21 84 11/03/23 07:15 83 21 90 Room Air 11/03/23 07:15 150/65 H 11/03/23 07:14 Room Air 11/03/23 07:11 174/98 H 11/03/23 07:06 81 20 93 11/03/23 07:00 144/72 H 11/03/23 07:00 78 14 93 11/03/23 06:48 81 18 91 11/03/23 06:33 83 14 97 11/03/23 06:18 81 18 150/82 H 95 Room Air 11/03/23 06:17 150/82 H 11/03/23 06:15 90 20 97 11/03/23 06:00 106/82 11/03/23 06:00 79 17 95 11/03/23 05:45 81 18 96 11/03/23 05:33 84 17 93 11/03/23 05:21 81 28 H 92 11/03/23 05:00 84 20 93 11/03/23 05:00 159/87 H 11/03/23 05:00 36.5 C 83 18 159/87 H 95 Nasal Cannula 1 11/03/23 04:45 87 20 94 11/03/23 04:00 138/69 11/03/23 04:00 84 18 138/69 96 Nasal Cannula 1 11/03/23 03:57 86 31 H 93 11/03/23 03:51 79 14 96 11/03/23 03:33 93 H 22 94 11/03/23 03:18 75 15 96 11/03/23 03:00 70 17 152/74 H 94 Nasal Cannula 1 11/03/23 02:00 66 14 142/72 H 97 Nasal Cannula 1 11/03/23 01:00 74 19 131/82 100 Nasal Cannula 2 FiO2 11/03/23 11:03 11/03/23 11:01 11/03/23 10:46 11/03/23 10:31 11/03/23 10:27 11/03/23 10:16 11/03/23 10:16 11/03/23 10:12 11/03/23 10:06 11/03/23 09:42 11/03/23 09:41 11/03/23 09:31 11/03/23 09:24 11/03/23 09:15 11/03/23 09:15 11/03/23 09:12 11/03/23 09:09 11/03/23 09:00 11/03/23 08:54 11/03/23 08:46 11/03/23 08:45 11/03/23 08:30 11/03/23 08:18 11/03/23 08:15 11/03/23 08:06 11/03/23 07:43 11/03/23 07:42 11/03/23 07:28 11/03/23 07:21 11/03/23 07:15 11/03/23 07:15 11/03/23 07:14 11/03/23 07:11 11/03/23 07:06 11/03/23 07:00 11/03/23 07:00 11/03/23 06:48 11/03/23 06:33 11/03/23 06:18 11/03/23 06:17 11/03/23 06:15 11/03/23 06:00 11/03/23 06:00 11/03/23 05:45 11/03/23 05:33 11/03/23 05:21 11/03/23 05:00 11/03/23 05:00 11/03/23 05:00 11/03/23 04:45 11/03/23 04:00 11/03/23 04:00 24 11/03/23 03:57 11/03/23 03:51 11/03/23 03:33 11/03/23 03:18 11/03/23 03:00 11/03/23 02:00 24 11/03/23 01:00 28 Laboratory Results Laboratory Results - last 24 hr 11/03/23 04:29 WBC 13.39 H RBC 5.82 H Hgb 17.3 H Hct 50.9 H MCV 87.5 MCH 29.7 MCHC 34.0 RDW Std Deviation 43.8 RDW Coeff of Rivas 13.7 Plt Count 253 MPV 11.0 Sodium 138 Potassium 3.7 Chloride 103 Carbon Dioxide 26 Anion Gap 9 BUN 19 Creatinine 1.09 Est Cr Clr Drug Dosing 42.2 Est GFR ( Amer) 58.7 Est GFR (Non-Af Amer) 50.7 BUN/Creatinine Ratio 17.4 Glucose 96 Calcium 10.0 Phosphorus 4.5 Magnesium 2.2 Total Bilirubin 1.4 H AST 29 ALT 19 Alkaline Phosphatase 80 Total Protein 7.9 Albumin 4.7 Globulin 3.2 Albumin/Globulin Ratio 1.5
[2023-11-03 12:19] VITALS: BP 142/76; PULSE 79; RESP 19
--- NOTE | 2023-11-03 12:24 | Discharge Summary ---
Discharge Summary Date of Service November 03, 2023 Principal Dx & Hospital Course #1 = Principal Diagnosis (1) Hypertensive urgency: In summary, a 73 year old female with history of RADHA on CPAP, Obesity, Pre DM, HLD, Cerebrovascular Small Vessel Disease, SALAS, other problems noted below presenting with elevated BP from the Cardiology Clinic. Hypertensive urgency She had discontinued her antihypertensive medication Blood pressure was systolic to 120s after 2 doses of labetalol IV. Pt continues on a nicardipine drip, wean as tolerated Started on Amlodipine 10mg PO Daily, Valsartan 80mg PO Daily. We will increase her Carvedilol to 9.375mg PO Twice a day CT head without contrast reviewed. No bleed Renal Doppler ultrasound reviewed and no evidence of renal artery stenosis Continue CPAP while admitted for obstructive sleep apnea Cardiology and CCM consulted. Appreciate consults Final BP regimen: carvedilol 12.5 mg twice per day, valsartan, hydrochlorothiazide, amlodipine 2.5 mg p.o. daily PVCs Carvedilol 9.375mg p.o. twice daily started Prolonged QT Avoid QT prolonging Meds Monitor and replace electrolytes Obstructive sleep apnea Likely contributing to hypertension Continue CPAP Chronic medical conditions Cerebrovascular small vessel disease CKD stage III SALAS Migraine IBD Dyslipidemia Prediabetes DVT prophylaxis Continue SCDs, Ambulate Full code Disposition Anticipate home when clinically stable Notes For Next Care Provider Check CBC and BMP at hospital discharge Close follow-up with BPs Follow-up with cardiology Medication Changes From Visit Per cardiology: Would discharge on current regimen carvedilol 12.5 mg twice per day, valsartan, hydrochlorothiazide, amlodipine 2.5 mg p.o. daily. Prior difficulties with edema with amlodipine would not titrate higher Avoid QT prolonging Meds Admission HPI Per Admitting Provider 73 year old female with history of RADHA on CPAP, Obesity, Pre DM, HLD, Cerebrovascular Small Vessel Disease, SALAS, other problems noted below presenting with elevated BP from the Cardiology Clinic. She was referred by her PCP to the Cardiology Clinic for evaluation of PVCs and prolonged QT. Her BP was found to be 230/92 and was reporting a headache. She was given a dose of Clonidine 50mcg, but repeat BP was still noted to be at systolic 180s. Hence she was directed to the ER for further evaluation. BP upon arrival to the ER was 210/70, and she was given Labetalol 10mg IV. Repeat BP was initially improved but went up again to systolic 200s. She was again given another dose of labetalol 10 mg IV On exam, seen sitting up in bed, comfortable, not in distress, in good spirits Reports intermittent frontal headache, but no blurring of vision, focal neurologic deficits, chest pain, shortness of breath, palpitations, dizziness, nausea. No other new symptoms. Admission Exam Per Admitting Provider Physical Exam Physical Exam: General- oriented x 3, not in distress, speaks in sentences with no effort or accessory muscle use Head- atraumatic Eyes- PERRL, EOMI, anicteric ENT- oropharynx clear Neck- supple, no JVD, no adenopathy, no thyromegaly; carotids +2/2, no bruits appreciated Lungs- clear to auscultation bilaterally, no rales/wheezes Heart- normal rate, regular rhythm; no murmur, no gallop, no rub appreciated Abdomen- normal bowel sounds, nondistended, soft, nontender, no masses or hepatosplenomegaly Extremities- no pretibial edema, no calf tenderness; peripheral pulses intact Neuro- alert, oriented x 3; CN 2-12 grossly intact; motor 5/5 bilaterally;sensation 100% on all extremities; no other gross focal neurologic deficits Skin- warm & dry Discharge Exam General- Alert NAD Head- atraumatic Eyes- PERRL, EOMI, anicteric ENT- oropharynx clear Neck- supple, no JVD, no adenopathy, no thyromegaly; carotids +2/2, no bruits appreciated Lungs- clear to auscultation and percussion Heart- regular rhythm; no murmur, no gallop, no rub appreciated Abdomen- normal bowel sounds, soft, nontender, no masses or hepatosplenomegaly Extremities- no pretibial edema, no calf tenderness; peripheral pulses intact Neuro- alert, oriented x 3; PERRL, EOMI; no facial palsy; no dysarthria; motor 5/5 bilaterally; no cogwheel rigidity; patellar DTRs +2/2; toes downgoing bilaterally; finger to nose intact bilaterally Skin- warm & dry Updated Medication List Medication Instructions Recorded Confirmed Type rosuvastatin 20 mg tablet 20 mg PO HS 03/06/18 11/01/23 History zolpidem 5 mg tablet 5 mg PO HS Sleep 03/06/18 11/01/23 History dicyclomine 10 mg capsule 10 mg PO QID PRN Abdominal Pain 08/10/19 11/01/23 History meclizine 25 mg tablet 25 mg PO TID PRN Dizziness 08/10/19 11/01/23 History acetaminophen 500 mg tablet 1,000 mg PO Q8H PRN Pain 12/30/21 11/01/23 History (Tylenol Extra Strength) fluticasone propionate 50 2 spray intranasal DAILY #16 grams 01/01/22 11/01/23 Rx mcg/actuation nasal spray,suspension albuterol sulfate 90 mcg/actuation 2 puff inhalation Q4 PRN 11/01/23 11/01/23 History aerosol inhaler COUGH,SOB,WHEEZING azelastine 137 mcg (0.1 %) nasal 2 spray intranasal AMHS 11/01/23 11/01/23 History spray clonidine HCl 0.1 mg tablet 0.1 mg PO DAILY PRN SBP>180 MM HG 11/01/23 11/01/23 History hydrochlorothiazide 12.5 mg tablet 12.5 mg PO DAILY #30 tabs 11/01/23 Rx metoprolol tartrate 25 mg tablet 25 mg PO BID 11/01/23 11/01/23 History montelukast 10 mg tablet 10 mg PO QAM 11/01/23 11/01/23 History omeprazole 40 mg capsule,delayed 40 mg PO DAILYBB 11/01/23 11/01/23 History release sodium chloride-aloe vera nasal 1 applic topical . NEEDED PRN 11/01/23 11/01/23 History gel (Saline Nasal (aloe vera) gel) NASAL CONGESTION AND DRYNESS tizanidine 4 mg capsule 4 mg PO TID 11/01/23 11/01/23 History amlodipine 5 mg tablet (Norvasc) 2.5 mg (1/2 x 5 mg) PO QAM #30 tabs 11/03/23 Rx carvedilol 12.5 mg tablet 12.5 mg PO BIDM #60 tabs 11/03/23 Rx Hospital Stay Data Consultations 11/01/23 14:53 ED Decision to Admit Stat 11/01/23 17:58 Consult [employer] Routine Cardiology Procedures Performed Shane Diagnostic Imagining Performed 11/01/23 15:31 US duplex renal art/vein BI Routine 11/01/23 15:31 CT head/brain wo con Stat Pending Results Patient Have Any Pending Studies at Discharge: No Discharge Instructions Given to Patient (Per Discharging Provider) Follow-up with your primary care provider next week. Follow-up with cardiology Take new hypertension medications as directed Check CBC and BMP in the office at your PCP follow up We are glad you are feeling better. It has been our privilege taking care of you. Total Time Total Time Spent Total Time Spent (In Minutes): 45 minutes spent in discharge planning and documentation
[2023-11-03] MEDS ORDERED: carvediloL 12.5 MG TAB PO SCH (17:00)
[2023-11-04] MEDS ORDERED: amLODIPine BESYLATE 5 MG TAB PO SCH (09:00)
--- NOTE | 2023-11-04 17:02 | Discharge Summary ---
<Statement entered by Nick Salmon, DO - 11/03/23 12:33> error Discharge Summary Date of Service November 03, 2023 Principal Dx & Hospital Course #1 = Principal Diagnosis (1) Hypertensive urgency: In summary, a 73 year old female with history of RADHA on CPAP, Obesity, Pre DM, HLD, Cerebrovascular Small Vessel Disease, SALAS, other problems noted below presenting with elevated BP from the Cardiology Clinic. Hypertensive urgency She had discontinued her antihypertensive medication Blood pressure was systolic to 120s after 2 doses of labetalol IV. Pt continues on a nicardipine drip, wean as tolerated Started on Amlodipine 10mg PO Daily, Valsartan 80mg PO Daily. We will increase her Carvedilol to 9.375mg PO Twice a day CT head without contrast reviewed. No bleed Renal Doppler ultrasound reviewed and no evidence of renal artery stenosis Continue CPAP while admitted for obstructive sleep apnea Cardiology and CCM consulted. Appreciate consults Final BP regimen: carvedilol 12.5 mg twice per day, valsartan, hydrochlorothiazide, amlodipine 2.5 mg p.o. daily PVCs Carvedilol 9.375mg p.o. twice daily started Prolonged QT Avoid QT prolonging Meds Monitor and replace electrolytes Obstructive sleep apnea Likely contributing to hypertension Continue CPAP Chronic medical conditions Cerebrovascular small vessel disease CKD stage III SALAS Migraine IBD Dyslipidemia Prediabetes DVT prophylaxis Continue SCDs, Ambulate Full code Disposition Anticipate home when clinically stable Notes For Next Care Provider Medication Changes From Visit o Admission HPI Per Admitting Provider 73 year old female with history of RADHA on CPAP, Obesity, Pre DM, HLD, Cerebrovascular Small Vessel Disease, SALAS, other problems noted below presenting with elevated BP from the Cardiology Clinic. She was referred by her PCP to the Cardiology Clinic for evaluation of PVCs and prolonged QT. Her BP was found to be 230/92 and was reporting a headache. She was given a dose of Clonidine 50mcg, but repeat BP was still noted to be at systolic 180s. Hence she was directed to the ER for further evaluation. BP upon arrival to the ER was 210/70, and she was given Labetalol 10mg IV. Repeat BP was initially improved but went up again to systolic 200s. She was again given another dose of labetalol 10 mg IV On exam, seen sitting up in bed, comfortable, not in distress, in good spirits Reports intermittent frontal headache, but no blurring of vision, focal neurologic deficits, chest pain, shortness of breath, palpitations, dizziness, nausea. No other new symptoms. Updated Medication List Medication Instructions Recorded Confirmed Type rosuvastatin 20 mg tablet 20 mg PO HS 03/06/18 11/01/23 History zolpidem 5 mg tablet 5 mg PO HS Sleep 03/06/18 11/01/23 History dicyclomine 10 mg capsule 10 mg PO QID PRN Abdominal Pain 08/10/19 11/01/23 History meclizine 25 mg tablet 25 mg PO TID PRN Dizziness 08/10/19 11/01/23 History acetaminophen 500 mg tablet 1,000 mg PO Q8H PRN Pain 12/30/21 11/01/23 History (Tylenol Extra Strength) fluticasone propionate 50 2 spray intranasal DAILY #16 grams 01/01/22 11/01/23 Rx mcg/actuation nasal spray,suspension albuterol sulfate 90 mcg/actuation 2 puff inhalation Q4 PRN 11/01/23 11/01/23 History aerosol inhaler COUGH,SOB,WHEEZING azelastine 137 mcg (0.1 %) nasal 2 spray intranasal AMHS 11/01/23 11/01/23 History spray clonidine HCl 0.1 mg tablet 0.1 mg PO DAILY PRN SBP>180 MM HG 11/01/23 11/01/23 History hydrochlorothiazide 12.5 mg tablet 12.5 mg PO DAILY #30 tabs 11/01/23 Rx montelukast 10 mg tablet 10 mg PO QAM 11/01/23 11/01/23 History omeprazole 40 mg capsule,delayed 40 mg PO DAILYBB 11/01/23 11/01/23 History release sodium chloride-aloe vera nasal 1 applic topical . NEEDED PRN 11/01/23 11/01/23 History gel (Saline Nasal (aloe vera) gel) NASAL CONGESTION AND DRYNESS tizanidine 4 mg capsule 4 mg PO TID 11/01/23 11/01/23 History amlodipine 5 mg tablet (Norvasc) 2.5 mg (1/2 x 5 mg) PO QAM #30 tabs 11/03/23 Rx carvedilol 12.5 mg tablet 12.5 mg PO BIDM #60 tabs 11/03/23 Rx valsartan 80 mg tablet 80 mg PO DAILY #30 tabs 11/03/23 Rx Hospital Stay Data Consultations 11/01/23 14:53 ED Decision to Admit Stat 11/01/23 17:58 Consult [employer] Routine Diagnostic Imagining Performed 11/01/23 15:31 US duplex renal art/vein BI Routine 11/01/23 15:31 CT head/brain wo con Stat Pending Results Patient Have Any Pending Studies at Discharge: No Discharge Instructions Given to Patient (Per Discharging Provider) Follow-up with your primary care provider next week. Follow-up with cardiology Take new hypertension medications as directed Check CBC and BMP in the office at your PCP follow up We are glad you are feeling better. It has been our privilege taking care of you. Total Time Total Time Spent Total Time Spent (In Minutes): > 35 min
== END 2023-11-03 13:49 | disposition home or self-care (01) | DRG 305 ==
LOC: ED 11:53 → SUATTDRO 15:31 → 1E 15:31
DX: G47.33 Obstructive sleep apnea (adult) (pediatric); E78.5 Hyperlipidemia, unspecified; K75.81 Nonalcoholic steatohepatitis (NASH); Z88.2 Allergy status to sulfonamides; Z88.5 Allergy status to narcotic agent; Z86.79 Personal history of other diseases of the circulatory system; I49.3 Ventricular premature depolarization; Z68.34 Body mass index [BMI] 34.0-34.9, adult; R73.03 Prediabetes; I16.0 Hypertensive urgency; E66.9 Obesity, unspecified; R94.31 Abnormal electrocardiogram [ECG] [EKG]; Z87.891 Personal history of nicotine dependence; I12.9 Hypertensive chronic kidney disease with stage 1 through stage 4 chronic kidney disease, or unspecified chronic kidney disease; N18.30 Chronic kidney disease, stage 3 unspecified; Z88.8 Allergy status to other drugs, medicaments and biological substances; G43.909 Migraine, unspecified, not intractable, without status migrainosus